=== PATIENT | male | born 1980 ===

== ENCOUNTER 2021-04-13 13:55 | Outpatient (REF) | payer BC, SELFPAY | END 2021-04-13 13:56 | disposition home or self-care (01) | LOC: HO.LAB 13:55 | PROVIDERS: Visit Provider Physician Assistant Medical | DX: R30.0 Dysuria (principal) | CPT/HCPCS: 87086 ==

== ENCOUNTER 2021-10-11 13:26 | Outpatient (REF) | payer BC, SELFPAY ==
--- NOTE | ~2021-10-11 | CT_ITS ---
EXAMINATION: CT CHEST WITHOUT CONTRAST CLINICAL INFORMATION: Pulmonary nodule COMPARISON: Previous chest x-rays from 2019 TECHNIQUE: Multidetector volumetric CT imaging of the chest was done. Axial MIP volume rendering provided. Sagittal and coronal reformatted images were obtained. This CT examination was performed using dose optimization techniques as appropriate, variously including the following: *Automated exposure control *Adjustment of mA and/or kV according to patient size (this includes techniques or standardized protocols for targeted exams where dose is matched to indication/reason for exam; i.e. extremities or head) *Use of iterative reconstruction technique DLP: 182 mGy-cm FINDINGS: LUNGS: There is a 3 mm calcified left lower lobe nodule adjacent to the fissure axial image 266 series 7. There is a 7 mm calcified left lower lobe nodule axial image 321 series 7. The lungs are otherwise clear. MEDIASTINUM: There are small calcified left hilar lymph nodes. The mediastinum is otherwise normal. PLEURA: There is no pleural effusion. No pleural mass or thickening. AXILLA: No lymphadenopathy. UPPER ABDOMEN: Unremarkable. OSSEOUS STRUCTURES: Unremarkable. CT/CT chest wo con IMPRESSION: Evidence of old granulomatous disease with 2 calcified left lower lobe nodules and small calcified left hilar lymph nodes. Fleischner guidelines were followed.
== END 2021-10-11 13:27 | disposition home or self-care (01) ==
LOC: HO.CT 13:26
PROVIDERS: PCP Internal Medicine; Visit Provider Internal Medicine
DX: R91.1 Solitary pulmonary nodule (principal); G43.909 Migraine, unspecified, not intractable, without status migrainosus
CPT/HCPCS: 71250

== ENCOUNTER → 2021-10-17 11:27 | Outpatient (BNVA) | payer BC, SELFPAY | PROVIDERS: PCP Internal Medicine; Visit Provider Internal Medicine Pulmonary Disease | DX: Z13.89 Encounter for screening for other disorder (principal) ==

== ENCOUNTER 2021-10-23 10:13 | Outpatient (REF) | payer BC, SELFPAY ==
[2021-10-23 11:36] LABS: Alanine Aminotransferase 51 U/L (0-40); Albumin Level 4.6 g/dL (3.5-5.0); Alkaline Phosphatase 66 U/L (39-117); Anion Gap 12 (12-20); Aspartate Amino Transferase 23 U/L (5-37); Bilirubin Total 0.6 mg/dL (0.0-1.0); Blood Urea Nitrogen 14 mg/dL (9-16); Calcium 9.8 mg/dL (8.4-10.2); Carbon Dioxide 25 mmol/L (22-29); Chloride 106 mmol/L (96-108); Cholesterol 206 mg/dL; Estimated Glomerular Filt Rate > 60; Glucose Fasting 88 mg/dL (60-99); HDL Cholesterol 44 mg/dL; LDL Cholesterol Calculated 143 mg/dl; Potassium 4.5 mmol/L (3.3-5.1); Sodium 138 mmol/L (135-145); Total Protein 7.4 g/dL (6.5-8.0); Triglycerides 97 mg/dL
== END 2021-10-23 10:14 | disposition home or self-care (01) ==
LOC: HO.LAB 10:13
PROVIDERS: PCP Internal Medicine; Visit Provider Internal Medicine
DX: Z00.00 Encounter for general adult medical examination without abnormal findings (principal)
CPT/HCPCS: 36415; 80053; 80061

== ENCOUNTER 2021-11-12 20:21 | Emergency (ER) | payer BC, SELFPAY ==
[2021-11-12 20:43] VITALS: BP 133/85; PULSE 84; RESP 18; TEMP 36.2; O2SAT 97; BMI 30.6
[2021-11-12] MEDS: Fluorescein Sodium STRIP 1 STRIP EYE-RIGHT (22:37)
[2021-11-12] MEDS: Tetracaine HCl/PF 0.5% Oph Sol 4 ML DROPS 1 DROP EYE-RIGHT (22:37)
--- NOTE | 2021-11-12 23:06 | ED.GENADULT ---
HPI - General Adult General Chief complaint: General Medical Stated complaint: Eye Inj Time Seen by Provider: 11/12/21 21:17 Source: patient Mode of arrival: ambulatory Limitations: no limitations History of Present Illness HPI narrative: 40 year old male here with reports of right eye discomfort after he hit his eye with pliers at home. Tetanus status is unknown. No vision changes, no eye drainage. Related Data Home Medications Medication Instructions Recorded Confirmed epinephrine 0.3 mg/0.3 mL 1 IM ONCE 04/10/20 10/18/21 injection, auto-injector Previous Rx's Medication Instructions Recorded amitriptyline 25 mg tablet 25 mg PO BEDTIME 90 Days #90 tab 09/27/21 sumatriptan succinate 25 mg tablet 25 mg PO Q2-4H PRN 30 Days #9 tab 09/27/21 azithromycin 250 mg tablet 250 mg PO DIRECTED 5 Days #6 tab 10/18/21 tobramycin 0.3 % eye drops 1 drp OPHTHALMIC (EYE) Q4H 5 Days 10/18/21 #5 ml triamcinolone acetonide 0.1 % 1 appl TOPICAL BID 14 Days #15 g 10/18/21 topical cream erythromycin 5 mg/gram (0.5 %) eye 0.5 inch OPHTHALMIC (EYE) BID 7 11/12/21 ointment Days #3.5 g Allergies Allergy/AdvReac Type Severity Reaction Status Date / Time aspirin [ASA] Allergy Severe ANAPHYLAXIS, Verified 10/18/21 16:17 facial swelling ibuprofen [Advil] Allergy Unknown tracheal Verified 10/18/21 16:17 swelling shellfish derived Allergy Unknown Anaphylaxis Verified 10/18/21 16:17 Review of Systems Review of Systems: Yes all other systems are reviewed and are negative Constitutional: Constitutional: Reports no additional constitutional complaints, Denies body ache(s), Denies chills, Denies fever(s), Denies headache(s) and Denies weakness Eyes: Eyes: Reports no additional eye complaints, Denies change in vision, Denies eye discharge, Reports irritation, Denies eye pain and Denies photophobia ENT: Reports system reviewed and no additional complaints, except as documented, Denies dizziness, Denies headache(s), Denies nasal congestion, Denies nasal discharge and Denies neck pain Cardiovascular: Cardiovascular: Reports no additional cardiovascular complaints, Denies chest pain, Denies leg edema and Denies dyspnea Respiratory: Respiratory: Reports no additional respiratory complaints, Denies cough and Denies dyspnea Gastrointestinal: Gastrointestinal: Reports no additional gastrointestinal complaints, Denies abdominal pain, Denies diarrhea, Denies nausea and Denies vomiting Genitourinary: Genitourinary: Denies urinary incontinence Musculoskeletal: Musculoskeletal: Reports no additional musculoskeletal complaints, Denies back pain, Denies arthralgias, Denies joint swelling, Denies neck pain, Denies numbness and Denies tingling Integumentary/Breasts: Skin/Breast: Reports system reviewed and no additional complaints, except as docu and Denies rash Neurologic: Reports system reviewed and no additional complaints, except as documented, Denies dizziness, Denies headache(s), Denies numbness, Denies tingling and Denies weakness PMFSH Past Medical History Attestation statement: The following information was validated with the patient. Source: old records reviewed and nursing notes reviewed Medical History Anxiety Hospital discharge follow-up Migraines Mild recurrent major depression Physical exam Pulmonary nodules Screen for colon cancer Surgical History No pertinent past surgical history Family History Family History Father Colon cancer, Onset Age: 63 Liver cancer Mother Breast cancer Diabetes Hypertension Maternal Grandmother Cancer Paternal Aunt Cancer Family/Other FH: mental illness Social History Social History Housing: House Alcohol intake: former Patient Tobacco Use Status: Former Tobacco user Tobacco use type: Cigarette Cigarettes Per Day: 7 e-Cigarette/Vaping Use: Never Used Second Hand Smoke Exposure: No service: No Current occupational status: employed Current occupational exposures/hazards: No Cognitive needs: No Hearing needs: No Vision needs: No Physical Exam ED Vital Signs: Vital Signs - 24 hr 11/12/21 20:43 Temperature 97.2 F Pulse Rate 84 Respiratory Rate 18 Blood Pressure 133/85 Pulse Oximetry 97 BMI result Body Mass Index 30.6 Const General: cooperative and alert Orientation/consciousness: patient oriented x3 HENMT Head: Yes normal to inspection Ears: hearing grossly normal bilaterally General nose exam: Normal external nose present Face and sinus: Yes normal facial exam Mouth: Normal oral and palatal mucosa present Throat: Yes posterior oropharynx normal Eyes General: appearance normal, both eyes and all related structures Visual Santos: normal visual santos by confrontation Alignment and Position: alignment normal Periorbital: periorbital findings normal Eyelids: Yes other (Ecchymosis and swelling noted over the upper and lower eyelid on the right ) Conjunctivae: conjunctival abnormal right conjunctival injection and other (+fluoro uptake) Sclerae: sclerae normal Corneas: corneas normal, fluorescein used and other (No corneal abrasion or foreign body) Pupils: Equal, round and reactive pupils present EOM: EOMs intact bilaterally Direct Ophthalmoscopy: normal light reflex and No photophobia Neck Neck: Yes normal visual inspection Chest Chest palpation & inspection: normal inspection of the chest Resp Effort & Inspection: normal respiratory effort Cardio Peripheral pulses: Peripheral pulses 2+ throughout Skin General skin exam: no rashes or lesions noted Neuro General: patient oriented x3 and moves all extremities Cranial nerves: Yes Equal, round and reactive pupils present Course Course Course Narrative: Right eye irritation after striking his eye with prior shows prior to arrival. No vision changes. Patient has some ecchymosis noted over the upper and lower eyelid on the right side. His visual acuity is normal. He has some injection and increased uptake of fluorescein in his right conjunctiva but no corneal abrasion or foreign body noted. Patient given for recent mycin while he was in the emergency department. He was also updated on his tetanus. Reviewed worrisome signs and symptoms and when to return to the emergency department. Comfortable discharge home. Medical Decision Making Medical Records Medical records reviewed: Yes I reviewed the patient's medical records. Lab Data Lab results reviewed: Yes I reviewed the patient's lab results. Discharge Plan Discharge Clinical Impression: Contusion of eye, Abrasion of conjunctiva Patient Disposition: Home, Self-Care Instructions: Contusion in Adults (ED), Eye Pain (ED) Additional Instructions: You have a contusion or bruise around her eye. You also have a scratch in the white part of the eye Use the ointment as prescribed Cool compresses to the eye as needed Prescriptions: New erythromycin 5 mg/gram (0.5 %) ointment 0.5 inch ophthalmic (eye) BID 7 Days Qty: 3.5 0RF No Action epinephrine 0.3 mg/0.3 mL auto-injector 1 IM ONCE 0RF triamcinolone acetonide 0.1 % cream 1 appl topical BID 14 Days Qty: 15 0RF azithromycin 250 mg tablet 250 mg PO DIRECTED 5 Days Qty: 6 0RF Rx Instructions: Take 2 tabs the first day, then 1 tab for the next 4 days tobramycin 0.3 % drops 1 drp ophthalmic (eye) Q4H 5 Days Qty: 5 0RF sumatriptan succinate 25 mg tablet 25 mg PO Q2-4H PRN (Reason: migraine headache) 30 Days Qty: 9 2RF Rx Instructions: do not exceed 8 doses per 24 hrs amitriptyline 25 mg tablet 25 mg PO BEDTIME 90 Days Qty: 90 0RF Referrals: Ale Minor MD [Primary Care Provider] -
[2021-11-12] MEDS: Diphth,Pertus(ACell),Tet Adult 0.5 ML SYRINGE IM (23:37)
[2021-11-12] MEDS: Erythromycin Base 0.5% Oph Oin 1 GM TUBE 1 CM EYE-RIGHT (23:37)
== END 2021-11-12 23:48 | disposition home or self-care (01) ==
LOC: HO.ED 23:21
PROVIDERS: Emergency Provider Emergency Medicine; PCP Internal Medicine
DX: S00.11XA Contusion of right eyelid and periocular area, initial encounter (principal); S05.01XA Injury of conjunctiva and corneal abrasion without foreign body, right eye, initial encounter; W22.8XXA Striking against or struck by other objects, initial encounter; Y93.89 Activity, other specified; Y92.019 Unspecified place in single-family (private) house as the place of occurrence of the external cause; Y99.9 Unspecified external cause status
CPT/HCPCS: 90471; 90715; 99282; 99284

== ENCOUNTER 2021-12-25 12:20 | Emergency (ER) | payer BC, SELFPAY ==
--- NOTE | ~2021-12-25 | CT_ITS ---
EXAMINATION: CT ABDOMEN AND PELVIS WITH CONTRAST CLINICAL INFORMATION: umbilical hernia r/o strangulation vs incarceration COMPARISON: CT abdomen pelvis 04/12/2016 TECHNIQUE: Multidetector volumetric images were obtained from the superior aspect of the liver through the pubic symphysis following administration 85 mL of Omnipaque 350 intravenous contrast. Sagittal and coronal reformatted images were obtained on the technologist's workstation. Oral contrast: No This CT examination was performed using dose optimization techniques as appropriate, variously including the following: *Automated exposure control *Adjustment of mA and/or kV according to patient size (this includes techniques or standardized protocols for targeted exams where dose is matched to indication/reason for exam; i.e. extremities or head) *Use of iterative reconstruction technique DLP: 588 mGy-cm FINDINGS: LUNG BASES: The visualized lung bases are unremarkable. A large calcified granuloma is present at the left lung base. LIVER, GALLBLADDER, AND BILIARY TREE: The liver is normal in size, shape, and attenuation. No focal hepatic lesion or biliary ductal dilatation is present. The gallbladder is unremarkable with no evidence of radiopaque gallstones, gallbladder wall thickening, or obvious pericholecystic inflammatory changes. PANCREAS: Unremarkable. SPLEEN: Unremarkable. ADRENAL GLANDS: Unremarkable. KIDNEYS AND URETERS: The kidneys are normal in size, shape, and attenuation. No hydronephrosis, hydroureter, or calculi seen. No perinephric stranding. BLADDER: Unremarkable. GASTROINTESTINAL TRACT: The small and large bowel are unremarkable. The appendix is unremarkable. ABDOMINAL WALL: A small periumbilical hernia is seen containing only fat. The hernia is a tiny bit larger when compared to the 04/12/2016 study but otherwise without significant change. Some minimal soft tissue streaky density seen within this umbilical fat which appears similar to 2016. No bowel containing anterior abdominal wall hernias are seen. There are tiny indirect inguinal hernia seen containing only fat LYMPH NODES: No retroperitoneal lymphadenopathy. VASCULAR: Unremarkable. There is an accessory retroaortic left renal vein present. PELVIC VISCERA: Unremarkable. Central prostatic calcifications are present. OSSEOUS STRUCTURES: Unremarkable. CT/CT abdomen pelvis w con IMPRESSION: Tiny periumbilical hernia containing only fat with tiny indirect inguinal hernias containing fat. Appearances are not significantly different when compared to 2016. Fleischner guidelines were followed.
[2021-12-25 13:21] VITALS: BP 121/84; PULSE 81; RESP 16; TEMP 36.6; O2SAT 98; BMI 30.4
[2021-12-25 14:11] LABS: MANUAL DIFF FLAG NO
[2021-12-25 14:12] LABS: Basophils Percent Auto 0.5 % (0-2); Eosinophils Absolute Auto 0.1 X10*3/uL (0.0-0.4); Eosinophils Percent Auto 2.1 % (0-4); Hematocrit 45.5 % (42.0-52.0); Hemoglobin 14.6 g/dl (14.0-18.0); Imm Gran Abs Auto 0.01 X10*3/uL (0.00-0.03); Imm Gran Pct Auto 0.2 % (0.0-0.4); Lymphocytes Absolute Auto 1.5 X10*3/uL (1.2-4.9); Lymphocytes Percent Auto 26.3 % (20-40); Mean Corpuscular HGB Conc 32.1 g/dl (31.0-36.0); Mean Corpuscular Hemoglobin 27.8 pg (27.0-33.0); Mean Corpuscular Volume 86.5 fL (80.0-98.0); Monocytes Absolute Auto 0.5 X10*3/uL (0.1-1.2); Monocytes Percent Auto 8.4 % (2-11); Neutrophils Absolute Auto 3.6 x10*3/uL (2.0-8.3); Neutrophils Percent Auto 62.5 % (45-73); Platelet Count 307 X10*3/uL (160-400); Red Blood Count 5.26 X10*6/uL (4.60-5.80); Red Cell Distribution Width 13.5 % (11.0-16.0); White Blood Count 5.7 X10*3/uL (4.8-10.8)
[2021-12-25 14:43] LABS: Alanine Aminotransferase 101 U/L (0-40); Alkaline Phosphatase 66 U/L (39-117); Anion Gap 12 (12-20); Aspartate Amino Transferase 40 U/L (5-37); Bilirubin Direct 0.2 mg/dL (0.0-0.5); Bilirubin Total 0.5 mg/dL (0.0-1.0); Blood Urea Nitrogen 15 mg/dL (9-16); C Reactive Protein 0.64 mg/dL (< or = 0.50); Calcium 9.5 mg/dL (8.4-10.2); Carbon Dioxide 24 mmol/L (22-29); Chloride 107 mmol/L (96-108); Creatinine Clr Calc Pharmacy 131.7; Estimated Glomerular Filt Rate > 60; Glucose Random 96 mg/dL (60-115); Lipase 23 U/L (8-78); Potassium 4.5 mmol/L (3.3-5.1); Sodium 138 mmol/L (135-145); Total Protein 7.9 g/dL (6.5-8.0)
--- NOTE | 2021-12-25 15:22 | ED_ITS ---
HPI - Abdominal Pain General Chief Complaint: Abdominal Pain Stated Complaint: Hernia Time Seen by Provider: 12/25/21 13:34 Source: patient Mode of arrival: ambulatory History of Present Illness HPI narrative: 41-year-old male with past medical history of anxiety, migraines, umbilical hernia, presenting to the ED complaining of painful umbilical hernia x3 days. Reports pain is constant mildly relieved when lying flat. Admits to heavy lifting at work. Denies difficulty having BMs, nausea, vomiting, fever, diarrhea, dysuria/hematuria MD elicited complaint: abdominal pain Onset (ago): day(s) Related Data Home Medications Medication Instructions Recorded Confirmed epinephrine 0.3 mg/0.3 mL 1 IM ONCE 04/10/20 12/03/21 injection, auto-injector Previous Rx's Medication Instructions Recorded bisacodyl 5 mg tablet,delayed 10 mg PO ONCE colonoscopy prep 1 12/03/21 release (Dulcolax (bisacodyl)) day #2 tabs polyethylene glycol 3350 17 238 g PO ONCE 1 day #238 grams 12/03/21 gram/dose oral powder (Miralax) sennosides 8.6 mg capsule (senna) 8.6 mg PO DAILY PRN constipation 12/03/21 #30 caps amitriptyline 25 mg tablet 25 mg PO BEDTIME 90 days #90 tabs 12/24/21 Allergies Allergy/AdvReac Type Severity Reaction Status Date / Time aspirin [ASA] Allergy Severe ANAPHYLAXIS, Verified 12/25/21 13:25 facial swelling ibuprofen [Advil] Allergy Unknown tracheal Verified 12/25/21 13:25 swelling shellfish derived Allergy Unknown Anaphylaxis Verified 12/25/21 13:25 Review of Systems Review of Systems Constitutional: No Fever, No Chills, No Fatigue, No Malaise ENT/Mouth: No Hearing loss, No Ear Pain, No sore throat, No Rhinorrhea, No Swallowing Difficulty Eyes: No Eye Pain, No Swelling, No Vision Changes Cardiovascular: No Chest Pain, No SOB, No Palpitations Respiratory: No Cough, No Sputum, No Dyspnea Gastrointestinal: No Nausea, No Vomiting, No Diarrhea, No Constipation, + Abdominal pain, No Hematochezia, No Melena Genitourinary: No Dysuria, No Urinary Frequency, No Hematuria, No Urinary Incontinence/retention, No Flank Pain Musculoskeletal: No joint pain, No Myalgias, No Joint Swelling Skin: No Skin Lesions, No rash Neuro: No Weakness, No Dizziness, No Headache Yes all other systems are reviewed and are negative PENDING SALE TO [facility] Past Medical History Attestation statement: The following information was validated with the patient. Medical History Anxiety Hospital discharge follow-up Migraines Mild recurrent major depression Physical exam Pulmonary nodules Screen for colon cancer Surgical History No pertinent past surgical history Family History Family History Father Colon cancer, Onset Age: 63 Liver cancer Mother Breast cancer Diabetes Hypertension Maternal Grandmother Cancer Paternal Aunt Cancer Family/Other FH: mental illness Social History Social History Housing: House Alcohol intake: former Patient Tobacco Use Status: Former Tobacco user Tobacco use type: Cigarette Cigarettes Per Day: 7 e-Cigarette/Vaping Use: Never Used Second Hand Smoke Exposure: No Advance Directives: No Advance Directives Information Provided: No service: No Current occupational status: employed Current occupational exposures/hazards: No Cognitive needs: No Hearing needs: No Vision needs: No Physical Exam ED Vital Signs: Vital Signs - 24 hr 12/25/21 13:21 12/25/21 16:04 12/25/21 17:37 Temperature 97.8 F 98.2 F Pulse Rate 81 70 Respiratory Rate 16 18 16 Blood Pressure 121/84 138/88 Pulse Oximetry 98 100 Oxygen Delivery Method Room Air Room Air BMI result Body Mass Index 30.4 Const General: cooperative and healthy appearing Orientation/consciousness: patient oriented x3 Limitations: no limitations HENMT Head: Yes normal to inspection and Yes atraumatic Ears: hearing grossly normal bilaterally General nose exam: Normal external nose present Face and sinus: Yes normal facial exam Eyes General: appearance normal, both eyes and all related structures EOM: EOMs intact bilaterally Neck Neck: Yes normal visual inspection and Yes no meningeal signs Resp Effort & Inspection: normal respiratory effort and no respiratory distress Cardio Rate: regular rate Heart sounds: S1 normal heart sound present and S2 normal heart sound present GI Inspection: Yes normal to inspection Palpation (GI): Soft to palpation, Tenderness to palpation present (GI) periumbilically, no guarding, not rigid and Hernia present (Nonreducible) umbilical General: Yes no CVA tenderness Back/Spine/Pelvis Back: no CVA tenderness Skin Rashes: no rashes Wounds: no wounds Neuro General: patient oriented x3, tone normal and no meningeal signs Gait exam (Neuro): Normal gait present Extrem General: Yes normal to inspection Course Course Course Narrative: -no leukocytosis. AST/ALT elevated. CRP minimally elevated -lactic acid negative CT abdomen pelvis w con IMPRESSION: Tiny periumbilical hernia containing only fat with tiny indirect inguinal hernias containing fat. Appearances are not significantly different when compared to 2016.? ? Fleischner guidelines were followed. > results discussed with patient in interpreter for the deaf including worrisome signs and symptoms and strict return precautions and need close follow-up with PCP/General surgery. He verbalized understanding feel safe for discharge home MDM - Abdominal Pain MDM Narrative Medical decision making narrative: 41-year-old male with past medical history of anxiety, migraines, umbilical hernia, presenting to the ED complaining of painful umbilical hernia x3 days. On exam vital signs stable, NAD, nontoxic appearing, abdomen soft with appreciable umbilical hernia that is tender to palpation and non reducible on exam. Concern for incarcerated hernia versus strangulated hernia. Lower suspicion for diverticulitis/appendicitis/pancreatitis or cholecystitis/lithiasis Plan: Labs, UA, IVF, IV pain control, CT abdomen/pelvis Differential Diagnosis Differential diagnosis: Likely abdominal pain, constipation, mesenteric ischemia and small bowel obstruction Medical Records Attestation: I reviewed the patient's medical records. Lab Data Attestation: I reviewed the patient's lab results. Result diagrams: 12/25/21 14:01 12/25/21 14:01 Labs: Lab Results 12/25/21 12/25/21 12/25/21 Range/Units 14:01 14:01 15:32 WBC 5.7 (4.8-10.8) X10*3/uL RBC 5.26 (4.60-5.80) X10*6/uL Hgb 14.6 (14.0-18.0) g/dl Hct 45.5 (42.0-52.0) % MCV 86.5 (80.0-98.0) fL MCH 27.8 (27.0-33.0) pg MCHC 32.1 (31.0-36.0) g/dl RDW 13.5 (11.0-16.0) % Plt Count 307 (160-400) X10*3/uL MPV 9.0 L (9.4-12.4) fL Immature Gran % (Auto) 0.2 (0.0-0.4) % Neut % (Auto) 62.5 (45-73) % Lymph % (Auto) 26.3 (20-40) % [place] % (Auto) 8.4 (2-11) % Eos % (Auto) 2.1 (0-4) % Baso % (Auto) 0.5 (0-2) % Lymph # (Auto) 1.5 (1.2-4.9) X10*3/uL [place] # (Auto) 0.5 (0.1-1.2) X10*3/uL Eos # (Auto) 0.1 (0.0-0.4) X10*3/uL Baso # (Auto) 0.0 (0.0-0.2) X10*3/uL Abs Immat Gran (auto) 0.01 (0.00-0.03) X10*3/uL Absolute Neuts (auto) 3.6 (2.0-8.3) x10*3/uL Absolute Nucleated RBC 0.000 (0.0-0.012) X10*3/uL Nucleated RBC % (auto) 0.0 (0.0-0.2) /100WBC Sodium 138 (135-145) mmol/L Potassium 4.5 (3.3-5.1) mmol/L Chloride 107 (96-108) mmol/L Carbon Dioxide 24 (22-29) mmol/L Anion Gap 12 (12-20) BUN 15 (9-16) mg/dL Creatinine 0.75 (0.5-1.4) mg/dL Estim Creat Clear Calc 131.7 Estimated GFR > 60 Random Glucose 96 (60-115) mg/dL Lactic Acid (0.5-2.0) mmol/L Calcium 9.5 (8.4-10.2) mg/dL Total Bilirubin 0.5 (0.0-1.0) mg/dL Direct Bilirubin 0.2 (0.0-0.5) mg/dL AST 40 H D (5-37) U/L ALT 101 H (0-40) U/L Alkaline Phosphatase 66 (39-117) U/L C-Reactive Protein 0.64 H (< or = 0.50) mg/dL Total Protein 7.9 (6.5-8.0) g/dL Albumin 5.0 (3.5-5.0) g/dL Lipase 23 (8-78) U/L Urine Color STRAW Urine Appearance CLEAR Urine pH 6.0 (5.0-8.0) Ur Specific [place] <= 1.005 (1.005-1.025) Urine Protein NEG (NEG-TRACE) MG/DL Urine Glucose (UA) NEG (NEG) MG/DL Urine Ketones NEG (NEG) MG/DL Urine Blood NEG (NEG) Urine Nitrite NEG (NEG) Ur Leukocyte Esterase NEG (NEG) 12/25/21 Range/Units 15:35 WBC (4.8-10.8) X10*3/uL RBC (4.60-5.80) X10*6/uL Hgb (14.0-18.0) g/dl Hct (42.0-52.0) % MCV (80.0-98.0) fL MCH (27.0-33.0) pg MCHC (31.0-36.0) g/dl RDW (11.0-16.0) % Plt Count (160-400) X10*3/uL MPV (9.4-12.4) fL Immature Gran % (Auto) (0.0-0.4) % Neut % (Auto) (45-73) % Lymph % (Auto) (20-40) % [place] % (Auto) (2-11) % Eos % (Auto) (0-4) % Baso % (Auto) (0-2) % Lymph # (Auto) (1.2-4.9) X10*3/uL [place] # (Auto) (0.1-1.2) X10*3/uL Eos # (Auto) (0.0-0.4) X10*3/uL Baso # (Auto) (0.0-0.2) X10*3/uL Abs Immat Gran (auto) (0.00-0.03) X10*3/uL Absolute Neuts (auto) (2.0-8.3) x10*3/uL Absolute Nucleated RBC (0.0-0.012) X10*3/uL Nucleated RBC % (auto) (0.0-0.2) /100WBC Sodium (135-145) mmol/L Potassium (3.3-5.1) mmol/L Chloride (96-108) mmol/L Carbon Dioxide (22-29) mmol/L Anion Gap (12-20) BUN (9-16) mg/dL Creatinine (0.5-1.4) mg/dL Estim Creat Clear Calc Estimated GFR Random Glucose (60-115) mg/dL Lactic Acid 0.8 (0.5-2.0) mmol/L Calcium (8.4-10.2) mg/dL Total Bilirubin (0.0-1.0) mg/dL Direct Bilirubin (0.0-0.5) mg/dL AST (5-37) U/L ALT (0-40) U/L Alkaline Phosphatase (39-117) U/L C-Reactive Protein (< or = 0.50) mg/dL Total Protein (6.5-8.0) g/dL Albumin (3.5-5.0) g/dL Lipase (8-78) U/L Urine Color Urine Appearance Urine pH (5.0-8.0) Ur Specific [place] (1.005-1.025) Urine Protein (NEG-TRACE) MG/DL Urine Glucose (UA) (NEG) MG/DL Urine Ketones (NEG) MG/DL Urine Blood (NEG) Urine Nitrite (NEG) Ur Leukocyte Esterase (NEG) Discharge Plan Discharge Clinical Impression: Periumbilical hernia Patient Disposition: Home, Self-Care Instructions: Umbilical Hernia (ED) Additional Instructions: Your blood work was reassuring. CT scan shows a tiny periumbilical hernia as well as an indirect inguinal hernia both containing fat. These are not causing any issues at present. Avoid straining, heavy lifting, i ncreasing abdominal pressure Please follow-up with primary care doctor in General surgery as needed. Take Tylenol at home for pain Kelley an?lisis de deepti fue tranquilizador. La tomograf?a computarizada muestra carlos jorge?a hernia periumbilical, as? amber carlos hernia inguinal indirecta, ambas con contenido de grasa. Estos no est?n causando ward?n problema en quinn momento. Evite esforzarse, levantar objetos pesados, aumentar la presi?n abdominal Joey un seguimiento con el m?dico de atenci?n primaria en [place]?a general seg?n sea necesario. [place] Tylenol en casa para el dolor Prescriptions: No Action amitriptyline 25 mg tablet 25 mg PO BEDTIME 90 Days Qty: 90 0RF epinephrine 0.3 mg/0.3 mL auto-injector 1 IM ONCE bisacodyl [Dulcolax (bisacodyl)] 5 mg tablet,delayed release (DR/EC) 10 mg PO ONCE 1 Days Qty: 2 0RF Rx Instructions: Take 2 tablets by mouth at 12:00pm the day before your procedure. polyethylene glycol 3350 [Miralax] 17 gram/dose powder 238 g PO ONCE 1 Days Qty: 238 0RF Rx Instructions: Take as directed by mouth the day before your procedure. senna 8.6 mg capsule 8.6 mg PO DAILY PRN (Reason: constipation) Qty: 30 1RF Referrals: Dominguez Wise MD [Physician] - 10 days Ale Minro MD [Primary Care Provider] - 5 days Print Language: [place]
[2021-12-25 15:47] LABS: Appearance Urine CLEAR; Color Urine STRAW; Glucose Urine UA NEG (NEG); Leukocyte Esterase Urine NEG (NEG); Nitrite Urine NEG (NEG); Specific Gravity - Urine <= 1.005 (1.005-1.025); Urine Blood NEG (NEG); Urine Ketones NEG (NEG); Urine Protein NEG (NEG-TRACE)
[2021-12-25] MEDS: iohexoL 350 MG/ML 100 ML INFUS..BTL IV (15:50)
[2021-12-25 15:52] LABS: Lactic Acid 0.8 mmol/L (0.5-2.0)
[2021-12-25 16:04] VITALS: RESP 18
[2021-12-25] MEDS: Morphine Sulfate 2 MG/ML CARTRIDGE IVPUSH (16:04)
[2021-12-25] MEDS: 0.9 % Sodium Chloride 1,000 ML 999 ML IV (16:04)
[2021-12-25 17:15] VITALS: RESP 16
[2021-12-25 17:37] VITALS: BP 138/88; PULSE 70; RESP 16; TEMP 36.8; O2SAT 100
== END 2021-12-25 18:50 | disposition home or self-care (01) ==
PROVIDERS: Physician Assistant; Emergency Provider Emergency Medicine; PCP Internal Medicine
DX: K42.9 Umbilical hernia without obstruction or gangrene (principal); R10.33 Periumbilical pain; Z87.891 Personal history of nicotine dependence; Z79.899 Other long term (current) drug therapy
CPT/HCPCS: 36415; 74177; 80048; 80076; 81003; 83605; 83690; 85025; 86140; 96374; 96375; 99284; J2270; Q9967

== ENCOUNTER 2022-04-08 08:38 | Outpatient (REF) | payer BC, SELFPAY ==
--- NOTE | ~2022-04-08 | CT_ITS ---
EXAMINATION: CT CHEST WITHOUT CONTRAST CLINICAL INFORMATION: Abnormal findings of lung santos. COMPARISON: CT chest 10/10/2021. TECHNIQUE: Multidetector volumetric CT imaging of the chest was done. Axial MIP volume rendering provided. Sagittal and coronal reformatted images were obtained. This CT examination was performed using dose optimization techniques as appropriate, variously including the following: *Automated exposure control *Adjustment of mA and/or kV according to patient size (this includes techniques or standardized protocols for targeted exams where dose is matched to indication/reason for exam; i.e. extremities or head) *Use of iterative reconstruction technique DLP: 155 mGy-cm. 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 LUNGS: The lungs are well expanded with minimal atelectatic changes in the right middle lobe and lingula. There is a 3 mm calcified nodule left lower lobe adjacent to major fissure axial image 166/9 and a 7 mm calcified nodule left lower lobe subpleural location image 211/9. There is a 5 mm noncalcified nodule in the lingula axial image 251/9. These nodules are essentially stable compared to previous study. MEDIASTINUM: The thyroid lobes are symmetrical and normal. The central trachea and the bronchi are widely patent. There is residual thymus seen in the anterior mediastinum. Heart size and the great vessels are normal caliber. No pericardial effusion seen. CORONARY ARTERY CALCIFICATION: None visualized on this study. PLEURA: There is no pleural effusion. No pleural mass or thickening. AXILLA: Small shotty lymph nodes seen in the axilla. The chest wall is unremarkable. UPPER ABDOMEN: Visualized liver, spleen, pancreas and bilateral adrenal glands are unremarkable. OSSEOUS STRUCTURES: There is no lytic or sclerotic process seen. CT/CT chest wo IV con IMPRESSION: 1. Stable calcified and noncalcified pulmonary nodules. No new nodules seen. 2. Minimal atelectatic changes in the right middle lobe and lingula. Fleischner guidelines were followed.
== END 2022-04-08 08:39 | disposition home or self-care (01) ==
LOC: HO.CT 08:38
PROVIDERS: PCP Internal Medicine; Visit Provider Internal Medicine Pulmonary Disease
DX: R91.8 Other nonspecific abnormal finding of lung field (principal)
CPT/HCPCS: 71250

== ENCOUNTER 2022-04-18 08:41 | Day surgery (SDC) | payer BC, SELFPAY ==
[2022-04-12 15:11] VITALS: BMI 31.4
--- NOTE | 2022-04-17 13:35 | HO.ANESPROP2 ---
Documented by User: Kacey Jones NP 04/17/22 13:36 HPI - Anesthesia Eval Consult details Narrative: 41yo M for Colonoscopy PMFSH Active Problems Active Problems: All Active Problems (Updated 04/12/22 @ 15:10 by Trudy Leal, BILLY) Somatic dysfunction of left sacroiliac joint (Acute) Occipital neuralgia (Acute) Dysuria (Acute) Chronic constipation (Acute) Family history of colon cancer (Acute) Mild recurrent major depression (Acute) Physical exam (Acute) Anxiety (Acute) Hospital discharge follow-up (Acute) Screen for colon cancer (Acute) Pulmonary nodules (Acute) Migraines (Acute) Past Medical History Medical History (Updated 04/12/22 @ 15:10 by Trudy Leal RN) Anxiety History of COVID-19 Hospital discharge follow-up Migraines Mild recurrent major depression Physical exam Pulmonary nodules Screen for colon cancer Family History Family History Father Colon cancer, Onset Age: 63 Liver cancer Mother Breast cancer Diabetes Hypertension Maternal Grandmother Cancer Paternal Aunt Cancer Family/Other FH: mental illness Surgical History Surgical History No pertinent past surgical history Social History Social History Housing: House Alcohol intake: former Patient Tobacco Use Status: Former Tobacco user Tobacco use type: Cigarette Cigarettes Per Day: 7 e-Cigarette/Vaping Use: Never Used Second Hand Smoke Exposure: No service: No Current occupational status: employed Current occupational exposures/hazards: No Cognitive needs: No Hearing needs: No Vision needs: No Meds Allergies Allergy/AdvReac Type Severity Reaction Status Date / Time aspirin [ASA] Allergy Severe ANAPHYLAXIS, Verified 02/20/22 16:51 facial swelling ibuprofen [Advil] Allergy Unknown tracheal Verified 02/20/22 16:51 swelling shellfish derived Allergy Unknown Anaphylaxis Verified 02/20/22 16:51 amitriptyline AdvReac Mild constipatio Verified 02/20/22 16:54 n Home Medications Medication Instructions Recorded Confirmed Last Taken Type epinephrine 0.3 mg/0.3 mL 0.3 mg IM ONCE PRN Anaphylaxis 04/10/20 04/12/22 Unknown History injection, auto-injector Exam Exam Date and Time: April 17, 2022 1335 Height,Weight and Vital Signs: Height 5 ft 5 in Weight 85.729 kg Pertinent Lab Results Pertinent Lab Results: Laboratory Tests 12/25/21 12/25/21 14:01 14:01 WBC 5.7 Hgb 14.6 Hct 45.5 Plt Count 307 Sodium 138 Potassium 4.5 Chloride 107 Carbon Dioxide 24 BUN 15 Creatinine 0.75 Assessment and Plan Assessment Anesthesia Assessment: Chart Reviewed Documented by User: Toño Jin MD 04/18/22 18:05 PMFSH Past Medical History Medical History (Updated 04/12/22 @ 15:10 by Trudy Leal RN) Anxiety History of COVID-19 Hospital discharge follow-up Migraines Mild recurrent major depression Physical exam Pulmonary nodules Screen for colon cancer Functional capacity: independent ambulation Family History Family History Father Colon cancer, Onset Age: 63 Liver cancer Mother Breast cancer Diabetes Hypertension Maternal Grandmother Cancer Paternal Aunt Cancer Family/Other FH: mental illness Family history of problems with anesthesia: No Surgical History Surgical History No pertinent past surgical history History of Problems with Anesthesia: No Social History Social History Housing: House Alcohol intake: former Patient Tobacco Use Status: Former Tobacco user Tobacco use type: Cigarette Cigarettes Per Day: 7 e-Cigarette/Vaping Use: Never Used Second Hand Smoke Exposure: No service: No Current occupational status: employed Current occupational exposures/hazards: No Cognitive needs: No Hearing needs: No Vision needs: No Meds Allergies Allergy/AdvReac Type Severity Reaction Status Date / Time aspirin [ASA] Allergy Severe ANAPHYLAXIS, Verified 02/20/22 16:51 facial swelling ibuprofen [Advil] Allergy Unknown tracheal Verified 02/20/22 16:51 swelling shellfish derived Allergy Unknown Anaphylaxis Verified 02/20/22 16:51 amitriptyline AdvReac Mild constipatio Verified 02/20/22 16:54 n Home Medications Medication Instructions Recorded Confirmed Last Taken Type epinephrine 0.3 mg/0.3 mL 0.3 mg IM ONCE PRN Anaphylaxis 04/10/20 04/12/22 Unknown History injection, auto-injector Exam Airway Mallampati Class: III Neck ROM: Full Loose/Missing/Broken Teeth: Yes Heart: S1,S2 Lungs: b/l breath sounds Assessment and Plan Assessment Anesthesia Assessment: Anesthesia Plan Discussed Final Anesthetic Review Family History of Problems with Anesthesia: No History of Problems with Anesthesia: No NPO: Yes ASA Class: II Final Preanesthetic Review: Meds/Allgs Chart Reviewed, Consent Obtained/Reviewed and Anes Risks/Benef Reviewed Patient Risk: Intermediate Procedure Risk: Intermediate Anesthetic Plan Anesthetic Plan: MAC: Disposition: Standard PACU
[2022-04-18 08:56] VITALS: BMI 31.2
[2022-04-18 09:05] VITALS: BP 127/84; PULSE 99; RESP 16; TEMP 36.5; O2SAT 97
--- NOTE | 2022-04-18 09:09 | MHC.SHP ---
Pre-Procedural Eval Section A Date of Service: 04/18/22 Section B Chief Complaint: screening Details of Present Illness: father with CRC Relevant Family History (Specify if Yes): Yes Relevant Social History: None Present Medications: see Short Stay Collaborative assessment Medical History: Significant History (Anxiety History of COVID-19 Hospital discharge follow-up Migraines Mild recurrent major depression Physical exam Pulmonary nodules Screen for colon cancer) History of Previous Operations: No relevant previous surgery Allergies: Allergies Allergy/AdvReac Type Severity Reaction Status Date / Time aspirin [ASA] Allergy Severe ANAPHYLAXIS, Verified 02/20/22 16:51 facial swelling ibuprofen [Advil] Allergy Unknown tracheal Verified 02/20/22 16:51 swelling shellfish derived Allergy Unknown Anaphylaxis Verified 02/20/22 16:51 amitriptyline AdvReac Mild constipatio Verified 02/20/22 16:54 n Review of Systems Sugical H&P ROS: Negative: Constitution, Cardiovascular, Respiratory, Neurological, Psychiatric, Hem-Onc, Allergic/Immunologic, Gastrointestinal, Genitourinary, Musculoskeletal, Integumentary, Endocrine and Eyes/Ears/Nose/Throat Exam Surgical H&P Exam: Normal: HEENT, Normal: Heart, Normal: Lungs, Normal: Extremities, Normal: Abdomen, Normal: Skin and Normal: Neurological Plan Diagnosis/Plan: Unchanged I have reviewed the history and physical and performed a pertinent physical examination on my patient. No changes have occurred unless specified.
--- NOTE | 2022-04-18 09:10 | P.OP_ITS ---
Operative Note Operative Note Date of Service: 04/18/22 Narrative: Operative Information Procedure Description: Colonoscopy Indication: screening, FH of CRC Anesthesia: MAC COLONOSCOPY Instrument: Olympus variable stiffness pediatric scope 190L Colonoscopy Monitoring: Vital signs and clinical assessment, continuous EKG monitoring, Pulse oximetry, Carbon Dioxide monitoring and blood pressure monitoring were done throughout the procedure. Colon withdrawal time was 11 minutes. Procedure: The patient was placed in the left lateral decubitis position and pre-procedure medications were administered. After a digital rectal examination of the ano-rectum, the video colonoscope was inserted into the rectum and advanced through the colon to the cecum/TI. The colonoscope was slowly withdrawn in a retrograde panoramic fashion and the colon mucosa was carefully examined including a retroflexed view of the rectum. Findings and interventions are described below. Procedure Difficulty: easy Findings: Terminal Ileum- scattered erosions and mild ielitis, bx taken random right sided bx taken Cecum:normal Ascending Colon: 5-7 mm flat appearing polyp removed with cold forceps Transverse Colon -normal Descending Colon:normal Sigmoid Colon: normal Rectum: Retroflexion with small internal hemorrhoids, grade I Anorectum - normal Colon preparation: [place] Bowel Preparation Scale Right colon; 3 Transverse colon: 3 Left colon; 3 (0 = Unprepared colon segment with mucosa not seen due to solid stool that cannot be cleared. 1 = Portion of mucosa of the colon segment seen, but other areas of the colon segment not well seen due to staining, residual stool and/or opaque liquid. 2 = Minor amount of residual staining, small fragments of stool and/or opaque liquid, but mucosa of colon segment seen well. 3 = Entire mucosa of colon segment seen well with no residual staining, small fragments of stool or opaque liquid) Impression and Post Procedure Diagnosis: polyp internal hemorrhoids erosive ileitis Plan: High fiber diet leaflet Avoid straining at stool, epsom salts and sitz bath, anusol supps or cream Repeat Colonoscopy in 5 years due to FH of CRC or earlier if clinically indicated if ongoing sx then CTe, check nsaid history Above findings were reviewed with the patient and relevant handouts were provided if indicated.
[2022-04-18] MEDS: Lactated Ringers 1,000 ML 100 ML IVCONT (09:26)
[2022-04-18 10:51] VITALS: BP 117/66; PULSE 101; RESP 18; TEMP 36.3; O2SAT 98
[2022-04-18 11:06] VITALS: BP 118/79; PULSE 89; RESP 18; TEMP 36.8; O2SAT 98
== END 2022-04-18 12:14 | disposition home or self-care (01) ==
PROVIDERS: PCP Internal Medicine; Visit Provider Internal Medicine Gastroenterology
PROC: 0DJD8ZZ Inspection of Lower Intestinal Tract, Via Natural or Artificial Opening Endoscopic (ICD-10-PCS; CPT 45378; principal; 2022-04-18 09:50)
DX: Z12.11 Encounter for screening for malignant neoplasm of colon (principal); Z80.0 Family history of malignant neoplasm of digestive organs; K52.89 Other specified noninfective gastroenteritis and colitis; K63.5 Polyp of colon; K64.0 First degree hemorrhoids; R10.33 Periumbilical pain; F41.1 Generalized anxiety disorder; F33.0 Major depressive disorder, recurrent, mild; G43.909 Migraine, unspecified, not intractable, without status migrainosus; R91.8 Other nonspecific abnormal finding of lung field; Z79.899 Other long term (current) drug therapy; Z88.8 Allergy status to other drugs, medicaments and biological substances; Z87.891 Personal history of nicotine dependence; Z86.16 Personal history of COVID-19
CPT/HCPCS: 45380; 88305

== ENCOUNTER 2022-05-20 15:18 | Outpatient (REF) | payer BC, SELFPAY ==
--- NOTE | ~2022-05-20 | CT_ITS ---
EXAMINATION: CT ENTEROGRAPHY ABDOMEN AND PELVIS WITH CONTRAST CLINICAL INFORMATION: Iron deficiency. COMPARISON: Previous CT of the abdomen and pelvis, most recent 12/2021. TECHNIQUE: Study performed with oral VoLumen (1350 mL) and 480 mL of water to distend the abdomen. The patient was injected with 85 mL Omnipaque 350 intravenous contrast which was administered without adverse effect. Coronal and sagittal reformatted images were obtained at the technologist's workstation. This CT examination was performed using dose optimization techniques as appropriate, variously including the following: *Automated exposure control *Adjustment of mA and/or kV according to patient size (this includes techniques or standardized protocols for targeted exams where dose is matched to indication/reason for exam; i.e. extremities or head) *Use of iterative reconstruction technique DLP: 460 mGy-cm FINDINGS: GASTROINTESTINAL FINDINGS: STOMACH: Well-distended and normal in appearance. SMALL INTESTINE: Satisfactorily distended and normal in appearance. LARGE INTESTINE: Well-distended and normal in appearance. No perirectal changes demonstrated. The base of the appendix is normal. The tip of the appendix is slightly prominent measuring 9 mm and there is question of increased enhancement. There are small periappendiceal lymph nodes. ADDITIONAL FINDINGS: No abnormal enhancement of the vasa recta or significant mesenteric or retroperitoneal lymphadenopathy is seen. No abdominal abscess or fistulous tract demonstrated. ABDOMINAL AND PELVIC CT FINDINGS: LIVER, GALLBLADDER, BILIARY TRACT: Normal. PANCREAS: Normal. SPLEEN: Normal. ADRENAL GLANDS AND KIDNEYS: Normal. URETERS AND BLADDER: Normal. LYMPHOVASCULAR STRUCTURES: Normal. BONES: Normal. LUNG BASES: Stable left base pulmonary nodules in the lingula and left lower lobe. Umbilical hernia containing fat. CT/CT enterography IMPRESSION: Abnormal appearing appendix. The tip of the appendix is upper normal in size and there may be enhancement. There are small and periappendiceal lymph nodes. Infectious or inflammatory and neoplastic processes should be considered. Findings will be communicated by the [place] work flow sales representative uniforms.
[2022-05-20] MEDS: Sorbitol/Mannit/Xanth Imaging 500 ML LIQUID 1500 ML PO (16:44)
[2022-05-20] MEDS: iohexoL 350 MG/ML 100 ML INFUS..BTL 85 ML IV (16:58)
== END 2022-05-20 15:19 | disposition home or self-care (01) ==
LOC: HO.US 15:18
PROVIDERS: Visit Provider Physician Assistant
DX: E61.1 Iron deficiency (principal); K52.9 Noninfective gastroenteritis and colitis, unspecified
CPT/HCPCS: 74177; Q9967

== ENCOUNTER 2022-05-27 19:20 | Emergency (ER) | payer BC, SELFPAY ==
--- NOTE | ~2022-05-27 | CT_ITS ---
EXAMINATION: CT ABDOMEN AND PELVIS WITHOUT CONTRAST CLINICAL INFORMATION: Abdominal pain COMPARISON: CT enterography 05/20/2022 TECHNIQUE: Multidetector volumetric imaging was performed from the superior aspect of the liver through the pubic symphysis. Sagittal and coronal reformatted images were obtained on the technologist's workstation. This CT examination was performed using dose optimization techniques as appropriate, variously including the following: *Automated exposure control *Adjustment of mA and/or kV according to patient size (this includes techniques or standardized protocols for targeted exams where dose is matched to indication/reason for exam; i.e. extremities or head) *Use of iterative reconstruction technique DLP: 657 mGy-cm FINDINGS: LUNG BASES: 5 mm calcified granuloma the left lung base. 3 mm nodule in lingula. These are unchanged since CT abdomen pelvis exam of 04/12/2016, benign nodule. No further follow-up imaging recommended.. No acute airspace disease. No pleural effusion. LIVER, GALLBLADDER, AND BILIARY TREE: The liver is normal in size, shape, and attenuation. No focal hepatic lesion or biliary ductal dilatation is present. Gallbladder is contracted. No bile duct dilatation. PANCREAS: Unremarkable. SPLEEN: Unremarkable. ADRENAL GLANDS: Unremarkable. KIDNEYS AND URETERS: The kidneys are normal in size, shape, and attenuation. No hydronephrosis, hydroureter, or calculi seen. No perinephric stranding. BLADDER: Unremarkable. GASTROINTESTINAL TRACT: The small and large bowel are unremarkable. The appendix is unremarkable. ABDOMINAL WALL: Small bilateral fat-containing inguinal hernias. Small fat-containing umbilical hernia. LYMPH NODES: Normal. VASCULAR: Unremarkable. PELVIC VISCERA: Prostate measures 4.6 cm transverse. Coarse calcifications within the prostate. OSSEOUS STRUCTURES: Unremarkable. CT/CT abdomen pelvis wo IV con IMPRESSION: No significant abnormality. Fleischner guidelines were followed.
[2022-05-27 20:33] VITALS: BP 121/92; PULSE 84; RESP 16; TEMP 36.6; O2SAT 98; BMI 32.1
--- NOTE | 2022-05-27 20:33 | ED_ITS ---
HPI - General Adult General Chief complaint: Abdominal Pain <Carri Dinh MD - Last Filed: 05/27/22 20:38> Stated complaint: right lower quad pain <Carri Dinh MD - Last Filed: 05/27/22 20:38> Time Seen by Provider: 05/27/22 22:25 <Carri Dinh MD - Last Filed: 05/27/22 20:38> Source: patient <Matheus Zaman MD - Last Filed: 05/28/22 00:31> Mode of arrival: ambulatory <Matheus Zaman MD - Last Filed: 05/28/22 00:31> Limitations: no limitations <Matheus Zaman MD - Last Filed: 05/28/22 00:31> History of Present Illness HPI narrative: This is a 41-year-old male came in for evaluation of right lower quadrant pain. Patient had recent enterography CT which was suspecting acute appendicitis patient was instructed to return to the ED if worsening of the pain, patient been having right lower quadrant pain and tenderness for the past week worsening for the last 2 days, pain is localized to the right lower quadrant area, no fever, no chills, eating with good appetite. Never had abdominal surgery. Family history of colon cancer patient follow-up w [facility] aquatic director for screening tests. <Matheus Zaamn MD - Last Filed: 05/28/22 00:31> Related Data Home medications: Home Medications Medication Instructions Recorded Confirmed epinephrine 0.3 mg/0.3 mL 0.3 mg IM ONCE PRN Anaphylaxis 04/10/20 05/02/22 injection, auto-injector Previous Rx's Medication Instructions Recorded sennosides 8.6 mg capsule (senna) 8.6 mg PO DAILY PRN constipation 12/03/21 #30 caps <Carri Dinh MD - Last Filed: 05/27/22 20:38> Allergies/adverse reactions: Allergies Allergy/AdvReac Type Severity Reaction Status Date / Time aspirin [ASA] Allergy Severe ANAPHYLAXIS, Verified 05/02/22 13:42 facial swelling ibuprofen [Advil] Allergy Unknown tracheal Verified 05/02/22 13:42 swelling shellfish derived Allergy Unknown Anaphylaxis Verified 05/02/22 13:42 amitriptyline AdvReac Mild constipatio Verified 05/02/22 13:42 n <Carri Dinh MD - Last Filed: 05/27/22 20:38> Review of Systems Review of Systems: All other systems are reviewed and are negative Constitutional: Reports as per HPI and Reports no additional constitutional complaints Eyes: Reports as per HPI and Reports no additional eye complaints Reports system reviewed and no additional complaints, except as documented Cardiovascular: Reports as per HPI and Reports no additional cardiovascular complaints Respiratory: Reports as per HPI and Reports no additional respiratory complaints Gastrointestinal: Reports as per HPI and Reports no additional gastrointestinal complaints Genitourinary: Reports no additional female genitourinary complaints Musculoskeletal: Reports no additional musculoskeletal complaints Skin/Breast: Reports system reviewed and no additional complaints, except as docu Psychiatric: Reports no additional psychiatric complaints Endocrine: Reports no additional endocrine complaints Hematologic/Lymphatic: Reports no additional hematologic/lymphatic complaints Allergic/Immunologic: Reports no additional allergic/immunologic complaints Reports system reviewed and no additional complaints, except as documented and Reports Abnormal speech present <Matheus Zaman MD - Last Filed: 05/28/22 00:31> [facility] Past Medical History Medical History: Medical History Anxiety History of COVID-19 Hospital discharge follow-up Migraines Mild recurrent major depression Physical exam Pulmonary nodules Screen for colon cancer <Carri Dinh MD - Last Filed: 05/27/22 20:38> Surgical History: Surgical History No pertinent past surgical history <Carri Dinh MD - Last Filed: 05/27/22 20:38> Family History Family History: Family History Father Colon cancer, Onset Age: 63 Liver cancer Mother Breast cancer Diabetes Hypertension Maternal Grandmother Cancer Paternal Aunt Cancer Family/Other FH: mental illness <Carri Dinh MD - Last Filed: 05/27/22 20:38> Social History Social History: Social History Housing: House Alcohol intake: former Patient Tobacco Use Status: Former Tobacco user Tobacco use type: Cigarette Cigarettes Per Day: 7 e-Cigarette/Vaping Use: Never Used Second Hand Smoke Exposure: No Advance Directives: No service: No Current occupational status: employed Current occupational exposures/hazards: No Cognitive needs: No Hearing needs: No Vision needs: No <Carri Dinh MD - Last Filed: 05/27/22 20:38> Physical Exam ED Vital Signs: Vital Signs - 24 hr 05/27/22 20:33 05/28/22 00:00 Temperature 97.8 F 97.9 F Pulse Rate 84 76 Respiratory Rate 16 Blood Pressure 121/92 H 131/76 Pulse Oximetry 98 98 Oxygen Delivery Method Room Air Room Air BMI result Body Mass Index 32.1 <Carri Dinh MD - Last Filed: 05/27/22 20:38> Vital Signs - 24 hr 05/27/22 20:33 05/28/22 00:00 Temperature 97.8 F 97.9 F Pulse Rate 84 76 Respiratory Rate 16 Blood Pressure 121/92 H 131/76 Pulse Oximetry 98 98 Oxygen Delivery Method Room Air Room Air BMI result Body Mass Index 32.1 Vital signs have been reviewed as appeared to be correct. Blood pressure normal. Heart rate normal. Respiration rate normal. Temperature normal. Oxygen saturation normal. <Matheus Zaman MD - Last Filed: 05/28/22 00:31> Appearance: Alert. Oriented X3. No acute distress. Head: Normal external exam. Normocephalic. Atraumatic. No Mclaughlin signs noted. No raccoon eyes noted Eyes: PERRLA. EOMI. Conjunctiva and sclera normal. Eyelids normal. ENT: TM's Normal. Pharynx normal. Uvula midline. Moist mucous membranes. No trismus noted. No drooling noted. No muffled voice noted. Neck: Normal inspection. Neck supple. FROM. No adenopathy. Thyroid Normal. No meningeal signs. No neck mass noted. CVS: Normal heart rate and rhythm. Heart sound normal. No murmurs noted. Pulses normal throughout. Respiratory: No respiratory distress. Painless inspiration. Breath sounds normal. No wheezes/rales/rhonchi noted. Chest nontender. No accessory muscle usage noted or decreased air movement noted. Abdomen: Localized right lower quadrant tenderness, no rebound tenderness or guarding.. Bowel sounds normal in all 4 quadrants. No distention noted. No organomegaly noted. No visible injury noted. Back: No CVA tenderness. Full range of motion noted. Skin: Skin warm and dry. Normal skin color. Normal skin turgor. No rashes/lesions/lacerations noted. Extremities: No lower extremity edema. Extremities exhibit normal range of motion. Extremities nontender. Neuro: Oriented X 3. Cranial nerve exam: II-XII are grossly intact No motor deficit. No sensory deficit. Reflexes normal. <Matheus Zaman MD - Last Filed: 05/28/22 00:31> Course Course Course Narrative: 41M RLQ Pain since Sat night bnut denies fevers, nausea, vomiting....pain is much worse and on enterography evidence to suggest appendicitis. VS Reviewed GEN: mod pain PULM: CTAB CVS: RRR ABD: ttp at RLQ, mcburney's + <Carri Dinh MD - Last Filed: 05/27/22 20:38> Reevaluation(s) Reevaluation #1: Patient was seen and examined by me in the emergency department, exam revealing right lower quadrant tenderness no guarding no rebound tenderness, previous CT (last week) was reviewed with suspicion of early acute appendicitis, [address] is negative for acute appendicitis with a visualized appendix, normal wbc's, no fever, the case discussed with Dr. Celis who recommended to discharge the patient home and follow-up in his office tomorrow. <Matheus Zaman MD - Last Filed: 05/28/22 00:31> Time: 22:44 <Matheus Zaman MD - Last Filed: 05/28/22 00:31> Medications Administered Discontinued Medications Generic Name Dose Route Start Last Admin Trade Name Freq PRN Reason Stop Dose Admin Sodium Chloride 1,000 mls @ 999 mls/hr 05/27/22 20:45 05/27/22 22:41 Ns IV 05/27/22 21:45 999 mls/hr .Q1H1M EMMA Administration <Carri Dinh MD - Last Filed: 05/27/22 20:38> Medications Administered Discontinued Medications Generic Name Dose Route Start Last Admin Trade Name Freq PRN Reason Stop Dose Admin Sodium Chloride 1,000 mls @ 999 mls/hr 05/27/22 20:45 05/27/22 22:41 Ns IV 05/27/22 21:45 999 mls/hr .Q1H1M EMMA Administration <Matheus Zaman MD - Last Filed: 05/28/22 00:31> Medical Decision Making Medical Decision Making Differential Diagnoses: Differential diagnosis (Acute appendicitis, kidney stone, pancreatitis, pyelonephritis.) Differential Diagnosis: The differential diagnosis associated with the patient?s presentation includes: <Matheus Zaman MD - Last Filed: 05/28/22 00:31> Discussion of management with other physician/healthcare provider/other source (e.g., hospitalist, distributor sales consultant, behavioral health): Discussion w/other physician/healthcare provider (Meenu Celis MD.) Management of the patient was discussed with: Veterinary Medicine Scientist (General surgery Dr. Shakir Celis.) My interpretation is <Matheus Zaman MD - Last Filed: 05/28/22 00:31> Independent interpretation of EKG, rhythm strip, radiology study: Independent interp EKG,rhythm strip, radiology study I performed an independent interpretation of the: CT Scan (Abdominal CT) My interpretation is The small and large bowel are unremarkable. The appendix is unremarkable.? Otherwise no intra-abdominal pathology. <Matheus Zaman MD - Last Filed: 05/28/22 00:31> Discharge Plan Discharge Clinical Impression: Abdominal pain <Carri Dinh MD - Last Filed: 05/27/22 20:38> Patient Disposition: Home, Self-Care <Carri Dinh MD - Last Filed: 05/27/22 20:38> Instructions: Abdominal Pain (ED) <Carri Dinh MD - Last Filed: 05/27/22 20:38> Additional Instructions: Please call Dr. Celis office 1st thing in the morning he should be seeing you tomorrow. <Carri Dinh MD - Last Filed: 05/27/22 20:38> Prescriptions: No Action epinephrine 0.3 mg/0.3 mL auto-injector 0.3 mg IM ONCE PRN (Reason: Anaphylaxis) senna 8.6 mg capsule 8.6 mg PO DAILY PRN (Reason: constipation) Qty: 30 1RF <Carri Dinh MD - Last Filed: 05/27/22 20:38> Referrals: Shakir Celis MD [Physician] - <Carri Dinh MD - Last Filed: 05/27/22 20:38>
[2022-05-27 21:10] LABS: MANUAL DIFF FLAG NO
[2022-05-27 21:18] LABS: Basophils Percent Auto 0.5 % (0-2); Eosinophils Absolute Auto 0.2 X10*3/uL (0.0-0.4); Eosinophils Percent Auto 2.6 % (0-4); Hematocrit 43.9 % (42.0-52.0); Hemoglobin 14.2 g/dl (14.0-18.0); Imm Gran Abs Auto 0.02 X10*3/uL (0.00-0.03); Imm Gran Pct Auto 0.3 % (0.0-0.4); Lymphocytes Absolute Auto 2.1 X10*3/uL (1.2-4.9); Lymphocytes Percent Auto 34.2 % (20-40); Mean Corpuscular HGB Conc 32.3 g/dl (31.0-36.0); Mean Corpuscular Hemoglobin 26.8 pg (27.0-33.0); Mean Platelet Volume 9.5 fL (9.4-12.4); Monocytes Absolute Auto 0.6 X10*3/uL (0.1-1.2); Monocytes Percent Auto 9.1 % (2-11); Neutrophils Absolute Auto 3.3 x10*3/uL (2.0-8.3); Neutrophils Percent Auto 53.3 % (45-73); Platelet Count 261 X10*3/uL (160-400); Red Blood Count 5.29 X10*6/uL (4.60-5.80); Red Cell Distribution Width 14.6 % (11.0-16.0); White Blood Count 6.1 X10*3/uL (4.8-10.8)
[2022-05-27 21:32] LABS: Alanine Aminotransferase 75 U/L (0-40); Albumin Level 4.4 g/dL (3.5-5.0); Alkaline Phosphatase 121 U/L (39-117); Anion Gap 11 (12-20); Aspartate Amino Transferase 24 U/L (5-37); Bilirubin Total 0.3 mg/dL (0.0-1.0); Blood Urea Nitrogen 14 mg/dL (9-16); Calcium 9.5 mg/dL (8.4-10.2); Carbon Dioxide 22 mmol/L (22-29); Chloride 110 mmol/L (96-108); Creatinine Clr Calc Pharmacy 146.1; Estimated Glomerular Filt Rate > 60; Glucose Random 107 mg/dL (60-115); Potassium 4.2 mmol/L (3.3-5.1); Sodium 139 mmol/L (135-145); Total Protein 6.9 g/dL (6.5-8.0)
[2022-05-27] MEDS: 0.9 % Sodium Chloride 1,000 ML 999 ML IV (22:41)
[2022-05-27 23:13] LABS: Lipase 28 U/L (8-78)
[2022-05-28] VITALS: BP 131/76; PULSE 76; TEMP 36.6; O2SAT 98
[2022-05-28 00:10] LABS: Appearance Urine Clear; Color Urine Yellow; Glucose Urine UA Negative (Negative); Leukocyte Esterase Urine Negative (Negative); Nitrite Urine Negative (Negative); PH 5.5 (5.0-9.0); Specific Gravity - Urine 1.025 (1.005-1.025); Urine Blood Negative (Negative); Urine Ketones Negative (Negative); Urine Protein Negative (Neg-Trace)
== END 2022-05-28 00:48 | disposition home or self-care (01) ==
PROVIDERS: Student in an Organized Health Care Education/Training Program; Emergency Provider Emergency Medicine; PCP Internal Medicine
DX: R10.31 Right lower quadrant pain (principal); Z87.891 Personal history of nicotine dependence; Z79.899 Other long term (current) drug therapy
CPT/HCPCS: 36415; 74176; 80053; 81003; 83605; 83690; 85025; 87040; 99284

== ENCOUNTER 2022-05-29 | Outpatient (REF) | payer MEDICAID, SELFPAY | END 2022-05-29 00:01 | disposition home or self-care (01) | LOC: HO.LNP | PROVIDERS: Visit Provider Internal Medicine | DX: Z13.89 Encounter for screening for other disorder (principal) ==

== ENCOUNTER 2022-05-29 13:18 | Day surgery (SDC) | payer BC, SELFPAY ==
[2022-05-29] VITALS (7 sets, daily range): BP systolic 117–140; BP diastolic 72–84; PULSE 74–95; RESP 16–18; TEMP 36.5–36.9; O2SAT 96–100; BMI 32.1
--- NOTE | 2022-05-29 13:29 | W.PM.OPN ---
Operative Note Operative Note Date of Service: 05/29/22 Narrative: Preop diagnosis: [Right lower quadrant abdominal pain and abnormal CT enterography] Postop diagnosis: [Grossly normal appendix, creeping fat involving the terminal ileum suggestive of inflammatory bowel disease with shortened mesentery] Procedure: [Laparoscopic appendectomy] Surgeon: Justino Xavier MD Assist: [] Anesthesia: [General endotracheal; local ropivicaine, 0.5% plain] Estimated blood loss: [3cc] Specimen: [Appendix] Intraoperative findings: [1)Grossly normal retrocecal appendix, 2) given the normal appearance, the terminal ileum was run laparoscopically and there was creeping fat as well as shortening of the mesentery for roughly 20 cm] Indications: [The patient is a 41-year-old [place] African-speaking gentleman with a family history of colon cancer. He was seen in the office in follow-up from the emergency department and Gastroenterology with the help of an diplomatic interpreter. He underwent colonoscopy 04/18/2022 and a hyperplastic polyp was removed; was noted to have some aphthous ulcers in the terminal ileum, biopsies of which demonstrated ileitis and due to ongoing abdominal pain, CT enterography was performed on 05/20/22 that demonstrated borderline enlargement of the appendix and concern for possible tumor versus appendicitis. Patient was advised on 05/27/2022 to go to the nearest emergency department and presented at [facility] where he was found to have no fever, tachycardia and a normal white blood cell count at 6.1 with a normal differential. A repeat CT was performed on 05/27/2022 that did not demonstrate any appendicitis and a normal appendix was visualized. The patient was sent to the surgery office for follow-up and today, he is walking with a limp in endorsing ongoing right lower quadrant pain. Given this, we reviewed options of continued observation versus appendectomy. Given the equivocal CT in family history, I recommended proceeding with a laparoscopic appendectomy with the inherent risks of negative exploration, bleeding, infection, ongoing pain, possible need for another procedure if unexpected pathology is encountered in the possible need for open surgery. Patient seemed understand his options, and his questions answered wanted to proceed] Procedure: [The patient was identified in the preoperative holding area and again in the operating room. An appropriate time-out was performed. 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 Sequential compression stockings were placed. The patient was induced in general endotracheal anesthesia administered with excellent effect. The abdomen was widely prepped and draped in the usual manner for surgery. Preemptive local was used at all trocar insertion sites. The abdomen was accessed using a Veress needle. Stab incision was made, Veress needle inserted without incident, an appropriate drop test performed and a pneumoperitoneum of 15 mmHg was obtained using carbon dioxide. Opening pressures were 4 mmHg. Next, the abdomen was accessed with a 30 degree/5 mm laparoscoped over Optiview trocar technique without incident. In examining the Veress needle, no evidence of injury was present. The remaining trocars were placed under direct laparoscopic vision with preemptive analgesia. The patient was then positioned in Trendelenburg, banked left. The appendix was identified and tracked down to the cecum and the terminal ileum identified. The appendix dove into a retrocecal location after approximately a cm. The appendix was carefully dissected using sharp and blunt dissection and brought into the peritoneal cavity. A window was made in the mesoappendix at the base of the appendix on the cecum and a Endo-ERIC purple stapler load used to divide the appendix on the cecum with good hemostasis. Staple line was hemostatic and completely close. The mesoappendix carefully dissected using the 5 mm LigaSure [place] tip. The specimen was placed in an Endo-Catch bag and delivered through the 12 mm port in the left lower quadrant. Operative field was inspected for hemostasis which was good. Patient was returned to neutral position, the abdomen deflated and the trocars removed. 12 mm fascia was closed with 0- Polysorb and skin closed with 4-0 Monocryl subcuticular sutures. The abdomen was washed and dried, Mastisol and Steri-Strips applied followed by Band-Aids. Patient tolerated the procedure well and was sent to the recovery in stable condition. All sponge instrument counts were correct. At the patient's request, I called his at [phone] reviewed the operative findings, need to follow-up with gastroenterology for possible Crohn's and her questions seemed to be satisfactorily answered. Pain management, activity restrictions and the fact that an [place]one prescription was [place] the [place] [facility] [place] [facility] [place].
--- NOTE | 2022-05-29 14:38 | HO.ANESPROP2 ---
HPI - Anesthesia Eval Consult details Narrative: 41 M for Lap Attila PEÑA Active Problems Active Problems: All Active Problems (Updated 05/29/22 @ 13:34 by Brandie Rouse RN) Somatic dysfunction of left sacroiliac joint (Acute) Occipital neuralgia (Acute) Dysuria (Acute) Chronic constipation (Acute) Family history of colon cancer (Acute) Ileitis (Acute) Hyperplastic colon polyp (Acute) Internal hemorrhoids (Acute) Appendix disease (Acute) Abnormal CT of the abdomen (Acute) Right lower quadrant pain (Acute) Mild recurrent major depression (Acute) Physical exam (Acute) Anxiety (Acute) Hospital discharge follow-up (Acute) Screen for colon cancer (Acute) Pulmonary nodules (Acute) Migraines (Acute) Past Medical History Medical History (Updated 05/29/22 @ 13:34 by Brandie Rouse RN) Anxiety History of COVID-19 Hospital discharge follow-up Migraines Mild recurrent major depression Physical exam Pulmonary nodules Screen for colon cancer Functional capacity: independent ambulation Family History Family History Father Colon cancer, Onset Age: 63 Liver cancer Mother Breast cancer Diabetes Hypertension Maternal Grandmother Cancer Paternal Aunt Cancer Family/Other FH: mental illness Family history of problems with anesthesia: No Surgical History Surgical History (Updated 05/29/22 @ 13:44 by Brandie Rouse RN) Hx of colonoscopy History of Problems with Anesthesia: No Social History Social History Housing: House Alcohol intake: former Patient Tobacco Use Status: Former Tobacco user Quit Date: 08/2021 Tobacco use type: Cigarette Cigarettes Per Day: 7 e-Cigarette/Vaping Use: Never Used Second Hand Smoke Exposure: No Use of substances other than those prescribed or required for medical reasons: No Are you DNR?: No Advance Directives: No Advance Directives Information Provided: Yes service: No Current occupational status: employed Current occupational exposures/hazards: No Cognitive needs: No Hearing needs: No Vision needs: No Meds Allergies Allergy/AdvReac Type Severity Reaction Status Date / Time aspirin [ASA] Allergy Severe ANAPHYLAXIS, Verified 05/29/22 13:45 facial swelling ibuprofen [Advil] Allergy Unknown tracheal Verified 05/29/22 13:45 swelling shellfish derived Allergy Unknown Anaphylaxis Verified 05/29/22 13:45 amitriptyline AdvReac Mild constipatio Verified 05/29/22 13:45 n Exam Exam Date and Time: May 29, 2022 1438 Height,Weight and Vital Signs: Height 5 ft 5 in Weight 87.543 kg Last Vital Signs Temp 97.7 F 05/29/22 14:05 Pulse 74 05/29/22 14:05 Resp 16 05/29/22 14:05 BP 118/80 05/29/22 14:05 Pulse Ox 98 05/29/22 14:05 O2 Del Method 05/29/22 14:05 Airway Mallampati Class: III TM Dist: >3cm Neck ROM: Full Loose/Missing/Broken Teeth: Yes (Slightly chipped upper front ) Heart: S1,S2 Lungs: b/l breath sounds Assessment and Plan Assessment Anesthesia Assessment: Anesthesia Plan Discussed and Chart Reviewed Final Anesthetic Review Family History of Problems with Anesthesia: No History of Problems with Anesthesia: No NPO: Yes ASA Class: Emergency Final Preanesthetic Review: Meds/Allgs Chart Reviewed, Consent Obtained/Reviewed and Anes Risks/Benef Reviewed Patient Risk: Intermediate Procedure Risk: Intermediate Anesthetic Plan Anesthetic Plan: GA Disposition: Standard PACU
--- NOTE | 2022-05-29 14:50 | MHC.SHP ---
Pre-Procedural Eval Section A Date of Service: 05/29/22 The patient is an INPATIENT: No The History & Physical has been completed within 30 days and I have reviewed it.: Yes Section B Chief Complaint: Abnormal findings on diagnostic imaging Allergies: Allergies Allergy/AdvReac Type Severity Reaction Status Date / Time aspirin [ASA] Allergy Severe ANAPHYLAXIS, Verified 05/29/22 13:45 facial swelling ibuprofen [Advil] Allergy Unknown tracheal Verified 05/29/22 13:45 swelling shellfish derived Allergy Unknown Anaphylaxis Verified 05/29/22 13:45 amitriptyline AdvReac Mild constipatio Verified 05/29/22 13:45 n Plan I have reviewed the history and physical and performed a pertinent physical examination on my patient. No changes have occurred unless specified.
== END 2022-05-29 18:00 | disposition home or self-care (01) ==
PROVIDERS: PCP Internal Medicine; Visit Provider Surgery
PROC: 0DTJ4ZZ Resection of Appendix, Percutaneous Endoscopic Approach (ICD-10-PCS; CPT 44970; principal; 2022-05-29 15:00)
DX: C18.1 Malignant neoplasm of appendix (principal); Z80.0 Family history of malignant neoplasm of digestive organs; Z88.6 Allergy status to analgesic agent; Z88.8 Allergy status to other drugs, medicaments and biological substances
CPT/HCPCS: 44970; 88304; 88341; 88342; 88360; J0131; J0690; J1170; J2250; J2405; J2795; J3010

== ENCOUNTER → 2022-06-10 15:27 | Outpatient (BNV) | payer BC, MEDICAID, OTHER, SELFPAY | PROVIDERS: PCP Internal Medicine; Referring Provider Surgery; Visit Provider Internal Medicine | DX: C18.1 Malignant neoplasm of appendix (principal); Z80.0 Family history of malignant neoplasm of digestive organs | CPT/HCPCS: 99205; 99212; 99213; 99214; G2211 ==

== ENCOUNTER → 2022-06-11 07:55 | Outpatient (BNVA) | payer BC, SELFPAY | PROVIDERS: PCP Internal Medicine; Referring Provider Internal Medicine; Visit Provider Internal Medicine Gastroenterology | DX: Z13.89 Encounter for screening for other disorder (principal) ==

== ENCOUNTER → 2022-06-18 12:53 | Outpatient (BNVA) | payer BC, SELFPAY | PROVIDERS: PCP Internal Medicine; Visit Provider Surgery | DX: C18.1 Malignant neoplasm of appendix (principal) ==

== ENCOUNTER 2022-07-02 09:56 | Outpatient (REF) | payer OTHER, SELFPAY ==
--- NOTE | ~2022-07-02 | CT_ITS ---
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 Sagittal and coronal reformatted images were obtained on the technologist's workstation. Oral contrast: No This CT examination was performed using dose optimization techniques as appropriate, variously including the following: *Automated exposure control *Adjustment of mA and/or kV according to patient size (this includes techniques or standardized protocols for targeted exams where dose is matched to indication/reason for exam; i.e. extremities or head) *Use of iterative reconstruction technique DLP: 523 mGy-cm FINDINGS: LUNG BASES: 3 mm lingular nodule unchanged. Calcified granuloma at the left lung base. LIVER, GALLBLADDER, AND BILIARY TREE: The liver is normal in size, shape, and attenuation. No focal hepatic lesion or biliary ductal dilatation is present. The gallbladder is unremarkable with no evidence of radiopaque gallstones, gallbladder wall thickening, or obvious pericholecystic inflammatory changes. PANCREAS: Unremarkable. SPLEEN: Unremarkable. ADRENAL GLANDS: Unremarkable. KIDNEYS AND URETERS: The kidneys are normal in size, shape, and attenuation. No hydronephrosis, hydroureter, or calculi seen. No perinephric stranding. BLADDER: Unremarkable. GASTROINTESTINAL TRACT: Stomach and small bowel are nondilated. Postoperative changes of the cecum. No evidence of colitis or diverticulitis. ABDOMINAL WALL: There is fat in the left inguinal canal. Fat-containing umbilical hernia. LYMPH NODES: Normal. VASCULAR: Unremarkable. PELVIC VISCERA: The prostate and seminal vesicles are unremarkable. OSSEOUS STRUCTURES: Unremarkable. No ascites. CT/CT abdomen pelvis w IV con IMPRESSION: Surgical clips in the cecum are new since the prior study consistent with interval appendectomy. No lymphadenopathy seen. No suspicious or concerning focal liver lesion. Unchanged 3 mm lingular nodule. Recommend follow-up per oncologic protocol.
[2022-07-02] MEDS: iohexoL 350 MG/ML 100 ML INFUS..BTL 85 ML IV (12:15)
[2022-07-02] MEDS: Barium Sulfate Oral (Mocha) 450 ML ORAL.SUSP 900 ML PO (12:16)
== END 2022-07-02 09:57 | disposition home or self-care (01) ==
LOC: HO.CT 09:56
PROVIDERS: Visit Provider Internal Medicine
DX: C18.1 Malignant neoplasm of appendix (principal)
CPT/HCPCS: 74177; Q9967

== ENCOUNTER → 2022-07-05 12:54 | Outpatient (BNVA) | payer OTHER, SELFPAY | PROVIDERS: PCP Internal Medicine; Visit Provider Surgery | DX: C18.1 Malignant neoplasm of appendix (principal); K59.09 Other constipation; F33.0 Major depressive disorder, recurrent, mild; F41.9 Anxiety disorder, unspecified; R91.8 Other nonspecific abnormal finding of lung field; Z80.0 Family history of malignant neoplasm of digestive organs | CPT/HCPCS: 99212 ==

== ENCOUNTER 2022-07-18 | Outpatient (REF) | payer OTHER, SELFPAY ==
[2022-07-08 12:19] VITALS: BMI 33.7
[2022-07-09 13:10] LABS: MANUAL DIFF FLAG NO
[2022-07-09 14:17] LABS: Basophils Percent Auto 0.5 % (0-2); Eosinophils Absolute Auto 0.1 X10*3/uL (0.0-0.4); Eosinophils Percent Auto 2.2 % (0-4); Hematocrit 44.3 % (42.0-52.0); Hemoglobin 14.3 g/dl (14.0-18.0); Imm Gran Abs Auto 0.01 X10*3/uL (0.00-0.03); Imm Gran Pct Auto 0.2 % (0.0-0.4); Lymphocytes Absolute Auto 1.8 X10*3/uL (1.2-4.9); Mean Corpuscular HGB Conc 32.3 g/dl (31.0-36.0); Mean Corpuscular Hemoglobin 26.3 pg (27.0-33.0); Mean Corpuscular Volume 81.4 fL (80.0-98.0); Mean Platelet Volume 9.3 fL (9.4-12.4); Monocytes Absolute Auto 0.6 X10*3/uL (0.1-1.2); Monocytes Percent Auto 10.1 % (2-11); Platelet Count 270 X10*3/uL (160-400); Red Blood Count 5.44 X10*6/uL (4.60-5.80); Red Cell Distribution Width 14.5 % (11.0-16.0); White Blood Count 5.5 X10*3/uL (4.8-10.8)
[2022-07-09 14:53] LABS: Prothrombin Time 11.1 SEC (10.0-13.1)
[2022-07-09 14:56] LABS: Partial Thromboplastin Time 33.2 SEC (26.0-36.4)
[2022-07-09 15:49] LABS: Alanine Aminotransferase 75 U/L (0-40); Albumin Level 4.5 g/dL (3.5-5.0); Alkaline Phosphatase 101 U/L (39-117); Anion Gap 13 (12-20); Aspartate Amino Transferase 30 U/L (5-37); Bilirubin Total 0.6 mg/dL (0.0-1.0); Blood Urea Nitrogen 9 mg/dL (9-16); Calcium 9.5 mg/dL (8.4-10.2); Carbon Dioxide 24 mmol/L (22-29); Chloride 106 mmol/L (96-108); Creatinine Clr Calc Pharmacy 137.4; Estimated Glomerular Filt Rate > 60; Glucose Random 77 mg/dL (60-115); Potassium 4.1 mmol/L (3.3-5.1); Sodium 139 mmol/L (135-145); Total Protein 7.2 g/dL (6.5-8.0)
--- NOTE | 2022-07-10 10:18 | HO.ANESPROP2 ---
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 s/p lap appy 05/30/22 with GA-ETT 8 PMFSH Active Problems Active Problems: All Active Problems (Updated 07/09/22 @ 14:08 by Juana Anderson MD) Somatic dysfunction of left sacroiliac joint (Acute) Occipital neuralgia (Acute) Dysuria (Acute) Chronic constipation (Acute) Family history of colon cancer (Acute) Ileitis (Acute) Hyperplastic colon polyp (Acute) Internal hemorrhoids (Acute) Appendix disease (Acute) Abnormal CT of the abdomen (Acute) Right lower quadrant pain (Acute) Cancer of appendix (Acute) Mild recurrent major depression (Acute) Physical exam (Acute) Anxiety (Acute) Hospital discharge follow-up (Acute) Screen for colon cancer (Acute) Pulmonary nodules (Acute) Migraines (Acute) Past Medical History Medical History (Updated 07/09/22 @ 14:08 by Juana Anderson MD) Anxiety Cancer of appendix History of COVID-19 Hospital discharge follow-up Migraines Mild recurrent major depression Physical exam Pulmonary nodules Screen for colon cancer Family History Family History Father Colon cancer, Onset Age: 63 Liver cancer Mother Breast cancer Diabetes Hypertension Maternal Grandmother Cancer Paternal Aunt Cancer Family/Other FH: mental illness Family history of problems with anesthesia: No Surgical History Surgical History (Updated 07/09/22 @ 14:08 by Juana Anderson MD) Hx of appendectomy Hx of colonoscopy History of Problems with Anesthesia: No Social History Social History Household Members: Spouse and Family Housing: House Are you a primary respiratory care practitioner to a significant other at home: No Do you presently have visiting nurse or other home services: No Alcohol intake: former Patient Tobacco Use Status: Former Tobacco user Quit Date: 08/2021 Tobacco use type: Cigarette e-Cigarette/Vaping Use: Never Used Second Hand Smoke Exposure: No Have you been hit, kicked, punched, or otherwise hurt by someone within the past year? If so, by whom?: No Do you feel safe in your current relationship?: Yes Do you have thoughts of harming others: None Do you have a plan to hurt others: No Plan Do you have the means to hurt others: No Recently lost weight without trying: No service: No Current occupational status: employed Current occupational exposures/hazards: No Cognitive needs: No Hearing needs: No Vision needs: No Meds Allergies Allergy/AdvReac Type Severity Reaction Status Date / Time aspirin [ASA] Allergy Severe anaphylaxis/facial Verified 07/08/22 11:32 swelling ibuprofen [Advil] Allergy Severe tracheal Verified 07/08/22 11:32 swelling shellfish derived Allergy Severe Anaphylaxis Verified 07/08/22 11:32 Exam Exam Date and Time: July 10, 2022 1018 Height,Weight and Vital Signs: Height 5 ft 5 in Weight 92.079 kg Pertinent Lab Results Pertinent Lab Results: Laboratory Tests 07/09/22 07/09/22 07/09/22 13:10 13:10 13:10 WBC 5.5 RBC 5.44 Hgb 14.3 Hct 44.3 MCV 81.4 MCH 26.3 L MCHC 32.3 RDW 14.5 Plt Count 270 MPV 9.3 L Immature Gran % (Auto) 0.2 Neut % (Auto) 54.0 Lymph % (Auto) 33.0 [place] % (Auto) 10.1 Eos % (Auto) 2.2 Baso % (Auto) 0.5 Lymph # (Auto) 1.8 [place] # (Auto) 0.6 Eos # (Auto) 0.1 Baso # (Auto) 0.0 Abs Immat Gran (auto) 0.01 Absolute Neuts (auto) 3.0 Absolute Nucleated RBC 0.000 Nucleated RBC % (auto) 0.0 PT 11.1 INR 1.0 APTT 33.2 Sodium 139 Potassium 4.1 Chloride 106 Carbon Dioxide 24 Anion Gap 13 BUN 9 Creatinine 0.73 Estim Creat Clear Calc 137.4 Estimated GFR > 60 Random Glucose 77 Calcium 9.5 Total Bilirubin 0.6 AST 30 ALT 75 H Alkaline Phosphatase 101 Total Protein 7.2 Albumin 4.5 Blood Type Antibody Screen 07/09/22 13:10 WBC RBC Hgb Hct MCV MCH MCHC RDW Plt Count MPV Immature Gran % (Auto) Neut % (Auto) Lymph % (Auto) [place] % (Auto) Eos % (Auto) Baso % (Auto) Lymph # (Auto) [place] # (Auto) Eos # (Auto) Baso # (Auto) Abs Immat Gran (auto) Absolute Neuts (auto) Absolute Nucleated RBC Nucleated RBC % (auto) PT INR APTT Sodium Potassium Chloride Carbon Dioxide Anion Gap BUN Creatinine Estim Creat Clear Calc Estimated GFR Random Glucose Calcium Total Bilirubin AST ALT Alkaline Phosphatase Total Protein Albumin Blood Type O Positive Antibody Screen NEGATIVE Assessment and Plan Assessment Anesthesia Assessment: Chart Reviewed Final Anesthetic Review Family History of Problems with Anesthesia: No History of Problems with Anesthesia: No
== END 2022-07-18 00:01 ==
LOC: HO.PAT
PROVIDERS: PCP Internal Medicine; Visit Provider Surgery
DX: Z01.818 Encounter for other preprocedural examination (principal)
CPT/HCPCS: 36415; 80053; 85025; 85610; 85730; 86850; 86900; 86901

== ENCOUNTER 2022-07-21 15:08 | Emergency (ER) | payer OTHER, SELFPAY ==
--- NOTE | ~2022-07-21 | XR_ITS ---
EXAMINATION: XR ABDOMEN KUB CLINICAL INDICATION: Fecal impaction. History of appendiceal cancer. COMPARISON: CT abdomen pelvis 07/02/2022 TECHNIQUE: AP view of the abdomen. FINDINGS: Small to moderate amount of formed stool in the right colon. Otherwise, no significant colonic stool burden. There is gas seen in nondilated small bowel loops and portions of the colon most prominently in the transverse colon. Paucity of gas and stool in the rectum. No appreciable bowel wall thickening. No gross large volume free air on the supine exam. Visualized lung bases appear clear. No osseous abnormality identified. XR/XR KUB IMPRESSION: 1. Small to moderate amount of formed stool in the right colon. Otherwise, no significant colonic stool burden. 2. Nonobstructive bowel gas pattern.
[2022-07-21 15:23] VITALS: BP 143/93; PULSE 87; RESP 18; TEMP 36.6; O2SAT 98; BMI 33.3
--- NOTE | 2022-07-21 15:26 | ED_ITS ---
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 s/p ? Laparoscopic appendectomy performed on 05/29/2022 , Ct scan on 07/02/2022 showed surgical clips in the cecum consistent with appendectomy, no lymphadenopathy or suspicious lesions seen., been scheduled for right hemicolectomy with lymphadenectomy for definitive surgical management and staging In 2 weeks comes here for constipation unable to move his bowels tried laxatives without much response when you try to move his bowels he has pain on the right side small amount of bright red blood no nausea no vomiting no fever no chills no abdominal distension today patient had bowel movement with small amount of stool hard stool last time good bowel movement was 4 days ago <Rito Milian MD - Last Filed: 07/21/22 19:27> Related Data Home Medications: Previous Rx's Medication Instructions Recorded peg-electrolyte solution 420 gram 240 ml PO Q10M #4,000 mL 06/07/22 oral solution polyethylene glycol 3350 17 17 g PO BID #510 grams 06/07/22 gram/dose oral powder (Miralax) erythromycin 333 mg tablet,delayed 333 mg PO Q8H #6 tabs 07/05/22 release neomycin 500 mg tablet 1 g PO TID 3 doses #6 tab-caps 07/05/22 erythromycin 500 mg tablet 500 mg PO TID #3 tabs 07/08/22 <Annamarie Delatorre CNP - Last Filed: 07/21/22 15:30> Allergies/Adverse Reactions: Allergies Allergy/AdvReac Type Severity Reaction Status Date / Time aspirin [ASA] Allergy Severe anaphylaxis/facial Verified 07/08/22 11:32 swelling ibuprofen [Advil] Allergy Severe tracheal Verified 07/08/22 11:32 swelling shellfish derived Allergy Severe Anaphylaxis Verified 07/08/22 11:32 <Annamarie Delatorre CNP - Last Filed: 07/21/22 15:30> Review of Systems Review of Systems Yes all other systems are reviewed and are negative <Rito Milian MD - Last Filed: 07/21/22 19:27> [facility] Past Medical History Medical History: Medical History Anxiety Cancer of appendix History of COVID-19 Hospital discharge follow-up Migraines Mild recurrent major depression Physical exam Pulmonary nodules Screen for colon cancer <Annamarie Delatorre CNP - Last Filed: 07/21/22 15:30> Surgical History: Surgical History Hx of appendectomy Hx of colonoscopy <Annamarie Delatorre CNP - Last Filed: 07/21/22 15:30> Family History Family History: Family History Father Colon cancer, Onset Age: 63 Liver cancer Mother Breast cancer Diabetes Hypertension Maternal Grandmother Cancer Paternal Aunt Cancer Family/Other FH: mental illness <Annamarie Delatorre CNP - Last Filed: 07/21/22 15:30> Social History Social History: Social History Household Members: Spouse and Family Housing: House Are you a primary transitions rn care coordinator to a significant other at home: No Do you presently have visiting nurse or other home services: No Alcohol intake: former Patient Tobacco Use Status: Former Tobacco user Quit Date: 08/2021 Tobacco use type: Cigarette e-Cigarette/Vaping Use: Never Used Second Hand Smoke Exposure: No Advance Directives: No Advance Directives Information Provided: No service: No Current occupational status: employed Current occupational exposures/hazards: No Cognitive needs: No Hearing needs: No Vision needs: No <Annamarie Delatorre CNP - Last Filed: 07/21/22 15:30> Physical Exam ED Vital Signs: Vital Signs - 24 hr 07/21/22 15:23 Temperature 97.9 F Pulse Rate 87 Respiratory Rate 18 Blood Pressure 143/93 H Pulse Oximetry 98 Oxygen Delivery Method Room Air BMI result Body Mass Index 33.3 <Annamarie Delatorre CNP - Last Filed: 07/21/22 15:30> Vital Signs - 24 hr 07/21/22 15:23 Temperature 97.9 F Pulse Rate 87 Respiratory Rate 18 Blood Pressure 143/93 H Pulse Oximetry 98 Oxygen Delivery Method Room Air BMI result Body Mass Index 33.3 <Rito Milian MD - Last Filed: 07/21/22 19:27> Appearance: Alert. Oriented X3. No acute distress. ENT: Pharynx normal. Oral Mucosa moist Neck: Normal inspection. Neck supple. CVS: Normal heart rate and rhythm. Pulses normal. Respiratory: No respiratory distress. Equal air entry bilateral, no wheezing/rales/rhonchi Abdomen: Soft, slightly tender right side abdomen no rebound tenderness no guarding Bowel sounds are present, no mass palpable, no CVA tenderness Skin: Skin warm and dry. Normal skin color. Normal skin turgor. Extremities: No lower extremity edema. No calf tenderness Neuro: Oriented X 3. No motor deficit. <Rtio Milian MD - Last Filed: 07/21/22 19:27> Course Course Course Narrative: This is an RME: Additional HPI, ROS, PE not included below will be deferred to primary provider. Strict patient is a 41-year-old male presents to the emergency department, Currently complaining of constipation, feels urge to have BM, has movement this afternoon, but has severe R upper and lower ABD pain, small amount of BRB from rectum. Laxatives have been minimally effective. He has current colon cancer, was post to have surgery 2 weeks ago, but due to COVID-19 status is had to be rescheduled. He has an appointment to follow-up with Dr. Xavier in 2 days. Plan: Labs, urinalysis, CT abdomen and pelvis <Annamarie Delatorre CNP - Last Filed: 07/21/22 15:30> Medical Decision Making Lab Data Result Diagrams: 07/21/22 15:43 07/21/22 15:43 <Annamarie Delatorre CNP - Last Filed: 07/21/22 15:30> Labs: Lab Results 07/21/22 07/21/22 Range/Units 15:43 15:43 WBC 8.0 (4.8-10.8) X10*3/uL RBC 5.57 (4.60-5.80) X10*6/uL Hgb 14.6 (14.0-18.0) g/dl Hct 45.3 (42.0-52.0) % MCV 81.3 (80.0-98.0) fL MCH 26.2 L (27.0-33.0) pg MCHC 32.2 (31.0-36.0) g/dl RDW 14.3 (11.0-16.0) % Plt Count 343 D (160-400) X10*3/uL MPV 8.6 L (9.4-12.4) fL Immature Gran % (Auto) 0.2 (0.0-0.4) % Neut % (Auto) 71.6 (45-73) % Lymph % (Auto) 20.9 (20-40) % [place] % (Auto) 6.4 (2-11) % Eos % (Auto) 0.5 (0-4) % Baso % (Auto) 0.4 (0-2) % Lymph # (Auto) 1.7 (1.2-4.9) X10*3/uL [place] # (Auto) 0.5 (0.1-1.2) X10*3/uL Eos # (Auto) 0.0 (0.0-0.4) X10*3/uL Baso # (Auto) 0.0 (0.0-0.2) X10*3/uL Abs Immat Gran (auto) 0.02 (0.00-0.03) X10*3/uL Absolute Neuts (auto) 5.7 (2.0-8.3) x10*3/uL Absolute Nucleated RBC 0.000 (0.0-0.012) X10*3/uL Nucleated RBC % (auto) 0.0 (0.0-0.2) /100WBC Sodium 139 (135-145) mmol/L Potassium 4.0 (3.3-5.1) mmol/L Chloride 108 (96-108) mmol/L Carbon Dioxide 23 (22-29) mmol/L Anion Gap 12 (12-20) BUN 12 (9-16) mg/dL Creatinine 0.71 (0.5-1.4) mg/dL Estim Creat Clear Calc 140.3 Estimated GFR > 60 Random Glucose 92 (60-115) mg/dL Calcium 9.5 (8.4-10.2) mg/dL Total Bilirubin 0.5 (0.0-1.0) mg/dL AST 26 (5-37) U/L ALT 82 H (0-40) U/L Alkaline Phosphatase 112 (39-117) U/L Total Protein 7.3 (6.5-8.0) g/dL Albumin 4.5 (3.5-5.0) g/dL Lipase 12 (8-78) U/L <Annamarie Delatorre, MEDICAL PSYCHOTHERAPIST - Last Filed: 07/21/22 15:30> Lab Results 07/21/22 07/21/22 Range/Units 15:43 15:43 WBC 8.0 (4.8-10.8) X10*3/uL RBC 5.57 (4.60-5.80) X10*6/uL Hgb 14.6 (14.0-18.0) g/dl Hct 45.3 (42.0-52.0) % MCV 81.3 (80.0-98.0) fL MCH 26.2 L (27.0-33.0) pg MCHC 32.2 (31.0-36.0) g/dl RDW 14.3 (11.0-16.0) % Plt Count 343 D (160-400) X10*3/uL MPV 8.6 L (9.4-12.4) fL Immature Gran % (Auto) 0.2 (0.0-0.4) % Neut % (Auto) 71.6 (45-73) % Lymph % (Auto) 20.9 (20-40) % [place] % (Auto) 6.4 (2-11) % Eos % (Auto) 0.5 (0-4) % Baso % (Auto) 0.4 (0-2) % Lymph # (Auto) 1.7 (1.2-4.9) X10*3/uL [place] # (Auto) 0.5 (0.1-1.2) X10*3/uL Eos # (Auto) 0.0 (0.0-0.4) X10*3/uL Baso # (Auto) 0.0 (0.0-0.2) X10*3/uL Abs Immat Gran (auto) 0.02 (0.00-0.03) X10*3/uL Absolute Neuts (auto) 5.7 (2.0-8.3) x10*3/uL Absolute Nucleated RBC 0.000 (0.0-0.012) X10*3/uL Nucleated RBC % (auto) 0.0 (0.0-0.2) /100WBC Sodium 139 (135-145) mmol/L Potassium 4.0 (3.3-5.1) mmol/L Chloride 108 (96-108) mmol/L Carbon Dioxide 23 (22-29) mmol/L Anion Gap 12 (12-20) BUN 12 (9-16) mg/dL Creatinine 0.71 (0.5-1.4) mg/dL Estim Creat Clear Calc 140.3 Estimated GFR > 60 Random Glucose 92 (60-115) mg/dL Calcium 9.5 (8.4-10.2) mg/dL Total Bilirubin 0.5 (0.0-1.0) mg/dL AST 26 (5-37) U/L ALT 82 H (0-40) U/L Alkaline Phosphatase 112 (39-117) U/L Total Protein 7.3 (6.5-8.0) g/dL Albumin 4.5 (3.5-5.0) g/dL Lipase 12 (8-78) U/L <Rito Milian MD - Last Filed: 07/21/22 19:27> Medications Administered Discontinued Medications Generic Name Dose Route Start Last Admin Trade Name Freq PRN Reason Stop Dose Admin Magnesium Hydroxide 30 ml 07/21/22 17:27 07/21/22 18:10 Milk Of Magnesia 30 Ml Oral.Susp PO 07/21/22 17:28 30 ml ONCE ONE Administration Sodium Biphosphate/Sodium Phosphate 133 ml 07/21/22 17:27 07/21/22 18:10 Sodium Phosphate,[place]-Dibasic 133 Ml Enema VA 07/21/22 17:28 133 ml ONCE ONE Administration <Annamarie Delatorre CNP - Last Filed: 07/21/22 15:30> Medications Administered Discontinued Medications Generic Name Dose Route Start Last Admin Trade Name Emilie PRN Reason Stop Dose Admin Magnesium Hydroxide 30 ml 07/21/22 17:27 07/21/22 18:10 Milk Of Magnesia 30 Ml Oral.Susp PO 07/21/22 17:28 30 ml ONCE ONE Administration Sodium Biphosphate/Sodium Phosphate 133 ml 07/21/22 17:27 07/21/22 18:10 Sodium Phosphate,[place]-Dibasic 133 Ml Enema VA 07/21/22 17:28 133 ml ONCE ONE Administration <Rito Milian MD - Last Filed: 07/21/22 19:27> Discharge Plan Discharge Clinical Impression: Constipation <Annamarie Delatorre CNP - Last Filed: 07/21/22 15:30> Patient Disposition: Home, Self-Care <Annamarie Delatorre CNP - Last Filed: 07/21/22 15:30> Instructions: Constipation (ED) <Annamarie Delatorre CNP - Last Filed: 07/21/22 15:30> Additional Instructions: Continue to take your MiraLax once or twice daily as needed for constipation Drink plenty of fluids Follow-up with your GI <Annamarie Delatorre CNP - Last Filed: 07/21/22 15:30> Prescriptions: No Action erythromycin 500 mg tablet 500 mg PO TID Qty: 3 0RF Rx Instructions: 1 tablet by mouth at 1pm, 2pm & 11pm the day before surgery erythromycin 333 mg tablet,delayed release (DR/EC) 333 mg PO Q8H Qty: 6 0RF Rx Instructions: 2 tablets by mouth at 1pm, 2pm & 11pm the day before surgery neomycin 500 mg tablet 1 g PO TID Qty: 6 0RF Rx Instructions: administer at 1 PM, 2 PM, and 11 PM the day prior to surgery peg-electrolyte soln 420 gram recon soln 240 ml PO Q10M Qty: 4000 0RF Rx Instructions: drink half only polyethylene glycol 3350 [Miralax] 17 gram/dose powder 17 g PO BID Qty: 510 1RF <Annamarie Delatorre CNP - Last Filed: 07/21/22 15:30>
[2022-07-21 15:46] LABS: MANUAL DIFF FLAG NO
[2022-07-21 15:47] LABS: Basophils Percent Auto 0.4 % (0-2); Eosinophils Percent Auto 0.5 % (0-4); Hematocrit 45.3 % (42.0-52.0); Hemoglobin 14.6 g/dl (14.0-18.0); Imm Gran Abs Auto 0.02 X10*3/uL (0.00-0.03); Imm Gran Pct Auto 0.2 % (0.0-0.4); Lymphocytes Absolute Auto 1.7 X10*3/uL (1.2-4.9); Lymphocytes Percent Auto 20.9 % (20-40); Mean Corpuscular HGB Conc 32.2 g/dl (31.0-36.0); Mean Corpuscular Hemoglobin 26.2 pg (27.0-33.0); Mean Corpuscular Volume 81.3 fL (80.0-98.0); Mean Platelet Volume 8.6 fL (9.4-12.4); Monocytes Absolute Auto 0.5 X10*3/uL (0.1-1.2); Monocytes Percent Auto 6.4 % (2-11); Neutrophils Absolute Auto 5.7 x10*3/uL (2.0-8.3); Neutrophils Percent Auto 71.6 % (45-73); Platelet Count 343 X10*3/uL (160-400); Red Blood Count 5.57 X10*6/uL (4.60-5.80); Red Cell Distribution Width 14.3 % (11.0-16.0)
[2022-07-21 16:05] LABS: Alanine Aminotransferase 82 U/L (0-40); Albumin Level 4.5 g/dL (3.5-5.0); Alkaline Phosphatase 112 U/L (39-117); Anion Gap 12 (12-20); Aspartate Amino Transferase 26 U/L (5-37); Bilirubin Total 0.5 mg/dL (0.0-1.0); Blood Urea Nitrogen 12 mg/dL (9-16); Calcium 9.5 mg/dL (8.4-10.2); Carbon Dioxide 23 mmol/L (22-29); Chloride 108 mmol/L (96-108); Creatinine Clr Calc Pharmacy 140.3; Estimated Glomerular Filt Rate > 60; Glucose Random 92 mg/dL (60-115); Lipase 12 U/L (8-78); Sodium 139 mmol/L (135-145); Total Protein 7.3 g/dL (6.5-8.0)
--- NOTE | 2022-07-21 17:18 | PC.NURSE ---
pt resting on stretcher at this time, pt went to CT, awaiting results
[2022-07-21] MEDS: Sodium Phosphate,Mono-Dibasic 133 ML ENEMA PR (18:10)
[2022-07-21] MEDS: Milk of Magnesia 30 ML ORAL.SUSP PO (18:10)
--- NOTE | 2022-07-21 18:20 | PC.NURSE ---
enema instilled, pt requested to ambulate to bathroom, at side
== END 2022-07-21 19:28 | disposition home or self-care (01) ==
PROVIDERS: Nurse Practitioner Family; Emergency Provider Internal Medicine
DX: K59.00 Constipation, unspecified (principal); Z79.899 Other long term (current) drug therapy; Z87.891 Personal history of nicotine dependence
CPT/HCPCS: 36415; 74018; 80053; 83690; 85025; 99282; 99283

== ENCOUNTER 2022-07-29 09:36 | Outpatient (REF) | payer OTHER, SELFPAY ==
[2022-07-31 10:57] LABS: H Pylori Breath Test Negative (Negative)
== END 2022-07-29 09:37 | disposition home or self-care (01) ==
LOC: CF 09:36
PROVIDERS: Visit Provider Internal Medicine Gastroenterology
DX: K50.90 Crohn's disease, unspecified, without complications (principal); C18.1 Malignant neoplasm of appendix; F33.0 Major depressive disorder, recurrent, mild; F41.9 Anxiety disorder, unspecified; R91.8 Other nonspecific abnormal finding of lung field; K52.9 Noninfective gastroenteritis and colitis, unspecified; K59.09 Other constipation
CPT/HCPCS: 36415; 83013; 99212

== ENCOUNTER 2022-08-15 06:12 | Inpatient (IN) | payer MEDICAID, OTHER, SELFPAY ==
--- NOTE | 2022-08-06 | ECG_ITS ---
Test Reason : preop Blood Pressure : / mmHG Vent. Rate : 074 BPM Atrial Rate : 074 BPM P-R Int : 118 ms QRS Dur : 102 ms QT Int : 386 ms P-R-T Axes : 036 021 051 degrees QTc Int : 428 ms Normal sinus rhythm Normal ECG When compared with ECG of 01-MAR-2019 02:47, No significant change was found Referred By: All Michael Electronically Signed By:Mario De Jesus
[2022-08-06 11:50] VITALS: BMI 33.3
[2022-08-06 12:10] VITALS: BP 129/82; PULSE 89; RESP 20; O2SAT 98
[2022-08-15] VITALS (21 sets, daily range): BP systolic 110–145; BP diastolic 73–95; PULSE 94–111; RESP 11–22; TEMP 36.6–37.8; O2SAT 92–100
[2022-08-15 06:39] LABS: COVID-19 Test Negative (Negative); IDNOW Serial# 6674DD1D
[2022-08-15] MEDS: Lactated Ringers 1,000 ML 100 ML IVCONT (07:01)
--- NOTE | 2022-08-15 07:11 | P.OP_ITS ---
Operative Note Operative Note Date of Service: 08/15/22 Narrative: Preop diagnosis: Appendiceal cancer Postop diagnosis: Same Procedure: Laparoscopic assisted right hemicolectomy Surgeon: Justino Xavier MD Assist: Anesthesia: GET, TAP by anesthesia Estimated blood loss: 30cc Specimen: Right hemicolon Intraoperative findings: There is no gross evidence of peritoneal studding or obvious metastatic disease in the peritoneum or liver. Indications: The patient is a 41-year-old gentleman with recently diagnosed Crohn's disease and abdominal pain that led to an appendectomy. The specimen contained goblet cell carcinoma pT4a NX and right hemicolectomy was recommended. The inherent risks of bleeding, infection, anastomotic complications, need for reoperation in the event of an unexpected complication, the risk of ileus and need for prolonged hospitalization or nasogastric tube was all discussed with the patient via account assistant and his questions seemed to be satisfactorily answered. The option of a 2nd opinion at a larger institution was also offered to the patient via account assistant but declined. Patient seemed understand all of his options and wanted to proceed. Procedure: The patient was identified in the preoperative holding area and again in the operating suite. He had done a mechanical and antibiotic home bowel prep with MiraLax. The patient was placed supine on the table, induced in general endotracheal anesthesia administered with excellent effect. An appropriate time-out was performed Next, the abdomen was widely prepped and draped with ChloraPrep. Preemptive local of Marcaine, 0.5% with epinephrine was used at all trocar sites. Next, the supraumbilical midline incision was infiltrated in reopened and a Veress needle placed without incident. An appropriate drop test was performed and a pneumoperitoneum of 15 mmHg was obtained with carbon dioxide. Opening pressure was 4 mmHg. Next, 30 degree 5 mm laparoscopic Optiview trocar technique was used to access the abdomen. Diagnostic laparoscopy to assess for metastatic disease was performed. Next an epigastric 5 mm trocar and suprapubic 5 mm trocar replaced with preemptive analgesia under laparoscopic vision. Patient was then banked left and placed in Trendelenburg and mobilization of the right colon along the line of Toldt was performed laparoscopically with the 5 mm [place] LigaSure. The gastro colonic ligament was then opened with the LigaSure or with the patient in reverse Trendelenburg and the hepatic flexure mobilized and taken down. The right colon was rendered a midline structure taking care to avoid the right ureter and the duodenum, both of which were visualized and protected; the patient was returned to neutral position and the GelPort placed through a 10 cm midline incision by applying the wound retractor. The mobilized colon was brought to the midline and ERIC 60 blue loads were used to divide the proximal small bowel just proximal to the ileocecal valve. It should be noted that creeping fat consistent with his Crohn's was noted. But no gross inflammation or exudates were noted on the small bowel. Next, the transverse colon was divided with a ERIC 60 blue load and the mesentery taken down using LigaSure. There was some bleeding from the ileo cecal vessels that were double tied and suture ligated with 0 Polysorb. Next, functional end-to-end anastomosis was performed using a ERIC blue 60 stapler and a TA 60 stapler. A stay suture to take tension off the crotch was performed. The anastomotic area was grossly hemostatic and widely patent as well as viable. Next, the mesenteric defect was closed with a running 2 0 Polysorb suture and the GelPort closed and the abdomen reinflated in the operative field inspected for hemostasis as well as the anastomosis which was then covered with the omentum. The abdomen was then deflated and the posterior sheath/peritoneum closed with a running 0 Polysorb while the anterior fascia was closed with a running 1. Maxon suture. The subcutaneous tissues were irrigated copiously and skin closed with skin vladimir. Patient tolerated the procedure well and remained in the room for a tap block, then was transferred to PACU in stable condition. All sponge needle instrument counts were correct x2 . At the patient's request, I spoke with his , Zehra, & son. Their questions seemed to be satisfactorily answered. She provided me with her cell phone [phone].
--- NOTE | 2022-08-15 07:11 | MHC.SHP ---
Pre-Procedural Eval Section A Date of Service: 08/15/22 The patient is an INPATIENT: Yes The History & Physical has been completed within 30 days and I have reviewed it.: Yes Section B Chief Complaint: Malignant neoplasm of appendix Allergies: Allergies Allergy/AdvReac Type Severity Reaction Status Date / Time aspirin [ASA] Allergy Severe anaphylaxis/facial Verified 07/29/22 10:26 swelling ibuprofen [Advil] Allergy Severe tracheal Verified 07/29/22 10:26 swelling shellfish derived Allergy Severe Anaphylaxis Verified 07/29/22 10:26 Plan I have reviewed the history and physical and performed a pertinent physical examination on my patient. No changes have occurred unless specified. Time Spent With Patient Time: Total time managing care of this patient today ____ minutes.
--- NOTE | 2022-08-15 07:17 | P.CONAN_ITS ---
HPI - Anesthesia Eval Consult details Narrative: 41 yo male for Laparoscopic hand-assisted Right hemicolectomy PMFSH Active Problems Active Problems: All Active Problems (Updated 08/06/22 @ 11:48 by Trudy Leal RN) Somatic dysfunction of left sacroiliac joint (Acute) Occipital neuralgia (Acute) Dysuria (Acute) Chronic constipation (Acute) Family history of colon cancer (Acute) Ileitis (Acute) Hyperplastic colon polyp (Acute) Internal hemorrhoids (Acute) Appendix disease (Acute) Abnormal CT of the abdomen (Acute) Right lower quadrant pain (Acute) Cancer of appendix (Acute) Colitis (Acute) Crohn's disease (Acute) Mild recurrent major depression (Acute) Physical exam (Acute) Anxiety (Acute) Hospital discharge follow-up (Acute) Screen for colon cancer (Acute) Pulmonary nodules (Acute) Migraines (Acute) Past Medical History Medical History Anxiety Cancer of appendix History of COVID-19 Hospital discharge follow-up Migraines Mild recurrent major depression Physical exam Pulmonary nodules Screen for colon cancer Family History Family History Father Colon cancer, Onset Age: 63 Liver cancer Mother Breast cancer Diabetes Hypertension Maternal Grandmother Cancer Paternal Aunt Cancer Family/Other FH: mental illness Family history of problems with anesthesia: No Surgical History Surgical History Hx of appendectomy Hx of colonoscopy History of Problems with Anesthesia: No Social History Social History Household Members: Spouse and Family Housing: House Are you a primary respiratory care technician to a significant other at home: No Do you presently have visiting nurse or other home services: No Alcohol intake: former Patient Tobacco Use Status: Former Tobacco user Quit Date: 08/2021 Tobacco use type: Cigarette e-Cigarette/Vaping Use: Never Used Second Hand Smoke Exposure: No Use of substances other than those prescribed or required for medical reasons: No Have you been hit, kicked, punched, or otherwise hurt by someone within the past year? If so, by whom?: No Are you DNR?: No Advance Directives: No Advance Directives Information Provided: Yes (brochure given) Advance Directives on File: No Recently lost weight without trying: No Eating poorly because of decreased appetite: No Nutrition Risks: No Nutritional Risk Poor oral hygiene: No service: No Current occupational status: employed Current occupational exposures/hazards: No Cognitive needs: No Hearing needs: No Vision needs: No Meds Allergies Allergy/AdvReac Type Severity Reaction Status Date / Time aspirin [ASA] Allergy Severe anaphylaxis/facial Verified 07/29/22 10:26 swelling ibuprofen [Advil] Allergy Severe tracheal Verified 07/29/22 10:26 swelling shellfish derived Allergy Severe Anaphylaxis Verified 07/29/22 10:26 Active Medications: Current Medications Lactated Ringer's (Lr) 1,000 mls @ 100 mls/hr IVCONT .Q10H EMMA Last Admin: 08/15/22 07:01 Dose: 100 mls/hr Acetaminophen (Ofirmev) 1,000 mg in 100 mls @ 400 mls/hr IV Q6H EMMA Stop: 08/16/22 00:29 Exam Exam Date and Time: August 15, 2022 0717 Height,Weight and Vital Signs: Height 5 ft 5 in Weight 90.718 kg Last Vital Signs Temp 97.8 F 08/15/22 06:23 Pulse 95 08/15/22 06:23 Resp 16 08/15/22 06:23 BP 126/90 H 08/15/22 06:23 Pulse Ox 96 08/15/22 06:23 O2 Del Method 08/15/22 06:23 Pertinent Lab Results Pertinent Lab Results: Laboratory Tests 08/06/22 08/15/22 12:48 06:15 COVID-19 ([facility]) Negative COVID-19 Clin Com See Note Blood Type O Positive Antibody Screen NEGATIVE Airway Mallampati Class: III (Narrow anterior oral cavity) TM Dist: >3cm Neck ROM: Full Loose/Missing/Broken Teeth: Yes (Small chip top front tooth. Denies loose or missing teeth) Heart: RRR Lungs: CTAB Assessment and Plan Assessment Anesthesia Assessment: Anesthesia Plan Discussed and Chart Reviewed Final Anesthetic Review Family History of Problems with Anesthesia: No History of Problems with Anesthesia: No NPO: Yes ASA Class: II Final Preanesthetic Review: No Changes in Pt Med Stat, Meds/Allgs Chart Reviewed, Consent Obtained/Reviewed and Anes Risks/Benef Reviewed Patient Risk: Low Procedure Risk: Intermediate Assessment/Block/Sedation in SS: Assess/Block/Sedation-SS Anesthetic Plan Anesthetic Plan: GA Disposition: Standard PACU and Inp. Admit - Standard Bed
--- NOTE | 2022-08-15 09:15 | P.CONAN_ITS ---
[facility] Active Problems Active Problems: All Active Problems (Updated 08/06/22 @ 11:48 by Trudy Leal RN) Somatic dysfunction of left sacroiliac joint (Acute) Occipital neuralgia (Acute) Dysuria (Acute) Chronic constipation (Acute) Family history of colon cancer (Acute) Ileitis (Acute) Hyperplastic colon polyp (Acute) Internal hemorrhoids (Acute) Appendix disease (Acute) Abnormal CT of the abdomen (Acute) Right lower quadrant pain (Acute) Cancer of appendix (Acute) Colitis (Acute) Crohn's disease (Acute) Mild recurrent major depression (Acute) Physical exam (Acute) Anxiety (Acute) Hospital discharge follow-up (Acute) Screen for colon cancer (Acute) Pulmonary nodules (Acute) Migraines (Acute) Past Medical History Medical History Anxiety Cancer of appendix History of COVID-19 Hospital discharge follow-up Migraines Mild recurrent major depression Physical exam Pulmonary nodules Screen for colon cancer Family History Family History Father Colon cancer, Onset Age: 63 Liver cancer Mother Breast cancer Diabetes Hypertension Maternal Grandmother Cancer Paternal Aunt Cancer Family/Other FH: mental illness Family history of problems with anesthesia: No Surgical History Surgical History Hx of appendectomy Hx of colonoscopy History of Problems with Anesthesia: No Social History Social History Household Members: Spouse and Family Housing: House Are you a primary healthcare management consultant to a significant other at home: No Do you presently have visiting nurse or other home services: No Alcohol intake: former Patient Tobacco Use Status: Former Tobacco user Quit Date: 08/2021 Tobacco use type: Cigarette e-Cigarette/Vaping Use: Never Used Second Hand Smoke Exposure: No Use of substances other than those prescribed or required for medical reasons: No Have you been hit, kicked, punched, or otherwise hurt by someone within the past year? If so, by whom?: No Are you DNR?: No Advance Directives: No Advance Directives Information Provided: Yes (brochure given) Advance Directives on File: No Recently lost weight without trying: No Eating poorly because of decreased appetite: No Nutrition Risks: No Nutritional Risk Poor oral hygiene: No service: No Current occupational status: employed Current occupational exposures/hazards: No Cognitive needs: No Hearing needs: No Vision needs: No Meds Allergies Allergy/AdvReac Type Severity Reaction Status Date / Time aspirin [ASA] Allergy Severe anaphylaxis/facial Verified 07/29/22 10:26 swelling ibuprofen [Advil] Allergy Severe tracheal Verified 07/29/22 10:26 swelling shellfish derived Allergy Severe Anaphylaxis Verified 07/29/22 10:26 Active Medications: Current Medications Lactated Ringer's (Lr) 1,000 mls @ 100 mls/hr IVCONT .Q10H [facility] Last Admin: 08/15/22 07:01 Dose: 100 mls/hr Acetaminophen (Ofirmev) 1,000 mg in 100 mls @ 400 mls/hr IV Q6H [facility] Stop: 08/16/22 00:29 Exam Exam Date and Time: August 15, 2022 0915 Height,Weight and Vital Signs: Height 5 ft 5 in Weight 90.718 kg Last Vital Signs Temp 97.8 F 08/15/22 06:23 Pulse 95 08/15/22 06:23 Resp 16 08/15/22 06:23 BP 126/90 H 08/15/22 06:23 Pulse Ox 96 08/15/22 06:23 O2 Del Method 08/15/22 06:23 Pertinent Lab Results Pertinent Lab Results: Laboratory Tests 08/06/22 08/15/22 12:48 06:15 COVID-19 ([facility]) Negative COVID-19 Clin Com See Note Blood Type O Positive Antibody Screen NEGATIVE Assessment and Plan Final Anesthetic Review Family History of Problems with Anesthesia: No History of Problems with Anesthesia: No NPO: Yes
--- NOTE | 2022-08-15 10:08 | PHA.MEDREC ---
Pharmacy Consult ? Medication Reconciliation Pharmacy has reviewed the medication reconciliation completed by nursing.
[2022-08-15] MEDS: HYDROmorphone HCl 0.5 MG/0.5 ML SYRINGE 0.25 MG IVPUSH ×7 (10:11→18:18)
[2022-08-15] MEDS: Lactated Ringers 1,000 ML 125 ML IVCONT ×2 (11:17→19:49)
[2022-08-15 12:39] LABS: MANUAL DIFF FLAG NO
[2022-08-15 12:42] LABS: Basophils Percent Auto 0.2 % (0-2); Eosinophils Percent Auto 0.2 % (0-4); Hemoglobin 13.2 g/dl (14.0-18.0); Imm Gran Abs Auto 0.03 X10*3/uL (0.00-0.03); Imm Gran Pct Auto 0.2 % (0.0-0.4); Lymphocytes Absolute Auto 1.2 X10*3/uL (1.2-4.9); Lymphocytes Percent Auto 9.5 % (20-40); Mean Corpuscular HGB Conc 32.2 g/dl (31.0-36.0); Mean Corpuscular Hemoglobin 27.2 pg (27.0-33.0); Mean Corpuscular Volume 84.4 fL (80.0-98.0); Mean Platelet Volume 8.9 fL (9.4-12.4); Monocytes Absolute Auto 0.7 X10*3/uL (0.1-1.2); Monocytes Percent Auto 5.9 % (2-11); Neutrophils Absolute Auto 10.5 x10*3/uL (2.0-8.3); Platelet Count 276 X10*3/uL (160-400); Red Blood Count 4.86 X10*6/uL (4.60-5.80); Red Cell Distribution Width 14.4 % (11.0-16.0); White Blood Count 12.5 X10*3/uL (4.8-10.8)
[2022-08-15 13:02] LABS: Anion Gap 11 (12-20); Blood Urea Nitrogen 10 mg/dL (9-16); Calcium 9.1 mg/dL (8.4-10.2); Carbon Dioxide 28 mmol/L (22-29); Chloride 105 mmol/L (96-108); Creatinine Clr Calc Pharmacy 111.9; Estimated Glomerular Filt Rate > 60; Glucose Random 100 mg/dL (60-115); Potassium 4.2 mmol/L (3.3-5.1); Sodium 140 mmol/L (135-145)
--- NOTE | 2022-08-15 13:03 | P.PNGS_ITS ---
Subjective Subjective Date of Service: 08/15/22 Patient reports: still having pain Interval history: Patient seen in PACU. He will be having to sell 3 shortly per staff. He denies any nausea or vomiting reports incisional pain. Pain medication seems to be helping impaired Physical Exam Vital Signs: Vital Signs: Last Vital Signs Temp 98.7 F 08/15/22 10:02 Pulse 109 H 08/15/22 12:35 Resp 16 08/15/22 12:35 BP 126/75 08/15/22 12:35 Pulse Ox 95 08/15/22 12:35 O2 Del Method 08/15/22 12:35 O2 Flow Rate 2 08/15/22 12:35 BMI result Body Mass Index 33.3 On exam he appears comfortable and I had to wake him Dressing is clean and intact Objective Data Active Medications Acetaminophen (Acetaminophen 325 Mg Tablet) 650 mg PO Q6H PRN PRN Reason: Pain, Mild (Pain Scale 1-3) Docusate Sodium (Docusate Sodium 100 Mg Capsule) 100 mg PO BID [facility] Fentanyl (Fentanyl Citrate/Pf 100 Mcg/2 Ml Vial) 25 mcg IVPUSH Q5M PRN; Protocol PRN Reason: Pain, Moderate (Pain Scale 4-6 Hydromorphone HCl (Hydromorphone Hcl 0.5 Mg/0.5 Ml Syringe) 0.25 mg IVPUSH Q2H PRN; Protocol PRN Reason: Pain, Moderate (Pain Scale 4-6 Last Admin: 08/15/22 12:25 Dose: 0.25 mg Documented By: ELMO Lactated Ringer's (Lr) 1,000 mls @ 100 mls/hr IVCONT .Q10H [facility] Last Admin: 08/15/22 07:01 Dose: 100 mls/hr Documented By: KIKE Acetaminophen (Ofirmev) 1,000 mg in 100 mls @ 400 mls/hr IV Q6H [facility] Stop: 08/16/22 00:29 Lactated Ringer's (Lr) 1,000 mls @ 100 mls/hr IVCONT .Q10H [facility] Promethazine HCl 6.25 mg/ (Sodium Chloride) 50.25 mls @ 201 mls/hr IV ONCE PRN PRN Reason: Nausea and Vomiting Lactated Ringer's (Lr) 1,000 mls @ 125 mls/hr IVCONT .Q8H [facility] Last Admin: 08/15/22 11:17 Dose: 125 mls/hr Documented By: ELMO Cefotetan Disodium 2 gm/ (Sodium Chloride) 50 mls @ 100 mls/hr IV POSTOP ONE Stop: 08/15/22 20:29 Ondansetron HCl (Ondansetron Hcl 4 Mg/2 Ml Vial) 4 mg IVPUSH ONCE PRN PRN Reason: Nausea and Vomiting Ondansetron HCl (Ondansetron Hcl 4 Mg/2 Ml Vial) 4 mg IVPUSH Q6H PRN PRN Reason: Nausea and Vomiting Oxycodone HCl (Oxycodone Hcl Immed Release 5 Mg Tablet) 5 mg PO Q6H PRN PRN Reason: Pain, Severe (Pain Scale 7-10) Sodium Chloride (0.9 % Sodium Chloride Flush 3 Ml Syringe) 3 ml IVFLUSH QSHIFT [facility] Labs 08/15/22 12:21 08/15/22 12:21 Labs: Laboratory Results - last 24 hr 08/15/22 08/15/22 08/15/22 06:15 12:21 12:21 MCV 84.4 MCH 27.2 MCHC 32.2 RDW 14.4 Plt Count 276 MPV 8.9 L Immature Gran % (Auto) 0.2 Neut % (Auto) 84.0 H Lymph % (Auto) 9.5 L [place] % (Auto) 5.9 Eos % (Auto) 0.2 Baso % (Auto) 0.2 Lymph # (Auto) 1.2 [place] # (Auto) 0.7 Eos # (Auto) 0.0 Baso # (Auto) 0.0 Abs Immat Gran (auto) 0.03 Absolute Neuts (auto) 10.5 H Absolute Nucleated RBC 0.000 Nucleated RBC % (auto) 0.0 Anion Gap 11 L Estim Creat Clear Calc 111.9 Estimated GFR > 60 Random Glucose 100 Calcium 9.1 COVID-19 ([facility]) Negative COVID-19 Clin Com See Note Procedures Date of Service Date of Service: 08/15/22 Progress Note: A&P Assessment and plan (1) Family history of colon cancer: Status: Acute (2) Ileitis: Status: Acute (3) Cancer of appendix: Status: Acute (4) H/O right hemicolectomy: Status: Acute Plan Postoperative labs noted Continue NPO except ice chips and sips until flatus then advanced diet SCDs, postop ABX x1 Start subcu heparin tomorrow NO NSAIDS due to allergy Time Spent With Patient Time: Total time managing care of this patient today ____ minutes. Quality Stroke Does the patient have a stroke diagnosis?: No VTE Prior VTE?: No VTE Risk Level:: Surgical - moderate VTE Device Contraindication: N/A - Device Ordered VTE Drug Contraindication: N/A - Med Ordered
[2022-08-15] MEDS: Docusate Sodium 100 MG CAPSULE PO (19:50)
[2022-08-15] MEDS: cefoTEtan disodium 2 GM in 0.9 % Sodium Chloride 50 ML IV (20:41)
[2022-08-15] MEDS: Acetaminophen 1,000 MG/100 ML PIGGYBACK 400 MG IV (22:19)
[2022-08-16] MEDS: HYDROmorphone HCl 0.5 MG/0.5 ML SYRINGE 0.25 MG IVPUSH ×2 (02:01→04:47)
[2022-08-16 03:24] VITALS: BP 122/71; PULSE 97; RESP 18; TEMP 36.7; O2SAT 96
[2022-08-16] MEDS: Lactated Ringers 1,000 ML 125 ML IVCONT ×3 (03:26→20:02)
[2022-08-16] MEDS: Acetaminophen 1,000 MG/100 ML PIGGYBACK 400 MG IV ×4 (03:48→19:56)
[2022-08-16 06:39] LABS: MANUAL DIFF FLAG NO
[2022-08-16 06:59] LABS: Basophils Percent Auto 0.3 % (0-2); Eosinophils Absolute Auto 0.1 X10*3/uL (0.0-0.4); Eosinophils Percent Auto 0.8 % (0-4); Hematocrit 39.6 % (42.0-52.0); Hemoglobin 12.5 g/dl (14.0-18.0); Imm Gran Abs Auto 0.01 X10*3/uL (0.00-0.03); Imm Gran Pct Auto 0.1 % (0.0-0.4); Lymphocytes Absolute Auto 1.7 X10*3/uL (1.2-4.9); Lymphocytes Percent Auto 23.4 % (20-40); Mean Corpuscular HGB Conc 31.6 g/dl (31.0-36.0); Mean Corpuscular Hemoglobin 26.7 pg (27.0-33.0); Mean Corpuscular Volume 84.6 fL (80.0-98.0); Mean Platelet Volume 8.8 fL (9.4-12.4); Monocytes Absolute Auto 0.8 X10*3/uL (0.1-1.2); Monocytes Percent Auto 11.8 % (2-11); Neutrophils Absolute Auto 4.5 x10*3/uL (2.0-8.3); Neutrophils Percent Auto 63.6 % (45-73); Platelet Count 258 X10*3/uL (160-400); Red Blood Count 4.68 X10*6/uL (4.60-5.80); Red Cell Distribution Width 14.5 % (11.0-16.0); White Blood Count 7.1 X10*3/uL (4.8-10.8)
[2022-08-16 07:19] LABS: Anion Gap 11 (12-20); Blood Urea Nitrogen 7 mg/dL (9-16); Calcium 8.4 mg/dL (8.4-10.2); Carbon Dioxide 28 mmol/L (22-29); Chloride 105 mmol/L (96-108); Creatinine Clr Calc Pharmacy 122.9; Estimated Glomerular Filt Rate > 60; Glucose Random 77 mg/dL (60-115); Potassium 4.3 mmol/L (3.3-5.1); Sodium 140 mmol/L (135-145)
--- NOTE | 2022-08-16 07:34 | HO.POSTANES ---
Post Anesthesia Evaluation Post Anesthesia Evaluation Vital Signs: Vital Signs Temp Pulse Resp BP Pulse Ox O2 Del Method O2 Flow Rate 08/16/22 03:24 98.1 F 97 18 122/71 96 Nasal Cannula 1 08/15/22 23:34 97.8 F 100 18 131/79 97 Nasal Cannula 2 Anesthesia: General Endotracheal-GETA Mental Status: Awake Pain Control: Satisfactory Nausea/Vomiting: None Hydration: Adequate Anesthesia-Related Issues: No Anes. Related Issues
[2022-08-16 07:57] VITALS: BP 134/89; PULSE 91; RESP 18; TEMP 36.4; O2SAT 98
--- NOTE | 2022-08-16 08:10 | P.PNGS_ITS ---
Subjective Subjective Date of Service: 08/16/22 <Rhiannon Madrid PA-C - Last Filed: 08/16/22 08:37> 08/16/22 <Dominguez Wise MD - Last Filed: 08/16/22 13:34> Interval history: C/o pain this morning- pain medication initially helping but wears off. Reports pain at incision sites as well as throat. Reports belching, denies flatus. Denies nausea or vomiting. Has not been out of bed yet. Attempted to use incentive spirometer but stopped due to abdominal pain and throat discomfort. <Rhiannon Madrid PA-C - Last Filed: 08/16/22 08:37> Physical Exam Vital Signs: Vital Signs: Last Vital Signs Temp 97.6 F 08/16/22 07:57 Pulse 91 08/16/22 07:57 Resp 18 08/16/22 07:57 BP 134/89 08/16/22 07:57 Pulse Ox 98 08/16/22 07:57 O2 Del Method 08/16/22 07:57 O2 Flow Rate 1.5 08/16/22 07:57 BMI result Body Mass Index 33.3 <Rhiannon Madrid PA-C - Last Filed: 08/16/22 08:37> Const: General: no acute distress, alert and other (uncomfortable appearing) <Rhiannon Madrid PA-C - Last Filed: 08/16/22 08:37> Orientation/consciousness: patient oriented x3 <Rhiannon Madrid PA-C - Last Filed: 08/16/22 08:37> Resp: Effort & Inspection: normal respiratory effort <Rhiannon Madrid PA-C - Last Filed: 08/16/22 08:37> Cardio: Rate: regular rate <NIVIA Fiore Last Filed: 08/16/22 08:37> GI: Inspection: Yes distended (mild, soft) and Yes incision (dressings c/d/i) <NIVIA Fiore Last Filed: 08/16/22 08:37> Palpation (GI): Soft to palpation, Tenderness to palpation present (GI) (incisional), no guarding and not rigid <Rhiannon Madrid PA-C - Last Filed: 08/16/22 08:37> Percussion: Yes normal to percussion <NIVIA Fiore Last Filed: 08/16/22 08:37> Skin: General skin exam: no rashes or lesions noted <NIVIA Fiore Last Filed: 08/16/22 08:37> Neuro: General: patient oriented x3 and moves all extremities <Rhiannon Madrid PA-C - Last Filed: 08/16/22 08:37> Objective Data Active Medications Acetaminophen (Acetaminophen 325 Mg Tablet) 650 mg PO Q6H PRN PRN Reason: Pain, Mild (Pain Scale 1-3) Docusate Sodium (Docusate Sodium 100 Mg Capsule) 100 mg PO BID [facility] Last Admin: 08/15/22 19:50 Dose: 100 mg Documented By: CONY Fentanyl (Fentanyl Citrate/Pf 100 Mcg/2 Ml Vial) 25 mcg IVPUSH Q5M PRN; Protocol PRN Reason: Pain, Moderate (Pain Scale 4-6 Hydromorphone HCl (Hydromorphone Hcl 0.5 Mg/0.5 Ml Syringe) 0.25 mg IVPUSH Q2H PRN; Protocol PRN Reason: Pain, Moderate (Pain Scale 4-6 Last Admin: 08/16/22 04:47 Dose: 0.25 mg Documented By: FELISHA Promethazine HCl 6.25 mg/ (Sodium Chloride) 50.25 mls @ 201 mls/hr IV ONCE PRN PRN Reason: Nausea and Vomiting Lactated Ringer's (Lr) 1,000 mls @ 125 mls/hr IVCONT .Q8H [facility] Last Admin: 08/16/22 03:26 Dose: 125 mls/hr Documented By: DANIEL Ondansetron HCl (Ondansetron Hcl 4 Mg/2 Ml Vial) 4 mg IVPUSH ONCE PRN PRN Reason: Nausea and Vomiting Ondansetron HCl (Ondansetron Hcl 4 Mg/2 Ml Vial) 4 mg IVPUSH Q6H PRN PRN Reason: Nausea and Vomiting Oxycodone HCl (Oxycodone Hcl Immed Release 5 Mg Tablet) 5 mg PO Q6H PRN PRN Reason: Pain, Severe (Pain Scale 7-10) Sodium Chloride (0.9 % Sodium Chloride Flush 3 Ml Syringe) 3 ml IVFLUSH QSHIFT [facility] Last Admin: 08/16/22 00:09 Dose: Not Given Documented By: DANIEL Non-Admin Reason: IV Running <Rhiannon Madrid PA-C - Last Filed: 08/16/22 08:37> Labs CBC & Chem 7: 08/16/22 05:56 08/16/22 05:56 <Rhiannon Madrid PA-C - Last Filed: 08/16/22 08:37> Labs: Laboratory Results - last 24 hr 08/15/22 08/15/22 08/16/22 12:21 12:21 05:56 MCV 84.4 84.6 MCH 27.2 26.7 L MCHC 32.2 31.6 RDW 14.4 14.5 Plt Count 276 258 MPV 8.9 L 8.8 L Immature Gran % (Auto) 0.2 0.1 Neut % (Auto) 84.0 H 63.6 Lymph % (Auto) 9.[address] [place] % (Auto) 5.9 11.8 H Eos % (Auto) 0.2 0.8 Baso % (Auto) 0.2 0.3 Lymph # (Auto) 1.[address] [place] # (Auto) 0.7 0.8 Eos # (Auto) 0.0 0.1 Baso # (Auto) 0.0 0.0 Abs Immat Gran (auto) 0.03 0.01 Absolute Neuts (auto) 10.5 H 4.5 Absolute Nucleated RBC 0.000 0.000 Nucleated RBC % (auto) 0.0 0.0 Anion Gap 11 L Estim Creat Clear Calc 111.9 Estimated GFR > 60 Random Glucose 100 Calcium 9.1 08/16/22 05:56 MCV MCH MCHC RDW Plt Count MPV Immature Gran % (Auto) Neut % (Auto) Lymph % (Auto) [place] % (Auto) Eos % (Auto) Baso % (Auto) Lymph # (Auto) [place] # (Auto) Eos # (Auto) Baso # (Auto) Abs Immat Gran (auto) Absolute Neuts (auto) Absolute Nucleated RBC Nucleated RBC % (auto) Anion Gap 11 L Estim Creat Clear Calc 122.9 Estimated GFR > 60 Random Glucose 77 Calcium 8.4 D <Rhiannon Madrid PA-C - Last Filed: 08/16/22 08:37> Procedures Date of Service Date of Service: 08/16/22 <Rhiannon Madrid PA-C - Last Filed: 08/16/22 08:37> Progress Note: A&P Assessment and plan (1) H/O right hemicolectomy: Status: Acute <NIVIA Fiore Last Filed: 08/16/22 08:37> (2) Cancer of appendix: Status: Acute <NIVIA Fiore Last Filed: 08/16/22 08:37> Assessment and Plan: 41-year-old male who is POD #1 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 Doing fairly well post operatively but having difficulty with pain. VSS. Abd- mildly distended, soft, appropriate post op tenderness, dressings c/d/i. D/c pizano. Will continue ice chips, sips of clears for now until evidence of GI function. He was strongly encouraged OOB and ambulation of halls today, educated on incentive spirometer and use. Pain management- analgesics adjusted and ofirmev added. On colace. Patient comfortable with plan. 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 Doing fairly well post operatively but having difficulty with pain. VSS. Abd- mildly distended, soft, appropriate post op tenderness, dressings c/d/i. D/c pizano. Will continue ice chips, sips of clears for now until evidence of GI function. He was strongly encouraged OOB and ambulation of halls today, educated on incentive spirometer and use. Pain management- analgesics adjusted and ofirmev added. On colace. Patient comfortable with plan. Pod 1 following laparoscopic right hemicolectomy. Patient mainly has incisional pain and is afraid to move. Patient's incisions are clean and intact without evidence of discharge or infection. Patient started using IS but is afraid to take a deep breath. He was encouraged to take deep breath, ambulate. Physical therapy consulted for ambulation. Patient understands plan. <Dominguez Wise MD - Last Filed: 08/16/22 13:34> Time Spent With Patient Time: Total time managing care of this patient today ____ minutes. <Rhiannon Madrid PA-C - Last Filed: 08/16/22 08:37> Quality Stroke Does the patient have a stroke diagnosis?: No <Rhiannon Madrid PA-C - Last Filed: 08/16/22 08:37> VTE Prior VTE?: No <Rhiannon Madrid PA-C - Last Filed: 08/16/22 08:37> VTE Risk Level:: Surgical - moderate <Rhiannon Madrid PA-C - Last Filed: 08/16/22 08:37> VTE Device Contraindication: N/A - Device Ordered <Rhiannon Madrid PA-C - Last Filed: 08/16/22 08:37> VTE Drug Contraindication: N/A - Med Ordered <Rhiannon Madrid PA-C - Last Filed: 08/16/22 08:37>
[2022-08-16] MEDS: Docusate Sodium 100 MG CAPSULE PO ×2 (08:36→19:56)
[2022-08-16] MEDS: HYDROmorphone HCl 0.5 MG/0.5 ML SYRINGE IVPUSH ×3 (08:37→18:34)
[2022-08-16 09:46] VITALS: BP 134/89; PULSE 91; O2SAT 98
[2022-08-16 13:43] VITALS: BMI 33.3
[2022-08-16 15:24] VITALS: BP 121/84; PULSE 104; RESP 18; TEMP 36.5; O2SAT 94
--- NOTE | 2022-08-16 16:22 | MHC.CM.PN ---
CM MET WITH PTS AND SON AT BEDSIDE PT IS INDEPENDENT WITH ALL CARE HE USES NO DME AND HAS NO SERVICES HE DOES NOT HAVE A HCP CM WILL OFFER WHEN PT AWAKE HE IS COVID [place] PCP: MIGUELINA RILEY DCP: HOME NO SERVICES VIA FAMILY TRANSPORT
[2022-08-16 19:41] VITALS: BP 126/83; PULSE 110; RESP 18; TEMP 37.3; O2SAT 96
[2022-08-16] MEDS: traZODone HCL 50 MG TABLET PO (19:57)
[2022-08-16 23:37] VITALS: BP 122/79; PULSE 105; RESP 18; TEMP 37.1; O2SAT 95
[2022-08-17] VITALS: BP 122/79; PULSE 106; RESP 16; TEMP 37.2; O2SAT 95
[2022-08-17] MEDS: Acetaminophen 1,000 MG/100 ML PIGGYBACK 400 MG IV ×4 (01:00→20:02)
[2022-08-17] MEDS: HYDROmorphone HCl 0.5 MG/0.5 ML SYRINGE IVPUSH ×6 (01:00→22:57)
[2022-08-17] MEDS: oxyCODONE HCl Immed Release 5 MG TABLET 10 MG PO ×3 (03:53→20:01)
[2022-08-17] MEDS: Lactated Ringers 1,000 ML 125 ML IVCONT (03:54)
[2022-08-17 07:16] VITALS: BP 137/77; PULSE 102; RESP 16; TEMP 37.6; O2SAT 96
[2022-08-17] MEDS: Docusate Sodium 100 MG CAPSULE PO ×2 (07:48→20:02)
--- NOTE | 2022-08-17 08:53 | P.PNGS_ITS ---
Subjective Subjective Date of Service: 08/17/22 Interval history: Patient reports some increased abdominal pain in lower abdomen earlier this morning but then passed a large amount of flatus and feels improved now. He does have some diffuse joint pains which are new. Reports decreased abdominal pain currently. He is voiding well since the removal of his Elder catheter. Reports ambulating in the hallway yesterday, will continue today. Physical Exam Vital Signs: Vital Signs: Last Vital Signs Temp 99.7 F 08/17/22 07:16 Pulse 102 H 08/17/22 07:16 Resp 16 08/17/22 07:16 BP 137/77 08/17/22 07:16 Pulse Ox 96 08/17/22 07:16 O2 Del Method 08/17/22 07:16 O2 Flow Rate 1.5 08/16/22 07:57 BMI result Body Mass Index 33.3 Const: General: comfortable and no acute distress Nutritional Appearance: well nourished Orientation/consciousness: patient oriented x3 Limitations: no limitations Resp: Other: Breathing comfortably on room air, no respiratory distress Cardio: Other: Tachycardia GI: Other: midline incision is clean, dry, and intact; trocar sites are clean without discharge. Skin: Other: Warm, dry, no rash Neuro: General: patient oriented x3 Extrem: Other: No pedal edema Objective Data Active Medications Benzocaine (Throat Lozenge, Medicated Lozenge) 1 lozenge MUCOUS MEM Q2H PRN PRN Reason: Sore Throat Docusate Sodium (Docusate Sodium 100 Mg Capsule) [address] [facility] Last Admin: 08/17/22 07:48 Dose: 100 mg Documented By: KENNY Hydromorphone HCl (Hydromorphone Hcl 0.5 Mg/0.5 Ml Syringe) 0.5 mg IVPUSH Q4H PRN; Protocol PRN Reason: Pain, Moderate (Pain Scale 4-6 Last Admin: 08/17/22 05:16 Dose: 0.5 mg Documented By: NEDA Lactated Ringer's (Lr) 1,000 mls @ 50 mls/hr IVCONT .Q20H [facility] Last Admin: 08/17/22 03:54 Dose: 125 mls/hr Documented By: NEDA Acetaminophen (Ofirmev) 1,000 mg in 100 mls @ 400 mls/hr IV Q6H [facility] Last Infusion: 08/17/22 08:20 Dose: 0 mls/hr Documented By: KENNY Ondansetron HCl (Ondansetron Hcl 4 Mg/2 Ml Vial) 4 mg IVPUSH Q6H PRN PRN Reason: Nausea and Vomiting Oxycodone HCl (Oxycodone Hcl Immed Release 5 Mg Tablet) 5 mg PO Q6H PRN PRN Reason: Pain, Severe (Pain Scale 7-10) Oxycodone HCl (Oxycodone Hcl Immed Release 5 Mg Tablet) 10 mg PO Q4H PRN PRN Reason: Pain, Severe (Pain Scale 7-10) Last Admin: 08/17/22 08:34 Dose: 10 mg Documented By: KENNY Sodium Chloride (0.9 % Sodium Chloride Flush 3 Ml Syringe) [address] [facility] Last Admin: 08/17/22 07:53 Dose: Not Given Documented By: KENNY Non-Admin Reason: IV Running Trazodone HCl (Trazodone Hcl 50 Mg Tablet) [address] [facility] Last Admin: 08/16/22 19:57 Dose: 50 mg Documented By: NEDA Labs 08/16/22 05:56 08/16/22 05:56 Procedures Date of Service Date of Service: 08/17/22 Progress Note: A&P Assessment and plan (1) H/O right hemicolectomy: Status: Acute Plan 41-year-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 He is now passing flatus and ambulating well. Will advance to a clear liquid diet. IV fluids decreased. Awaiting return of bowel function. Time Spent With Patient Time: Total time managing care of this patient today ____ minutes. Quality Stroke Does the patient have a stroke diagnosis?: No VTE Prior VTE?: No VTE Risk Level:: Surgical - moderate VTE Device Contraindication: N/A - Device Ordered VTE Drug Contraindication: N/A - Med Ordered
[2022-08-17 15:16] VITALS: BP 119/81; PULSE 84; RESP 18; TEMP 36.9; O2SAT 98
[2022-08-17] MEDS: Lactated Ringers 1,000 ML 50 ML IVCONT (16:41)
[2022-08-17] MEDS: 0.9 % Sodium Chloride Flush 3 ML SYRINGE IVFLUSH (16:42)
[2022-08-17] MEDS: traZODone HCL 50 MG TABLET PO (20:02)
[2022-08-18] VITALS: BP 135/76; PULSE 94; RESP 16; TEMP 37.2; O2SAT 93
[2022-08-18] MEDS: HYDROmorphone HCl 0.5 MG/0.5 ML SYRINGE IVPUSH ×4 (03:06→21:39)
[2022-08-18] MEDS: Acetaminophen 1,000 MG/100 ML PIGGYBACK 400 MG IV (03:07)
[2022-08-18 04:00] VITALS: BP 137/74; PULSE 98; RESP 16; TEMP 36.6; O2SAT 95
[2022-08-18 06:09] LABS: MANUAL DIFF FLAG NO
[2022-08-18 06:31] LABS: Basophils Percent Auto 0.5 % (0-2); Eosinophils Absolute Auto 0.6 X10*3/uL (0.0-0.4); Eosinophils Percent Auto 8.9 % (0-4); Hematocrit 38.7 % (42.0-52.0); Hemoglobin 12.5 g/dl (14.0-18.0); Imm Gran Abs Auto 0.01 X10*3/uL (0.00-0.03); Imm Gran Pct Auto 0.2 % (0.0-0.4); Lymphocytes Absolute Auto 1.6 X10*3/uL (1.2-4.9); Lymphocytes Percent Auto 24.8 % (20-40); Mean Corpuscular HGB Conc 32.3 g/dl (31.0-36.0); Mean Corpuscular Hemoglobin 26.8 pg (27.0-33.0); Monocytes Absolute Auto 0.6 X10*3/uL (0.1-1.2); Monocytes Percent Auto 9.8 % (2-11); Neutrophils Absolute Auto 3.6 x10*3/uL (2.0-8.3); Neutrophils Percent Auto 55.8 % (45-73); Platelet Count 271 X10*3/uL (160-400); Red Blood Count 4.66 X10*6/uL (4.60-5.80); Red Cell Distribution Width 13.9 % (11.0-16.0); White Blood Count 6.5 X10*3/uL (4.8-10.8)
[2022-08-18] MEDS: oxyCODONE HCl Immed Release 5 MG TABLET 10 MG PO ×3 (06:34→19:56)
[2022-08-18 07:54] VITALS: BP 125/81; PULSE 90; RESP 16; TEMP 36.6; O2SAT 95
[2022-08-18] MEDS: Docusate Sodium 100 MG CAPSULE PO ×2 (08:40→19:56)
[2022-08-18] MEDS: 0.9 % Sodium Chloride Flush 3 ML SYRINGE IVFLUSH ×3 (08:40→21:42)
--- NOTE | 2022-08-18 08:43 | P.PNGS_ITS ---
Subjective Subjective Date of Service: 08/18/22 Interval history: Patient reports feeling improved this morning after having 3 bowel movements. The bowel movements were described as liquidy with sand at the bottom. Was able to ambulate in the hallways and is getting out of bed independently. He tolerated clear liquids without nausea or vomiting. Admits to a decreased appetite at this time. Physical Exam Vital Signs: Vital Signs: Last Vital Signs Temp 97.9 F 08/18/22 07:54 Pulse 90 08/18/22 07:54 Resp 16 08/18/22 07:54 BP 125/81 08/18/22 07:54 Pulse Ox 95 08/18/22 07:54 O2 Del Method 08/18/22 07:54 O2 Flow Rate 1.5 08/16/22 07:57 BMI result Body Mass Index 33.3 Const: General: comfortable and no acute distress Nutritional Appearance: well nourished Orientation/consciousness: patient oriented x3 Limitations: no limitations Resp: Other: Breathing comfortably on room air, no respiratory distress Cardio: Other: Tachycardia GI: Other: midline incision is clean, dry, and intact; trocar sites are clean without discharge. Skin: Other: Warm, dry, no rash Neuro: General: patient oriented x3 Extrem: Other: No pedal edema Objective Data Active Medications Benzocaine (Throat Lozenge, Medicated Lozenge) 1 lozenge MUCOUS MEM Q2H PRN PRN Reason: Sore Throat Docusate Sodium (Docusate Sodium 100 Mg Capsule) 100 mg PO BID [facility] Last Admin: 08/17/22 20:02 Dose: 100 mg Documented By: NEDA Hydromorphone HCl (Hydromorphone Hcl 0.5 Mg/0.5 Ml Syringe) 0.5 mg IVPUSH Q4H PRN; Protocol PRN Reason: Pain, Moderate (Pain Scale 4-6 Last Admin: 08/18/22 03:06 Dose: 0.5 mg Documented By: NEDA Ondansetron HCl (Ondansetron Hcl 4 Mg/2 Ml Vial) 4 mg IVPUSH Q6H PRN PRN Reason: Nausea and Vomiting Oxycodone HCl (Oxycodone Hcl Immed Release 5 Mg Tablet) 5 mg PO Q6H PRN PRN Reason: Pain, Severe (Pain Scale 7-10) Oxycodone HCl (Oxycodone Hcl Immed Release 5 Mg Tablet) 10 mg PO Q4H PRN PRN Reason: Pain, Severe (Pain Scale 7-10) Last Admin: 08/18/22 06:34 Dose: 10 mg Documented By: NEDA Sodium Chloride (0.9 % Sodium Chloride Flush 3 Ml Syringe) 3 ml IVFLUSH QSHIFT [facility] Last Admin: 08/17/22 21:34 Dose: Not Given Documented By: NEDA Non-Admin Reason: IV Running Trazodone HCl (Trazodone Hcl 50 Mg Tablet) 50 mg PO BEDTIME [facility] Last Admin: 08/17/22 20:02 Dose: 50 mg Documented By: NEDA Labs 08/18/22 05:21 08/16/22 05:56 Labs: Laboratory Results - last 24 hr 08/18/22 05:21 MCV 83.0 MCH 26.8 L MCHC 32.3 RDW 13.9 Plt Count 271 MPV 9.0 L Immature Gran % (Auto) 0.2 Neut % (Auto) 55.8 Lymph % (Auto) 24.8 [place] % (Auto) 9.8 Eos % (Auto) 8.9 H Baso % (Auto) 0.5 Lymph # (Auto) 1.6 [place] # (Auto) 0.6 Eos # (Auto) 0.6 H Baso # (Auto) 0.0 Abs Immat Gran (auto) 0.01 Absolute Neuts (auto) 3.6 Absolute Nucleated RBC 0.000 Nucleated RBC % (auto) 0.0 Procedures Date of Service Date of Service: 08/18/22 Progress Note: A&P Assessment and plan (1) H/O right hemicolectomy: Status: Acute Plan 41-year-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 He is now passing flatus, moving bowels, and ambulating well. Will advance to a regular low-fiber diet and DC IV fluids. Will DC IV Tylenol. Patient encouraged to continue ambulation. Time Spent With Patient Time: Total time managing care of this patient today ____ minutes. Quality Stroke Does the patient have a stroke diagnosis?: No VTE Prior VTE?: No VTE Risk Level:: Surgical - moderate VTE Device Contraindication: N/A - Device Ordered VTE Drug Contraindication: N/A - Med Ordered
[2022-08-18] MEDS: ondansetron HCL 4 MG/2 ML VIAL IVPUSH (15:44)
--- NOTE | 2022-08-18 17:44 | PC.NURSE ---
At 1554 pt notified this RN that was feeling nauseated and having moderate pain after eating half of a sandwich. MD Deal notified, PRN zofran and PRN dilaudid given with good effect. changed diet back to clear liquid.
[2022-08-18 18:41] VITALS: BP 122/77; PULSE 97; RESP 20; TEMP 36.7; O2SAT 94
[2022-08-18 19:18] VITALS: BP 118/70; PULSE 101; RESP 18; TEMP 37.4; O2SAT 97
[2022-08-18] MEDS: traZODone HCL 50 MG TABLET PO (19:56)
[2022-08-19] VITALS: BP 111/56; PULSE 104; RESP 16; TEMP 36.4; O2SAT 93
[2022-08-19 04:00] VITALS: BP 137/79; PULSE 84; RESP 16; TEMP 36.6; O2SAT 97
[2022-08-19] MEDS: HYDROmorphone HCl 0.5 MG/0.5 ML SYRINGE IVPUSH ×3 (04:16→22:05)
[2022-08-19 07:37] VITALS: BP 112/65; PULSE 84; RESP 16; TEMP 36.8; O2SAT 95
--- NOTE | 2022-08-19 08:45 | PM.PNGS ---
Subjective Subjective Date of Service: 08/19/22 <Rhiannon Madrid PA-C - Last Filed: 08/19/22 08:50> 08/19/22 <Dominguez Wise MD - Last Filed: 08/19/22 11:10> Interval history: Nausea is resolved. Does not feel quite ready for solid food yet. Does report crampy gas pains occasionally and waking up with severe incisional pain. Ambulated in halls yesterday 3 times and already once this morning. Passing a lot of flatus and had multiple BM yesterday. <Rhiannon Madrid PA-C - Last Filed: 08/19/22 08:50> Physical Exam Vital Signs: Vital Signs: Last Vital Signs Temp 98.3 F 08/19/22 07:37 Pulse 84 08/19/22 07:37 Resp 16 08/19/22 07:37 BP 112/65 08/19/22 07:37 Pulse Ox 95 08/19/22 07:37 O2 Del Method 08/19/22 07:37 O2 Flow Rate 1.5 08/16/22 07:57 BMI result Body Mass Index 33.3 <Rhiannon Madrid PA-C - Last Filed: 08/19/22 08:50> Const: General: comfortable, no acute distress and alert <NIVIA Fiore Last Filed: 08/19/22 08:50> Orientation/consciousness: patient oriented x3 <Rhiannon Madrid PA-C - Last Filed: 08/19/22 08:50> Resp: Effort & Inspection: normal respiratory effort <NIVIA Fiore Last Filed: 08/19/22 08:50> GI: Inspection: No distended and Yes incision (clean) <NIVIA Fiore Last Filed: 08/19/22 08:50> Palpation (GI): Soft to palpation, Tenderness to palpation present (GI) (mild diffuse), no guarding and not rigid <NIVIA Fiore Last Filed: 08/19/22 08:50> Percussion: Yes normal to percussion <NIVIA Fiore Last Filed: 08/19/22 08:50> Skin: General skin exam: no rashes or lesions noted <Rhiannon Madrid PA-C - Last Filed: 08/19/22 08:50> Neuro: General: patient oriented x3 and moves all extremities <Rhiannon Madrid PA-C - Last Filed: 08/19/22 08:50> Objective Data Active Medications Acetaminophen (Acetaminophen 325 Mg Tablet) 650 mg PO Q6H [facility] Benzocaine (Throat Lozenge, Medicated Lozenge) 1 lozenge MUCOUS MEM Q2H PRN PRN Reason: Sore Throat Docusate Sodium (Docusate Sodium 100 Mg Capsule) 100 mg PO BID [facility] Last Admin: 08/18/22 19:56 Dose: 100 mg Documented By: ANOOP Hydromorphone HCl (Hydromorphone Hcl 0.5 Mg/0.5 Ml Syringe) 0.5 mg IVPUSH Q4H PRN; Protocol PRN Reason: Pain, Moderate (Pain Scale 4-6 Last Admin: 08/19/22 04:16 Dose: 0.5 mg Documented By: ANOOP Comments: pt asked for dilaudid Ondansetron HCl (Ondansetron Hcl 4 Mg/2 Ml Vial) 4 mg IVPUSH Q6H PRN PRN Reason: Nausea and Vomiting Last Admin: 08/18/22 15:44 Dose: 4 mg Documented By: EDWIN Oxycodone HCl (Oxycodone Hcl Immed Release 5 Mg Tablet) 5 mg PO Q6H PRN PRN Reason: Pain, Severe (Pain Scale 7-10) Oxycodone HCl (Oxycodone Hcl Immed Release 5 Mg Tablet) 10 mg PO Q4H PRN PRN Reason: Pain, Severe (Pain Scale 7-10) Last Admin: 08/18/22 19:56 Dose: 10 mg Documented By: ANOOP Simethicone (Simethicone 80 Mg Tab.Chew) 80 mg PO QIDWMHS PRN PRN Reason: gas pain Sodium Chloride (0.9 % Sodium Chloride Flush 3 Ml Syringe) 3 ml IVFLUSH QSHICHI [facility] Last Admin: 08/18/22 21:42 Dose: 3 ml Documented By: ANOOP Trazodone HCl (Trazodone Hcl 50 Mg Tablet) 50 mg PO BEDTIME [facility] Last Admin: 08/18/22 19:56 Dose: 50 mg Documented By: ANOOP <Rhiannon Madrid PA-C - Last Filed: 08/19/22 08:50> Labs CBC & Chem 7: 08/18/22 05:21 08/16/22 05:56 <Rhiannon Madrid PA-C - Last Filed: 08/19/22 08:50> Procedures Date of Service Date of Service: 08/19/22 <Rhiannon Madrid PA-C - Last Filed: 08/19/22 08:50> Progress Note: A&P Assessment and plan (1) H/O right hemicolectomy: Status: Acute <Rhiannon Madrid PA-C - Last Filed: 08/19/22 08:50> (2) Cancer of appendix: Status: Acute <NIVIA Fiore Last Filed: 08/19/22 08:50> Assessment and Plan: 41-year-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 Now with GI function but had increasing nausea and pain with solids yesterday. Resolved now on clears. Will advance to full liquids. Will add tylenol PO ATC to try and reduce severity of pain. Simethicone for gas pains. Patient encouraged to continue ambulation. <Rhiannon Madrid PA-C - Last Filed: 08/19/22 08:50> 41-year-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 Now with GI function but had increasing nausea and pain with solids yesterday. Resolved now on clears. Will advance to full liquids. Will add tylenol PO ATC to try and reduce severity of pain. Simethicone for gas pains. Patient encouraged to continue ambulation. Agree with the above assessment and plan. Patient doing well with multiple bowel movements but did not tolerate solid food yesterday due to increased pain ; agree with full liquids today. patient encouraged to continue ambulation and incentive spirometry. Pathology results pending. <Dominguez Wise MD - Last Filed: 08/19/22 11:10> Time Spent With Patient Time: Total time managing care of this patient today ____ minutes. <Rhiannon Madrid PA-C - Last Filed: 08/19/22 08:50> Quality Stroke Does the patient have a stroke diagnosis?: No <Rhiannon Madrid PA-C - Last Filed: 08/19/22 08:50> VTE Prior VTE?: No <Rhiannon Madrid PA-C - Last Filed: 08/19/22 08:50> VTE Risk Level:: Surgical - moderate <Rhiannon Madrid PA-C - Last Filed: 08/19/22 08:50> VTE Device Contraindication: N/A - Device Ordered <Rhiannon Madrid PA-C - Last Filed: 08/19/22 08:50> VTE Drug Contraindication: N/A - Med Ordered <Rhiannon Madrid PA-C - Last Filed: 08/19/22 08:50>
[2022-08-19] MEDS: Acetaminophen 325 MG TABLET 975 MG PO ×3 (09:14→20:25)
[2022-08-19] MEDS: 0.9 % Sodium Chloride Flush 3 ML SYRINGE IVFLUSH ×3 (09:15→20:27)
[2022-08-19] MEDS: Docusate Sodium 100 MG CAPSULE PO ×2 (09:15→20:24)
[2022-08-19] MEDS: oxyCODONE HCl Immed Release 5 MG TABLET 10 MG PO (10:59)
--- NOTE | 2022-08-19 14:06 | MHC.CLN ---
F/U DIET=FULL LIQUIDS WITH ENSURE TID. ENSURE PROVIDES ADDITIONAL 1050 KCALS, 60 G PROTEIN. NAUSEA AND PAIN WITH REGULAR DIET 08/18. DIET CHANGED TO CL AND NOW ADVANCED TO FULL LIQUIDS. SUPPLEMENT APPROPRIATE TO PROVIDE ADDITIONAL CALORIES AND NUTRITION. FOLLOW FOR DIET ADVANCEMENT AND INTAKE.
[2022-08-19 16:34] VITALS: BP 121/76; PULSE 74; RESP 18; TEMP 36.2; O2SAT 96
[2022-08-19] MEDS: traZODone HCL 50 MG TABLET PO (20:25)
[2022-08-19 23:47] VITALS: BP 102/58; PULSE 82; RESP 16; TEMP 36.5; O2SAT 96
[2022-08-20 03:23] VITALS: BP 113/64; PULSE 73; RESP 16; TEMP 36.1; O2SAT 95
[2022-08-20] MEDS: Acetaminophen 325 MG TABLET 975 MG PO ×4 (03:35→20:41)
--- NOTE | 2022-08-20 06:11 | PC.NURSE ---
pt had one large brown BM LOOSE this am
[2022-08-20] MEDS: HYDROmorphone HCl 0.5 MG/0.5 ML SYRINGE IVPUSH (06:34)
[2022-08-20] MEDS: 0.9 % Sodium Chloride Flush 3 ML SYRINGE IVFLUSH ×3 (07:53→20:42)
--- NOTE | 2022-08-20 07:53 | PM.PNGS ---
Subjective Subjective Date of Service: 08/20/22 Patient reports: feels better, still having pain, tolerating a regular diet and flatus Interval history: Chart is reviewed. Patient reports that he is tolerating his diet but is having some crampy in incisional pain. Is having some liquidy bowel movements. His allergies allow him to only take Tylenol and/or a narcotic and he states he is taking IV narcotic perhaps every 8 hours. We discussed the inability to send him home with IV narcotics and IV encouraged him to transition to p.o. narcotics but he noted that he does not care for however foggy/sleepy they make him feel. He otherwise denies chest pain, difficulty breathing shortness of breath. We reviewed the pathology report which showed no evidence of malignancy in the 16 lymph nodes harvested. No residual malignancy at the appendiceal base was noted. Physical Exam Vital Signs: Vital Signs: Last Vital Signs Temp 97.0 F 08/20/22 03:23 Pulse 73 08/20/22 03:23 Resp 16 08/20/22 03:23 BP 113/64 08/20/22 03:23 Pulse Ox 95 08/20/22 03:23 O2 Del Method 08/20/22 03:23 O2 Flow Rate 1.5 08/16/22 07:57 BMI result Body Mass Index 33.3 On exam he was nontoxic and appears well rested Sclerae anicteric He is in no acute respiratory distress Abdomen is overweight with his incisions healing well with no evidence of infection No drainage is noted from the incisions Objective Data Active Medications Acetaminophen (Acetaminophen 325 Mg Tablet) 975 mg PO Q6H [facility] Last Admin: 08/20/22 03:35 Dose: 975 mg Documented By: ANOOP Benzocaine (Throat Lozenge, Medicated Lozenge) 1 lozenge MUCOUS MEM Q2H PRN PRN Reason: Sore Throat Docusate Sodium (Docusate Sodium 100 Mg Capsule) 100 mg PO BID [facility] Last Admin: 08/19/22 20:24 Dose: 100 mg Documented By: ALEXI Hydromorphone HCl (Hydromorphone Hcl 0.5 Mg/0.5 Ml Syringe) 0.5 mg IVPUSH Q4H PRN; Protocol PRN Reason: Pain, Moderate (Pain Scale 4-6 Last Admin: 08/20/22 06:34 Dose: 0.5 mg Documented By: ANOOP Ondansetron HCl (Ondansetron Hcl 4 Mg/2 Ml Vial) 4 mg IVPUSH Q6H PRN PRN Reason: Nausea and Vomiting Last Admin: 08/18/22 15:44 Dose: 4 mg Documented By: EDWIN Oxycodone HCl (Oxycodone Hcl Immed Release 5 Mg Tablet) 5 mg PO Q6H PRN PRN Reason: Pain, Severe (Pain Scale 7-10) Oxycodone HCl (Oxycodone Hcl Immed Release 5 Mg Tablet) 10 mg PO Q4H PRN PRN Reason: Pain, Severe (Pain Scale 7-10) Last Admin: 08/19/22 10:59 Dose: 10 mg Documented By: FELISHA Simethicone (Simethicone 80 Mg Tab.Chew) 80 mg PO QIDWMHS PRN PRN Reason: gas pain Sodium Chloride (0.9 % Sodium Chloride Flush 3 Ml Syringe) [facility] Last Admin: 08/19/22 20:27 Dose: 3 ml Documented By: ALEXI Trazodone HCl (Trazodone Hcl 50 Mg Tablet) 50 mg PO BEDTIME [facility] Last Admin: 08/19/22 20:25 Dose: 50 mg Documented By: ALEXI Labs 08/18/22 05:21 08/16/22 05:56 Procedures Date of Service Date of Service: 08/20/22 Progress Note: A&P Assessment and plan (1) H/O right hemicolectomy: Status: Acute (2) Ileitis: Status: Acute (3) Cancer of appendix: Status: Acute (4) Crohn's disease: Status: Acute Plan The patient appears to be making steady progress. The major issue at this point remains controlling the incisional in crampy abdominal pain as he advances is diet and the fact that he can have aspirin or NSAIDs. Will reassess him later today. I explained to him the need to transition to oral narcotics and, if he is unable to, we can keep him and reassess him tomorrow. He was reassured by the pathology report importance of proper diet and increased activity with limitations was reviewed and apparently understood. Time Spent With Patient Time: Total time managing care of this patient today ____ minutes. Quality Stroke Does the patient have a stroke diagnosis?: No VTE Prior VTE?: No VTE Risk Level:: Surgical - moderate VTE Device Contraindication: N/A - Device Ordered VTE Drug Contraindication: N/A - Med Ordered
[2022-08-20 08:00] VITALS: BP 129/89; PULSE 72; RESP 16; TEMP 36.2; O2SAT 98
[2022-08-20] MEDS: oxyCODONE HCl Immed Release 5 MG TABLET 10 MG PO ×2 (13:40→19:15)
[2022-08-20 15:10] VITALS: BP 135/71; PULSE 74; RESP 18; TEMP 36.1; O2SAT 95
[2022-08-20 15:16] VITALS: BP 135/71; PULSE 77; RESP 18; TEMP 36.1; O2SAT 95
[2022-08-20 19:13] VITALS: BP 117/86; PULSE 80; RESP 16; TEMP 36.3; O2SAT 97
[2022-08-20] MEDS: traZODone HCL 50 MG TABLET PO (20:42)
[2022-08-21] MEDS: oxyCODONE HCl Immed Release 5 MG TABLET 10 MG PO ×2 (02:54→10:55)
[2022-08-21] MEDS: Acetaminophen 325 MG TABLET 975 MG PO ×2 (02:54→07:20)
[2022-08-21 03:50] VITALS: BP 117/69; PULSE 75; RESP 18; TEMP 36.2; O2SAT 95
[2022-08-21] MEDS: Simethicone 80 MG TAB.CHEW PO (07:20)
[2022-08-21] MEDS: 0.9 % Sodium Chloride Flush 3 ML SYRINGE IVFLUSH (07:22)
[2022-08-21 07:38] VITALS: BP 131/83; PULSE 71; RESP 16; TEMP 36; O2SAT 98
--- NOTE | 2022-08-21 10:37 | P.PNGS_ITS ---
Subjective Subjective Date of Service: 08/21/22 <Rhiannon Madrid PA-C - Last Filed: 08/21/22 10:40> 08/21/22 <Justino Xavier MD - Last Filed: 08/21/22 11:21> Patient reports: feels better <Justino Xavier MD - Last Filed: 08/21/22 11:21> Interval history: Feels overall well, pain improving and is comfortable with PO analgesics. Taking oxycodone with food and has no nausea. Continues to pass flatus, liquid BM. OOB and ambulating. Reports not sleeping well here. <Rhiannon Madrid PA-C - Last Filed: 08/21/22 10:40> Physical Exam Vital Signs: Vital Signs: Last Vital Signs Temp 96.8 F 08/21/22 07:38 Pulse 71 08/21/22 07:38 Resp 16 08/21/22 07:38 BP 131/83 08/21/22 07:38 Pulse Ox 98 08/21/22 07:38 O2 Del Method 08/21/22 07:38 O2 Flow Rate 1.5 08/16/22 07:57 BMI result Body Mass Index 33.3 <Rhiannon Madrid PA-C - Last Filed: 08/21/22 10:40> Const: General: comfortable, no acute distress and alert <NIVIA Fiore Last Filed: 08/21/22 10:40> Orientation/consciousness: patient oriented x3 <NIVIA Fiore Last Filed: 08/21/22 10:40> Resp: Effort & Inspection: normal respiratory effort <Rhiannon Madrid PA-C - Last Filed: 08/21/22 10:40> GI: Inspection: No distended and Yes incision (vladimir intact, clean) <NIVIA Fiore Last Filed: 08/21/22 10:40> Palpation (GI): Soft to palpation, Tenderness to palpation present (GI) (incisional), no guarding and not rigid <NIVIA Fiore Last Filed: 08/21/22 10:40> Percussion: Yes normal to percussion <NIVIA Fiore Filed: 08/21/22 10:40> Skin: General skin exam: no rashes or lesions noted <Rhiannon Madrid PA-C - Last Filed: 08/21/22 10:40> Neuro: General: patient oriented x3 and moves all extremities <Rhiannon Madrid PA-C - Last Filed: 08/21/22 10:40> Objective Data Active Medications Acetaminophen (Acetaminophen 325 Mg Tablet) 975 mg PO Q6H [facility] Last Admin: 08/21/22 07:20 Dose: 975 mg Documented By: CHRIST Benzocaine (Throat Lozenge, Medicated Lozenge) 1 lozenge MUCOUS MEM Q2H PRN PRN Reason: Sore Throat Docusate Sodium (Docusate Sodium 100 Mg Capsule) 100 mg PO BID [facility] Last Admin: 08/21/22 07:23 Dose: Not Given Documented By: CHRIST Non-Admin Reason: loose stools Hydromorphone HCl (Hydromorphone Hcl 0.5 Mg/0.5 Ml Syringe) 0.5 mg IVPUSH Q4H PRN; Protocol PRN Reason: Pain, Moderate (Pain Scale 4-6 Last Admin: 08/20/22 06:34 Dose: 0.5 mg Documented By: ANOOP Ondansetron HCl (Ondansetron Hcl 4 Mg/2 Ml Vial) 4 mg IVPUSH Q6H PRN PRN Reason: Nausea and Vomiting Last Admin: 08/18/22 15:44 Dose: 4 mg Documented By: EDWIN Oxycodone HCl (Oxycodone Hcl Immed Release 5 Mg Tablet) 5 mg PO Q6H PRN PRN Reason: Pain, Severe (Pain Scale 7-10) Oxycodone HCl (Oxycodone Hcl Immed Release 5 Mg Tablet) 10 mg PO Q4H PRN PRN Reason: Pain, Severe (Pain Scale 7-10) Last Admin: 08/21/22 02:54 Dose: 10 mg Documented By: STANISLAV Simethicone (Simethicone 80 Mg Tab.Chew) 80 mg PO QIDWMHS PRN PRN Reason: gas pain Last Admin: 08/21/22 07:20 Dose: 80 mg Documented By: CHRIST Sodium Chloride (0.9 % Sodium Chloride Flush 3 Ml Syringe) 3 ml IVFLUSH QSHIFT [facility] Last Admin: 08/21/22 07:22 Dose: 3 ml Documented By: CHRIST Trazodone HCl (Trazodone Hcl 50 Mg Tablet) 50 mg PO BEDTIME [facility] Last Admin: 08/20/22 20:42 Dose: 50 mg Documented By: BOURQC <Rhiannon Madrid PA-C - Last Filed: 08/21/22 10:40> Labs CBC & Chem 7: 08/18/22 05:21 08/16/22 05:56 <NIVIA Fiore Last Filed: 08/21/22 10:40> Procedures Date of Service Date of Service: 08/21/22 <NVIIA Fiore Last Filed: 08/21/22 10:40> Progress Note: A&P Assessment and plan (1) H/O right hemicolectomy: Status: Acute <NIVIA Fiore Last Filed: 08/21/22 10:40> (2) Cancer of appendix: Status: Acute <NIVIA Fiore Last Filed: 08/21/22 10:40> Assessment and Plan: 41-year-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 He is doing well post op, now comfortable on oral analgesics without nausea, has good GI function. VSS. Abd remains benign with clean incision and mild incisional tenderness. He feels ready for discharge to home and is stable for dc from surgical standpoint. F/u in office in 1 week, educated no heavy lifting. Call the office/return to ED if has nausea/vomiting, fevers/chills, severe abd pain. Patient comfortable with plan, all questions answered. <Rhiannon Madrid PA-C - Last Filed: 08/21/22 10:40> 41-year-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 He is doing well post op, now comfortable on oral analgesics without nausea, has good GI function. VSS. Abd remains benign with clean incision and mild incisional tenderness. He feels ready for discharge to home and is stable for dc from surgical standpoint. F/u in office in 1 week, educated no heavy lifting. Call the office/return to ED if has nausea/vomiting, fevers/chills, severe abd pain. Patient comfortable with plan, all questions answered. Agree with above. Patient's questions answered and activities restrictions reviewed. Lymph node negativity for malignancy was discussed with the patient. Follow-up with Heme-Onc. <Justino Xavier MD - Last Filed: 08/21/22 11:21> Time Spent With Patient Time: Total time managing care of this patient today ____ minutes. <Rhiannon Madrid PA-C - Last Filed: 08/21/22 10:40> Quality Stroke Does the patient have a stroke diagnosis?: No <Rhiannon Madrid PA-C - Last Filed: 08/21/22 10:40> VTE Prior VTE?: No <Rhiannon Madrid PA-C - Last Filed: 08/21/22 10:40> VTE Risk Level:: Surgical - moderate <Rhiannon Madrid PA-C - Last Filed: 08/21/22 10:40> VTE Device Contraindication: N/A - Device Ordered <Rhiannon Madrid PA-C - Last Filed: 08/21/22 10:40> VTE Drug Contraindication: N/A - Med Ordered <Rhiannon Madrid PA-C - Last Filed: 08/21/22 10:40>
--- NOTE | 2022-08-21 11:21 | P.DS_ITS ---
DS: Providers Provider Date of Service: 08/21/22 Date of admission: 08/15/22 06:12 Primary care physician: Ale Vasques MD DS: Diagnosis Discharge Diagnosis (1) H/O right hemicolectomy: Status: Acute (2) Cancer of appendix: Status: Acute DS: Summary Hospital Course Hospital Course: The patient did an at home bowel prep and reported to the hospital following it. On the day of admission, he underwent an uneventful laparoscopic assisted right hemicolectomy. Postoperatively, he had gradual return of bowel function and his diet was advanced. At the time of discharge, he was tolerating a regular diet, was able to walk and had his pain controlled with oral medications. Overall condition at the time of discharge is improved. Time Spent with Patient Time attestation: Total time managing care of this patient today ____ minutes. Discharge coordination time: Less than 30 minutes Quality: Safe Use of Opioids Does Pt have an Active Cancer Diagnosis on the Problem List?: Yes Opioid Measure Date for [facility] Report: 07/22/22 Opioid Measure Time for [facility] Report: 11:23 Quality: Stroke Does the patient have a stroke diagnosis?: No Physical Exam Vital Signs: Vital Signs: Last Vital Signs Temp 96.8 F 08/21/22 07:38 Pulse 71 08/21/22 07:38 Resp 16 08/21/22 07:38 BP 131/83 08/21/22 07:38 Pulse Ox 98 08/21/22 07:38 O2 Del Method 08/21/22 07:38 O2 Flow Rate 1.5 08/16/22 07:57 BMI result Body Mass Index 33.3 DS: Data Data Completed and Pending Completed studies during hospitalization [Text1]: Pending at discharge 08/15/22 08:50 Surgical [PTH] Routine Discharge Plan Discharge Anticipated Discharge Date/Time: 08/21/22 10:36 Patient Disposition: Home, Self-Care Discharge Diagnosis: Appendiceal cancer, status post right hemicolectomy 08/15/22 Referrals: Ale Minor MD [Primary Care Provider] - 1 Week Justino Xavier MD [Physician] - 1 Week Discharge Medications: New oxycodone 5 mg tablet 5 mg PO Q4H PRN (Reason: pain) Qty: 20 0RF Rx Instructions: Partial Fill upon patient request. docusate sodium 100 mg Capsule 100 mg PO BID Qty: 30 0RF oxycodone 5 mg Tablet 5 mg PO Q6H PRN (Reason: Pain, Severe (Pain Scale 7-10)) Qty: 20 0RF Rx Instructions: Partial Fill upon patient request. Continued trazodone 50 mg tablet 50 mg PO BEDTIME Qty: 30 1RF Discharge Orders: Discharge Order (Routine); Ordered 08/21/22 Ordered By: Rhiannon Madrid Diet: Advance to usual diet Activity on Discharge: No heavy lifting Stand Alone Forms: Patient Portal Discharge page Activity Restrictions/Additional Instructions: You had a right hemicolectomy performed due to a history of appendiceal cancer. You also have Crohn's disease, an allergy to aspirin and NSAIDs and must avoid these medications. You must not lift more than 20 lb, shovel snow, perform strenuous activities that can rib out your sutures and cause incisional hernia. A high-protein diet including meat, fish, poultry, cottage cheese is important to allow adequate healing. If you are not taking a men's daily multivitamin, you should do so. If you develop worsening pain, vomiting, difficulty breathing, shortness of breath, leg swelling, please contact Dr. Xavier in report to the nearest emergency department. Contact your primary care provider and medical oncologist for follow-up appo intments in the next 2 weeks. You will need to see Dr. Xavier in 1 week for staple removal. You can walk around the house, go up and down stairs. Do not drive until you see Dr. Xavier for follow-up. You can shower but do not soak in a tub. Care Plan Goals: Allow adequate postoperative healing, follow-up with all of your doctors Health Concerns: Allow adequate postoperative healing, follow-up with all of your doctors Plan of Treatment: Allow adequate postoperative healing, follow-up with all of your doctors Assessment: Appendiceal cancer, status post right hemicolectomy
--- NOTE | 2022-08-21 11:28 | MHC.CM.PN ---
PT MEDICALLY CLEARED FOR D/C HOME SELF CARE, FAMILY WILL TRANSPORT
== END 2022-08-21 11:31 | disposition home or self-care (01) | DRG 231 ==
LOC: HO.SSSA 12:24 → HO.S3 14:27
PROVIDERS: Surgery; Admitting Provider Surgery; PCP Internal Medicine; Visit Provider Surgery
PROC: 0DTE0ZZ Resection of Large Intestine, Open Approach (ICD-10-PCS; principal; 2022-08-15 07:30)
DX: C18.1 Malignant neoplasm of appendix (principal); G89.18 Other acute postprocedural pain; K52.9 Noninfective gastroenteritis and colitis, unspecified; Z87.891 Personal history of nicotine dependence; Z80.0 Family history of malignant neoplasm of digestive organs; Z88.6 Allergy status to analgesic agent; Z79.899 Other long term (current) drug therapy
CPT/HCPCS: 36415; 80048; 85025; 86850; 86900; 86901; 87635; 88309; 93005; 97116; 97162; 97530; J0131; J1170; J2250; J2370; J2405; J2795; J3010

== ENCOUNTER → 2022-08-27 09:29 | Outpatient (BNVA) | payer MEDICAID, SELFPAY | PROVIDERS: PCP Internal Medicine; Visit Provider Surgery | DX: Z13.89 Encounter for screening for other disorder (principal) ==

== ENCOUNTER 2022-09-09 14:04 | Outpatient (REF) | payer BC, MEDICAID, SELFPAY | END 2022-09-09 14:05 | disposition home or self-care (01) | LOC: HO.LNP 14:04 | PROVIDERS: Visit Provider Internal Medicine | DX: Z13.89 Encounter for screening for other disorder (principal) | CPT/HCPCS: 88341; 88342 ==

== ENCOUNTER 2022-09-10 18:38 | Inpatient (IN) | payer MEDICAID, SELFPAY ==
--- NOTE | ~2022-09-10 | CT_ITS ---
EXAMINATION: CT ABDOMEN AND PELVIS WITH CONTRAST CLINICAL INFORMATION: History of right hemicolectomy for Crohn's disease. COMPARISON: 09/10/2022 TECHNIQUE: Multidetector volumetric images were obtained from the superior aspect of the liver through the pubic symphysis following administration 85 mL of Omnipaque 350 intravenous contrast. Sagittal and coronal reformatted images were obtained on the technologist's workstation. Oral contrast was given. This CT examination was performed using dose optimization techniques as appropriate, variously including the following: *Automated exposure control *Adjustment of mA and/or kV according to patient size (this includes techniques or standardized protocols for targeted exams where dose is matched to indication/reason for exam; i.e. extremities or head) *Use of iterative reconstruction technique DLP: 655 mGy-cm FINDINGS: LUNG BASES: Again noted are scattered linear opacities of atelectasis in the visualized bases. No pleural effusion. An old calcified granuloma is present in the left lower lobe. The small noncalcified nodule of the lingula remains unchanged compared to prior exams, including 04/12/2016, consistent with a benign finding. LIVER: Diffuse hepatic steatosis. No liver abscess or other acute pathology. GALLBLADDER AND BILIARY TREE: Gallbladder is physiologically distended and contains sludge and/or minimal amount of vicariously excreted contrast. No gallbladder wall thickening or pericholecystic fluid. No dilated bile ducts. PANCREAS: Normal. No edema, pancreatic ductal dilatation or mass. SPLEEN: Normal. ADRENAL GLANDS: Normal. KIDNEYS AND URETERS: The kidneys have normal size and cortical thickness. No perinephric edema or fluid collection. No urolithiasis or hydroureteronephrosis. BLADDER: Normal. No calculi or wall thickening. BOWEL AND PERITONEUM: Stomach is unremarkable. No dilated loops of bowel. The enteric contrast is present within small bowel, colon and rectum. There is no leakage of contrast into the peritoneal cavity. Again noted is abnormal wall thickening and mesenteric fat stranding around the enterocolonic anastomosis, status post right hemicolectomy. No evidence of intramural abscess or intraperitoneal abscess. No pneumoperitoneum. The inflammatory changes in this area are not significantly changed since 09/10/2022. ABDOMINAL WALL: Postoperative midline scarring. Small umbilical hernia contains fat and fluid, as noted on 09/10/2022. The small amount of gas in subcutaneous tissue of the right abdominal wall is likely from recent injection. VASCULATURE: Normal. LYMPH NODES: A reactive mesenteric lymph node medial to the region of enterocolonic anastomosis is 0.7 cm in short axis dimension. No retroperitoneal lymphadenopathy. PELVIC VISCERA: Unremarkable. MUSCULOSKELETAL: Unremarkable. CT/CT abdomen pelvis w IV con IMPRESSION: * The persistent bowel wall thickening and mesenteric fat stranding around the enterocolic anastomosis is likely secondary to inflammatory bowel disease in this patient with history of Crohn disease. * No evidence of bowel perforation or abscess. * Diffuse hepatic steatosis. * A small umbilical hernia that contains fat and small amount of fluid.
--- NOTE | ~2022-09-10 | CT_ITS ---
EXAMINATION: CT ABDOMEN AND PELVIS WITH CONTRAST CLINICAL INFORMATION: Right-sided abdominal pain. COMPARISON: CT scan of the abdomen and pelvis dated 07/02/2022. TECHNIQUE: Multidetector volumetric images were obtained from the superior aspect of the liver through the pubic symphysis following administration 85 mL of Omnipaque 350 intravenous contrast. Sagittal and coronal reformatted images were obtained on the technologist's workstation. Oral contrast: No This CT examination was performed using dose optimization techniques as appropriate, variously including the following: *Automated exposure control *Adjustment of mA and/or kV according to patient size (this includes techniques or standardized protocols for targeted exams where dose is matched to indication/reason for exam; i.e. extremities or head) *Use of iterative reconstruction technique DLP: 686 mGy-cm FINDINGS: LUNG BASES: Mild bibasilar linear atelectasis or scarring. Small calcified granuloma in the left lower lobe without change. LIVER, GALLBLADDER, AND BILIARY TREE: Diffuse decreased hepatic attenuation without focal abnormality. PANCREAS: Unremarkable. SPLEEN: Unremarkable. ADRENAL GLANDS: Unremarkable. KIDNEYS AND URETERS: The kidneys are normal in size, shape, and attenuation. No hydronephrosis, hydroureter, or calculi seen. No perinephric stranding. BLADDER: Mildly distended without focal abnormality. GASTROINTESTINAL TRACT: The stomach and small bowel are unremarkable. Postsurgical changes are seen in the cecum with mild adjacent infiltrative changes (image 48, series 3; image 20, series 5). A tiny air pocket is seen along the anterior cecal margin. The remainder the colon rectum are unremarkable. ABDOMINAL WALL: Postsurgical changes are seen in the supraumbilical anterior abdominal wall with subcutaneous and subjacent peritoneal infiltrative changes. Small fat-containing umbilical hernia containing mild fluid as well. LYMPH NODES: No lymphadenopathy. VASCULAR: Mild atherosclerosis. PELVIC VISCERA: Unremarkable. OSSEOUS STRUCTURES: Unremarkable. CT/CT abdomen pelvis w IV con IMPRESSION: 1. Infiltrative changes surrounding the cecum suggest an infectious/inflammatory process. An organized fluid collection is not seen. This represents interval worsening from the previous study. 2. Mild infiltrative changes adjacent to the supraumbilical midline incision. Infiltrative changes in the subjacent peritoneum as well as fluid in the umbilical hernia suggestive of an infectious/inflammatory process as well. No organized fluid collection as well. This represents interval worsening from the previous study. 3. Hepatic steatosis.
[2022-09-10 19:31] VITALS: BP 129/92; PULSE 87; RESP 20; TEMP 36.3; O2SAT 99; BMI 33.7
--- NOTE | 2022-09-10 19:33 | ED_ITS ---
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 Patient states he had a fever as high as 101 degrees F 2 times today. He states that his abdomen feels very distended and bloated. He states he is having diffuse pain but the pain is worse around his umbilical area and suprapubic area. The patient states that the pain ranges from 5/10 to 8/10. The patient has had a decreased appetite, he denied nausea or vomiting. He states he did have a bowel movement this morning. 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 The patient had a hemicolectomy on 08/15/2022 for treatment of the cancer. The patient told me that he had a colonoscopy on 05/13/[address] Lozada and was told that he had Crohn's disease. However and revealing doctor has sounds no, he had a negative capsular examination and the diagnosis of Crohn's disease was based on Dr. Xavier is a observation that there were changes in the mesentery consistent with Crohn's and inflammatory bowel disease. <Jaleel Nelson MD - Last Filed: 09/10/22 23:45> Related Data Home Medications: Previous Rx's Medication Instructions Recorded docusate sodium 100 mg capsule 100 mg PO BID #30 caps 02/23/23 oxycodone 5 mg tablet 5 mg PO Q6H PRN Pain, Severe (Pain 08/15/22 Scale 7-10) #20 tabs trazodone 50 mg tablet 50 mg PO BEDTIME #30 tabs 08/22/22 <ELIZA Arias - Last Filed: 09/10/22 19:34> Allergies/Adverse Reactions: Allergies Allergy/AdvReac Type Severity Reaction Status Date / Time aspirin [ASA] Allergy Severe anaphylaxis/facial Verified 09/09/22 09:56 swelling ibuprofen [Advil] Allergy Severe tracheal Verified 09/09/22 09:56 swelling shellfish derived Allergy Severe Anaphylaxis Verified 09/09/22 09:56 <ELIZA Arias - Last Filed: 09/10/22 19:34> Review of Systems Review of Systems Yes all other systems are reviewed and are negative <Jaleel Nelson MD - Last Filed: 09/10/22 23:45> [facility] Past Medical History [facility] Narrative: Social history: He denies tobacco, alcohol and drug use. <Jaleel Nelson MD - Last Filed: 09/10/22 23:45> Medical History: Medical History Anxiety Cancer of appendix History of COVID-19 Hospital discharge follow-up Migraines Mild recurrent major depression Physical exam Pulmonary nodules Screen for colon cancer <ELIZA Arias - Last Filed: 09/10/22 19:34> Surgical History: Surgical History History of right hemicolectomy Hx of appendectomy Hx of colonoscopy <ELIZA Arias - Last Filed: 09/10/22 19:34> Family History Family History: Family History Father Colon cancer, Onset Age: 63 Liver cancer Mother Breast cancer Diabetes Hypertension Maternal Grandmother Cancer Paternal Aunt Cancer Family/Other FH: mental illness <ELIZA Arias - Last Filed: 09/10/22 19:34> Social History Social History: Social History Household Members: Spouse Housing: House Are you a primary child care lead teacher to a significant other at home: No Do you presently have visiting nurse or other home services: No Alcohol intake: former Patient Tobacco Use Status: Former Tobacco user Quit Date: 1year ago Tobacco use type: Cigarette e-Cigarette/Vaping Use: Never Used Second Hand Smoke Exposure: No Advance Directives: No Advance Directives Information Provided: No service: No Current occupational status: employed Current occupational exposures/hazards: No Cognitive needs: No Hearing needs: No Vision needs: No <ELIZA Arias - Last Filed: 09/10/22 19:34> Physical Exam ED Vital Signs: Vital Signs - 24 hr 09/10/22 19:31 09/10/22 22:46 Temperature 97.4 F 98.2 F Pulse Rate 87 74 Respiratory Rate 20 20 Blood Pressure 129/92 H 115/78 Pulse Oximetry 99 99 Oxygen Delivery Method Room Air Room Air BMI result Body Mass Index 33.7 <ELIZA Arias - Last Filed: 09/10/22 19:34> Vital Signs - 24 hr 09/10/22 19:31 09/10/22 22:46 Temperature 97.4 F 98.2 F Pulse Rate 87 74 Respiratory Rate 20 20 Blood Pressure 129/92 H 115/78 Pulse Oximetry 99 99 Oxygen Delivery Method Room Air Room Air BMI result Body Mass Index 33.7 <Jaleel Nelson MD - Last Filed: 09/10/22 23:45> Const General: cooperative and no acute distress <Jaleel Nelson MD - Last Filed: 09/10/22 23:45> Orientation/consciousness: oriented to person and oriented to place <Jaleel Nelson MD - Last Filed: 09/10/22 23:45> Limitations: no limitations <Jaleel Nelson MD - Last Filed: 09/10/22 23:45> HENMT Head: Yes normal to inspection, Yes normocephalic and Yes atraumatic <Jaleel Nelson MD - Last Filed: 09/10/22 23:45> Ears: external ears normal <Jaleel Nelson MD - Last Filed: 09/10/22 23:45> General nose exam: Normal external nose present <Jaleel Nelson MD - Last Filed: 09/10/22 23:45> Face and sinus: Yes normal facial exam <Jaleel Nelson MD - Last Filed: 09/10/22 23:45> Mouth: Normal oral and palatal mucosa present <Jaleel Nelson MD - Last Filed: 09/10/22 23:45> Throat: Yes posterior oropharynx normal <Jaleel Nelson MD - Last Filed: 09/10/22 23:45> Eyes General: appearance normal, both eyes and all related structures <Jaleel Nelson MD - Last Filed: 09/10/22 23:45> Pupils: Equal, round and reactive pupils present <Jaleel Nelson MD - Last Filed: 09/10/22 23:45> Neck Neck: Yes normal visual inspection, Yes no lymphadenopathy, Yes trachea midline and Yes supple <Jaleel Nelson MD - Last Filed: 09/10/22 23:45> Chest Chest palpation & inspection: normal inspection of the chest and normal palpation of entire chest wall <Jaleel Nelson MD - Last Filed: 09/10/22 23:45> Resp Effort & Inspection: normal respiratory effort and able to speak in complete sentences <Jaleel Nelson MD - Last Filed: 09/10/22 23:45> Auscultation: clear to auscultation bilaterally <Jaleel Nelson MD - Last Filed: 09/10/22 23:45> Cardio Rate: regular rate <Jaleel Nelson MD - Last Filed: 09/10/22 23:45> Rhythm: regular rhythm <MD Jayro Arriaga Last Filed: 09/10/22 23:45> Heart sounds: S1 normal heart sound present, S2 normal heart sound present and no murmurs <Jaleel Nelson MD - Last Filed: 09/10/22 23:45> GI Other: Patient abdomen appears to be distended, he does have high-pitched bowel sounds, the patient's surgical scar is well-healed and does not appear to be infected, patient's umbilicus is protruding consistent with an umbilical hernia, patient has severe tenderness palpation over the umbilical hernia, he also severe tenderness palpation over the suprapubic area with mild diffuse tenderness. <Jaleel Nelson MD - Last Filed: 09/10/22 23:45> General: Yes no CVA tenderness <Jaleel Nelson MD - Last Filed: 09/10/22 23:45> Back/Spine/Pelvis Back: no CVA tenderness <Jaleel Nelson MD - Last Filed: 09/10/22 23:45> Skin General skin exam: no rashes or lesions noted <Jaleel Nelson MD - Last Filed: 09/10/22 23:45> Neuro General: oriented to person and oriented to place <Jaleel Neslon MD - Last Filed: 09/10/22 23:45> Cranial nerves: Yes Equal, round and reactive pupils present <Jaleel Nelson MD - Last Filed: 09/10/22 23:45> Cognition (Neuro): normal cognition <Jaleel Nelson MD - Last Filed: 09/10/22 23:45> Motor exam (neuro): 5/5 motor strength present throughout <Jaleel Nelson MD - Last Filed: 09/10/22 23:45> Extrem General: Yes normal to inspection <Jaleel Nelson MD - Last Filed: 09/10/22 23:45> Psych Appearance: grossly normal <Jaleel Nelson MD - Last Filed: 09/10/22 23:45> Speech and movement: Normal speech and movement present <Jaleel Nelson MD - Last Filed: 09/10/22 23:45> Affect: normal affect <Jaleel Nelson MD - Last Filed: 09/10/22 23:45> Attitude: cooperative <Jaleel Nelson MD - Last Filed: 09/10/22 23:45> Course Course Course Narrative: This is an RME: Additional HPI, ROS, PE not included below will be deferred to primary provider. 41-year-old male status post right-sided hemico lectomy on 08/15/2022 presents with right-sided abdominal pain to both upper and lower quadrant, pain started this morning, patient has not been able to call a rate anything by mouth, he tells me he was febrile at home is temperature was a 100 degrees point something degrees F. patient tells me pain is intolerable. Has no appetite. Patient tells me that he took Tylenol for fever and has been going down. Denies chest pain, shortness of breath, nausea, vomiting, changes in bowel habits, changes in urination. Physical exam with diffuse tenderness to right side of abdomen. Plan at this time labs, urine, imaging, blood cultures, lactic acid. <ELIZA Arias - Last Filed: 09/10/22 19:34> Medical Decision Making Medical Decision Making MDM Narrative: 41-year-old male who presents emergency department for evaluation of abdominal pain, abdominal distension and fever x2 today, he had no nausea and vomiting but he did have decreased appetite movement today. Patient had an appendectomy 07/30/2021 which revealed poorly differentiated goblet katt nocarcinoma. He then had a right hemicolectomy 08/15/2022. There is question that the patient may have Crohn's disease as well. Patient's vital signs in the emergency department were normal. Patient's abdomen is distended he does have an umbilical hernia which is is extremely tender to palpation any also has severe tenderness palpation of suprapubic area with mild diffuse tenderness of his entire abdomen. Patient was seen by provider at triage who ordered CBC, CMP, lipase, magnesium, urinalysis, COVID-19, influenza, lactic acid and blood cultures x2. CT scan of the abdomen pelvis with IV contrast was also ordered. 2308: My interpretation of the patient's labs are as follows: CBC was normal. CMP was normal except for an elevated ALT of 105. Lipase was normal. Lactic acid was normal. COVID-19 influenza were negative. Urinalysis was negative. Patient was ordered to get morphine 4 mg IV, Zofran 4 mg IV and lactated Ringer's x1 L. 2338: CT scan of the abdomen pelvis revealed inflammatory changes around the area of surgical incision, umbilical area and right lower quadrant with no drainable abscess. I did add an ESR and CRP to the patient's labs. I did discuss this with our covering surgeon, Dr. Xavier who felt that this patient does not need a surgical intervention at this time. I also discuss this over tiger text with the covering air plant engineer, Dr. Lozada. I did order Unasyn 3 g IV and metronidazole 500 mg IV. Patient was also ordered to get a 2nd dose of morphine 4 mg IV. I will discuss admission with the covering hospitalist. <Jaleel Nelson MD - Last Filed: 09/10/22 23:45> Differential Diagnosis Differential diagnosis includes was not limited to incision site infection, incarcerated umbilical hernia, inflammatory bowel disease, abscess, colitis, viral syndrome <Jaleel Nelson MD - Last Filed: 09/10/22 23:45> Consult Healthcare Provider Management of the patient was discussed with: Hospitalist and Grocery Specialist (General surgery, Gastroenterology) <Jaleel Nelson MD - Last Filed: 09/10/22 23:45> Lab Data [facility] [place] Lab Attestation statement: I reviewed the patient's lab results. <Jaleel Nelson MD - Last Filed: 09/10/22 23:45> Please see [facility] [place] for discussion <Jaleel Nelson MD - Last Filed: 09/10/22 23:45> Result Diagrams: 09/10/22 20:20 09/10/22 20:19 <ELIZA Arias - Last Filed: 09/10/22 19:34> Labs: Lab Results 09/10/22 09/10/22 09/10/22 Range/Units 20:19 20:19 20:19 WBC (4.8-10.8) X10*3/uL RBC (4.60-5.80) X10*6/uL Hgb (14.0-18.0) g/dl Hct (42.0-52.0) % MCV (80.0-98.0) fL MCH (27.0-33.0) pg MCHC (31.0-36.0) g/dl RDW (11.0-16.0) % Plt Count (160-400) X10*3/uL MPV (9.4-12.4) fL Immature Gran % (Auto) (0.0-0.4) % Neut % (Auto) (45-73) % Lymph % (Auto) (20-40) % [place] % (Auto) (2-11) % Eos % (Auto) (0-4) % Baso % (Auto) (0-2) % Lymph # (Auto) (1.2-4.9) X10*3/uL [place] # (Auto) (0.1-1.2) X10*3/uL Eos # (Auto) (0.0-0.4) X10*3/uL Baso # (Auto) (0.0-0.2) X10*3/uL Abs Immat Gran (auto) (0.00-0.03) X10*3/uL Absolute Neuts (auto) (2.0-8.3) x10*3/uL Absolute Nucleated RBC (0.0-0.012) X10*3/uL Nucleated RBC % (auto) (0.0-0.2) /100WBC Sodium 140 (135-145) mmol/L Potassium 3.9 (3.3-5.1) mmol/L Chloride 105 (96-108) mmol/L Carbon Dioxide 25 (22-29) mmol/L Anion Gap 14 (12-20) BUN 9 (9-16) mg/dL Creatinine 0.78 (0.5-1.4) mg/dL Estim Creat Clear Calc 128.6 Estimated GFR > 60 Random Glucose 93 (60-115) mg/dL Lactic Acid (0.5-2.0) mmol/L Calcium 9.6 D (8.4-10.2) mg/dL Magnesium 2.3 (1.6-2.6) mg/dL Total Bilirubin 1.0 (0.0-1.0) mg/dL AST 28 (5-37) U/L ALT 105 H (0-40) U/L Alkaline Phosphatase 98 (39-117) U/L Total Protein 7.2 (6.5-8.0) g/dL Albumin 4.5 (3.5-5.0) g/dL Lipase 13 (8-78) U/L Urine Color Urine Appearance Urine pH (5.0-9.0) Ur Specific [place] (1.005-1.025) Urine Protein (Neg-Trace) mg/dL Urine Glucose (UA) (Negative) mg/dL Urine Ketones (Negative) mg/dL Urine Blood (Negative) Urine Nitrite (Negative) Ur Leukocyte Esterase (Negative) COVID-19 (SHANTEL) Negative (Negative) COVID-19 Clin Com See Note Influenza Type A (ANTONIETA) Negative (Negative) Influenza Type B (ANTONIETA) Negative (Negative) Influenza A & B Note See Note 09/10/22 09/10/22 09/10/22 Range/Units 20:20 21:26 22:30 WBC 9.1 (4.8-10.8) X10*3/uL RBC 5.00 (4.60-5.80) X10*6/uL Hgb 13.8 L (14.0-18.0) g/dl Hct 42.3 (42.0-52.0) % MCV 84.6 (80.0-98.0) fL MCH 27.6 (27.0-33.0) pg MCHC 32.6 (31.0-36.0) g/dl RDW 14.4 (11.0-16.0) % Plt Count 259 (160-400) X10*3/uL MPV 9.3 L (9.4-12.4) fL Immature Gran % (Auto) 0.3 (0.0-0.4) % Neut % (Auto) 69.0 (45-73) % Lymph % (Auto) 21.1 (20-40) % Fallon % (Auto) 8.4 (2-11) % Eos % (Auto) 0.9 (0-4) % Baso % (Auto) 0.3 (0-2) % Lymph # (Auto) 1.9 (1.2-4.9) X10*3/uL Fallon # (Auto) 0.8 (0.1-1.2) X10*3/uL Eos # (Auto) 0.1 (0.0-0.4) X10*3/uL Baso # (Auto) 0.0 (0.0-0.2) X10*3/uL Abs Immat Gran (auto) 0.03 (0.00-0.03) X10*3/uL Absolute Neuts (auto) 6.3 (2.0-8.3) x10*3/uL Absolute Nucleated RBC 0.000 (0.0-0.012) X10*3/uL Nucleated RBC % (auto) 0.0 (0.0-0.2) /100WBC Sodium (135-145) mmol/L Potassium (3.3-5.1) mmol/L Chloride (96-108) mmol/L Carbon Dioxide (22-29) mmol/L Anion Gap (12-20) BUN (9-16) mg/dL Creatinine (0.5-1.4) mg/dL Estim Creat Clear Calc Estimated GFR Random Glucose (60-115) mg/dL Lactic Acid 1.5 (0.5-2.0) mmol/L Calcium (8.4-10.2) mg/dL Magnesium (1.6-2.6) mg/dL Total Bilirubin (0.0-1.0) mg/dL AST (5-37) U/L ALT (0-40) U/L Alkaline Phosphatase (39-117) U/L Total Protein (6.5-8.0) g/dL Albumin (3.5-5.0) g/dL Lipase (8-78) U/L Urine Color Yellow Urine Appearance Clear Urine pH 6.5 (5.0-9.0) Ur Specific [place] <= 1.005 (1.005-1.025) Urine Protein Negative (Neg-Trace) mg/dL Urine Glucose (UA) Negative (Negative) mg/dL Urine Ketones Negative (Negative) mg/dL Urine Blood Negative (Negative) Urine Nitrite Negative (Negative) Ur Leukocyte Esterase Negative (Negative) COVID-19 (SHANTEL) (Negative) COVID-19 Clin Com Influenza Type A (ANTONIETA) (Negative) Influenza Type B (ANTONIETA) (Negative) Influenza A & B Note <ELIZA Arias - Last Filed: 09/10/22 19:34> Lab Results 09/10/22 09/10/22 09/10/22 Range/Units 20:19 20:19 20:19 WBC (4.8-10.8) X10*3/uL RBC (4.60-5.80) X10*6/uL Hgb (14.0-18.0) g/dl Hct (42.0-52.0) % MCV (80.0-98.0) fL MCH (27.0-33.0) pg MCHC (31.0-36.0) g/dl RDW (11.0-16.0) % Plt Count (160-400) X10*3/uL MPV (9.4-12.4) fL Immature Gran % (Auto) (0.0-0.4) % Neut % (Auto) (45-73) % Lymph % (Auto) (20-40) % Fallon % (Auto) (2-11) % Eos % (Auto) (0-4) % Baso % (Auto) (0-2) % Lymph # (Auto) (1.2-4.9) X10*3/uL Fallon # (Auto) (0.1-1.2) X10*3/uL Eos # (Auto) (0.0-0.4) X10*3/uL Baso # (Auto) (0.0-0.2) X10*3/uL Abs Immat Gran (auto) (0.00-0.03) X10*3/uL Absolute Neuts (auto) (2.0-8.3) x10*3/uL Absolute Nucleated RBC (0.0-0.012) X10*3/uL Nucleated RBC % (auto) (0.0-0.2) /100WBC Sodium 140 (135-145) mmol/L Potassium 3.9 (3.3-5.1) mmol/L Chloride 105 (96-108) mmol/L Carbon Dioxide 25 (22-29) mmol/L Anion Gap 14 (12-20) BUN 9 (9-16) mg/dL Creatinine 0.78 (0.5-1.4) mg/dL Estim Creat Clear Calc 128.6 Estimated GFR > 60 Random Glucose 93 (60-115) mg/dL Lactic Acid (0.5-2.0) mmol/L Calcium 9.6 D (8.4-10.2) mg/dL Magnesium 2.3 (1.6-2.6) mg/dL Total Bilirubin 1.0 (0.0-1.0) mg/dL AST 28 (5-37) U/L ALT 105 H (0-40) U/L Alkaline Phosphatase 98 (39-117) U/L Total Protein 7.2 (6.5-8.0) g/dL Albumin 4.5 (3.5-5.0) g/dL Lipase 13 (8-78) U/L Urine Color Urine Appearance Urine pH (5.0-9.0) Ur Specific [place] (1.005-1.025) Urine Protein (Neg-Trace) mg/dL Urine Glucose (UA) (Negative) mg/dL Urine Ketones (Negative) mg/dL Urine Blood (Negative) Urine Nitrite (Negative) Ur Leukocyte Esterase (Negative) COVID-19 (SHANTEL) Negative (Negative) COVID-19 Clin Com See Note Influenza Type A (ANTONIETA) Negative (Negative) Influenza Type B (ANTONIETA) Negative (Negative) Influenza A & B Note See Note 09/10/22 09/10/22 09/10/22 Range/Units 20:20 21:26 22:30 WBC 9.1 (4.8-10.8) X10*3/uL RBC 5.00 (4.60-5.80) X10*6/uL Hgb 13.8 L (14.0-18.0) g/dl Hct 42.3 (42.0-52.0) % MCV 84.6 (80.0-98.0) fL MCH 27.6 (27.0-33.0) pg MCHC 32.6 (31.0-36.0) g/dl RDW 14.4 (11.0-16.0) % Plt Count 259 (160-400) X10*3/uL MPV 9.3 L (9.4-12.4) fL Immature Gran % (Auto) 0.3 (0.0-0.4) % Neut % (Auto) 69.0 (45-73) % Lymph % (Auto) 21.1 (20-40) % Fallon % (Auto) 8.4 (2-11) % Eos % (Auto) 0.9 (0-4) % Baso % (Auto) 0.3 (0-2) % Lymph # (Auto) 1.9 (1.2-4.9) X10*3/uL Fallon # (Auto) 0.8 (0.1-1.2) X10*3/uL Eos # (Auto) 0.1 (0.0-0.4) X10*3/uL Baso # (Auto) 0.0 (0.0-0.2) X10*3/uL Abs Immat Gran (auto) 0.03 (0.00-0.03) X10*3/uL Absolute Neuts (auto) 6.3 (2.0-8.3) x10*3/uL Absolute Nucleated RBC 0.000 (0.0-0.012) X10*3/uL Nucleated RBC % (auto) 0.0 (0.0-0.2) /100WBC Sodium (135-145) mmol/L Potassium (3.3-5.1) mmol/L Chloride (96-108) mmol/L Carbon Dioxide (22-29) mmol/L Anion Gap (12-20) BUN (9-16) mg/dL Creatinine (0.5-1.4) mg/dL Estim Creat Clear Calc Estimated GFR Random Glucose (60-115) mg/dL Lactic Acid 1.5 (0.5-2.0) mmol/L Calcium (8.4-10.2) mg/dL Magnesium (1.6-2.6) mg/dL Total Bilirubin (0.0-1.0) mg/dL AST (5-37) U/L ALT (0-40) U/L Alkaline Phosphatase (39-117) U/L Total Protein (6.5-8.0) g/dL Albumin (3.5-5.0) g/dL Lipase (8-78) U/L Urine Color Yellow Urine Appearance Clear Urine pH 6.5 (5.0-9.0) Ur Specific [place] <= 1.005 (1.005-1.025) Urine Protein Negative (Neg-Trace) mg/dL Urine Glucose (UA) Negative (Negative) mg/dL Urine Ketones Negative (Negative) mg/dL Urine Blood Negative (Negative) Urine Nitrite Negative (Negative) Ur Leukocyte Esterase Negative (Negative) COVID-19 (SHANTEL) (Negative) COVID-19 Clin Com Influenza Type A (ANTONIETA) (Negative) Influenza Type B (ANTONIETA) (Negative) Influenza A & B Note <Jaleel Nelson MD - Last Filed: 09/10/22 23:45> Radiology Impression Discussion of test interpretation with radiology: I have reviewed the radiologist's reading. <Jaleel Nelson MD - Last Filed: 09/10/22 23:45> Radiologist Impression: CT/CT abdomen pelvis w IV con IMPRESSION: 1. Infiltrative changes surrounding the cecum suggest an infectious/inflammatory process. An organized fluid collection is not seen. This represents interval worsening from the previous study. 2. Mild infiltrative changes adjacent to the supraumbilical midline incision. Infiltrative changes in the subjacent peritoneum as well as fluid in the umbilical hernia suggestive of an infectious/inflammatory process as well. No organized fluid collection as well. This represents interval worsening from the previous study. 3. Hepatic steatosis. Dictated By:Lb De Anda MDSigned By:<Electronically signed by Lb De Anda MD in [place]>09/10/22 8330 <Jaleel Nelson MD - Last Filed: 09/10/22 23:45> External Record Review External record reviewed: Inpatient record and Office record <Jaleel Nelson MD - Last Filed: 09/10/22 23:45> Chronic Conditions Patient?s care impacted by: Other (Crohn's disease) <Jaleel Nelson MD - Last Filed: 09/10/22 23:45> Medications Administered Generic Name Dose Route Start Last Admin Trade Name Freq PRN Reason Stop Dose Admin Lactated Ringer's 1,000 mls @ 999 mls/hr 09/10/22 23:00 09/10/22 23:19 Lr IV 09/11/22 00:00 999 mls/hr .Q1H1M EMMA Administration Discontinued Medications Generic Name Dose Route Start Last Admin Trade Name Freq PRN Reason Stop Dose Admin Iohexol 100 ml 09/10/22 22:23 09/10/22 22:24 Iohexol 350 Mg/Ml 100 Ml Infus..Btl IV 09/10/22 22:24 85 ml ONCE ONE Administration Morphine Sulfate 4 mg 09/10/22 22:58 09/10/22 23:19 Morphine Sulfate 4 Mg/Ml Cartridge IVPUSH 09/10/22 22:59 4 mg ONCE STA Administration Protocol Ondansetron HCl 4 mg 09/10/22 22:58 09/10/22 23:19 Ondansetron Hcl 4 Mg/2 Ml Vial IVPUSH 09/10/22 22:59 4 mg ONCE ONE Administration <ELIZA Arias - Last Filed: 09/10/22 19:34> Medications Administered Generic Name Dose Route Start Last Admin Trade Name Freq PRN Reason Stop Dose Admin Lactated Ringer's 1,000 mls @ 999 mls/hr 09/10/22 23:00 09/10/22 23:19 Lr IV 09/11/22 00:00 999 mls/hr .Q1H1M EMMA Administration Discontinued Medications Generic Name Dose Route Start Last Admin Trade Name Freq PRN Reason Stop Dose Admin Iohexol 100 ml 09/10/22 22:23 09/10/22 22:24 Iohexol 350 Mg/Ml 100 Ml Infus..Btl IV 09/10/22 22:24 85 ml ONCE ONE Administration Morphine Sulfate 4 mg 09/10/22 22:58 09/10/22 23:19 Morphine Sulfate 4 Mg/Ml Cartridge IVPUSH 09/10/22 22:59 4 mg ONCE STA Administration Protocol Ondansetron HCl 4 mg 09/10/22 22:58 09/10/22 23:19 Ondansetron Hcl 4 Mg/2 Ml Vial IVPUSH 09/10/22 22:59 4 mg ONCE ONE Administration <Jaleel Nelson MD - Last Filed: 09/10/22 23:45> Discharge Plan Discharge Patient Disposition: Admitted As Inpatient <ELIZA Arias - Last Filed: 09/10/22 19:34> Prescriptions: No Action trazodone 50 mg tablet 50 mg PO BEDTIME Qty: 30 1RF docusate sodium 100 mg Capsule 100 mg PO BID Qty: 30 0RF oxycodone 5 mg Tablet 5 mg PO Q6H PRN (Reason: Pain, Severe (Pain Scale 7-10)) Qty: 20 0RF Rx Instructions: Partial Fill upon patient request. <ELIZA Arias - Last Filed: 09/10/22 19:34>
[2022-09-10 20:26] LABS: MANUAL DIFF FLAG NO
[2022-09-10 20:36] LABS: Basophils Percent Auto 0.3 % (0-2); Eosinophils Absolute Auto 0.1 X10*3/uL (0.0-0.4); Eosinophils Percent Auto 0.9 % (0-4); Hematocrit 42.3 % (42.0-52.0); Hemoglobin 13.8 g/dl (14.0-18.0); Imm Gran Abs Auto 0.03 X10*3/uL (0.00-0.03); Imm Gran Pct Auto 0.3 % (0.0-0.4); Lymphocytes Absolute Auto 1.9 X10*3/uL (1.2-4.9); Lymphocytes Percent Auto 21.1 % (20-40); Mean Corpuscular HGB Conc 32.6 g/dl (31.0-36.0); Mean Corpuscular Hemoglobin 27.6 pg (27.0-33.0); Mean Corpuscular Volume 84.6 fL (80.0-98.0); Mean Platelet Volume 9.3 fL (9.4-12.4); Monocytes Absolute Auto 0.8 X10*3/uL (0.1-1.2); Monocytes Percent Auto 8.4 % (2-11); Neutrophils Absolute Auto 6.3 x10*3/uL (2.0-8.3); Platelet Count 259 X10*3/uL (160-400); Red Cell Distribution Width 14.4 % (11.0-16.0); White Blood Count 9.1 X10*3/uL (4.8-10.8)
[2022-09-10 20:40] LABS: COVID-19 Test Negative (Negative); IDNOW Serial# 08D9AD1C
[2022-09-10 20:41] LABS: IDNOW Serial# BCCEAD1C; Influenza A Negative (Negative); Influenza B2 Negative (Negative)
[2022-09-10 20:51] LABS: Alanine Aminotransferase 105 U/L (0-40); Albumin Level 4.5 g/dL (3.5-5.0); Alkaline Phosphatase 98 U/L (39-117); Anion Gap 14 (12-20); Aspartate Amino Transferase 28 U/L (5-37); Blood Urea Nitrogen 9 mg/dL (9-16); Calcium 9.6 mg/dL (8.4-10.2); Carbon Dioxide 25 mmol/L (22-29); Chloride 105 mmol/L (96-108); Creatinine Clr Calc Pharmacy 128.6; Estimated Glomerular Filt Rate > 60; Glucose Random 93 mg/dL (60-115); Lipase 13 U/L (8-78); Magnesium 2.3 mg/dL (1.6-2.6); Potassium 3.9 mmol/L (3.3-5.1); Sodium 140 mmol/L (135-145); Total Protein 7.2 g/dL (6.5-8.0)
[2022-09-10 21:47] LABS: Lactic Acid 1.5 mmol/L (0.5-2.0)
[2022-09-10] MEDS: iohexoL 350 MG/ML 100 ML INFUS..BTL IV (22:24)
[2022-09-10 22:41] LABS: Appearance Urine Clear; Color Urine Yellow; Glucose Urine UA Negative (Negative); Leukocyte Esterase Urine Negative (Negative); Nitrite Urine Negative (Negative); PH 6.5 (5.0-9.0); Specific Gravity - Urine <= 1.005 (1.005-1.025); Urine Blood Negative (Negative); Urine Ketones Negative (Negative); Urine Protein Negative (Neg-Trace)
[2022-09-10 22:46] VITALS: BP 115/78; PULSE 74; RESP 20; TEMP 36.8; O2SAT 99
[2022-09-10] MEDS: ondansetron HCL 4 MG/2 ML VIAL IVPUSH (23:19)
[2022-09-10] MEDS: Morphine Sulfate 4 MG/ML CARTRIDGE IVPUSH (23:19)
[2022-09-10] MEDS: Lactated Ringers 1,000 ML 999 ML IV (23:19)
[2022-09-10] MEDS: Ampicillin Sodium/Sulbactam Na 3 GM in 0.9 % Sodium Chloride 100 ML IV (23:33)
[2022-09-11 00:01] LABS: C Reactive Protein 4.45 mg/dL (< or = 0.50)
--- NOTE | 2022-09-11 00:10 | P.HPHOSP_ITS ---
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 Patient reports that he woke up on day of presentation feeling febrile with significant abdominal pain. He describes the pain as a medical hydrant on the right worse with even drinking water, constant, 10/10, nonradiating, slightly relieved with morphine given in the ED. patient denies having any cough, no shortness of breath, no diarrhea constipation, reports no urinary symptoms and no lower extremity edema. On arrival to the ED patient hemodynamically stable with no significant abnormal vitals Labs are significant for WBC count of 9.1, lactic of 1.4, labs otherwise unremarkable, UA negative, COVID-[address] pelvic abdomen shows infiltrative changes surrounding the cecum suggest an infection/inflammatory process, of note patient does not have a cecum after having a hemicolectomy. An organized fluid collection is not seen. CT abdomen also showed mild infiltrative changes adjacent to the supraumbilical midline incision infiltrative changes in the subjacent peritoneum as well as fluid in the umbilical hernia suggestive of infection/inflammatory process as well. No organized fluid collection. This was discussed with General surgery, currently patient is not a candidate for surgical intervention, GI was also consulted by ED Review of Systems Review of Systems: Yes all other systems are reviewed and are negative PMFSH Medical History Anxiety Cancer of appendix History of COVID-19 Hospital discharge follow-up Migraines Mild recurrent major depression Physical exam Pulmonary nodules Screen for colon cancer Family History Father Colon cancer, Onset Age: 63 Liver cancer Mother Breast cancer Diabetes Hypertension Maternal Grandmother Cancer Paternal Aunt Cancer Family/Other FH: mental illness Surgical History History of right hemicolectomy Hx of appendectomy Hx of colonoscopy Social History Household Members: Spouse Housing: House Are you a primary director of career services to a significant other at home: No Do you presently have visiting nurse or other home services: No Alcohol intake: former Patient Tobacco Use Status: Former Tobacco user Quit Date: 1year ago Tobacco use type: Cigarette Smoked in Last 30 Days: No e-Cigarette/Vaping Use: Never Used Second Hand Smoke Exposure: No Use of substances other than those prescribed or required for medical reasons: No Advance Directives: No Advance Directives Information Provided: No Nutrition Risks: No Nutritional Risk service: No Current occupational status: employed Current occupational exposures/hazards: No Cognitive needs: No Hearing needs: No Vision needs: No Meds Allergies Allergy/AdvReac Type Severity Reaction Status Date / Time aspirin [ASA] Allergy Severe anaphylaxis/facial Verified 09/09/22 09:56 swelling ibuprofen [Advil] Allergy Severe tracheal Verified 09/09/22 09:56 swelling shellfish derived Allergy Severe Anaphylaxis Verified 09/09/22 09:56 Active Medications: Current Medications Metronidazole (Flagyl) 500 mg in 100 mls @ 100 mls/hr IV ONCE ONE Stop: 09/11/22 00:21 Physical Exam Vital Signs and Narrative: Vital Signs: Last Vital Signs Temp 98.2 F 09/10/22 22:46 Pulse 74 09/10/22 22:46 Resp 20 09/10/22 22:46 BP 115/78 09/10/22 22:46 Pulse Ox 99 09/10/22 22:46 O2 Del Method 09/10/22 22:46 BMI result Body Mass Index 33.7 Const: General: cooperative and no acute distress Orientation/consciousness: patient oriented x3 Eyes: General: appearance normal, both eyes and all related structures Resp: Effort & Inspection: normal respiratory effort Auscultation: clear to auscultation bilaterally Cardio: Rate: regular rate Rhythm: regular rhythm GI: Other: Patient in very tender and the right quadrant of the abdomen, has guarding, with minimal palpation Scar in the midline of the abdomen appears clean, no erythema or tenderness around the scar Palpation (GI): Soft to palpation Auscultation: normal bowel sounds Skin: General skin exam: no rashes or lesions noted Neuro: General: patient oriented x3 Cognition (Neuro): normal cognition Extrem: General: Yes normal to inspection and Yes no pedal edema Results Labs 09/10/22 20:20 09/10/22 20:19 Labs: Laboratory Results - last 24 hr 09/10/22 09/10/22 09/10/22 20:19 20:19 20:19 MCV MCH MCHC RDW Plt Count MPV Immature Gran % (Auto) Neut % (Auto) Lymph % (Auto) [place] % (Auto) Eos % (Auto) Baso % (Auto) Lymph # (Auto) [place] # (Auto) Eos # (Auto) Baso # (Auto) Abs Immat Gran (auto) Absolute Neuts (auto) Absolute Nucleated RBC Nucleated RBC % (auto) Anion Gap 14 Estim Creat Clear Calc 128.6 Estimated GFR > 60 Random Glucose 93 Lactic Acid Calcium 9.6 D Magnesium 2.3 Total Bilirubin 1.0 AST 28 ALT 105 H Alkaline Phosphatase 98 C-Reactive Protein 4.45 H Total Protein 7.2 Albumin 4.5 Lipase 13 Urine Color Urine Appearance Urine pH Ur Specific [place] Urine Protein Urine Glucose (UA) Urine Ketones Urine Blood Urine Nitrite Ur Leukocyte Esterase COVID-19 (SHANTEL) Negative COVID-19 Clin Com See Note Influenza Type A (ANTONIETA) Negative Influenza Type B (ANTONIETA) Negative Influenza A & B Note See Note 09/10/22 09/10/22 09/10/22 20:20 21:26 22:30 MCV 84.6 MCH 27.6 MCHC 32.6 RDW 14.4 Plt Count 259 MPV 9.3 L Immature Gran % (Auto) 0.3 Neut % (Auto) 69.0 Lymph % (Auto) 21.1 [place] % (Auto) 8.4 Eos % (Auto) 0.9 Baso % (Auto) 0.3 Lymph # (Auto) 1.9 [place] # (Auto) 0.8 Eos # (Auto) 0.1 Baso # (Auto) 0.0 Abs Immat Gran (auto) 0.03 Absolute Neuts (auto) 6.3 Absolute Nucleated RBC 0.000 Nucleated RBC % (auto) 0.0 Anion Gap Estim Creat Clear Calc Estimated GFR Random Glucose Lactic Acid 1.5 Calcium Magnesium Total Bilirubin AST ALT Alkaline Phosphatase C-Reactive Protein Total Protein Albumin Lipase Urine Color Yellow Urine Appearance Clear Urine pH 6.5 Ur Specific [place] <= 1.005 Urine Protein Negative Urine Glucose (UA) Negative Urine Ketones Negative Urine Blood Negative Urine Nitrite Negative Ur Leukocyte Esterase Negative COVID-19 (SHANTEL) COVID-19 Clin Com Influenza Type A (ANTONIETA) Influenza Type B (ANTONIETA) Influenza A & B Note Imaging Radiologist's Impressions: Impressions Abdomen/Pelvis CT 09/10/22 22:37 IMPRESSION: 1. Infiltrative changes surrounding the cecum suggest an infectious/inflammatory process. An organized fluid collection is not seen. This represents interval worsening from the previous study. 2. Mild infiltrative changes adjacent to the supraumbilical midline incision. Infiltrative changes in the subjacent peritoneum as well as fluid in the umbilical hernia suggestive of an infectious/inflammatory process as well. No organized fluid collection as well. This represents interval worsening from the previous study. 3. Hepatic steatosis. 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 - GI consult - analgesics for symptom relief - will hold off steroids told evaluated by GI - attempted to get abdominal CT angiogram but given the echo contrast received for a earlier CT of the abdomen patient will have to wait 24 hours - will obtain LDH - normal lactic acid - monitor symptoms DVT prophylaxis: Lovenox Given patient's intractable severe abdominal pain, and likely requirement for further evaluation to discern etiology for the abdominal pain, patient will require minimum 2 night inpatient hospital stay for further management Time Spent With Patient Time: Total time managing care of this patient today ____ minutes. Quality Stroke Does the patient have a stroke diagnosis?: No VTE Prior VTE?: No VTE Risk Level:: Medical - moderate - high VTE Device Contraindication: Treatment Not Indicated VTE Drug Contraindication: N/A - Med Ordered
[2022-09-11] MEDS: Morphine Sulfate 4 MG/ML CARTRIDGE IVPUSH ×5 (00:25→19:16)
[2022-09-11] MEDS: metroNIDAZOLE/NS 500 MG/100 ML PIGGYBACK 100 MG IV ×3 (00:26→17:47)
[2022-09-11] MEDS: Lactated Ringers 1,000 ML 100 ML IVCONT ×3 (00:26→19:10)
[2022-09-11 00:31] VITALS: BP 117/73; PULSE 79; RESP 16; O2SAT 97
[2022-09-11 00:32] LABS: Erythrocyte Sedimentation Rate 11 MM/HR (0-15)
--- NOTE | 2022-09-11 00:51 | PC.NURSE ---
unable to administer Ceftriaxone at this time, Flagyl running with LR, will adminster when Flagyl is complete
--- NOTE | 2022-09-11 01:20 | PC.NURSE ---
Flagyl continuing to run, pt sleeping at this time, respirations even and unlabored, skin pwd, no apparent distress
[2022-09-11] MEDS: cefTRIAXone sodium 1 GM in 0.9 % Sodium Chloride 50 ML IV ×2 (01:46→23:55)
--- NOTE | 2022-09-11 02:51 | PC.NURSE ---
Report received from Flor CERVANTES.
[2022-09-11 03:55] VITALS: BP 112/65; PULSE 86; RESP 18; TEMP 36.6; O2SAT 97
[2022-09-11 05:55] LABS: MANUAL DIFF FLAG NO
[2022-09-11 06:00] LABS: Basophils Percent Auto 0.4 % (0-2); Eosinophils Absolute Auto 0.1 X10*3/uL (0.0-0.4); Eosinophils Percent Auto 1.9 % (0-4); Hematocrit 38.9 % (42.0-52.0); Hemoglobin 12.5 g/dl (14.0-18.0); Imm Gran Abs Auto 0.02 X10*3/uL (0.00-0.03); Imm Gran Pct Auto 0.3 % (0.0-0.4); Lymphocytes Absolute Auto 1.8 X10*3/uL (1.2-4.9); Lymphocytes Percent Auto 24.5 % (20-40); Mean Corpuscular HGB Conc 32.1 g/dl (31.0-36.0); Mean Corpuscular Hemoglobin 27.4 pg (27.0-33.0); Mean Corpuscular Volume 85.3 fL (80.0-98.0); Mean Platelet Volume 9.2 fL (9.4-12.4); Monocytes Absolute Auto 0.9 X10*3/uL (0.1-1.2); Monocytes Percent Auto 11.3 % (2-11); Neutrophils Absolute Auto 4.6 x10*3/uL (2.0-8.3); Neutrophils Percent Auto 61.6 % (45-73); Platelet Count 238 X10*3/uL (160-400); Red Blood Count 4.56 X10*6/uL (4.60-5.80); Red Cell Distribution Width 14.5 % (11.0-16.0); White Blood Count 7.5 X10*3/uL (4.8-10.8)
[2022-09-11 06:15] LABS: Anion Gap 15 (12-20); Blood Urea Nitrogen 7 mg/dL (9-16); Calcium 8.9 mg/dL (8.4-10.2); Carbon Dioxide 25 mmol/L (22-29); Chloride 106 mmol/L (96-108); Creatinine Clr Calc Pharmacy 133.8; Estimated Glomerular Filt Rate > 60; Glucose Random 82 mg/dL (60-115); Lactate Dehydrogenase 136 U/L (118-273); Potassium 4.2 mmol/L (3.3-5.1); Sodium 142 mmol/L (135-145)
--- NOTE | 2022-09-11 06:58 | PM.CNGS ---
History of Present Illness Consult details Consult date: 09/11/22 Reason for consult: abdominal pain Narrative: Patient is a 41-year-old gentleman with a history of Crohn's disease with constipation, appendiceal cancer who is approximately 1 month status post laparoscopic-assisted right hemicolectomy 08/15/22. He reports he had been doing well until yesterday when he woke up and was bent over. As the day progressed, he reported having more pain in the right lower quadrant and then the umbilicus that was associated with nausea and fever to 100 F. he denies any vomiting or diarrhea and noted that he had a bowel movement 1/2 hour after waking yesterday. There was no diarrhea and no blood per rectum. Prior to that, he notes that he believes he had a dietary indiscretion at a restaurant by eating baby back ribs. No one else who ate at the restaurant was ill and no one at home is ill, but the patient reported that after that meal, things did not feel right, noting increased vague abdominal complaints, cramps and abdominal moist. This was several days ago and in think anything of it. He is admitted by the hospitalist service because of a history of Crohn's disease and inflammation involving with the radiologist is referring to is the cecum, but actually represents the transverse colon and ileum since the patient is status post right hemicolectomy. In addition, there is a fluid collection in his umbilical hernia which she reports is tender but started after his right lower quadrant abdominal pain. Pathology demonstrated no metastatic/lymph node involvement in the high right hemicolectomy and all margins were negative for malignancy. No inflammatory bowel disease features were commented on in the path report Review of Systems Review of Systems: Yes all other systems are reviewed and are negative Constitutional: Constitutional: Reports as per HPI [facility] Past Medical History Medical History Anxiety Cancer of appendix History of COVID-19 Hospital discharge follow-up Migraines Mild recurrent major depression Physical exam Pulmonary nodules Screen for colon cancer Family History Family History Father Colon cancer, Onset Age: 63 Liver cancer Mother Breast cancer Diabetes Hypertension Maternal Grandmother Cancer Paternal Aunt Cancer Family/Other FH: mental illness Surgical History Surgical History History of right hemicolectomy Hx of appendectomy Hx of colonoscopy Social History Social History Household Members: Spouse Housing: House Are you a primary health care / medical job titles to a significant other at home: No Do you presently have visiting nurse or other home services: No Alcohol intake: former Patient Tobacco Use Status: Former Tobacco user Quit Date: 1year ago Tobacco use type: Cigarette Smoked in Last 30 Days: No e-Cigarette/Vaping Use: Never Used Second Hand Smoke Exposure: No Use of substances other than those prescribed or required for medical reasons: No Advance Directives: No Advance Directives Information Provided: No Nutrition Risks: No Nutritional Risk service: No Current occupational status: employed Current occupational exposures/hazards: No Cognitive needs: No Hearing needs: No Vision needs: No Meds Allergies Allergy/AdvReac Type Severity Reaction Status Date / Time aspirin [ASA] Allergy Severe anaphylaxis/facial Verified 09/09/22 09:56 swelling ibuprofen [Advil] Allergy Severe tracheal Verified 09/09/22 09:56 swelling shellfish derived Allergy Severe Anaphylaxis Verified 09/09/22 09:56 Active Medications: Current Medications Acetaminophen (Acetaminophen 325 Mg Tablet) 650 mg PO Q6H PRN PRN Reason: Pain, Mild (Pain Scale 1-3) Enoxaparin Sodium (Enoxaparin Sodium 40 Mg/0.4 Ml Syringe) 40 mg SUBCUT Q24H [facility] Last Admin: 09/11/22 01:46 Dose: Not Given Ceftriaxone Sodium 1 gm/ (Sodium Chloride) 50 mls @ 100 mls/hr IV Q24H [facility] Last Infusion: 09/11/22 02:20 Dose: Infused Metronidazole (Flagyl) 500 mg in 100 mls @ 100 mls/hr IV Q8H [facility] Last Admin: 09/11/22 00:35 Dose: Not Given Lactated Ringer's (Lr) 1,000 mls @ 100 mls/hr IVCONT .Q10H [facility] Last Admin: 09/11/22 00:26 Dose: 100 mls/hr Morphine Sulfate (Morphine Sulfate 4 Mg/Ml Cartridge) 4 mg IVPUSH Q4H PRN; Protocol PRN Reason: Pain, Severe (Pain Scale 7-10) Last Admin: 03/22/23 03:57 Dose: 4 mg Ondansetron HCl (Ondansetron Hcl 4 Mg/2 Ml Vial) 4 mg IVPUSH Q8H PRN PRN Reason: Nausea and Vomiting Sodium Chloride (0.9 % Sodium Chloride Flush 3 Ml Syringe) 3 ml IVFLUSH QSHIFT [facility] Physical Exam Vital Signs: Vital Signs: Last Vital Signs Temp 97.9 F 09/11/22 03:55 Pulse 86 09/11/22 03:55 Resp 18 09/11/22 03:55 BP 112/65 09/11/22 03:55 Pulse Ox 97 09/11/22 03:55 O2 Del Method 09/11/22 03:55 BMI result Body Mass Index 33.7 The patient is non-toxic & in good spirits NC/AT, PERRLA, EOMI Mood, affect & judgment all appear appropriate Sclera anicteric conjunctiva pink and moist Oropharynx is clear with no aphthous ulcers, Mallampati class 2, mucous membranes moist Neck is supple with no masses, adenopathy or bruits Thyroid is nontender and free of dominant masses Heart is regular, normal S1-S2 no rubs or murmurs Lungs are clear and equal anteriorly with no audible wheezing, rubs or dullness to percussion No CVA tenderness present Abdomen is overweight with tenderness to his umbilical hernia but no skin changes or erythema. Right lower quadrant abdominal pain is noted with mild peritoneal irritation to percussion. This morning, the patient rates both his umbilical and right lower quadrant pain is equivalent. No HSM, rebound, rigidity, guarding, masses or bruits are present. Rectal exam is deferred Skin has good turgor and is free of rashes Extremities free of cyanosis clubbing edema Results Labs 09/11/22 05:49 09/11/22 05:49 Labs: Abnormal lab results 09/10/22 09/10/22 09/11/22 Range/Units 20:19 20:20 05:49 RBC 4.56 L (4.60-5.80) X10*6/uL Hgb 13.8 L 12.5 L (14.0-18.0) g/dl Hct 38.9 L (42.0-52.0) % MPV 9.3 L 9.2 L (9.4-12.4) fL [place] % (Auto) 11.3 H (2-11) % BUN (9-16) mg/dL ALT 105 H (0-40) U/L C-Reactive Protein 4.45 H (< or = 0.50) mg/dL 09/11/22 Range/Units 05:49 RBC (4.60-5.80) X10*6/uL Hgb (14.0-18.0) g/dl Hct (42.0-52.0) % MPV (9.4-12.4) fL [place] % (Auto) (2-11) % BUN 7 L (9-16) mg/dL ALT (0-40) U/L C-Reactive Protein (< or = 0.50) mg/dL Short CBC 09/10/22 09/11/22 Range/Units 20:20 05:49 WBC 9.1 7.5 (4.8-10.8) X10*3/uL Hgb 13.8 L 12.5 L (14.0-18.0) g/dl Hct 42.3 38.9 L (42.0-52.0) % Plt Count 259 238 (160-400) X10*3/uL BMP 09/10/22 09/11/22 20:19 05:49 Sodium 140 142 Potassium 3.9 4.2 Chloride 105 106 Carbon Dioxide 25 25 BUN 9 7 L Creatinine 0.78 0.75 Calcium 9.6 D 8.9 D Liver Function 09/10/22 Range/Units 20:19 Total Bilirubin 1.0 (0.0-1.0) mg/dL AST 28 (5-37) U/L ALT 105 H (0-40) U/L Alkaline Phosphatase 98 (39-117) U/L Albumin 4.5 (3.5-5.0) g/dL Urine 09/10/22 Range/Units 22:30 Urine Color Yellow Urine Appearance Clear Urine pH 6.5 (5.0-9.0) Ur Specific [place] <= 1.005 (1.005-1.025) Urine Protein Negative (Neg-Trace) mg/dL Urine Glucose (UA) Negative (Negative) mg/dL All other labs normal. Imaging Abdomen CT scan report/results: report reviewed and image reviewed CT scan - pelvis: report reviewed and image reviewed Assessment and Plan (1) Abdominal pain: Qualifiers: Abdominal location: periumbilical Qualified Code(s): R10.33 - Periumbilical pain Status: Acute (2) Fever: Status: Acute (3) H/O right hemicolectomy: Status: Acute (4) Ileitis: Status: Acute (5) Chronic constipation: Status: Acute (6) Cancer of appendix: Status: Acute (7) Crohn's disease: Status: Acute (8) Mild recurrent major depression: Status: Acute Plan I have ordered repeat labs to assess for leukocytosis and electrolytes/renal anomalies since admission. Await GI input. Would be very unusual for an anastomotic complications to present a month after surgery. I believe the umbilical hernia tenderness is reactive in related to whatever process is occurring at his anastomosis. While the patient notes that his symptoms were less severe, he does note a relationship to his abdominal complaints to eating baby back ribs, but he is not experiencing typical food poisoning or infectious enteritis symptoms. Continue to monitor. May need a repeat CT with oral and IV contrast to better define his anatomy. Continue bowel rest and antibiotics for now. IV hydration. Trend labs and physical exam. Time Spent With Patient Time: Total time managing care of this patient today ____ minutes. Procedures Date of Service Date of Service: 09/11/22
--- NOTE | 2022-09-11 07:10 | PC.NURSE ---
Report to Vaishali CERVANTES for continued care.
[2022-09-11 07:41] LABS: MANUAL DIFF FLAG NO
[2022-09-11 07:45] LABS: Basophils Percent Auto 0.3 % (0-2); Eosinophils Absolute Auto 0.1 X10*3/uL (0.0-0.4); Eosinophils Percent Auto 1.7 % (0-4); Hematocrit 40.5 % (42.0-52.0); Imm Gran Abs Auto 0.02 X10*3/uL (0.00-0.03); Imm Gran Pct Auto 0.3 % (0.0-0.4); Lymphocytes Absolute Auto 1.4 X10*3/uL (1.2-4.9); Lymphocytes Percent Auto 19.9 % (20-40); Mean Corpuscular HGB Conc 32.1 g/dl (31.0-36.0); Mean Corpuscular Hemoglobin 27.8 pg (27.0-33.0); Mean Corpuscular Volume 86.7 fL (80.0-98.0); Mean Platelet Volume 9.1 fL (9.4-12.4); Monocytes Absolute Auto 0.8 X10*3/uL (0.1-1.2); Monocytes Percent Auto 11.6 % (2-11); Neutrophils Absolute Auto 4.5 x10*3/uL (2.0-8.3); Neutrophils Percent Auto 66.2 % (45-73); Platelet Count 235 X10*3/uL (160-400); Red Blood Count 4.67 X10*6/uL (4.60-5.80); Red Cell Distribution Width 14.5 % (11.0-16.0); White Blood Count 6.9 X10*3/uL (4.8-10.8)
[2022-09-11 08:01] VITALS: BP 119/76; PULSE 86; RESP 17; TEMP 36.9
--- NOTE | 2022-09-11 08:06 | PHA.MEDREC ---
Pharmacy Consult ? Medication Reconciliation Pharmacy has completed the medication reconciliation. Pt states he was prescribed oxycodone for short term use but only used a few doses before stopping it. Hasn't taken in at least a few days.
[2022-09-11 08:18] LABS: Anion Gap 14 (12-20); Blood Urea Nitrogen 8 mg/dL (9-16); Carbon Dioxide 25 mmol/L (22-29); Chloride 106 mmol/L (96-108); Creatinine Clr Calc Pharmacy 139.3; Estimated Glomerular Filt Rate > 60; Glucose Random 84 mg/dL (60-115); Potassium 4.2 mmol/L (3.3-5.1); Sodium 141 mmol/L (135-145)
[2022-09-11] MEDS: ondansetron HCL 4 MG/2 ML VIAL IVPUSH (08:18)
--- NOTE | 2022-09-11 09:53 | PM.GICN ---
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 , He presents with 1-2 d hx of sudden onset 10/10 RLQ pain without radiation but constant in nature and worse with passing gas or drinking fluids, food. He ddi note a fever but denies diarrhea. He ate a few ribs over the weekend, but no sick contacts, no one else with symptoms. Denies melena, rectal bleeding, nausea or vomiting. he has poor appetite LABS: WBC count of 9.1, lactic of 1.4, labs otherwise unremarkable, UA negative, COVID-19 influenza negative IMAGING: CT pelvic abdomen: infiltrative changes surrounding the right side. no fluid collections Today he says he feels 60% improved as compared to admission. Review of Systems Review of Systems: Constitutional : No Weight loss, + Fever, No Chills ENT/Mouth : No sore throat, No Rhinorrhea Eyes: No Swelling, No Redness Cardiovascular : No Chest Pain, No SOB, No Edema Respiratory : No Cough, No Sputum, No Wheezing Gastrointestinal : see HPI Genitourinary : NO Dysuria, No Urinary Frequency, No Hematuria, No Urgency Musculoskeletal : No joint pain, No Myalgias, No Joint Swelling Skin : No Skin Lesions, No rash Neuro : No Weakness, No Numbness, No Dizziness, No Headache Psych : No Anxiety/Panic, No Depression Heme/Lymph: No Bruising, No Lymphadenopathy Endocrine : No Polyuria, No Polydipsia All other systems reviewed and are negative. [facility] Past Medical History Medical History Anxiety Cancer of appendix History of COVID-19 Hospital discharge follow-up Migraines Mild recurrent major depression Physical exam Pulmonary nodules Screen for colon cancer Family History Family History Father Colon cancer, Onset Age: 63 Liver cancer Mother Breast cancer Diabetes Hypertension Maternal Grandmother Cancer Paternal Aunt Cancer Family/Other FH: mental illness Surgical History Surgical History History of right hemicolectomy Hx of appendectomy Hx of colonoscopy Social History Social History Household Members: Spouse Housing: House Are you a primary personal care aide to a significant other at home: No Do you presently have visiting nurse or other home services: No Alcohol intake: former Patient Tobacco Use Status: Former Tobacco user Quit Date: 1year ago Tobacco use type: Cigarette Smoked in Last 30 Days: No e-Cigarette/Vaping Use: Never Used Second Hand Smoke Exposure: No Use of substances other than those prescribed or required for medical reasons: No Advance Directives: No Advance Directives Information Provided: No Nutrition Risks: No Nutritional Risk service: No Current occupational status: employed Current occupational exposures/hazards: No Cognitive needs: No Hearing needs: No Vision needs: No Meds Allergies Allergy/AdvReac Type Severity Reaction Status Date / Time aspirin [ASA] Allergy Severe anaphylaxis/facial Verified 09/09/22 09:56 swelling ibuprofen [Advil] Allergy Severe tracheal Verified 09/09/22 09:56 swelling shellfish derived Allergy Severe Anaphylaxis Verified 09/09/22 09:56 Active Medications: Current Medications Acetaminophen (Acetaminophen 325 Mg Tablet) 650 mg PO Q6H PRN PRN Reason: Pain, Mild (Pain Scale 1-3) Enoxaparin Sodium (Enoxaparin Sodium 40 Mg/0.4 Ml Syringe) 40 mg SUBCUT Q24H [facility] Last Admin: 09/11/22 01:46 Dose: Not Given Ceftriaxone Sodium 1 gm/ (Sodium Chloride) 50 mls @ 100 mls/hr IV Q24H [facility] Last Infusion: 09/11/22 02:20 Dose: Infused Metronidazole (Flagyl) 500 mg in 100 mls @ 100 mls/hr IV Q8H [facility] Last Admin: 09/11/22 09:14 Dose: 100 mls/hr Lactated Ringer's (Lr) 1,000 mls @ 100 mls/hr IVCONT .Q10H [facility] Last Admin: 09/11/22 00:26 Dose: 100 mls/hr Morphine Sulfate (Morphine Sulfate 4 Mg/Ml Cartridge) 4 mg IVPUSH Q4H PRN; Protocol PRN Reason: Pain, Severe (Pain Scale 7-10) Last Admin: 09/11/22 08:18 Dose: 4 mg Ondansetron HCl (Ondansetron Hcl 4 Mg/2 Ml Vial) 4 mg IVPUSH Q8H PRN PRN Reason: Nausea and Vomiting Last Admin: 09/11/22 08:18 Dose: 4 mg Sodium Chloride (0.9 % Sodium Chloride Flush 3 Ml Syringe) 3 ml IVFLUSH QSHIFT [facility] Last Admin: 09/11/22 07:23 Dose: Not Given Home Medications Medication Instructions Recorded Confirmed Last Taken Type multivitamin (Daily Multi-Vitamin 1 tab PO DAILY 09/11/22 09/11/22 09/10/22 History tablet) Physical Exam Vital Signs: Vital Signs: Last Vital Signs Temp 98.4 F 09/11/22 08:01 Pulse 86 09/11/22 08:01 Resp 17 09/11/22 08:01 BP 119/76 09/11/22 08:01 Pulse Ox 97 09/11/22 03:55 O2 Del Method 09/11/22 08:01 BMI result Body Mass Index 33.7 EXAM: GENERAL: The patient is relaxed-non toxic appearing VITAL SIGNS:see workflow HEENT: Nonicteric sclerae, PERRLA, EOMI. Oropharynx clear. Moist mucous membranes. Conjunctivae appear well perfused. No thyroid mass. CHEST: Chest wall is nontender. HEART: Regular rate and rhythm without murmurs. LUNGS: Clear to auscultation bilaterally. ABDOMEN: Soft, positive bowel sounds, tender RLQ, no organomegaly.no flank tenderness, small umbilical hernai noted, scar SKIN: No rash, no excessive bruising, petechiae, or purpura. NEUROLOGIC: Cranial nerves II-XII intact without motor/sensory deficit. Psych-nml affect Results Labs 09/11/22 07:38 09/11/22 07:38 Labs: Short CBC 09/10/22 09/11/22 09/11/22 Range/Units 20:20 05:49 07:38 WBC 9.1 7.5 6.9 (4.8-10.8) X10*3/uL Hgb 13.8 L 12.5 L 13.0 L (14.0-18.0) g/dl Hct 42.3 38.9 L 40.5 L (42.0-52.0) % Plt Count 259 238 235 (160-400) X10*3/uL BMP 09/10/22 09/11/22 09/11/22 20:19 05:49 07:38 Sodium 140 142 141 Potassium 3.9 4.2 4.2 Chloride 105 106 106 Carbon Dioxide 25 25 25 BUN 9 7 L 8 L Creatinine 0.78 0.75 0.72 Calcium 9.6 D 8.9 D 9.0 Liver Function 09/10/22 Range/Units 20:19 Total Bilirubin 1.0 (0.0-1.0) mg/dL AST 28 (5-37) U/L ALT 105 H (0-40) U/L Alkaline Phosphatase 98 (39-117) U/L Albumin 4.5 (3.5-5.0) g/dL Urine 09/10/22 Range/Units 22:30 Urine Color Yellow Urine Appearance Clear Urine pH 6.5 (5.0-9.0) Ur Specific [place] <= 1.005 (1.005-1.025) Urine Protein Negative (Neg-Trace) mg/dL Urine Glucose (UA) Negative (Negative) mg/dL Imaging CT scan - abdomen: Attestation: I personally reviewed and interpreted this imaging study as follows: (umbilical hernia, stranding around right side colon/intestine) Assessment and Plan (1) Abdominal pain: Qualifiers: Abdominal location: periumbilical Qualified Code(s): R10.33 - Periumbilical pain Status: Acute Plan 1/ Acute abdominal pain with inflammation around the right sided intestine, nothing to suggest acute ischemia and he feels improved whilst on abx therapy with levo and flagyl. mostly likely an infectious colitis/enteritis PLAN: 1/ Cont ABx as doing 2/ advance diet as tolerated 3/ if worsent then repeat CT imaging, recheck lactate 4/ might consider o/p VCE to r/o chrons disease, but the resection samle from the ileum looked good from the report Time Spent With Patient Time: Total time managing care of this patient today ____ minutes. Procedures Date of Service Date of Service: 09/11/22
[2022-09-11 12:15] VITALS: BP 116/78; PULSE 89; RESP 17; TEMP 37.1
[2022-09-11] MEDS: Acetaminophen 325 MG TABLET 650 MG PO ×2 (13:25→19:15)
[2022-09-11 13:26] VITALS: BP 115/76; PULSE 91; RESP 16; O2SAT 95
--- NOTE | 2022-09-11 14:47 | P.PNIM_ITS ---
Subjective Subjective Date of Service: 09/11/22 Interval History: Abdominal pain Review of Systems abd pain somewhat improvin no nausea or vomitin or fevers Physical Exam Vital Signs: Vital Signs: Last Vital Signs Temp 98.7 F 09/11/22 12:15 Pulse 91 09/11/22 13:26 Resp 16 09/11/22 13:26 BP 115/76 09/11/22 13:26 Pulse Ox 95 09/11/22 13:26 O2 Del Method 09/11/22 13:26 BMI result Body Mass Index 33.7 Appearance: Alert.? Oriented X3.? abd pain. cvs: rrr, [id number] , no murmur res: clear to auscultation ,no rhonchii or wheezing abd: no rebound or guarding ,rlq pain, bs present. ext pulses present , no cyanosis . neuro: axo3 , nonfocal. Objective Data Active Medications Acetaminophen (Acetaminophen 325 Mg Tablet) 650 mg PO Q6H PRN PRN Reason: Pain, Mild (Pain Scale 1-3) Enoxaparin Sodium (Enoxaparin Sodium 40 Mg/0.4 Ml Syringe) 40 mg SUBCUT Q24H [facility] Last Admin: 09/11/22 01:46 Dose: Not Given Documented By: JARRETT Non-Admin Reason: Med Not Available Ceftriaxone Sodium 1 gm/ (Sodium Chloride) 50 mls @ 100 mls/hr IV Q24H [facility] Last Infusion: 09/11/22 02:20 Dose: 0 mls/hr Documented By: JARRETT Metronidazole (Flagyl) 500 mg in 100 mls @ 100 mls/hr IV Q8H [facility] Last Infusion: 09/11/22 10:25 Dose: 0 mls/hr Documented By: MICHELLE Lactated Ringer's (Lr) 1,000 mls @ 100 mls/hr IVCONT .Q10H [facility] Last Admin: 09/11/22 10:22 Dose: 100 mls/hr Documented By: MICHELLE Morphine Sulfate (Morphine Sulfate 4 Mg/Ml Cartridge) 4 mg IVPUSH Q4H PRN; Protocol PRN Reason: Pain, Severe (Pain Scale 7-10) Last Admin: 09/11/22 13:26 Dose: 4 mg Documented By: MICHELLE Ondansetron HCl (Ondansetron Hcl 4 Mg/2 Ml Vial) 4 mg IVPUSH Q8H PRN PRN Reason: Nausea and Vomiting Last Admin: 09/11/22 08:18 Dose: 4 mg Documented By: MICHELLE Sodium Chloride (0.9 % Sodium Chloride Flush 3 Ml Syringe) 3 ml IVFLUSH QSHIFT [facility] Last Admin: 09/11/22 07:23 Dose: Not Given Documented By: MICHELLE Non-Admin Reason: IV Running Labs 09/11/22 07:38 09/11/22 07:38 Labs: Laboratory Results - last 24 hr 09/10/22 09/10/22 09/10/22 20:19 20:19 20:19 MCV MCH MCHC RDW Plt Count MPV Immature Gran % (Auto) Neut % (Auto) Lymph % (Auto) [place] % (Auto) Eos % (Auto) Baso % (Auto) Lymph # (Auto) [place] # (Auto) Eos # (Auto) Baso # (Auto) Abs Immat Gran (auto) Absolute Neuts (auto) Absolute Nucleated RBC Nucleated RBC % (auto) ESR Anion Gap 14 Estim Creat Clear Calc 128.6 Estimated GFR > 60 Random Glucose 93 Lactic Acid Calcium 9.6 D Magnesium 2.3 Total Bilirubin 1.0 AST 28 ALT 105 H Alkaline Phosphatase 98 Lactate Dehydrogenase C-Reactive Protein 4.45 H Total Protein 7.2 Albumin 4.5 Lipase 13 Urine Color Urine Appearance Urine pH Ur Specific [place] Urine Protein Urine Glucose (UA) Urine Ketones Urine Blood Urine Nitrite Ur Leukocyte Esterase COVID-19 (SHANTEL) Negative COVID-19 Clin Com See Note Influenza Type A (ANTONIETA) Negative Influenza Type B (ANTONIETA) Negative Influenza A & B Note See Note 09/10/22 09/10/22 09/10/22 20:20 20:20 21:26 MCV 84.6 MCH 27.6 MCHC 32.6 RDW 14.4 Plt Count 259 MPV 9.3 L Immature Gran % (Auto) 0.3 Neut % (Auto) 69.0 Lymph % (Auto) 21.1 [place] % (Auto) 8.4 Eos % (Auto) 0.9 Baso % (Auto) 0.3 Lymph # (Auto) 1.9 [place] # (Auto) 0.8 Eos # (Auto) 0.1 Baso # (Auto) 0.0 Abs Immat Gran (auto) 0.03 Absolute Neuts (auto) 6.3 Absolute Nucleated RBC 0.000 Nucleated RBC % (auto) 0.0 ESR 11 Anion Gap Estim Creat Clear Calc Estimated GFR Random Glucose Lactic Acid 1.5 Calcium Magnesium Total Bilirubin AST ALT Alkaline Phosphatase Lactate Dehydrogenase C-Reactive Protein Total Protein Albumin Lipase Urine Color Urine Appearance Urine pH Ur Specific [place] Urine Protein Urine Glucose (UA) Urine Ketones Urine Blood Urine Nitrite Ur Leukocyte Esterase COVID-19 (SHANTEL) COVID-19 Clin Com Influenza Type A (ANTONIETA) Influenza Type B (ANTONIETA) Influenza A & B Note 09/10/22 09/11/22 09/11/22 22:30 05:49 05:49 MCV 85.3 MCH 27.4 MCHC 32.1 RDW 14.5 Plt Count 238 MPV 9.2 L Immature Gran % (Auto) 0.3 Neut % (Auto) 61.6 Lymph % (Auto) 24.5 [place] % (Auto) 11.3 H Eos % (Auto) 1.9 Baso % (Auto) 0.4 Lymph # (Auto) 1.8 [place] # (Auto) 0.9 Eos # (Auto) 0.1 Baso # (Auto) 0.0 Abs Immat Gran (auto) 0.02 Absolute Neuts (auto) 4.6 Absolute Nucleated RBC 0.000 Nucleated RBC % (auto) 0.0 ESR Anion Gap 15 Estim Creat Clear Calc 133.8 Estimated GFR > 60 Random Glucose 82 Lactic Acid Calcium 8.9 D Magnesium Total Bilirubin AST ALT Alkaline Phosphatase Lactate Dehydrogenase 136 C-Reactive Protein Total Protein Albumin Lipase Urine Color Yellow Urine Appearance Clear Urine pH 6.5 Ur Specific [place] <= 1.005 Urine Protein Negative Urine Glucose (UA) Negative Urine Ketones Negative Urine Blood Negative Urine Nitrite Negative Ur Leukocyte Esterase Negative COVID-19 (SHANTEL) COVID-19 Clin Com Influenza Type A (ANTONIETA) Influenza Type B (ANTONIETA) Influenza A & B Note 09/11/22 09/11/22 07:38 07:38 MCV 86.7 MCH 27.8 MCHC 32.1 RDW 14.5 Plt Count 235 MPV 9.1 L Immature Gran % (Auto) 0.3 Neut % (Auto) 66.2 Lymph % (Auto) 19.9 L [place] % (Auto) 11.6 H Eos % (Auto) 1.7 Baso % (Auto) 0.3 Lymph # (Auto) 1.4 [place] # (Auto) 0.8 Eos # (Auto) 0.1 Baso # (Auto) 0.0 Abs Immat Gran (auto) 0.02 Absolute Neuts (auto) 4.5 Absolute Nucleated RBC 0.000 Nucleated RBC % (auto) 0.0 ESR Anion Gap 14 Estim Creat Clear Calc 139.3 Estimated GFR > 60 Random Glucose 84 Lactic Acid Calcium 9.0 Magnesium Total Bilirubin AST ALT Alkaline Phosphatase Lactate Dehydrogenase C-Reactive Protein Total Protein Albumin Lipase Urine Color Urine Appearance Urine pH Ur Specific [place] Urine Protein Urine Glucose (UA) Urine Ketones Urine Blood Urine Nitrite Ur Leukocyte Esterase COVID-19 (SHANTEL) COVID-19 Clin Com Influenza Type A (ANTONIETA) Influenza Type B (ANTONIETA) Influenza A & B Note Assessment and Plan (1) Abdominal pain: Status: Acute Plan ?41-year-old male with past medical history of adenocarcinoma of the appendix status post hemicolectomy presents to the hospital with complaints of abdominal pain acute severe abdominal pain-possibly secondary to inflammatory/infectious etiology ldh, lactic acid normal. still has abdominal pain but somewhat improving seen by surgery and GI- bowel rest,treat with IV antibiotics, IV fluids, analgesics for symptom relief. if condition worsens -repeat lactic acid /Ct abd . DVT prophylaxis:? Lovenox inpatient need: intractable severe abdominal pain, and likely requirement for further evaluation to discern etiology for the abdominal pain-needs bowel rest,treat with IV antibiotics, IV fluids, analgesics . Time Spent With Patient Time: Total time managing care of this patient today ____ minutes. Quality Stroke Does the patient have a stroke diagnosis?: No VTE Prior VTE?: No VTE Risk Level:: Medical - moderate - high VTE Device Contraindication: Treatment Not Indicated VTE Drug Contraindication: N/A - Med Ordered
[2022-09-11 16:00] VITALS: BP 122/76; PULSE 74; RESP 18; TEMP 36.3; O2SAT 98
[2022-09-11] MEDS: Enoxaparin Sodium 40 MG/0.4 ML SYRINGE SUBCUT (23:56)
[2022-09-12] MEDS: metroNIDAZOLE/NS 500 MG/100 ML PIGGYBACK 100 MG IV ×3 (00:32→17:17)
[2022-09-12 03:10] VITALS: BP 114/76; PULSE 85; RESP 18; TEMP 36.6; O2SAT 97
[2022-09-12] MEDS: Morphine Sulfate 4 MG/ML CARTRIDGE IVPUSH ×4 (03:17→21:00)
[2022-09-12] MEDS: Lactated Ringers 1,000 ML 100 ML IVCONT ×2 (05:45→17:17)
[2022-09-12] MEDS: ondansetron HCL 4 MG/2 ML VIAL IVPUSH (07:02)
--- NOTE | 2022-09-12 07:14 | PM.PNGS ---
Subjective Subjective Date of Service: 09/12/22 Patient reports: still having pain, nausea and vomiting Interval history: Reports ongoing cramping right lower quadrant pain. He had some vomiting before I entered the room. He denies any chest pain, difficulty breathing or shortness of breath. He notes that his umbilical pain has improved. He otherwise has no complaints or localizing neurological symptoms Physical Exam Vital Signs: Vital Signs: Last Vital Signs Temp 97.8 F 09/12/22 03:10 Pulse 85 09/12/22 03:10 Resp 18 09/12/22 03:10 BP 114/76 09/12/22 03:10 Pulse Ox 97 09/12/22 03:10 O2 Del Method Room Air 09/12/22 03:10 BMI result Body Mass Index 33.7 Patient is nontoxic Sclera are anicteric He is in no respiratory distress Abdomen has right-sided tenderness possibly a little worse than yesterday in the umbilicus remains a little tender. Objective Data Active Medications Acetaminophen (Acetaminophen 325 Mg Tablet) 650 mg PO Q6H PRN PRN Reason: Pain, Mild (Pain Scale 1-3) Last Admin: 09/11/22 19:15 Dose: 650 mg Documented By: JUSTICE Enoxaparin Sodium (Enoxaparin Sodium 40 Mg/0.4 Ml Syringe) 40 mg SUBCUT Q24H [facility] Last Admin: 09/11/22 23:56 Dose: 40 mg Documented By: JUSTICE Ceftriaxone Sodium 1 gm/ (Sodium Chloride) 50 mls @ 100 mls/hr IV Q24H [facility] Last Infusion: 09/12/22 00:29 Dose: 0 mls/hr Documented By: JUSTICE Metronidazole (Flagyl) 500 mg in 100 mls @ 100 mls/hr IV Q8H [facility] Last Infusion: 09/12/22 01:47 Dose: 0 mls/hr Documented By: JUSTICE Lactated Ringer's (Lr) 1,000 mls @ 100 mls/hr IVCONT .Q10H [facility] Last Admin: 09/12/22 05:45 Dose: 100 mls/hr Documented By: JUSTICE Morphine Sulfate (Morphine Sulfate 4 Mg/Ml Cartridge) 4 mg IVPUSH Q4H PRN; Protocol PRN Reason: Pain, Severe (Pain Scale 7-10) Last Admin: 09/12/22 03:17 Dose: 4 mg Documented By: JUSTICE Ondansetron HCl (Ondansetron Hcl 4 Mg/2 Ml Vial) 4 mg IVPUSH Q8H PRN PRN Reason: Nausea and Vomiting Last Admin: 09/12/22 07:02 Dose: 4 mg Documented By: DAY Sodium Chloride (0.9 % Sodium Chloride Flush 3 Ml Syringe) 3 ml IVFLUSH QSHIFT [facility] Last Admin: 09/11/22 22:43 Dose: Not Given Documented By: JUSTICE Non-Admin Reason: IV Running Labs 09/11/22 07:38 09/11/22 07:38 Labs: Laboratory Results - last 24 hr 09/11/22 09/11/22 07:38 07:38 MCV 86.7 MCH 27.8 MCHC 32.1 RDW 14.5 Plt Count 235 MPV 9.1 L Immature Gran % (Auto) 0.3 Neut % (Auto) 66.2 Lymph % (Auto) 19.9 L [place] % (Auto) 11.6 H Eos % (Auto) 1.7 Baso % (Auto) 0.3 Lymph # (Auto) 1.4 [place] # (Auto) 0.8 Eos # (Auto) 0.1 Baso # (Auto) 0.0 Abs Immat Gran (auto) 0.02 Absolute Neuts (auto) 4.5 Absolute Nucleated RBC 0.000 Nucleated RBC % (auto) 0.0 Anion Gap 14 Estim Creat Clear Calc 139.3 Estimated GFR > 60 Random Glucose 84 Calcium 9.0 Microbiology Microbiology Results: Microbiology 09/10/22 21:20 Blood Culture - Preliminary Blood - Venous No growth after 24 hours. 09/10/22 20:20 Blood Culture - Preliminary Blood - Venous No growth after 24 hours. Procedures Date of Service Date of Service: 09/12/22 Progress Note: A&P Assessment and plan (1) H/O right hemicolectomy: Status: Acute (2) Abdominal pain: Status: Acute (3) Fever: Status: Acute (4) Chronic constipation: Status: Acute (5) Family history of colon cancer: Status: Acute (6) Cancer of appendix: Status: Acute (7) Colitis: Status: Acute (8) Crohn's disease: Status: Acute Plan I have ordered a CT of the abdomen and pelvis with oral and IV contrast. Patient continues to have no fevers here or tachycardia and his abdominal exam is unchanged. Better evaluation of the anastomosis given the local inflammation is in order. Again, I suspect his umbilical pain is secondary to his hernia and likely secondary to the right lower quadrant inflammation/process. Keep NPO except for oral contrast for CT. Will reassess later. Time Spent With Patient Time: Total time managing care of this patient today ____ minutes. Quality Stroke Does the patient have a stroke diagnosis?: No VTE Prior VTE?: No VTE Risk Level:: Medical - moderate - high VTE Device Contraindication: Treatment Not Indicated VTE Drug Contraindication: N/A - Med Ordered
[2022-09-12 07:28] VITALS: BP 126/81; PULSE 82; RESP 16; TEMP 36.8; O2SAT 94
[2022-09-12 09:39] LABS: Anion Gap 16 (12-20); Blood Urea Nitrogen 10 mg/dL (9-16); Calcium 8.8 mg/dL (8.4-10.2); Carbon Dioxide 24 mmol/L (22-29); Chloride 104 mmol/L (96-108); Creatinine Clr Calc Pharmacy 137.4; Estimated Glomerular Filt Rate > 60; Glucose Random 69 mg/dL (60-115); Potassium 4.2 mmol/L (3.3-5.1); Sodium 140 mmol/L (135-145)
[2022-09-12] MEDS: iohexoL 350 MG/ML 100 ML INFUS..BTL 85 ML IV (12:21)
[2022-09-12] MEDS: Barium Sulfate Oral (Berry) 450 ML ORAL.SUSP 900 ML PO (12:23)
--- NOTE | 2022-09-12 14:24 | MHC.CM.PN ---
MALE 41 DX AB PAIN He lives with his . He is independent all functional mobility. VAXXED x3. A new HCP has been documented and scanned into EMR. Copies have been provided to the patient. DP home self care family transport.
[2022-09-12 15:10] LABS: CDiff Gene PCR NEGATIVE (Negative)
[2022-09-12] MEDS: methylPREDNISolone Sod Succ 40 MG/ML VIAL 20 MG IVPUSH ×2 (15:20→21:40)
[2022-09-12] MEDS: 0.9 % Sodium Chloride Flush 3 ML SYRINGE IVFLUSH (15:21)
[2022-09-12 15:41] VITALS: BP 120/61; PULSE 82; RESP 18; TEMP 36.7; O2SAT 93
--- NOTE | 2022-09-12 15:49 | P.PNIM_ITS ---
Subjective Subjective Date of Service: 09/12/22 Interval History: Abdominal pain Review of Systems abd pain similar to yesterday no nausea or vomitin or fevers Physical Exam Vital Signs: Vital Signs: Last Vital Signs Temp 98.0 F 09/12/22 15:41 Pulse 82 09/12/22 15:41 Resp 18 09/12/22 15:41 BP 120/61 09/12/22 15:41 Pulse Ox 93 09/12/22 15:41 O2 Del Method Room Air 09/12/22 15:41 BMI result Body Mass Index 33.7 Appearance: Alert.? Oriented X3.? abd pain. cvs: rrr, [id number] , no murmur res: clear to auscultation ,no rhonchii or wheezing abd: no rebound or guarding ,rlq pain, bs present. ext pulses present , no cyanosis . neuro: axo3 , nonfocal. Objective Data Active Medications Acetaminophen (Acetaminophen 325 Mg Tablet) 650 mg PO Q6H PRN PRN Reason: Pain, Mild (Pain Scale 1-3) Last Admin: 09/11/22 19:15 Dose: 650 mg Documented By: JUSTICE Enoxaparin Sodium (Enoxaparin Sodium 40 Mg/0.4 Ml Syringe) 40 mg SUBCUT Q24H [facility] Last Admin: 09/11/22 23:56 Dose: 40 mg Documented By: JUSTICE Ceftriaxone Sodium 1 gm/ (Sodium Chloride) 50 mls @ 100 mls/hr IV Q24H [facility] Last Infusion: 09/12/22 00:29 Dose: 0 mls/hr Documented By: JUSTICE Metronidazole (Flagyl) 500 mg in 100 mls @ 100 mls/hr IV Q8H [facility] Last Infusion: 09/12/22 10:12 Dose: 0 mls/hr Documented By: DAY Lactated Ringer's (Lr) 1,000 mls @ 100 mls/hr IVCONT .Q10H [facility] Last Infusion: 09/12/22 14:08 Dose: 100 mls/hr Documented By: DAY Methylprednisolone Sodium Succinate (Methylprednisolone Sod Succ 40 Mg/Ml Vial) 20 mg IVPUSH Q8H [facility] Last Admin: 09/12/22 15:20 Dose: 20 mg Documented By: DAY Morphine Sulfate (Morphine Sulfate 4 Mg/Ml Cartridge) 4 mg IVPUSH Q4H PRN; Protocol PRN Reason: Pain, Severe (Pain Scale 7-10) Last Admin: 09/12/22 15:21 Dose: 4 mg Documented By: DAY Ondansetron HCl (Ondansetron Hcl 4 Mg/2 Ml Vial) 4 mg IVPUSH Q8H PRN PRN Reason: Nausea and Vomiting Last Admin: 09/12/22 07:02 Dose: 4 mg Documented By: DAY Sodium Chloride (0.9 % Sodium Chloride Flush 3 Ml Syringe) [facility] Last Admin: 09/12/22 15:21 Dose: 3 ml Documented By: DAY Labs 09/11/22 07:38 09/12/22 08:28 Labs: Laboratory Results - last 24 hr 09/12/22 09/12/22 08:28 14:10 Anion Gap 16 Estim Creat Clear Calc 137.4 Estimated GFR > 60 Random Glucose 69 Calcium 8.8 C. difficile Tox B Gene NEGATIVE Microbiology Microbiology Results: Microbiology 09/10/22 21:20 Blood Culture - Preliminary Blood - Venous No growth after 24 hours. 09/10/22 20:20 Blood Culture - Preliminary Blood - Venous No growth after 24 hours. Assessment and Plan (1) Abdominal pain: Status: Acute Plan ?41-year-old male with past medical history of adenocarcinoma of the appendix status post hemicolectomy presents to the hospital with complaints of abdominal pain acute severe abdominal pain-possibly secondary to inflammatory/infectious etio logy ldh, lactic acid normal. still has abdominal pain but somewhat improving ct abd: CT/CT abdomen pelvis w IV con IMPRESSION: *? The persistent bowel wall thickening and mesenteric fat stranding around the enterocolic anastomosis is likely secondary to inflammatory bowel disease in this patient with history of Crohn disease. *? No evidence of bowel perforation or abscess. *? Diffuse hepatic steatosis. *? A small umbilical hernia that contains fat and small amount of ct abd repeated today:bowel rest,treat with IV antibiotics, IV fluids, analgesics for symptom relief. DVT prophylaxis:? Lovenox inpatient need: intractable severe abdominal pain, and likely requirement for further evaluation to discern etiology for the abdominal pain-needs bowel rest,treat with IV antibiotics, IV fluids, analgesics . Time Spent With Patient Time: Total time managing care of this patient today ____ minutes. Quality Stroke Does the patient have a stroke diagnosis?: No VTE Prior VTE?: No VTE Risk Level:: Medical - moderate - high VTE Device Contraindication: Treatment Not Indicated VTE Drug Contraindication: N/A - Med Ordered
[2022-09-12 16:29] LABS: Adenovirus F 40/41 Not Detected (Not Detect.); Astrovirus Not Detected (Not Detect.); Campylobacter Not Detected (Not Detect.); Cryptosporidium Not Detected (Not Detect.); Cyclospora cayetanensis Not Detected (Not Detect.); E. coli EAEC Not Detected (Not Detect.); E. coli EPEC Not Detected (Not Detect.); E. coli ETEC Not Detected (Not Detect.); E. coli STEC Not Detected (Not Detect.); Entamoeba histolytica Not Detected (Not Detect.); Giardia lamblia Not Detected (Not Detect.); Norovirus GI/GII Not Detected (Not Detect.); Plesiomonas shigelloides Not Detected (Not Detect.); Rotavirus A Not Detected (Not Detect.); Salmonella Not Detected (Not Detect.); Sapovirus Not Detected (Not Detect.); Shigella sp./EIEC Not Detected (Not Detect.); Vibrio Not Detected (Not Detect.); Vibrio Cholerae Not Detected (Not Detect.); Yersinia enterocolitica Not Detected (Not Detect.)
[2022-09-12 19:36] VITALS: BP 122/76; PULSE 96; RESP 18; TEMP 36.7; O2SAT 96
[2022-09-12] MEDS: Enoxaparin Sodium 40 MG/0.4 ML SYRINGE SUBCUT (23:31)
[2022-09-12] MEDS: cefTRIAXone sodium 1 GM in 0.9 % Sodium Chloride 50 ML IV (23:31)
[2022-09-13] VITALS (9 sets, daily range): BP systolic 119–146; BP diastolic 63–92; PULSE 76–105; RESP 16–20; TEMP 36.2–36.9; O2SAT 93–98
[2022-09-13] MEDS: metroNIDAZOLE/NS 500 MG/100 ML PIGGYBACK 100 MG IV ×3 (00:04→16:36)
[2022-09-13] MEDS: Morphine Sulfate 4 MG/ML CARTRIDGE IVPUSH ×4 (01:07→20:48)
[2022-09-13] MEDS: Lactated Ringers 1,000 ML 100 ML IVCONT (04:02)
[2022-09-13] MEDS: methylPREDNISolone Sod Succ 40 MG/ML VIAL 20 MG IVPUSH ×3 (05:51→20:24)
[2022-09-13 06:56] LABS: C Reactive Protein 12.67 mg/dL (< or = 0.50)
--- NOTE | 2022-09-13 09:08 | PM.PNGS ---
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 He reports that he is having continued right lower quadrant abdominal pain but is passing gas and moving his bowels. Overall, he believes he is feeling better. He otherwise denies difficulty breathing, pain in his chest or other new symptoms. Physical Exam Vital Signs: Vital Signs: Last Vital Signs Temp 97.2 F 09/13/22 07:21 Pulse 93 09/13/22 07:21 Resp 16 09/13/22 07:21 BP 134/80 09/13/22 07:21 Pulse Ox 96 09/13/22 07:21 O2 Del Method Room Air 09/13/22 07:21 BMI result Body Mass Index 33.7 On exam he is nontoxic His sclera remain anicteric His umbilical skin is starting to become red today and is hyperesthetic versus yesterday. He continues to report right lower quadrant pain which is improved since yesterday. Objective Data Active Medications Acetaminophen (Acetaminophen 325 Mg Tablet) 650 mg PO Q6H PRN PRN Reason: Pain, Mild (Pain Scale 1-3) Last Admin: 09/11/22 19:15 Dose: 650 mg Documented By: JUSTICE Enoxaparin Sodium (Enoxaparin Sodium 40 Mg/0.4 Ml Syringe) 40 mg SUBCUT Q24H [facility] Last Admin: 09/12/22 23:31 Dose: 40 mg Documented By: JUSTICE Ceftriaxone Sodium 1 gm/ (Sodium Chloride) 50 mls @ 100 mls/hr IV Q24H [facility] Last Infusion: 09/13/22 00:06 Dose: 0 mls/hr Documented By: JUSTICE Metronidazole (Flagyl) 500 mg in 100 mls @ 100 mls/hr IV Q8H [facility] Last Admin: 09/13/22 08:15 Dose: 100 mls/hr Documented By: DAY Methylprednisolone Sodium Succinate (Methylprednisolone Sod Succ 40 Mg/Ml Vial) 20 mg IVPUSH Q8H [facility] Last Admin: 09/13/22 05:51 Dose: 20 mg Documented By: JUSTICE Morphine Sulfate (Morphine Sulfate 4 Mg/Ml Cartridge) 4 mg IVPUSH Q4H PRN; Protocol PRN Reason: Pain, Severe (Pain Scale 7-10) Last Admin: 09/13/22 08:15 Dose: 4 mg Documented By: DAY Ondansetron HCl (Ondansetron Hcl 4 Mg/2 Ml Vial) 4 mg IVPUSH Q8H PRN PRN Reason: Nausea and Vomiting Last Admin: 09/12/22 07:02 Dose: 4 mg Documented By: DAY Sodium Chloride (0.9 % Sodium Chloride Flush 3 Ml Syringe) 3 ml IVFLUSH QSHIFT [facility] Last Admin: 09/13/22 08:07 Dose: Not Given Documented By: DAY Non-Admin Reason: IV Running Labs 09/11/22 07:38 09/12/22 08:28 Labs: Laboratory Results - last 24 hr 09/12/22 09/12/22 09/12/22 08:28 14:10 14:10 Anion Gap 16 Estim Creat Clear Calc 137.4 Estimated GFR > 60 Random Glucose 69 Calcium 8.8 C-Reactive Protein 12.67 H Stl C. cayetanensis PCR Not Detected Stool Rotavirus A PCR Not Detected Stl Adenov F 40/41 PCR Not Detected Stool Astrovirus (PCR) Not Detected Stool Campylobacter PCR Not Detected Stool Cryptosporidium PCR Not Detected Stl Sh Tox Pr E STEC PCR Not Detected Stool E coli O157 PCR Not applicable Stl Enterotoxigenic E PCR Not Detected Stool EPEC (PCR) Not Detected Stool EAEC (PCR) Not Detected Stl E. histolytica PCR Not Detected Stool Giardia Lamblia PCR Not Detected Stl P. shigelloides PCR Not Detected Stool Salmonella PCR Not Detected Stool Sapovirus (PCR) Not Detected Stl Shigella/EIEC PCR Not Detected St Y.enterocolitica PCR Not Detected Stool Vibrio (PCR) Not Detected Stl Vibrio cholerae PCR Not Detected Stl Norovirus GI/GII PCR Not Detected C. difficile Tox B Gene NEGATIVE Microbiology Microbiology Results: Microbiology 09/10/22 21:20 Blood Culture - Preliminary Blood - Venous No growth after 48 hours. 09/10/22 20:20 Blood Culture - Preliminary Blood - Venous No growth after 48 hours. Procedures Date of Service Date of Service: 09/13/22 Progress Note: A&P Assessment and plan (1) H/O right hemicolectomy: Status: Acute (2) Cancer of appendix: Status: Acute (3) Right lower quadrant pain: Status: Acute (4) Umbilical hernia, incarcerated: Status: Acute Plan Given the trophic changes and worsening of symptoms, I have recommended umbilical hernia repair to be done urgently today. The other option of continuing to observe was reviewed with the patient, but since he is worsening between today and yesterday, I have recommended repair and the patient would like to proceed as recommended. I reviewed the inherent risks of bleeding, infection, recurrence and the possible need for another procedure if he develops a recurrence. A laparoscopic approach with internal peritoneal mesh at a later date should he develop complications was reviewed with the patient. He is deferring to my judgment but would like to proceed as recommended given the redness and significant change since yesterday. Keep NPO; continue current antibiotic regime. 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 Time Spent With Patient Time: Total time managing care of this patient today ____ minutes. Quality Stroke Does the patient have a stroke diagnosis?: No VTE Prior VTE?: No VTE Risk Level:: Medical - moderate - high VTE Device Contraindication: Treatment Not Indicated VTE Drug Contraindication: N/A - Med Ordered
--- NOTE | 2022-09-13 09:12 | PCN2_ITS ---
Brief Operative Note Date of procedure: 09/13/22 Procedure: Preop diagnosis: [Incarcerated umbilical hernia with trophic skin changes, possible ischemic tissue] Postop diagnosis: [Same, no evidence of ischemia, viable properitoneal fat reduced] Procedure: [open umbilical hernia repair] Surgeon: Justino Xavier MD Assist: [none] Anesthesia: [General via LMA; local: Lidocaine, 2%/ropivacaine, 0.5% with epi 50/50mix] Estimated blood loss: [3cc] Specimen: [none] Intraoperative findings: [Viable properitoneal fat. No evidence of ischemic tissue.] Indications: [The patient is a 41-year-old gentleman known to me for prior appendectomy during which an appendiceal cancer was noted. He had an a sympt omatic, reducible umbilical hernia at that time. Given the appendiceal cancer, I right hemicolectomy was recommended and performed a month ago. The patient is experiencing right lower quadrant pain and his umbilical pain and redness changed between yesterday and today, suggesting an incarcerated, possibly infarcting fat filled umbilical hernia. Given this, I recommended an open repair with primary closure and specifically advised against mesh placement. I reviewed the inherent risks of bleeding, infection, hernia recurrence and need for another hernia repair, possibly laparoscopically at a delayed date. Given the unclear, possible inflammatory or infectious issues regarding his ileocolonic anastomosis being managed as possible Crohn's exacerbation, I would recommend avoiding intra-abdominal surgery at this time. The option of a 2nd opinion was offered to the patient. He seemed understand all of his options and wants to proceed with surgery. He was offered an state inspector but this was declined.] Procedure: [The patient was identified in the preoperative holding area and again in OR suite [address]. 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 He was placed supine on the table induced in general via LMA administered. His abdomen was then widely prepped and draped using ChloraPrep and an appropriate time-out performed. Preemptive analgesia of the above local was infiltrated in the skin and lyssa umbilical tissue. A curvilinear infraumbilical incision was made sharply and carried into the subcutaneous tissues. Hemostasis was obtained with electrocautery. Circumferential dissection of the hernia demonstrated viable properitoneal fat with no evidence of ischemia. Dissection of the umbilical ring readily allowed the hernia to reduce, and given the 6 mm defect, fascial margins were freshened with electrocautery and closed transversely with interrupted 0 polypropylene sutures. The area was then inspected for hemostasis which was good, additional local infiltrated and the umbilical dermis tacked down to the repair. The skin was then closed with a running 4-0 Monocryl subcuticular suture, the abdomen washed and dried, Mastisol, Steri-Strips and a cotton ball placed and a Tegaderm applied. Patient tolerated the procedure well and was sent extubated to the recovery area in stable condition. All sponge instrument counts were correct.]
[2022-09-13 09:30] LABS: Anion Gap 18 (12-20); Blood Urea Nitrogen 10 mg/dL (9-16); C Reactive Protein 8.74 mg/dL (< or = 0.50); Calcium 9.1 mg/dL (8.4-10.2); Carbon Dioxide 20 mmol/L (22-29); Chloride 104 mmol/L (96-108); Creatinine Clr Calc Pharmacy 143.3; Estimated Glomerular Filt Rate > 60; Glucose Random 109 mg/dL (60-115); Potassium 4.4 mmol/L (3.3-5.1); Sodium 138 mmol/L (135-145)
--- NOTE | 2022-09-13 10:00 | HO.ANESPROP2 ---
HPI - Anesthesia Eval Consult details Narrative: umbilical hernia repair PMFSH Active Problems Active Problems: All Active Problems (Updated 09/13/22 @ 09:10 by Justino Xavier MD) Umbilical hernia, incarcerated (Acute) Abdominal pain (Acute) Fever (Acute) H/O right hemicolectomy (Acute) Somatic dysfunction of left sacroiliac joint (Acute) Occipital neuralgia (Acute) Dysuria (Acute) Chronic constipation (Acute) Family history of colon cancer (Acute) Ileitis (Acute) Hyperplastic colon polyp (Acute) Internal hemorrhoids (Acute) Appendix disease (Acute) Abnormal CT of the abdomen (Acute) Right lower quadrant pain (Acute) Cancer of appendix (Acute) Colitis (Acute) Crohn's disease (Acute) Mild recurrent major depression (Acute) Physical exam (Acute) Anxiety (Acute) Hospital discharge follow-up (Acute) Screen for colon cancer (Acute) Pulmonary nodules (Acute) Migraines (Acute) Past Medical History Medical History Anxiety Cancer of appendix History of COVID-19 Hospital discharge follow-up Migraines Mild recurrent major depression Physical exam Pulmonary nodules Screen for colon cancer Family History Family History Father Colon cancer, Onset Age: 63 Liver cancer Mother Breast cancer Diabetes Hypertension Maternal Grandmother Cancer Paternal Aunt Cancer Family/Other FH: mental illness Family history of problems with anesthesia: No Surgical History Surgical History History of right hemicolectomy Hx of appendectomy Hx of colonoscopy History of Problems with Anesthesia: No Social History Social History Household Members: Spouse Housing: House Are you a primary memory care director to a significant other at home: No Do you presently have visiting nurse or other home services: No Alcohol intake: former Patient Tobacco Use Status: Former Tobacco user Quit Date: 1year ago Tobacco use type: Cigarette e-Cigarette/Vaping Use: Never Used Second Hand Smoke Exposure: No service: No Current occupational status: employed Current occupational exposures/hazards: No Cognitive needs: No Hearing needs: No Vision needs: No Meds Allergies Allergy/AdvReac Type Severity Reaction Status Date / Time aspirin [ASA] Allergy Severe anaphylaxis/facial Verified 09/09/22 09:56 swelling ibuprofen [Advil] Allergy Severe tracheal Verified 09/09/22 09:56 swelling shellfish derived Allergy Severe Anaphylaxis Verified 09/09/22 09:56 Active Medications: Current Medications Acetaminophen (Acetaminophen 325 Mg Tablet) 650 mg PO Q6H PRN PRN Reason: Pain, Mild (Pain Scale 1-3) Last Admin: 09/11/22 19:15 Dose: 650 mg Enoxaparin Sodium (Enoxaparin Sodium 40 Mg/0.4 Ml Syringe) 40 mg SUBCUT Q24H [facility] Last Admin: 09/12/22 23:31 Dose: 40 mg Ceftriaxone Sodium 1 gm/ (Sodium Chloride) 50 mls @ 100 mls/hr IV Q24H [facility] Last Infusion: 09/13/22 00:06 Dose: Infused Metronidazole (Flagyl) 500 mg in 100 mls @ 100 mls/hr IV Q8H [facility] Last Infusion: 09/13/22 09:22 Dose: Infused Methylprednisolone Sodium Succinate (Methylprednisolone Sod Succ 40 Mg/Ml Vial) 20 mg IVPUSH Q8H [facility] Last Admin: 09/13/22 05:51 Dose: 20 mg Morphine Sulfate (Morphine Sulfate 4 Mg/Ml Cartridge) 4 mg IVPUSH Q4H PRN; Protocol PRN Reason: Pain, Severe (Pain Scale 7-10) Last Admin: 09/13/22 08:15 Dose: 4 mg Ondansetron HCl (Ondansetron Hcl 4 Mg/2 Ml Vial) 4 mg IVPUSH Q8H PRN PRN Reason: Nausea and Vomiting Last Admin: 09/12/22 07:02 Dose: 4 mg Sodium Chloride (0.9 % Sodium Chloride Flush 3 Ml Syringe) 3 ml IVFLUSH QSHIFT [facility] Last Admin: 09/13/22 08:07 Dose: Not Given Home Medications Medication Instructions Recorded Confirmed Last Taken Type multivitamin (Daily Multi-Vitamin 1 tab PO DAILY 09/11/22 09/11/22 09/10/22 History tablet) Exam Exam Date and Time: September 13, 2022 1000 Height,Weight and Vital Signs: Height 5 ft 5 in Weight 92.079 kg Last Vital Signs Temp 98.3 F 09/13/22 09:32 Pulse 92 09/13/22 09:32 Resp 20 09/13/22 09:32 BP 128/92 H 09/13/22 09:32 Pulse Ox 98 09/13/22 09:32 O2 Del Method Room Air 09/13/22 09:32 Pertinent Lab Results Pertinent Lab Results: Laboratory Tests 09/10/22 09/10/22 09/10/22 20:19 20:19 20:19 WBC RBC Hgb Hct MCV MCH MCHC RDW Plt Count MPV Immature Gran % (Auto) Neut % (Auto) Lymph % (Auto) [place] % (Auto) Eos % (Auto) Baso % (Auto) Lymph # (Auto) [place] # (Auto) Eos # (Auto) Baso # (Auto) Abs Immat Gran (auto) Absolute Neuts (auto) Absolute Nucleated RBC Nucleated RBC % (auto) ESR Sodium 140 Potassium 3.9 Chloride 105 Carbon Dioxide 25 Anion Gap 14 BUN 9 Creatinine 0.78 Estim Creat Clear Calc 128.6 Estimated GFR > 60 Random Glucose 93 Lactic Acid Calcium 9.6 D Magnesium 2.3 Total Bilirubin 1.0 AST 28 ALT 105 H Alkaline Phosphatase 98 Lactate Dehydrogenase C-Reactive Protein 4.45 H Total Protein 7.2 Albumin 4.5 Lipase 13 Urine Color Urine Appearance Urine pH Ur Specific [place] Urine Protein Urine Glucose (UA) Urine Ketones Urine Blood Urine Nitrite Ur Leukocyte Esterase Stl C. cayetanensis PCR Stool Rotavirus A PCR Stl Adenov F 40/41 PCR Stool Astrovirus (PCR) Stool Campylobacter PCR Stool Cryptosporidium PCR Stl Sh Tox Pr E STEC PCR Stool E coli O157 PCR Stl Enterotoxigenic E PCR Stool EPEC (PCR) Stool EAEC (PCR) Stl E. histolytica PCR Stool Giardia Lamblia PCR Stl P. shigelloides PCR Stool Salmonella PCR Stool Sapovirus (PCR) Stl Shigella/EIEC PCR St Y.enterocolitica PCR Stool Vibrio (PCR) Stl Vibrio cholerae PCR Stl Norovirus GI/GII PCR C. difficile Tox B Gene COVID-19 ([facility]) Negative COVID-19 Clin Com See Note Influenza Type A ([facility]) Negative Influenza Type B (ANT[facility]IETA) Negative Influenza A & B Note See Note 09/10/22 09/10/22 09/10/22 20:20 20:20 21:26 WBC 9.1 RBC 5.00 Hgb 13.8 L Hct 42.3 MCV 84.6 MCH 27.6 MCHC 32.6 RDW 14.4 Plt Count 259 MPV 9.3 L Immature Gran % (Auto) 0.3 Neut % (Auto) 69.0 Lymph % (Auto) 21.1 [place] % (Auto) 8.4 Eos % (Auto) 0.9 Baso % (Auto) 0.3 Lymph # (Auto) 1.9 [place] # (Auto) 0.8 Eos # (Auto) 0.1 Baso # (Auto) 0.0 Abs Immat Gran (auto) 0.03 Absolute Neuts (auto) 6.3 Absolute Nucleated RBC 0.000 Nucleated RBC % (auto) 0.0 ESR 11 Sodium Potassium Chloride Carbon Dioxide Anion Gap BUN Creatinine Estim Creat Clear Calc Estimated GFR Random Glucose Lactic Acid 1.5 Calcium Magnesium Total Bilirubin AST ALT Alkaline Phosphatase Lactate Dehydrogenase C-Reactive Protein Total Protein Albumin Lipase Urine Color Urine Appearance Urine pH Ur Specific [place] Urine Protein Urine Glucose (UA) Urine Ketones Urine Blood Urine Nitrite Ur Leukocyte Esterase Stl C. cayetanensis PCR Stool Rotavirus A PCR Stl Adenov F 40/41 PCR Stool Astrovirus (PCR) Stool Campylobacter PCR Stool Cryptosporidium PCR Stl Sh Tox Pr E STEC PCR Stool E coli O157 PCR Stl Enterotoxigenic E PCR Stool EPEC (PCR) Stool EAEC (PCR) Stl E. histolytica PCR Stool Giardia Lamblia PCR Stl P. shigelloides PCR Stool Salmonella PCR Stool Sapovirus (PCR) Stl Shigella/EIEC PCR St Y.enterocolitica PCR Stool Vibrio (PCR) Stl Vibrio cholerae PCR Stl Norovirus GI/GII PCR C. difficile Tox B Gene COVID-19 ([facility]) COVID-19 Clin Com Influenza Type A ([facility]) Influenza Type B ([facility]) Influenza A & B Note 09/10/22 09/11/22 09/11/22 22:30 05:49 05:49 WBC 7.5 RBC 4.56 L Hgb 12.5 L Hct 38.9 L MCV 85.3 MCH 27.4 MCHC 32.1 RDW 14.5 Plt Count 238 MPV 9.2 L Immature Gran % (Auto) 0.3 Neut % (Auto) 61.6 Lymph % (Auto) 24.5 [place] % (Auto) 11.3 H Eos % (Auto) 1.9 Baso % (Auto) 0.4 Lymph # (Auto) 1.8 [place] # (Auto) 0.9 Eos # (Auto) 0.1 Baso # (Auto) 0.0 Abs Immat Gran (auto) 0.02 Absolute Neuts (auto) 4.6 Absolute Nucleated RBC 0.000 Nucleated RBC % (auto) 0.0 ESR Sodium 142 Potassium 4.2 Chloride 106 Carbon Dioxide 25 Anion Gap 15 BUN 7 L Creatinine 0.75 Estim Creat Clear Calc 133.8 Estimated GFR > 60 Random Glucose 82 Lactic Acid Calcium 8.9 D Magnesium Total Bilirubin AST ALT Alkaline Phosphatase Lactate Dehydrogenase 136 C-Reactive Protein Total Protein Albumin Lipase Urine Color Yellow Urine Appearance Clear Urine pH 6.5 Ur Specific [place] <= 1.005 Urine Protein Negative Urine Glucose (UA) Negative Urine Ketones Negative Urine Blood Negative Urine Nitrite Negative Ur Leukocyte Esterase Negative Stl C. cayetanensis PCR Stool Rotavirus A PCR Stl Adenov F 40 PCR Stool Astrovirus (PCR) Stool Campylobacter PCR Stool Cryptosporidium PCR Stl Sh Tox Pr E STEC PCR Stool E coli O157 PCR Stl Enterotoxigenic E PCR Stool EPEC (PCR) Stool EAEC (PCR) Stl E. histolytica PCR Stool Giardia Lamblia PCR Stl P. shigelloides PCR Stool Salmonella PCR Stool Sapovirus (PCR) Stl Shigella/EIEC PCR St Y.enterocolitica PCR Stool Vibrio (PCR) Stl Vibrio cholerae PCR Stl Norovirus GI/GII PCR C. difficile Tox B Gene COVID-19 ([facility]) COVID-19 Clin Com Influenza Type A ([facility]) Influenza Type B ([facility]) Influenza A & B Note 09/11/22 09/11/22 09/12/22 07:38 07:38 08:28 WBC 6.9 RBC 4.67 Hgb 13.0 L Hct 40.5 L MCV 86.7 MCH 27.8 MCHC 32.1 RDW 14.5 Plt Count 235 MPV 9.1 L Immature Gran % (Auto) 0.3 Neut % (Auto) 66.2 Lymph % (Auto) 19.9 L [place] % (Auto) 11.6 H Eos % (Auto) 1.7 Baso % (Auto) 0.3 Lymph # (Auto) 1.4 [place] # (Auto) 0.8 Eos # (Auto) 0.1 Baso # (Auto) 0.0 Abs Immat Gran (auto) 0.02 Absolute Neuts (auto) 4.5 Absolute Nucleated RBC 0.000 Nucleated RBC % (auto) 0.0 ESR Sodium 141 140 Potassium 4.2 4.2 Chloride 106 104 Carbon Dioxide 25 24 Anion Gap 14 16 BUN 8 L 10 Creatinine 0.72 0.73 Estim Creat Clear Calc 139.3 137.4 Estimated GFR > 60 > 60 Random Glucose 84 69 Lactic Acid Calcium 9.0 8.8 Magnesium Total Bilirubin AST ALT Alkaline Phosphatase Lactate Dehydrogenase C-Reactive Protein 12.67 H Total Protein Albumin Lipase Urine Color Urine Appearance Urine pH Ur Specific [place] Urine Protein Urine Glucose (UA) Urine Ketones Urine Blood Urine Nitrite Ur Leukocyte Esterase Stl C. cayetanensis PCR Stool Rotavirus A PCR Stl Adenov F 40/41 PCR Stool Astrovirus (PCR) Stool Campylobacter PCR Stool Cryptosporidium PCR Stl Sh Tox Pr E STEC PCR Stool E coli O157 PCR Stl Enterotoxigenic E PCR Stool EPEC (PCR) Stool EAEC (PCR) Stl E. histolytica PCR Stool Giardia Lamblia PCR Stl P. shigelloides PCR Stool Salmonella PCR Stool Sapovirus (PCR) Stl Shigella/EIEC PCR St Y.enterocolitica PCR Stool Vibrio (PCR) Stl Vibrio cholerae PCR Stl Norovirus GI/GII PCR C. difficile Tox B Gene COVID-19 ([facility]) COVID-19 Clin Com Influenza Type A ([facility]) Influenza Type B ([facility]) Influenza A & B Note 09/12/22 09/12/22 09/13/22 14:10 14:10 08:18 WBC RBC Hgb Hct MCV MCH MCHC RDW Plt Count MPV Immature Gran % (Auto) Neut % (Auto) Lymph % (Auto) [place] % (Auto) Eos % (Auto) Baso % (Auto) Lymph # (Auto) [place] # (Auto) Eos # (Auto) Baso # (Auto) Abs Immat Gran (auto) Absolute Neuts (auto) Absolute Nucleated RBC Nucleated RBC % (auto) ESR Sodium 138 Potassium 4.4 Chloride 104 Carbon Dioxide 20 L Anion Gap 18 BUN 10 Creatinine 0.70 Estim Creat Clear Calc 143.3 Estimated GFR > 60 Random Glucose 109 Lactic Acid Calcium 9.1 Magnesium Total Bilirubin AST ALT Alkaline Phosphatase Lactate Dehydrogenase C-Reactive Protein 8.74 H Total Protein Albumin Lipase Urine Color Urine Appearance Urine pH Ur Specific [place] Urine Protein Urine Glucose (UA) Urine Ketones Urine Blood Urine Nitrite Ur Leukocyte Esterase Stl C. cayetanensis PCR Not Detected Stool Rotavirus A PCR Not Detected Stl Adenov F 40/41 PCR Not Detected Stool Astrovirus (PCR) Not Detected Stool Campylobacter PCR Not Detected Stool Cryptosporidium PCR Not Detected Stl Sh Tox Pr E STEC PCR Not Detected Stool E coli O157 PCR Not applicable Stl Enterotoxigenic E PCR Not Detected Stool EPEC (PCR) Not Detected Stool EAEC (PCR) Not Detected Stl E. histolytica PCR Not Detected Stool Giardia Lamblia PCR Not Detected Stl P. shigelloides PCR Not Detected Stool Salmonella PCR Not Detected Stool Sapovirus (PCR) Not Detected Stl Shigella/EIEC PCR Not Detected St Y.enterocolitica PCR Not Detected Stool Vibrio (PCR) Not Detected Stl Vibrio cholerae PCR Not Detected Stl Norovirus GI/GII PCR Not Detected C. difficile Tox B Gene NEGATIVE COVID-19 ([facility]) COVID-19 Clin Com Influenza Type A ([facility]) Influenza Type B ([facility]) Influenza A & B Note Airway Mallampati Class: I TM Dist: >3cm Neck ROM: Full Heart: ok Lungs: ok Assessment and Plan Assessment Anesthesia Assessment: Anesthesia Plan Discussed and Chart Reviewed Final Anesthetic Review Family History of Problems with Anesthesia: No History of Problems with Anesthesia: No NPO: Yes ASA Class: II Final Preanesthetic Review: No Changes in Pt Med Stat, Meds/Allgs Chart Reviewed, Consent Obtained/Reviewed and Anes Risks/Benef Reviewed Patient Risk: Intermediate Procedure Risk: Low Anesthetic Plan Anesthetic Plan: GA and Agree w/ Assess. and Plan Disposition: Standard PACU
--- NOTE | 2022-09-13 11:01 | PM.OP ---
Brief Operative Note Date of Service: 09/13/22 Pre-op diagnosis: Incarcerated, possibly strangulated umbilical hernia Post-op diagnosis: other (Viable umbilical hernia contents, reduced and closed primarily) Procedure: Open umbilical hernia repair Surgeon: Justino Xavier MD, FACS Anesthesia: GLMA and local Was an Salvage Determiner used for this Procedure?: No Estimated blood loss (mL): 3 Pathology: none sent Condition: stable Disposition: PACU
--- NOTE | 2022-09-13 14:27 | P.PNGS_ITS ---
Subjective Subjective Date of Service: 09/13/22 Patient reports: still having pain Interval history: The patient is seen with his and son at the bedside. He reports that he isn't tolerating water or any liquids. He reports bloating and nausea. His pain is adequately controlled. He otherwise denies chest pain, difficulty breathing or shortness of breath and continued pain in the right lower quadrant. Physical Exam Vital Signs: Vital Signs: Last Vital Signs Temp 97.4 F 09/13/22 11:13 Pulse 93 09/13/22 11:13 Resp 18 09/13/22 11:13 BP 131/65 09/13/22 11:13 Pulse Ox 97 09/13/22 11:13 O2 Del Method Room Air 09/13/22 11:13 BMI result Body Mass Index 33.7 Patient is in no acute respiratory distress He is nontoxic Objective Data Active Medications Acetaminophen (Acetaminophen 325 Mg Tablet) 650 mg PO Q6H PRN PRN Reason: Pain, Mild (Pain Scale 1-3) Last Admin: 09/11/22 19:15 Dose: 650 mg Documented By: JUSTICE Acetaminophen (Acetaminophen 325 Mg Tablet) 650 mg PO ONCE PRN PRN Reason: Pain, Mild (Pain Scale 1-3) Docusate Sodium (Docusate Sodium 100 Mg Capsule) 200 mg PO BID [facility] Enoxaparin Sodium (Enoxaparin Sodium 40 Mg/0.4 Ml Syringe) 40 mg SUBCUT Q24H [facility] Last Admin: 09/12/22 23:31 Dose: 40 mg Documented By: JUSTICE Fentanyl (Fentanyl Citrate/Pf 100 Mcg/2 Ml Vial) 50 mcg IVPUSH Q5M PRN; Protoco l PRN Reason: Pain, Severe (Pain Scale 7-10) Ceftriaxone Sodium 1 gm/ (Sodium Chloride) 50 mls @ 100 mls/hr IV Q24H [facility] Last Infusion: 09/13/22 00:06 Dose: 0 mls/hr Documented By: JUSTICE Metronidazole (Flagyl) 500 mg in 100 mls @ 100 mls/hr IV Q8H [facility] Last Infusion: 09/13/22 09:22 Dose: 0 mls/hr Documented By: DAY Methylprednisolone Sodium Succinate (Methylprednisolone Sod Succ 40 Mg/Ml Vial) 20 mg IVPUSH Q8H [facility] Last Admin: 09/13/22 14:15 Dose: 20 mg Documented By: DAY Morphine Sulfate (Morphine Sulfate 4 Mg/Ml Cartridge) 4 mg IVPUSH Q4H PRN; Protocol PRN Reason: Pain, Severe (Pain Scale 7-10) Last Admin: 09/13/22 14:15 Dose: 4 mg Documented By: DAY Ondansetron HCl (Ondansetron Hcl 4 Mg/2 Ml Vial) 4 mg IVPUSH Q8H PRN PRN Reason: Nausea and Vomiting Last Admin: 09/12/22 07:02 Dose: 4 mg Documented By: DAY Ondansetron HCl (Ondansetron Hcl 4 Mg/2 Ml Vial) 4 mg IVPUSH ONCE PRN PRN Reason: Nausea and Vomiting Oxycodone HCl (Oxycodone Hcl Immed Release 5 Mg Tablet) 10 mg PO ONCE PRN PRN Reason: Pain, Severe (Pain Scale 7-10) Oxycodone HCl (Oxycodone Hcl Immed Release 5 Mg Tablet) 5 mg PO Q4H PRN PRN Reason: Pain, Moderate (Pain Scale 4-6 Oxycodone HCl (Oxycodone Hcl Immed Release 5 Mg Tablet) 10 mg PO Q4H PRN PRN Reason: Pain, Severe (Pain Scale 7-10) Sodium Chloride (0.9 % Sodium Chloride Flush 3 Ml Syringe) [facility] Last Admin: 09/13/22 08:07 Dose: Not Given Documented By: DAY Non-Admin Reason: IV Running Labs 09/11/22 07:38 09/13/22 08:18 Labs: Laboratory Results - last 24 hr 09/12/22 09/12/22 09/12/22 08:28 14:10 14:10 Anion Gap Estim Creat Clear Calc Estimated GFR Random Glucose Calcium C-Reactive Protein 12.67 H Stl C. cayetanensis PCR Not Detected Stool Rotavirus A PCR Not Detected Stl Adenov F 40/41 PCR Not Detected Stool Astrovirus (PCR) Not Detected Stool Campylobacter PCR Not Detected Stool Cryptosporidium PCR Not Detected Stl Sh Tox Pr E STEC PCR Not Detected Stool E coli O157 PCR Not applicable Stl Enterotoxigenic E PCR Not Detected Stool EPEC (PCR) Not Detected Stool EAEC (PCR) Not Detected Stl E. histolytica PCR Not Detected Stool Giardia Lamblia PCR Not Detected Stl P. shigelloides PCR Not Detected Stool Salmonella PCR Not Detected Stool Sapovirus (PCR) Not Detected Stl Shigella/EIEC PCR Not Detected St Y.enterocolitica PCR Not Detected Stool Vibrio (PCR) Not Detected Stl Vibrio cholerae PCR Not Detected Stl Norovirus GI/GII PCR Not Detected C. difficile Tox B Gene NEGATIVE 09/13/22 08:18 Anion Gap 18 Estim Creat Clear Calc 143.3 Estimated GFR > 60 Random Glucose 109 Calcium 9.1 C-Reactive Protein 8.74 H Stl C. cayetanensis PCR Stool Rotavirus A PCR Stl Adenov F 40/41 PCR Stool Astrovirus (PCR) Stool Campylobacter PCR Stool Cryptosporidium PCR Stl Sh Tox Pr E STEC PCR Stool E coli O157 PCR Stl Enterotoxigenic E PCR Stool EPEC (PCR) Stool EAEC (PCR) Stl E. histolytica PCR Stool Giardia Lamblia PCR Stl P. shigelloides PCR Stool Salmonella PCR Stool Sapovirus (PCR) Stl Shigella/EIEC PCR St Y.enterocolitica PCR Stool Vibrio (PCR) Stl Vibrio cholerae PCR Stl Norovirus GI/GII PCR C. difficile Tox B Gene Microbiology Microbiology Results: Microbiology 09/10/22 21:20 Blood Culture - Preliminary Blood - Venous No growth after 48 hours. 09/10/22 20:20 Blood Culture - Preliminary Blood - Venous No growth after 48 hours. Procedures Date of Service Date of Service: 09/13/22 Progress Note: A&P Assessment and plan (1) H/O right hemicolectomy: Status: Acute (2) Abdominal pain: Status: Acute (3) Fever: Status: Acute (4) Cancer of appendix: Status: Acute (5) Crohn's disease: Status: Acute Plan At the patient's request, I explained to the patient's and son the reason to proceed urgently with surgery to repair the hernia today. The patient has hyper sensitive, red umbilicus is usually associated with strangulated/ischemic tissue. However, this was not encountered, so the unusual nature of his presentation and findings today does not explain his ongoing right lower quadrant pain. Patient can have his diet advanced as tolerated, but the fact that he is not tolerating water at this point suggest we should go slowly. I did send prescription for oxycodone to his pharmacy if he is discharged over the weekend and he will be seen by the on-call general surgeon Friday and Friday. I will return on Friday. Time Spent With Patient Time: Total time managing care of this patient today ____ minutes. Quality Stroke Does the patient have a stroke diagnosis?: No VTE Prior VTE?: No VTE Risk Level:: Medical - moderate - high VTE Device Contraindication: Treatment Not Indicated VTE Drug Contraindication: N/A - Med Ordered
--- NOTE | 2022-09-13 15:23 | MHC.CM.PN ---
PLAN IS HERNIA REPAIR TODAY AND LIKELY TO REMAIN OVER THE WEEKEND.
--- NOTE | 2022-09-13 16:13 | P.PNIM_ITS ---
Subjective Subjective Date of Service: 09/13/22 Interval History: Abdominal pain, oblique a hernia Review of Systems Patient still has abdominal pain specially in the oblique hernia area. Denies any chest pain or shortness of breath or nausea vomiting today. Denies any fever. Physical Exam Vital Signs: Vital Signs: Last Vital Signs Temp 98.5 F 09/13/22 15:48 Pulse 76 09/13/22 15:48 Resp 18 09/13/22 15:48 BP 144/70 H 09/13/22 15:48 Pulse Ox 96 09/13/22 15:48 O2 Del Method Room Air 09/13/22 15:48 BMI result Body Mass Index 33.7 Appearance: Alert.? Oriented X3.? abd pain. cvs: rrr, [id number] , no murmur res: clear to auscultation ,no rhonchii or wheezing abd: no rebound or guarding ,abd pain improving ,tender in umblical area, bs present. ext pulses present , no cyanosis . neuro: axo3 , nonfocal. Objective Data Active Medications Acetaminophen (Acetaminophen 325 Mg Tablet) 650 mg PO Q6H PRN PRN Reason: Pain, Mild (Pain Scale 1-3) Last Admin: 09/11/22 19:15 Dose: 650 mg Documented By: JUSTICE Acetaminophen (Acetaminophen 325 Mg Tablet) 650 mg PO ONCE PRN PRN Reason: Pain, Mild (Pain Scale 1-3) Docusate Sodium (Docusate Sodium 100 Mg Capsule) 200 mg PO BID [facility] Enoxaparin Sodium (Enoxaparin Sodium 40 Mg/0.4 Ml Syringe) 40 mg SUBCUT Q24H [facility] Last Admin: 09/12/22 23:31 Dose: 40 mg Documented By: JUSTICE Fentanyl (Fentanyl Citrate/Pf 100 Mcg/2 Ml Vial) 50 mcg IVPUSH Q5M PRN; P rotocol PRN Reason: Pain, Severe (Pain Scale 7-10) Ceftriaxone Sodium 1 gm/ (Sodium Chloride) 50 mls @ 100 mls/hr IV Q24H [facility] Last Infusion: 09/13/22 00:06 Dose: 0 mls/hr Documented By: JUSTICE Metronidazole (Flagyl) 500 mg in 100 mls @ 100 mls/hr IV Q8H [facility] Last Infusion: 09/13/22 09:22 Dose: 0 mls/hr Documented By: DAY Methylprednisolone Sodium Succinate (Methylprednisolone Sod Succ 40 Mg/Ml Vial) 20 mg IVPUSH Q8H [facility] Last Admin: 09/13/22 14:15 Dose: 20 mg Documented By: DAY Morphine Sulfate (Morphine Sulfate 4 Mg/Ml Cartridge) 4 mg IVPUSH Q4H PRN; Protocol PRN Reason: Pain, Severe (Pain Scale 7-10) Last Admin: 09/13/22 14:15 Dose: 4 mg Documented By: DAY Ondansetron HCl (Ondansetron Hcl 4 Mg/2 Ml Vial) 4 mg IVPUSH Q8H PRN PRN Reason: Nausea and Vomiting Last Admin: 09/12/22 07:02 Dose: 4 mg Documented By: DAY Ondansetron HCl (Ondansetron Hcl 4 Mg/2 Ml Vial) 4 mg IVPUSH ONCE PRN PRN Reason: Nausea and Vomiting Oxycodone HCl (Oxycodone Hcl Immed Release 5 Mg Tablet) 10 mg PO ONCE PRN PRN Reason: Pain, Severe (Pain Scale 7-10) Oxycodone HCl (Oxycodone Hcl Immed Release 5 Mg Tablet) 5 mg PO Q4H PRN PRN Reason: Pain, Moderate (Pain Scale 4-6 Oxycodone HCl (Oxycodone Hcl Immed Release 5 Mg Tablet) 10 mg PO Q4H PRN PRN Reason: Pain, Severe (Pain Scale 7-10) Sodium Chloride (0.9 % Sodium Chloride Flush 3 Ml Syringe) 3 ml IVFLUSH QSHIFT [facility] Last Admin: 09/13/22 08:07 Dose: Not Given Documented By: DAY Non-Admin Reason: IV Running Labs 09/11/22 07:38 09/13/22 08:18 Labs: Laboratory Results - last 24 hr 09/12/22 09/12/22 09/13/22 08:28 14:10 08:18 Anion Gap 18 Estim Creat Clear Calc 143.3 Estimated GFR > 60 Random Glucose 109 Calcium 9.1 C-Reactive Protein 12.67 H 8.74 H Stl C. cayetanensis PCR Not Detected Stool Rotavirus A PCR Not Detected Stl Adenov F 40/41 PCR Not Detected Stool Astrovirus (PCR) Not Detected Stool Campylobacter PCR Not Detected Stool Cryptosporidium PCR Not Detected Stl Sh Tox Pr E STEC PCR Not Detected Stool E coli O157 PCR Not applicable Stl Enterotoxigenic E PCR Not Detected Stool EPEC (PCR) Not Detected Stool EAEC (PCR) Not Detected Stl E. histolytica PCR Not Detected Stool Giardia Lamblia PCR Not Detected Stl P. shigelloides PCR Not Detected Stool Salmonella PCR Not Detected Stool Sapovirus (PCR) Not Detected Stl Shigella/EIEC PCR Not Detected St Y.enterocolitica PCR Not Detected Stool Vibrio (PCR) Not Detected Stl Vibrio cholerae PCR Not Detected Stl Norovirus GI/GII PCR Not Detected Microbiology Microbiology Results: Microbiology 09/10/22 21:20 Blood Culture - Preliminary Blood - Venous No growth after 48 hours. 09/10/22 20:20 Blood Culture - Preliminary Blood - Venous No growth after 48 hours. 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 still has abdominal pain but somewhat improving ?ct abd: CT/CT abdomen pelvis w IV con IMPRESSION: *? The persistent bowel wall thickening and mesenteric fat stranding around the enterocolic anastomosis is likely secondary to inflammatory bowel disease in this patient with history of Crohn disease. *? No evidence of bowel perforation or abscess. *? Diffuse hepatic steatosis. *? A small umbilical hernia that contains fat and small amount of ct abd repeated today:bowel rest,treat with IV antibiotics, IV fluids, analgesics for symptom relief. Umbilical area pain, small hernia and redness: Patient is going for umbilical hernia surgery today. DVT prophylaxis:? Lovenox inpatient need: intractable severe abdominal pain, and likely requirement for further evaluation to discern etiology for the abdominal pain-needs bowel rest,treat with IV antibiotics, IV fluids, analgesics . Patient is also going for umbilical hernia surgery today. Time Spent With Patient Time: Total time managing care of this patient today ____ minutes. Quality Stroke Does the patient have a stroke diagnosis?: No VTE Prior VTE?: No VTE Risk Level:: Medical - moderate - high VTE Device Contraindication: Treatment Not Indicated VTE Drug Contraindication: N/A - Med Ordered
[2022-09-13] MEDS: 0.9 % Sodium Chloride Flush 3 ML SYRINGE IVFLUSH (16:38)
--- NOTE | 2022-09-13 16:53 | PM.GIPN ---
Subjective Subjective Date of Service: 09/13/22 Interval History: some improvement in abdominal pain he feesl the steroids have helped but his umbilical hernia is tender so going to OR today for further assessment no nausea or vomiting passing gas Critical Care Time (minutes): 0 Physical Exam Vital Signs: Vital Signs: Last Vital Signs Temp 98.5 F 09/13/22 15:48 Pulse 76 09/13/22 15:48 Resp 18 09/13/22 15:48 BP 144/70 H 09/13/22 15:48 Pulse Ox 96 09/13/22 15:48 O2 Del Method Room Air 09/13/22 15:48 BMI result Body Mass Index 33.7 EXAM: GENERAL: The patient is well developed and nontoxic. VITAL SIGNS:see workflow HEENT: Nonicteric sclerae, PERRLA, EOMI. Oropharynx clear. Moist mucous membranes. Conjunctivae appear well perfused. No thyroid mass. CHEST: Chest wall is nontender. HEART: Regular rate and rhythm without murmurs. LUNGS: Clear to auscultation bilaterally. ABDOMEN: Soft, positive bowel sounds, tender RLQ, no organomegaly.no flank tenderness--small umbilical hernia with redness and tenderness SKIN: No rash, no excessive bruising, petechiae, or purpura. NEUROLOGIC: Cranial nerves II-XII intact without motor/sensory deficit. psych-nml affect Objective Data Labs 09/11/22 07:38 09/13/22 08:18 Labs: Laboratory Results - last 24 hr 09/12/22 09/13/22 08:28 08:18 Sodium 138 Potassium 4.4 Chloride 104 Carbon Dioxide 20 L Anion Gap 18 BUN 10 Creatinine 0.70 Estim Creat Clear Calc 143.3 Estimated GFR > 60 Random Glucose 109 Calcium 9.1 C-Reactive Protein 12.67 H 8.74 H Microbiology Microbiology Results: Microbiology 09/10/22 21:20 Blood - Venous Blood Culture - Preliminary No growth after 48 hours. 09/10/22 20:20 Blood - Venous Blood Culture - Preliminary No growth after 48 hours. Procedures Date of Service Date of Service: 09/13/22 Progress Note: A&P Assessment and plan (1) Abdominal pain: Status: Acute (2) Ileitis: Status: Acute Plan 1/ Abdominal pain with imaging revealing inflammation around anastomosis which maybe consistent with crohns based on prior hx of ileitis on colonoscopy. PLAN: 1/ Await surgical eval of umbilical hernia, if no intervention needed then cont IV steroid for one more day then transition to pred 40 mg tapering dose over 4 weeks. Will f/u as o/p fopr capsule endoscopy and further work up, can be d/c'ed on PO antibiotics to complete 7 day course Time Spent With Patient Time: Total time managing care of this patient today ____ minutes. Quality Stroke Does the patient have a stroke diagnosis?: No VTE Prior VTE?: No VTE Risk Level:: Medical - moderate - high VTE Device Contraindication: Treatment Not Indicated VTE Drug Contraindication: N/A - Med Ordered
[2022-09-13] MEDS: oxyCODONE HCl Immed Release 5 MG TABLET 10 MG PO (20:21)
[2022-09-13] MEDS: Docusate Sodium 100 MG CAPSULE 200 MG PO (20:24)
[2022-09-13] MEDS: Lactated Ringers 1,000 ML 50 ML IVCONT (21:23)
[2022-09-13] MEDS: Omeprazole 40 MG CAPSULE.DR PO (22:50)
[2022-09-14] MEDS: cefTRIAXone sodium 1 GM in 0.9 % Sodium Chloride 50 ML IV ×2 (00:14→23:30)
[2022-09-14] MEDS: 0.9 % Sodium Chloride Flush 3 ML SYRINGE IVFLUSH ×2 (00:14→23:30)
[2022-09-14] MEDS: metroNIDAZOLE/NS 500 MG/100 ML PIGGYBACK 100 MG IV ×3 (00:59→16:19)
[2022-09-14] MEDS: Enoxaparin Sodium 40 MG/0.4 ML SYRINGE SUBCUT (01:01)
[2022-09-14] MEDS: Morphine Sulfate 4 MG/ML CARTRIDGE IVPUSH ×4 (02:25→23:30)
[2022-09-14 03:25] VITALS: BP 117/71; PULSE 74; RESP 16; TEMP 35.8; O2SAT 97
[2022-09-14] MEDS: methylPREDNISolone Sod Succ 40 MG/ML VIAL 20 MG IVPUSH ×3 (06:11→21:32)
[2022-09-14] MEDS: Omeprazole 40 MG CAPSULE.DR PO (06:11)
[2022-09-14 07:25] VITALS: BP 132/68; PULSE 68; RESP 18; TEMP 36.3; O2SAT 95
[2022-09-14] MEDS: oxyCODONE HCl Immed Release 5 MG TABLET 10 MG PO ×3 (08:40→21:32)
[2022-09-14] MEDS: Docusate Sodium 100 MG CAPSULE 200 MG PO ×2 (08:40→19:55)
--- NOTE | 2022-09-14 10:13 | HO.POSTANES ---
Post Anesthesia Evaluation Post Anesthesia Evaluation Vital Signs: Vital Signs Temp Pulse Resp BP Pulse Ox O2 Del Method 09/14/22 07:25 97.3 F 68 18 132/68 95 Room Air 09/14/22 03:25 96.4 F L 74 16 117/71 97 Room Air Anesthesia: General Mental Status: Awake Pain Control: Satisfactory Nausea/Vomiting: None Hydration: Adequate Anesthesia-Related Issues: No Anes. Related Issues
--- NOTE | 2022-09-14 11:16 | PM.PNGS ---
Subjective Subjective Date of Service: 09/14/22 Patient reports: feels better, pain is less, tolerating liquids well and flatus Physical Exam Vital Signs: Vital Signs: Last Vital Signs Temp 97.3 F 09/14/22 07:25 Pulse 68 09/14/22 07:25 Resp 18 09/14/22 07:25 BP 132/68 09/14/22 07:25 Pulse Ox 95 09/14/22 07:25 O2 Del Method Room Air 09/14/22 07:25 BMI result Body Mass Index 33.7 GI: Other: Abdomen is soft. Wound clean dry and intact. Objective Data Active Medications Acetaminophen (Acetaminophen 325 Mg Tablet) 650 mg PO Q6H PRN PRN Reason: Pain, Mild (Pain Scale 1-3) Last Admin: 09/11/22 19:15 Dose: 650 mg Documented By: JUSTICE Acetaminophen (Acetaminophen 325 Mg Tablet) 650 mg PO ONCE PRN PRN Reason: Pain, Mild (Pain Scale 1-3) Docusate Sodium (Docusate Sodium 100 Mg Capsule) 200 mg PO BID [facility] Last Admin: 09/14/22 08:40 Dose: 200 mg Documented By: RAFAEL Enoxaparin Sodium (Enoxaparin Sodium 40 Mg/0.4 Ml Syringe) 40 mg SUBCUT Q24H [facility] Last Admin: 09/14/22 01:01 Dose: 40 mg Documented By: DANIEL Fentanyl (Fentanyl Citrate/Pf 100 Mcg/2 Ml Vial) 50 mcg IVPUSH Q5M PRN; Protocol PRN Reason: Pain, Severe (Pain Scale 7-10) Ceftriaxone Sodium 1 gm/ (Sodium Chloride) 50 mls @ 100 mls/hr IV Q24H [facility] Last Infusion: 09/14/22 00:50 Dose: 0 mls/hr Documented By: DANIEL Metronidazole (Flagyl) 500 mg in 100 mls @ 100 mls/hr IV Q8H [facility] Last Infusion: 09/14/22 09:51 Dose: 100 mls/hr Documented By: RAFAEL Lactated Ringer's (Lr) 1,000 mls @ 50 mls/hr IVCONT .Q20H [facility] Last Infusion: 09/14/22 02:04 Dose: 50 mls/hr Documented By: DANIEL Methylprednisolone Sodium Succinate (Methylprednisolone Sod Succ 40 Mg/Ml Vial) 20 mg IVPUSH Q8H [facility] Last Admin: 09/14/22 06:11 Dose: 20 mg Documented By: DANIEL Morphine Sulfate (Morphine Sulfate 4 Mg/Ml Cartridge) 4 mg IVPUSH Q4H PRN; Protocol PRN Reason: Pain, Severe (Pain Scale 7-10) Last Admin: 09/14/22 09:56 Dose: 4 mg Documented By: RAFAEL Omeprazole (Omeprazole 40 Mg Capsule.Dr) 40 mg PO DAILY@0630 [facility] Last Admin: 09/14/22 06:11 Dose: 40 mg Documented By: DANIEL Ondansetron HCl (Ondansetron Hcl 4 Mg/2 Ml Vial) 4 mg IVPUSH Q8H PRN PRN Reason: Nausea and Vomiting Last Admin: 09/12/22 07:02 Dose: 4 mg Documented By: DAY Ondansetron HCl (Ondansetron Hcl 4 Mg/2 Ml Vial) 4 mg IVPUSH ONCE PRN PRN Reason: Nausea and Vomiting Oxycodone HCl (Oxycodone Hcl Immed Release 5 Mg Tablet) 5 mg PO Q4H PRN PRN Reason: Pain, Moderate (Pain Scale 4-6 Oxycodone HCl (Oxycodone Hcl Immed Release 5 Mg Tablet) 10 mg PO Q4H PRN PRN Reason: Pain, Severe (Pain Scale 7-10) Last Admin: 09/14/22 08:40 Dose: 10 mg Documented By: RAFAEL Sodium Chloride (0.9 % Sodium Chloride Flush 3 Ml Syringe) 3 ml IVFLUSH [facility] Last Admin: 09/14/22 08:43 Dose: Not Given Documented By: RAFAEL Non-Admin Reason: IV Running Labs 09/11/22 07:38 09/13/22 08:18 Procedures Date of Service Date of Service: 09/14/22 Progress Note: A&P Assessment and plan (1) Umbilical hernia, incarcerated: Status: Acute Plan Patient is convalescing uneventfully. Advanced diet as tolerated, incentive spirometry, patient is ambulating with no assistance. Continue current plan. Time Spent With Patient Time: Total time managing care of this patient today ____ minutes. Quality Stroke Does the patient have a stroke diagnosis?: No VTE Prior VTE?: No VTE Risk Level:: Medical - moderate - high VTE Device Contraindication: Treatment Not Indicated VTE Drug Contraindication: N/A - Med Ordered
[2022-09-14 14:49] VITALS: BP 114/63; PULSE 76; RESP 16; TEMP 36.6; O2SAT 95
--- NOTE | 2022-09-14 16:24 | P.PNIM_ITS ---
Subjective Subjective Date of Service: 09/14/22 Interval History: Abdominal pain,umblical hernia Review of Systems still has abd pain denies any chest pain or sob or fevers or chills Physical Exam Vital Signs: Vital Signs: Last Vital Signs Temp 98 F 09/14/22 14:49 Pulse 76 09/14/22 14:49 Resp 16 09/14/22 14:49 BP 114/63 09/14/22 14:49 Pulse Ox 95 09/14/22 14:49 O2 Del Method Room Air 09/14/22 14:49 BMI result Body Mass Index 33.7 Appearance: Alert.? Oriented X3.? abd pain. cvs: rrr, [id number] , no murmur res: clear to auscultation ,no rhonchii or wheezing abd: no rebound or guarding ,abd pain improving ,still soarness in umblical area, bs present. ext pulses present , no cyanosis . neuro: axo3 , nonfocal. Objective Data Active Medications Acetaminophen (Acetaminophen 325 Mg Tablet) 650 mg PO Q6H PRN PRN Reason: Pain, Mild (Pain Scale 1-3) Last Admin: 09/11/22 19:15 Dose: 650 mg Documented By: JUSTICE Acetaminophen (Acetaminophen 325 Mg Tablet) 650 mg PO ONCE PRN PRN Reason: Pain, Mild (Pain Scale 1-3) Docusate Sodium (Docusate Sodium 100 Mg Capsule) 200 mg PO BID [facility] Last Admin: 09/14/22 08:40 Dose: 200 mg Documented By: RAFAEL Enoxaparin Sodium (Enoxaparin Sodium 40 Mg/0.4 Ml Syringe) 40 mg SUBCUT Q24H [facility] Last Admin: 09/14/22 01:01 Dose: 40 mg Documented By: DANIEL Fentanyl (Fentanyl Citrate/Pf 100 Mcg/2 Ml Vial) 50 mcg IVPUSH Q5M PRN; Protocol PRN Reason: Pain, Severe (Pain Scale 7-10) Ceftriaxone Sodium 1 gm/ (Sodium Chloride) 50 mls @ 100 mls/hr IV Q24H [facility] Last Infusion: 09/14/22 00:50 Dose: 0 mls/hr Documented By: DANIEL Metronidazole (Flagyl) 500 mg in 100 mls @ 100 mls/hr IV Q8H [facility] Last Admin: 09/14/22 16:19 Dose: 100 mls/hr Documented By: CONY Lactated Ringer's (Lr) 1,000 mls @ 50 mls/hr IVCONT .Q20H [facility] Last Infusion: 09/14/22 02:04 Dose: 50 mls/hr Documented By: DANIEL Methylprednisolone Sodium Succinate (Methylprednisolone Sod Succ 40 Mg/Ml Vial) 20 mg IVPUSH Q8H [facility] Last Admin: 09/14/22 14:20 Dose: 20 mg Documented By: RAFAEL Morphine Sulfate (Morphine Sulfate 4 Mg/Ml Cartridge) 4 mg IVPUSH Q4H PRN; Protocol PRN Reason: Pain, Severe (Pain Scale 7-10) Last Admin: 09/14/22 09:56 Dose: 4 mg Documented By: RAFAEL Omeprazole (Omeprazole 40 Mg Capsule.Dr) 40 mg PO DAILY@0630 [facility] Last Admin: 09/14/22 06:11 Dose: 40 mg Documented By: DANIEL Ondansetron HCl (Ondansetron Hcl 4 Mg/2 Ml Vial) 4 mg IVPUSH Q8H PRN PRN Reason: Nausea and Vomiting Last Admin: 09/12/22 07:02 Dose: 4 mg Documented By: DAY Ondansetron HCl (Ondansetron Hcl 4 Mg/2 Ml Vial) 4 mg IVPUSH ONCE PRN PRN Reason: Nausea and Vomiting Oxycodone HCl (Oxycodone Hcl Immed Release 5 Mg Tablet) 5 mg PO Q4H PRN PRN Reason: Pain, Moderate (Pain Scale 4-6 Oxycodone HCl (Oxycodone Hcl Immed Release 5 Mg Tablet) 10 mg PO Q4H PRN PRN Reason: Pain, Severe (Pain Scale 7-10) Last Admin: 09/14/22 14:27 Dose: 10 mg Documented By: RAFAEL Sodium Chloride (0.9 % Sodium Chloride Flush 3 Ml Syringe) 3 ml IVFLUSH QSHIFT [facility] Last Admin: 09/14/22 16:19 Dose: Not Given Documented By: CONY Non-Admin Reason: IV Running Labs 09/11/22 07:38 09/13/22 08:18 Assessment and Plan (1) Umbilical hernia, incarcerated: Status: Acute (2) Abdominal pain: Status: Acute Plan 41-year-old male with 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 still has abdominal pain but somewhat improving ct abd repeated today:bowel rest,treat with IV antibiotics, IV fluids, analgesics for symptom relief. Umbilical area pain, small hernia and redness: Patient is going for umbilical h ernia surgery yesterday still has abdominal soreness pain and still unable to tolerate food. DVT prophylaxis:? Lovenox inpatient need: intractable severe abdominal pain, and likely requirement for f urther evaluation to discern etiology for the abdominal pain-needs bowel rest,treat with IV antibiotics, IV fluids, analgesics . Unable to tolerate food yet. Time Spent With Patient Time: Total time managing care of this patient today ____ minutes. Quality Stroke Does the patient have a stroke diagnosis?: No VTE Prior VTE?: No VTE Risk Level:: Medical - moderate - high VTE Device Contraindication: Treatment Not Indicated VTE Drug Contraindication: N/A - Med Ordered
[2022-09-14] MEDS: Lactated Ringers 1,000 ML 50 ML IVCONT (19:55)
[2022-09-14 20:00] VITALS: BP 123/80; PULSE 62; RESP 16; TEMP 36; O2SAT 98
[2022-09-15] MEDS: metroNIDAZOLE/NS 500 MG/100 ML PIGGYBACK 100 MG IV ×3 (00:05→16:30)
[2022-09-15] MEDS: Enoxaparin Sodium 40 MG/0.4 ML SYRINGE SUBCUT (00:08)
[2022-09-15 03:46] VITALS: BP 118/60; PULSE 64; RESP 16; TEMP 35.9; O2SAT 100
[2022-09-15] MEDS: methylPREDNISolone Sod Succ 40 MG/ML VIAL 20 MG IVPUSH (05:16)
[2022-09-15] MEDS: Omeprazole 40 MG CAPSULE.DR PO (06:11)
[2022-09-15] MEDS: Morphine Sulfate 4 MG/ML CARTRIDGE IVPUSH ×3 (06:22→20:55)
[2022-09-15 07:16] VITALS: BP 103/57; PULSE 63; RESP 16; TEMP 36.1; O2SAT 98
[2022-09-15] MEDS: Docusate Sodium 100 MG CAPSULE 200 MG PO ×2 (08:17→20:56)
[2022-09-15] MEDS: oxyCODONE HCl Immed Release 5 MG TABLET PO (09:34)
--- NOTE | 2022-09-15 12:07 | P.PNIM_ITS ---
Subjective Subjective Date of Service: 09/15/22 Interval History: Abdominal pain,umblical hernia Review of Systems still has abd pain denies any chest pain or sob or fevers or chills Physical Exam Vital Signs: Vital Signs: Last Vital Signs Temp 97 F 09/15/22 07:16 Pulse 63 09/15/22 07:16 Resp 16 09/15/22 07:16 BP 103/57 L 09/15/22 07:16 Pulse Ox 98 09/15/22 07:16 O2 Del Method Room Air 09/15/22 07:16 BMI result Body Mass Index 33.7 Appearance: Alert.? Oriented X3.? abd pain. cvs: rrr, [id number] , no murmur res: clear to auscultation ,no rhonchii or wheezing abd: no rebound or guarding ,abd pain improving ,still soarness in umblical area, bs present. ext pulses present , no cyanosis . neuro: axo3 , nonfocal. Objective Data Active Medications Acetaminophen (Acetaminophen 325 Mg Tablet) 650 mg PO Q6H PRN PRN Reason: Pain, Mild (Pain Scale 1-3) Last Admin: 09/11/22 19:15 Dose: 650 mg Documented By: JUSTICE Acetaminophen (Acetaminophen 325 Mg Tablet) 650 mg PO ONCE PRN PRN Reason: Pain, Mild (Pain Scale 1-3) Capsaicin (Capsaicin 0.025% Cream 60 Gm Tube) 1 appl TOPICAL QID PRN; Protocol PRN Reason: pain Docusate Sodium (Docusate Sodium 100 Mg Capsule) 200 mg PO BID [facility] Last Admin: 09/15/22 08:17 Dose: 200 mg Documented By: EDWIN Enoxaparin Sodium (Enoxaparin Sodium 40 Mg/0.4 Ml Syringe) 40 mg SUBCUT Q24H [facility] Last Admin: 09/15/22 00:08 Dose: 40 mg Documented By: DANIEL Fentanyl (Fentanyl Citrate/Pf 100 Mcg/2 Ml Vial) 50 mcg IVPUSH Q5M PRN; Protocol PRN Reason: Pain, Severe (Pain Scale 7-10) Ceftriaxone Sodium 1 gm/ (Sodium Chloride) 50 mls @ 100 mls/hr IV Q24H [facility] Last Infusion: 09/15/22 00:05 Dose: 0 mls/hr Documented By: DANIEL Metronidazole (Flagyl) 500 mg in 100 mls @ 100 mls/hr IV Q8H [facility] Last Infusion: 09/15/22 09:28 Dose: 0 mls/hr Documented By: EDWIN Lactated Ringer's (Lr) 1,000 mls @ 50 mls/hr IVCONT .Q20H [facility] Last Infusion: 09/15/22 01:15 Dose: 50 mls/hr Documented By: DANIEL Lidocaine (Lidocaine 4 % Patch Adh..Patch) 1 patch TRANSDERMA DAILY [facility]; Protocol Methylprednisolone Sodium Succinate (Methylprednisolone Sod Succ 40 Mg/Ml Vial) 20 mg IVPUSH Q8H [facility] Last Admin: 09/15/22 05:16 Dose: 20 mg Documented By: DANIEL Morphine Sulfate (Morphine Sulfate 4 Mg/Ml Cartridge) 4 mg IVPUSH Q4H PRN; Protocol PRN Reason: Pain, Severe (Pain Scale 7-10) Last Admin: 09/15/22 11:32 Dose: 4 mg Documented By: EDWIN Omeprazole (Omeprazole 40 Mg Capsule.Dr) 40 mg PO DAILY@0630 [facility] Last Admin: 09/15/22 06:11 Dose: 40 mg Documented By: DANIEL Ondansetron HCl (Ondansetron Hcl 4 Mg/2 Ml Vial) 4 mg IVPUSH Q8H PRN PRN Reason: Nausea and Vomiting Last Admin: 09/12/22 07:02 Dose: 4 mg Documented By: DAY Ondansetron HCl (Ondansetron Hcl 4 Mg/2 Ml Vial) 4 mg IVPUSH ONCE PRN PRN Reason: Nausea and Vomiting Oxycodone HCl (Oxycodone Hcl Immed Release 5 Mg Tablet) 5 mg PO Q4H PRN PRN Reason: Pain, Moderate (Pain Scale 4-6 Last Admin: 09/15/22 09:34 Dose: 5 mg Documented By: EDWIN Oxycodone HCl (Oxycodone Hcl Immed Release 5 Mg Tablet) 10 mg PO Q4H PRN PRN Reason: Pain, Severe (Pain Scale 7-10) Last Admin: 09/14/22 21:32 Dose: 10 mg Documented By: CONY Sodium Chloride (0.9 % Sodium Chloride Flush 3 Ml Syringe) 3 ml IVFLUSH QSHIFT [facility] Last Admin: 09/15/22 08:28 Dose: Not Given Documented By: EDWIN Non-Admin Reason: IV Running Labs 09/11/22 07:38 09/13/22 08:18 Assessment and Plan (1) Umbilical hernia, incarcerated: Status: Acute (2) Abdominal pain: Status: Acute Plan 41-year-old male with 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 still has abdominal pain but somewhat improving ct abd repeated today:bowel rest,treat with IV antibiotics, IV fluids, analgesics for symptom relief. Umbilical area pain, small hernia and redness: Patient is going for umbilical hernia surgery yesterday still has abdominal soreness pain and will try to advance diet,also taper steriods DVT prophylaxis:? Lovenox inpatient need: intractable severe abdominal pain, and likely requirement for further evaluation to discern etiology for the abdominal pain-needs bowel rest,treat with IV antibiotics, IV fluids, analgesics . Unable to tolerate food yet. Time Spent With Patient Time: Total time managing care of this patient today ____ minutes. Quality Stroke Does the patient have a stroke diagnosis?: No VTE Prior VTE?: No VTE Risk Level:: Medical - moderate - high VTE Device Contraindication: Treatment Not Indicated VTE Drug Contraindication: N/A - Med Ordered
[2022-09-15] MEDS: Acetaminophen 325 MG TABLET 650 MG PO (14:45)
[2022-09-15] MEDS: oxyCODONE HCl Immed Release 5 MG TABLET 10 MG PO (14:45)
[2022-09-15 15:46] VITALS: BP 110/67; PULSE 87; RESP 20; TEMP 36.6; O2SAT 96
--- NOTE | 2022-09-15 16:13 | PM.PNGS ---
Subjective Subjective Date of Service: 09/15/22 Patient reports: no new complaints, feels better, pain is less, tolerating liquids well and flatus Physical Exam Vital Signs: Vital Signs: Last Vital Signs Temp 97.8 F 09/15/22 15:46 Pulse 87 09/15/22 15:46 Resp 20 09/15/22 15:46 BP 110/67 09/15/22 15:46 Pulse Ox 96 09/15/22 15:46 O2 Del Method Room Air 09/15/22 15:46 BMI result Body Mass Index 33.7 GI: Other: abdomen is soft. Wound clean dry and intact. Objective Data Active Medications Acetaminophen (Acetaminophen 325 Mg Tablet) 650 mg PO Q6H PRN PRN Reason: Pain, Mild (Pain Scale 1-3) Last Admin: 09/15/22 14:45 Dose: 650 mg Documented By: FELISHA Acetaminophen (Acetaminophen 325 Mg Tablet) 650 mg PO ONCE PRN PRN Reason: Pain, Mild (Pain Scale 1-3) Capsaicin (Capsaicin 0.025% Cream 60 Gm Tube) 1 appl TOPICAL QID PRN; Protocol PRN Reason: pain Docusate Sodium (Docusate Sodium 100 Mg Capsule) 200 mg PO BID [facility] Last Admin: 09/15/22 08:17 Dose: 200 mg Documented By: EDWIN Enoxaparin Sodium (Enoxaparin Sodium 40 Mg/0.4 Ml Syringe) 40 mg SUBCUT Q24H [facility] Last Admin: 09/15/22 00:08 Dose: 40 mg Documented By: DANIEL Fentanyl (Fentanyl Citrate/Pf 100 Mcg/2 Ml Vial) 50 mcg IVPUSH Q5M PRN; Protocol PRN Reason: Pain, Severe (Pain Scale 7-10) Ceftriaxone Sodium 1 gm/ (Sodium Chloride) 50 mls @ 100 mls/hr IV Q24H [facility] Last Infusion: 09/15/22 00:05 Dose: 0 mls/hr Documented By: DANIEL Metronidazole (Flagyl) 500 mg in 100 mls @ 100 mls/hr IV Q8H [facility] Last Infusion: 09/15/22 09:28 Dose: 0 mls/hr Documented By: EDWIN Lactated Ringer's (Lr) 1,000 mls @ 50 mls/hr IVCONT .Q20H [facility] Last Admin: 09/15/22 12:59 Dose: Not Given Documented By: EDWIN Non-Admin Reason: IV Running Lidocaine (Lidocaine 4 % Patch Adh..Patch) 1 patch TRANSDERMA DAILY [facility]; Protocol Morphine Sulfate (Morphine Sulfate 4 Mg/Ml Cartridge) 4 mg IVPUSH Q4H PRN; Protocol PRN Reason: Pain, Severe (Pain Scale 7-10) Last Admin: 09/15/22 11:32 Dose: 4 mg Documented By: EDWIN Omeprazole (Omeprazole 40 Mg Capsule.Dr) 40 mg PO DAILY@0630 [facility] Last Admin: 09/15/22 06:11 Dose: 40 mg Documented By: DANIEL Ondansetron HCl (Ondansetron Hcl 4 Mg/2 Ml Vial) 4 mg IVPUSH Q8H PRN PRN Reason: Nausea and Vomiting Last Admin: 09/12/22 07:02 Dose: 4 mg Documented By: DAY Ondansetron HCl (Ondansetron Hcl 4 Mg/2 Ml Vial) 4 mg IVPUSH ONCE PRN PRN Reason: Nausea and Vomiting Oxycodone HCl (Oxycodone Hcl Immed Release 5 Mg Tablet) 5 mg PO Q4H PRN PRN Reason: Pain, Moderate (Pain Scale 4-6 Last Admin: 09/15/22 09:34 Dose: 5 mg Documented By: EDWIN Oxycodone HCl (Oxycodone Hcl Immed Release 5 Mg Tablet) 10 mg PO Q4H PRN PRN Reason: Pain, Severe (Pain Scale 7-10) Last Admin: 09/15/22 14:45 Dose: 10 mg Documented By: FELISHA Prednisone (Prednisone 20 Mg Tablet) 40 mg PO DAILY [facility] Sodium Chloride (0.9 % Sodium Chloride Flush 3 Ml Syringe) 3 ml IVFLUSH QSHIFT [facility] Last Admin: 09/15/22 16:00 Dose: Not Given Documented By: EDWIN Non-Admin Reason: IV Running Labs 09/11/22 07:38 09/13/22 08:18 Procedures Date of Service Date of Service: 09/15/22 Progress Note: A&P Assessment and plan (1) Umbilical hernia, incarcerated: Status: Acute Plan Uneventful postop course status post ventral hernia repair. Continue current therapy. Time Spent With Patient Time: Total time managing care of this patient today ____ minutes. Quality Stroke Does the patient have a stroke diagnosis?: No VTE Prior VTE?: No VTE Risk Level:: Medical - moderate - high VTE Device Contraindication: Treatment Not Indicated VTE Drug Contraindication: N/A - Med Ordered
[2022-09-15 20:00] VITALS: BP 109/61; PULSE 96; RESP 18; TEMP 36.8; O2SAT 94
[2022-09-15] MEDS: 0.9 % Sodium Chloride Flush 3 ML SYRINGE IVFLUSH (20:56)
[2022-09-16] MEDS: cefTRIAXone sodium 1 GM in 0.9 % Sodium Chloride 50 ML IV ×2 (00:28→23:44)
[2022-09-16] MEDS: Enoxaparin Sodium 40 MG/0.4 ML SYRINGE SUBCUT ×2 (00:33→23:45)
[2022-09-16] MEDS: metroNIDAZOLE/NS 500 MG/100 ML PIGGYBACK 100 MG IV ×3 (01:02→16:44)
[2022-09-16] MEDS: oxyCODONE HCl Immed Release 5 MG TABLET 10 MG PO ×5 (01:57→22:04)
[2022-09-16 04:00] VITALS: BP 108/70; PULSE 57; RESP 18; TEMP 36.6; O2SAT 96
[2022-09-16] MEDS: Omeprazole 40 MG CAPSULE.DR PO (05:39)
[2022-09-16 07:09] VITALS: BP 126/81; PULSE 66; RESP 16; TEMP 36.6; O2SAT 97
--- NOTE | 2022-09-16 08:08 | PM.PNGS ---
Subjective Subjective Date of Service: 09/16/22 Patient reports: feels better and still having pain Interval history: Notes from the weekend reviewed. The patient is taking minimal p.o. but is passing gas and has had some bowel movements. He expressed concerns over his children being febrile and ill at home. He reports expected umbilical pain but still notes the right lower quadrant pain is present but improved. He otherwise denies complaints of chest pain, difficulty breathing or shortness of breath. Physical Exam Vital Signs: Vital Signs: Last Vital Signs Temp 98 F 09/16/22 07:09 Pulse 66 09/16/22 07:09 Resp 16 09/16/22 07:09 BP 126/81 09/16/22 07:09 Pulse Ox 97 09/16/22 07:09 O2 Del Method Room Air 09/16/22 07:09 BMI result Body Mass Index 33.7 On exam he is nontoxic Sclera remain anicteric His abdominal dressing is in place with expected tenderness Right lower quadrant discomfort is improved and they are still no peritoneal sign. Objective Data Active Medications Acetaminophen (Acetaminophen 325 Mg Tablet) 650 mg PO Q6H PRN PRN Reason: Pain, Mild (Pain Scale 1-3) Last Admin: 09/15/22 14:45 Dose: 650 mg Documented By: FELISHA Acetaminophen (Acetaminophen 325 Mg Tablet) 650 mg PO ONCE PRN PRN Reason: Pain, Mild (Pain Scale 1-3) Capsaicin (Capsaicin 0.025% Cream 60 Gm Tube) 1 appl TOPICAL QID PRN; Protocol PRN Reason: pain Docusate Sodium (Docusate Sodium 100 Mg Capsule) 200 mg PO BID [facility] Last Admin: 09/15/22 20:56 Dose: 200 mg Documented By: JANELL Enoxaparin Sodium (Enoxaparin Sodium 40 Mg/0.4 Ml Syringe) 40 mg SUBCUT Q24H [facility] Last Admin: 09/16/22 00:33 Dose: 40 mg Documented By: JANELL Fentanyl (Fentanyl Citrate/Pf 100 Mcg/2 Ml Vial) 50 mcg IVPUSH Q5M PRN; Protocol PRN Reason: Pain, Severe (Pain Scale 7-10) Ceftriaxone Sodium 1 gm/ (Sodium Chloride) 50 mls @ 100 mls/hr IV Q24H [facility] Last Infusion: 09/16/22 00:59 Dose: 0 mls/hr Documented By: JANELL Metronidazole (Flagyl) 500 mg in 100 mls @ 100 mls/hr IV Q8H [facility] Last Infusion: 09/16/22 02:05 Dose: 0 mls/hr Documented By: JANELL Lidocaine (Lidocaine 4 % Patch Adh..Patch) 1 patch TRANSDERMA DAILY [facility]; Protocol Omeprazole (Omeprazole 40 Mg Capsule.Dr) 40 mg PO DAILY@0630 [facility] Last Admin: 09/16/22 05:39 Dose: 40 mg Documented By: JANELL Ondansetron HCl (Ondansetron Hcl 4 Mg/2 Ml Vial) 4 mg IVPUSH Q8H PRN PRN Reason: Nausea and Vomiting Last Admin: 09/12/22 07:02 Dose: 4 mg Documented By: DAY Ondansetron HCl (Ondansetron Hcl 4 Mg/2 Ml Vial) 4 mg IVPUSH ONCE PRN PRN Reason: Nausea and Vomiting Oxycodone HCl (Oxycodone Hcl Immed Release 5 Mg Tablet) 5 mg PO Q4H PRN PRN Reason: Pain, Moderate (Pain Scale 4-6 Last Admin: 09/15/22 09:34 Dose: 5 mg Documented By: EDWIN Oxycodone HCl (Oxycodone Hcl Immed Release 5 Mg Tablet) 10 mg PO Q4H PRN PRN Reason: Pain, Severe (Pain Scale 7-10) Last Admin: 09/16/22 06:47 Dose: 10 mg Documented By: JANELL Prednisone (Prednisone 20 Mg Tablet) 40 mg PO DAILY [facility] Sodium Chloride (0.9 % Sodium Chloride Flush 3 Ml Syringe) 3 ml IVFLUSH QSHIFT [facility] Last Admin: 09/15/22 20:56 Dose: 3 ml Documented By: JANELL Labs 09/11/22 07:38 09/13/22 08:18 Microbiology Microbiology Results: Microbiology 09/10/22 21:20 Blood Culture - Final Blood - Venous No growth after 5 days. 09/10/22 20:20 Blood Culture - Final Blood - Venous No growth after 5 days. Procedures Date of Service Date of Service: 09/16/22 Progress Note: A&P Assessment and plan (1) Umbilical hernia, incarcerated: Status: Acute (2) Abdominal pain: Status: Acute (3) H/O right hemicolectomy: Status: Acute (4) Family history of colon cancer: Status: Acute (5) Ileitis: Status: Acute (6) Cancer of appendix: Status: Acute (7) Crohn's disease: Status: Acute (8) Anxiety: Status: Acute Plan The importance of a high-protein high-fiber diet was discussed with the patient and he requested a nutrition consultation for additional details. One is ordered. Patient expressed concerns about being discharged well his family is actively ill & febrile. Surgically, he is making steady, albeit slow progress. Time Spent With Patient Time: Total time managing care of this patient today ____ minutes. Quality Stroke Does the patient have a stroke diagnosis?: No VTE Prior VTE?: No VTE Risk Level:: Medical - moderate - high VTE Device Contraindication: Treatment Not Indicated VTE Drug Contraindication: N/A - Med Ordered
[2022-09-16] MEDS: Docusate Sodium 100 MG CAPSULE 200 MG PO ×2 (10:45→20:56)
[2022-09-16] MEDS: predniSONE 20 MG TABLET 40 MG PO (10:46)
[2022-09-16] MEDS: 0.9 % Sodium Chloride Flush 3 ML SYRINGE IVFLUSH ×2 (10:46→20:54)
[2022-09-16] MEDS: Lidocaine 4 % Patch ADH..PATCH 1 PATCH TRANSDERMA (10:46)
--- NOTE | 2022-09-16 12:40 | MHC.CM.PN ---
CURRENT PLAN IS DC HOME LATER TODAY, BUT BY TOMORROW (09/17/22)
--- NOTE | 2022-09-16 13:44 | HO.PM.IMPN ---
Subjective Subjective Date of Service: 09/16/22 Interval History: Colitis Review of Systems abd pain seems to be somewhat improving Denies any chest pain or shortness of breath or fever chills. Physical Exam Vital Signs: Vital Signs: Last Vital Signs Temp 98 F 09/16/22 07:09 Pulse 66 09/16/22 07:09 Resp 16 09/16/22 07:09 BP 126/81 09/16/22 07:09 Pulse Ox 97 09/16/22 07:09 O2 Del Method Room Air 09/16/22 07:09 BMI result Body Mass Index 33.7 Appearance: Alert.? Oriented X3.? abd pain. cvs: rrr, [id number] , no murmur res: clear to auscultation ,no rhonchii or wheezing abd: no rebound or guarding ,abd pain improving ,still soarness in umblical area, bs present. ext pulses present , no cyanosis . neuro: axo3 , nonfocal. Objective Data Active Medications Acetaminophen (Acetaminophen 325 Mg Tablet) 650 mg PO Q6H PRN PRN Reason: Pain, Mild (Pain Scale 1-3) Last Admin: 09/15/22 14:45 Dose: 650 mg Documented By: FELISHA Acetaminophen (Acetaminophen 325 Mg Tablet) 650 mg PO ONCE PRN PRN Reason: Pain, Mild (Pain Scale 1-3) Capsaicin (Capsaicin 0.025% Cream 60 Gm Tube) 1 appl TOPICAL QID PRN; Protocol PRN Reason: pain Docusate Sodium (Docusate Sodium 100 Mg Capsule) 200 mg PO BID [facility] Last Admin: 09/16/22 10:45 Dose: 200 mg Documented By: FELISHA Enoxaparin Sodium (Enoxaparin Sodium 40 Mg/0.4 Ml Syringe) 40 mg SUBCUT Q24H [facility] Last Admin: 09/16/22 00:33 Dose: 40 mg Documented By: JANELL Fentanyl (Fentanyl Citrate/Pf 100 Mcg/2 Ml Vial) 50 mcg IVPUSH Q5M PRN; Protocol PRN Reason: Pain, Severe (Pain Scale 7-10) Ceftriaxone Sodium 1 gm/ (Sodium Chloride) 50 mls @ 100 mls/hr IV Q24H [facility] Last Infusion: 09/16/22 00:59 Dose: 0 mls/hr Documented By: JANELL Metronidazole (Flagyl) 500 mg in 100 mls @ 100 mls/hr IV Q8H [facility] Last Admin: 09/16/22 10:46 Dose: 100 mls/hr Documented By: FELISHA Lidocaine (Lidocaine 4 % Patch Adh..Patch) 1 patch TRANSDERMA DAILY [facility]; Protocol Last Admin: 09/16/22 10:46 Dose: 1 patch Documented By: FELISHA Omeprazole (Omeprazole 40 Mg Capsule.Dr) 40 mg PO DAILY@0630 [facility] Last Admin: 09/16/22 05:39 Dose: 40 mg Documented By: JANELL Ondansetron HCl (Ondansetron Hcl 4 Mg/2 Ml Vial) 4 mg IVPUSH Q8H PRN PRN Reason: Nausea and Vomiting Last Admin: 09/12/22 07:02 Dose: 4 mg Documented By: DAY Ondansetron HCl (Ondansetron Hcl 4 Mg/2 Ml Vial) 4 mg IVPUSH ONCE PRN PRN Reason: Nausea and Vomiting Oxycodone HCl (Oxycodone Hcl Immed Release 5 Mg Tablet) 5 mg PO Q4H PRN PRN Reason: Pain, Moderate (Pain Scale 4-6 Last Admin: 09/15/22 09:34 Dose: 5 mg Documented By: EDWIN Oxycodone HCl (Oxycodone Hcl Immed Release 5 Mg Tablet) 10 mg PO Q4H PRN PRN Reason: Pain, Severe (Pain Scale 7-10) Last Admin: 09/16/22 10:46 Dose: 10 mg Documented By: FELISHA Prednisone (Prednisone 20 Mg Tablet) 40 mg PO DAILY [facility] Last Admin: 09/16/22 10:46 Dose: 40 mg Documented By: FELISHA Sodium Chloride (0.9 % Sodium Chloride Flush 3 Ml Syringe) 3 ml IVFLUSH QSHIFT [facility] Last Admin: 09/16/22 10:46 Dose: 3 ml Documented By: FELISHA Labs 09/11/22 07:38 09/13/22 08:18 Microbiology Microbiology Results: Microbiology 09/10/22 21:20 Blood Culture - Final Blood - Venous No growth after 5 days. 09/10/22 20:20 Blood Culture - Final Blood - Venous No growth after 5 days. 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 still has abdominal pain but somewhat improving ct abd repeated today:bowel rest,treat with IV antibiotics, IV fluids, analgesics for symptom relief. Umbilical area pain, small hernia and redness: Patient is going for umbilical hernia surgery yesterday still has abdominal soreness pain and will try to advance diet,also taper steriods seen by gi today-continue steriods,antibiotics DVT prophylaxis:? Lovenox inpatient need: intractable severe abdominal pain-needs bowel rest,treat with IV antibiotics, IV fluids, analgesics . Unable to tolerate food yet. Time Spent With Patient Time: Total time managing care of this patient today ____ minutes. Quality Stroke Does the patient have a stroke diagnosis?: No VTE Prior VTE?: No VTE Risk Level:: Medical - moderate - high VTE Device Contraindication: Treatment Not Indicated VTE Drug Contraindication: N/A - Med Ordered
--- NOTE | 2022-09-16 14:53 | MHC.CLN ---
NUTRITION CONSULT FOR NUTRITION EDUCATION-PATIENT REQUESTING HIGH FIBER, HIGH PROTEIN DIET EDUCATION. PROVIDED HANDOUT ON CROHN'S DISEASE. PROVIDED LIST OF HIGH PROTEIN FOODS. PATIENT APPEARS WELL EDUCATED ON DIET NEEDS WITH CROHNS AND HIGH PROTEIN FOODS. DISCUSSION FOCUSED ON HIGH PROTEIN FOODS.
[2022-09-16 15:52] VITALS: BP 114/61; PULSE 74; RESP 16; TEMP 36.5; O2SAT 97
[2022-09-16 19:35] VITALS: BP 101/62; PULSE 112; RESP 18; TEMP 36.7; O2SAT 97
[2022-09-17] MEDS: metroNIDAZOLE/NS 500 MG/100 ML PIGGYBACK 100 MG IV (00:20)
[2022-09-17 04:00] VITALS: BP 112/71; PULSE 66; RESP 18; TEMP 36.5; O2SAT 98
[2022-09-17] MEDS: Omeprazole 40 MG CAPSULE.DR PO (05:33)
[2022-09-17] MEDS: oxyCODONE HCl Immed Release 5 MG TABLET 10 MG PO ×2 (05:37→10:23)
[2022-09-17 06:46] LABS: Hematocrit 41.5 % (42.0-52.0); Hemoglobin 13.5 g/dl (14.0-18.0); Mean Corpuscular HGB Conc 32.5 g/dl (31.0-36.0); Mean Corpuscular Hemoglobin 27.9 pg (27.0-33.0); Mean Corpuscular Volume 85.7 fL (80.0-98.0); Mean Platelet Volume 9.3 fL (9.4-12.4); Platelet Count 270 X10*3/uL (160-400); Red Blood Count 4.84 X10*6/uL (4.60-5.80); Red Cell Distribution Width 13.7 % (11.0-16.0); White Blood Count 6.6 X10*3/uL (4.8-10.8)
[2022-09-17 07:10] LABS: Anion Gap 14 (12-20); Blood Urea Nitrogen 14 mg/dL (9-16); C Reactive Protein 0.52 mg/dL (< or = 0.50); Carbon Dioxide 27 mmol/L (22-29); Chloride 106 mmol/L (96-108); Creatinine Clr Calc Pharmacy 125.4; Estimated Glomerular Filt Rate > 60; Glucose Random 79 mg/dL (60-115); Sodium 143 mmol/L (135-145)
--- NOTE | 2022-09-17 07:34 | PM.PNGS ---
Subjective Subjective Date of Service: 09/17/22 Patient reports: no new complaints, feels better, pain is less, tolerating a regular diet, flatus and bowel movement Interval history: The patient reports interval progress since yesterday. He but with the dietitian regarding a high-protein diet. Overall, he reports that he is doing well on believes he is stable for discharge today. He is still requiring oxycodone and, as previously noted, I sent a prescription to his pharmacy on Friday. The importance of a bowel regime taking 2 docusate/Colace 100 mg stool softeners twice a day given his history of constipation was also reviewed. Physical Exam Vital Signs: Vital Signs: Last Vital Signs Temp 97.7 F 09/17/22 04:00 Pulse 66 09/17/22 04:00 Resp 18 09/17/22 04:00 BP 112/71 09/17/22 04:00 Pulse Ox 98 09/17/22 04:00 O2 Del Method Room Air 09/17/22 04:00 BMI result Body Mass Index 33.7 On exam he is nontoxic He is in no acute respiratory distress Abdomen is soft with appropriate incisional tenderness. Abdominal dressing from umbilical hernia repair is intact Objective Data Active Medications Acetaminophen (Acetaminophen 325 Mg Tablet) 650 mg PO Q6H PRN PRN Reason: Pain, Mild (Pain Scale 1-3) Last Admin: 09/15/22 14:45 Dose: 650 mg Documented By: FELISHA Acetaminophen (Acetaminophen 325 Mg Tablet) 650 mg PO ONCE PRN PRN Reason: Pain, Mild (Pain Scale 1-3) Capsaicin (Capsaicin 0.025% Cream 60 Gm Tube) 1 appl TOPICAL QID PRN; Protocol PRN Reason: pain Docusate Sodium (Docusate Sodium 100 Mg Capsule) 200 mg PO BID [facility] Last Admin: 09/16/22 20:56 Dose: 200 mg Documented By: KEITH Enoxaparin Sodium (Enoxaparin Sodium 40 Mg/0.4 Ml Syringe) 40 mg SUBCUT Q24H [facility] Last Admin: 09/16/22 23:45 Dose: 40 mg Documented By: KEITH Fentanyl (Fentanyl Citrate/Pf 100 Mcg/2 Ml Vial) 50 mcg IVPUSH Q5M PRN; Protocol PRN Reason: Pain, Severe (Pain Scale 7-10) Ceftriaxone Sodium 1 gm/ (Sodium Chloride) 50 mls @ 100 mls/hr IV Q24H [facility] Last Infusion: 09/17/22 00:26 Dose: 0 mls/hr Documented By: KEITH Metronidazole (Flagyl) 500 mg in 100 mls @ 100 mls/hr IV Q8H [facility] Last Infusion: 09/17/22 01:26 Dose: 0 mls/hr Documented By: KEITH Lidocaine (Lidocaine 4 % Patch Adh..Patch) 1 patch TRANSDERMA DAILY [facility]; Protocol Last Admin: 09/16/22 10:46 Dose: 1 patch Documented By: FELISHA Omeprazole (Omeprazole 40 Mg Capsule.Dr) 40 mg PO DAILY@0630 [facility] Last Admin: 09/17/22 05:33 Dose: 40 mg Documented By: KEITH Ondansetron HCl (Ondansetron Hcl 4 Mg/2 Ml Vial) 4 mg IVPUSH Q8H PRN PRN Reason: Nausea and Vomiting Last Admin: 09/12/22 07:02 Dose: 4 mg Documented By: DAY Ondansetron HCl (Ondansetron Hcl 4 Mg/2 Ml Vial) 4 mg IVPUSH ONCE PRN PRN Reason: Nausea and Vomiting Oxycodone HCl (Oxycodone Hcl Immed Release 5 Mg Tablet) 5 mg PO Q4H PRN PRN Reason: Pain, Moderate (Pain Scale 4-6 Last Admin: 09/15/22 09:34 Dose: 5 mg Documented By: EDWIN Oxycodone HCl (Oxycodone Hcl Immed Release 5 Mg Tablet) 10 mg PO Q4H PRN PRN Reason: Pain, Severe (Pain Scale 7-10) Last Admin: 09/17/22 05:37 Dose: 10 mg Documented By: KEITH Prednisone (Prednisone 20 Mg Tablet) 40 mg PO DAILY [facility] Last Admin: 09/16/22 10:46 Dose: 40 mg Documented By: FELISHA Sodium Chloride (0.9 % Sodium Chloride Flush 3 Ml Syringe) 3 ml IVFLUSH QSHIFT [facility] Last Admin: 09/16/22 20:54 Dose: 3 ml Documented By: KEITH Labs 09/17/22 06:00 09/17/22 06:00 Labs: Laboratory Results - last 24 hr 09/17/22 09/17/22 06:00 06:00 MCV 85.7 MCH 27.9 MCHC 32.5 RDW 13.7 Plt Count 270 MPV 9.3 L Absolute Nucleated RBC 0.000 Nucleated RBC % (auto) 0.0 Anion Gap 14 Estim Creat Clear Calc 125.4 Estimated GFR > 60 Random Glucose 79 Calcium 9.0 C-Reactive Protein 0.52 H Procedures Date of Service Date of Service: 09/17/22 Progress Note: A&P Assessment and plan (1) Umbilical hernia, incarcerated: Status: Acute (2) Abdominal pain: Status: Acute (3) H/O right hemicolectomy: Status: Acute (4) Cancer of appendix: Status: Acute (5) Crohn's disease: Status: Acute Plan The patient asked me candidly what I believe is occurring to causes pain. I explained that I am not sure were, but we are treating him for a Crohn's flare with antibiotics and steroids. Prior to his appendectomy, the patient was having constipation and abdominal pain that led to colonoscopy as well as a workup that demonstrated an abnormal appendix on MR. This was in contrast to [address] that showed no abnormality to the appendix. 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 Grossly, no residual disease was identified during his right hemicolectomy last month with no lymph nodes being positive in the specimen and no residual malignancy encountered. It is unclear to me whether the patient has chronic abdominal complaints and constipation are Crohn's, irritable bowel or another etiology, but I reassured him that there is no evidence of anastomotic complications requiring revision. The patient is surgically stable for discharge. I reminded him that his umbilical hernia was viable and only confounded his presentation. However, because of the repair, he must not lift more than 20 lb or perform strenuous activities for the next 6 weeks. He will follow up with me on an outpatient basis in 1 month. His questions seemed to be satisfactorily answered. Time Spent With Patient Time: Total time managing care of this patient today ____ minutes. Quality Stroke Does the patient have a stroke diagnosis?: No VTE Prior VTE?: No VTE Risk Level:: Medical - moderate - high VTE Device Contraindication: Treatment Not Indicated VTE Drug Contraindication: N/A - Med Ordered
[2022-09-17 07:39] VITALS: BP 122/80; PULSE 64; RESP 17; TEMP 36; O2SAT 96
--- NOTE | 2022-09-17 09:11 | P.PNIM_ITS ---
Subjective Subjective Date of Service: 09/17/22 Physical Exam Vital Signs: Vital Signs: Last Vital Signs Temp 96.8 F 09/17/22 07:39 Pulse 64 09/17/22 07:39 Resp 17 09/17/22 07:39 BP 122/80 09/17/22 07:39 Pulse Ox 96 09/17/22 07:39 O2 Del Method Room Air 09/17/22 07:39 BMI result Body Mass Index 33.7 Objective Data Active Medications Acetaminophen (Acetaminophen 325 Mg Tablet) 650 mg PO Q6H PRN PRN Reason: Pain, Mild (Pain Scale 1-3) Last Admin: 09/15/22 14:45 Dose: 650 mg Documented By: FELISHA Acetaminophen (Acetaminophen 325 Mg Tablet) 650 mg PO ONCE PRN PRN Reason: Pain, Mild (Pain Scale 1-3) Capsaicin (Capsaicin 0.025% Cream 60 Gm Tube) 1 appl TOPICAL QID PRN; Protocol PRN Reason: pain Docusate Sodium (Docusate Sodium 100 Mg Capsule) 200 mg PO BID [facility] Last Admin: 09/16/22 20:56 Dose: 200 mg Documented By: KEITH Enoxaparin Sodium (Enoxaparin Sodium 40 Mg/0.4 Ml Syringe) 40 mg SUBCUT Q24H [facility] Last Admin: 09/16/22 23:45 Dose: 40 mg Documented By: KEITH Fentanyl (Fentanyl Citrate/Pf 100 Mcg/2 Ml Vial) 50 mcg IVPUSH Q5M PRN; Protocol PRN Reason: Pain, Severe (Pain Scale 7-10) Ceftriaxone Sodium 1 gm/ (Sodium Chloride) 50 mls @ 100 mls/hr IV Q24H [facility] Last Infusion: 09/17/22 00:26 Dose: 0 mls/hr Documented By: KEITH Metronidazole (Flagyl) 500 mg in 100 mls @ 100 mls/hr IV Q8H [facility] Last Infusion: 09/17/22 01:26 Dose: 0 mls/hr Documented By: KEITH Lidocaine (Lidocaine 4 % Patch Adh..Patch) 1 patch TRANSDERMA DAILY [facility]; Protocol Last Admin: 09/16/22 10:46 Dose: 1 patch Documented By: FELISHA Omeprazole (Omeprazole 40 Mg Vibha.) 40 mg PO DAILY@0630 [facility] Last Admin: 09/17/22 05:33 Dose: 40 mg Documented By: KEITH Ondansetron HCl (Ondansetron Hcl 4 Mg/2 Ml Vial) 4 mg IVPUSH Q8H PRN PRN Reason: Nausea and Vomiting Last Admin: 09/12/22 07:02 Dose: 4 mg Documented By: DAY Ondansetron HCl (Ondansetron Hcl 4 Mg/2 Ml Vial) 4 mg IVPUSH ONCE PRN PRN Reason: Nausea and Vomiting Oxycodone HCl (Oxycodone Hcl Immed Release 5 Mg Tablet) 5 mg PO Q4H PRN PRN Reason: Pain, Moderate (Pain Scale 4-6 Last Admin: 09/15/22 09:34 Dose: 5 mg Documented By: EDWIN Oxycodone HCl (Oxycodone Hcl Immed Release 5 Mg Tablet) 10 mg PO Q4H PRN PRN Reason: Pain, Severe (Pain Scale 7-10) Last Admin: 09/17/22 05:37 Dose: 10 mg Documented By: KEITH Prednisone (Prednisone 20 Mg Tablet) 40 mg PO DAILY [facility] Last Admin: 09/16/22 10:46 Dose: 40 mg Documented By: FELISHA Sodium Chloride (0.9 % Sodium Chloride Flush 3 Ml Syringe) 3 ml IVFLUSH QSHIFT [facility] Last Admin: 09/16/22 20:54 Dose: 3 ml Documented By: KEITH Labs 09/17/22 06:00 09/17/22 06:00 Labs: Laboratory Results - last 24 hr 09/17/22 09/17/22 06:00 06:00 MCV 85.7 MCH 27.9 MCHC 32.5 RDW 13.7 Plt Count 270 MPV 9.3 L Absolute Nucleated RBC 0.000 Nucleated RBC % (auto) 0.0 Anion Gap 14 Estim Creat Clear Calc 125.4 Estimated GFR > 60 Random Glucose 79 Calcium 9.0 C-Reactive Protein 0.52 H Assessment and Plan (1) Umbilical hernia, incarcerated: Status: Acute (2) Abdominal pain: Status: Acute Plan 41-year-old male with 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 There is no indication for Abx, DC Ceftriaxone and Flagyl DC Prednisone, I see no indication DVT prophylaxis:? Lovenox inpatient need: post umbilical hernia reparir Time Spent With Patient Time: Total time managing care of this patient today ____ minutes. Quality Stroke Does the patient have a stroke diagnosis?: No VTE Prior VTE?: No VTE Risk Level:: Medical - moderate - high VTE Device Contraindication: Treatment Not Indicated VTE Drug Contraindication: N/A - Med Ordered
[2022-09-17] MEDS: 0.9 % Sodium Chloride Flush 3 ML SYRINGE IVFLUSH (10:24)
[2022-09-17] MEDS: Docusate Sodium 100 MG CAPSULE 200 MG PO (10:25)
--- NOTE | 2022-09-17 13:02 | PM.DS ---
DS: Providers Provider Date of Service: 09/17/22 Date of admission: 09/11/22 00:09 Primary care physician: Ale Vasques MD Consults: 09/10/22 23:19 Consult to Gastroenterology Stat Consulting Provider: Annmarie Lozada Reason for consultation: Abdominal pain, fever, inflammatory changes on CT scan Has provider been notified: Yes Consult to General Surgery Stat Consulting Provider: Justino Xavier Reason for consultation: Fever, abdominal pain, inflammatory process on CT scan Has provider been notified: Yes 09/11/22 09:21 Consult to Gastroenterology Routine Consulting Provider: 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 Patient reports that he woke up on day of presentation feeling febrile with significant abdominal pain.? He describes the pain as a medical hydrant on the right worse with even drinking water, constant, 10/10, nonradiating, slightly relieved with morphine given in the ED. patient denies having any cough, no shortness of breath, no diarrhea constipation, reports no urinary symptoms and no lower extremity edema.? On arrival to the ED patient hemodynamically stable with no significant abnormal vitals Labs are significant for WBC count of 9.1, lactic of 1.4, labs otherwise unremarkable, UA negative, COVID-[address] pelvic abdomen shows infiltrative changes surrounding the cecum suggest an infection/inflammatory process, of note patient does not have a cecum after having a hemicolectomy.? An organized fluid collection is not seen. CT abdomen also showed mild infiltrative changes adjacent to the supraumbilical midline incision infiltrative changes in the subjacent peritoneum as well as fluid in the umbilical hernia suggestive of infection/inflammatory process as well.? No organized fluid collection. This was discussed with General surgery, currently patient is not a candidate for surgical intervention, GI was also consulted by ED Hospital course: Patient presented with abdominal pain, CT showed bowel wall thickening and mesenteric fat stranding around the enterocolic anastomosis is likely secondary to inflammatory bowel disease in this patient with history of Crohn disease. Patient also happened to have unbilical hernia and at that time thought to be possibly causing or contributing to pain so he underwent surgical exploration but it didn't route returner to be cause of the pain and therefore has been treated for imflamatory bowel disease initially with IV antibiotics and prednisone under te direction of GI. He will need further assessment by GI in the office, he will be discharged with steroid richi and to follow up with Dr. Lozada and Dr. Boyer (surgeon ) in the office. Time Spent with Patient Time attestation: Total time managing care of this patient today ____ minutes. Discharge coordination time: Greater than 30 minutes Quality: Safe Use of Opioids Does Pt have an Active Cancer Diagnosis on the Problem List?: No Quality: Stroke Does the patient have a stroke diagnosis?: No Physical Exam Vital Signs: Vital Signs: Last Vital Signs Temp 96.8 F 09/17/22 07:39 Pulse 64 09/17/22 07:39 Resp 17 09/17/22 07:39 BP 122/80 09/17/22 07:39 Pulse Ox 96 09/17/22 07:39 O2 Del Method Room Air 09/17/22 07:39 BMI result Body Mass Index 33.7 DS: Data Data Completed and Pending Completed studies during hospitalization [Text1]: Procedures Introduction of Anesthetic Agent into Peripheral Nerves and Plexi, Percutaneous Approach (08/15/22) Resection of Right Large Intestine, Open Approach (08/15/22) Labs on day of discharge: Laboratory Results - last 24 hr 09/17/22 09/17/22 06:00 06:00 WBC 6.6 RBC 4.84 Hgb 13.5 L Hct 41.5 L MCV 85.7 MCH 27.9 MCHC 32.5 RDW 13.7 Plt Count 270 MPV 9.3 L Absolute Nucleated RBC 0.000 Nucleated RBC % (auto) 0.0 Sodium 143 Potassium 4.0 Chloride 106 Carbon Dioxide 27 Anion Gap 14 BUN 14 Creatinine 0.80 Estim Creat Clear Calc 125.4 Estimated GFR > 60 Random Glucose 79 Calcium 9.0 C-Reactive Protein 0.52 H Discharge Plan Discharge Anticipated Discharge Date/Time: 09/17/22 12:48 Patient Disposition: Home, Self-Care Discharge Diagnosis: Umbilical Hernia Inflamatory bowel Referrals: [place] Caprice,Faiza, MD [Primary Care Provider] - 1 Week Justino Xavier MD [Physician] - 1 Week Discharge Medications: New oxycodone 5 mg tablet 5 mg PO Q4H PRN (Reason: pain) Qty: 14 0RF Rx Instructions: Partial Fill upon patient request. prednisone 10 mg tablet See Taper PO DIRECTED Qty: 20 0RF Taper: Prednisone 40 mg daily for 2 Days and 0 Hour 30 mg daily for 2 Days and 0 Hour 20 mg daily for 2 Days and 0 Hour 10 mg daily for 2 Days and 0 Hour Rx Instructions: see taper instructions Continued trazodone 50 mg tablet 50 mg PO BEDTIME Qty: 30 1RF docusate sodium 100 mg Capsule 100 mg PO BID Qty: 30 0RF multivitamin [Daily Multi-Vitamin] Tablet 1 tab PO DAILY Discharge Orders: Discharge Order (Routine); Ordered 09/17/22 Ordered By: Derian Upton Diet: Advance to usual diet Activity on Discharge: No heavy lifting Stand Alone Forms: Patient Portal Discharge page Activity Restrictions/Additional Instructions: You had a hernia repair by Dr. Xavier. To allow adequate healing, you must not lift more than 20 lb for the next 4 weeks. Strenuous activities such as hiking uphill, digging/gardening, swimming, yoga, weightlifting, lifting heavy bags, martial arts, yoga, sports like soccer, golf or baseball or other physical activities must be avoided to prevent healing problems and hernia recurrence. If you have questions regarding a specific activity, please ask Dr. Xavier. Your dressings should be kept in place until they are removed at Dr. Xavier's office. It is okay to shower over the dressings since they are water proof. If there is increasing pain or redness around the dressing, please contact Dr. Xavier for an appointment. Do not soak in a tub or pool until your incisions are completely healed, which usually takes at least 2 to 3 weeks, sometimes longer. You can allow soap and water to run over your incisions in a shower. There are paper tapes known as butterflies/Steri-Strips on your incisions, leave them in place and they will fall off on their own in the next 1-2 weeks. You do not need to place a new bandage on your incision unless your clothing rubs on the incision and causes irritation. You may find that pants with an elastic waist or suspenders are more comfortable than pants with a belt until your incision completely heals. You should not soak in a tub, go into a pool, or swimming in ponds, young or lakes. Please allow the paper tapes to dry before dressing. Be sure to schedule a follow-up appointment a week after surgery. Please bring any papers regarding employment and activity restrictions to that appointment. Remember that you are not disabled and can perform light duty. You should contact your employer and tell them you need light duty for medical reasons prior to your operation. Some employers will not allow their employees to work until that have no limitations; it is important you do this because we cannot discuss your personal health matters unless it is a Workman's Comp injury. Bruising and swelling is normal and to be expected. Due to gravity, this may track down towards your pubic area which is normal. If the area becomes hot, red, swollen or drains pus, if you have worsening pains, fevers over 100F, severe abdominal or chest pain or trouble breathing, please report to the nearest emergency department. The pain medications you have been prescribed are constipating. You should purchase jizi-rrx-qinxdgw stool softener known as Colace/docusate, 100 mg and take 2 tablets in the morning with breakfast and 2 tablets after dinner in the evening until you are no longer taking narcotics and are having normal bowel movements. If you experience diarrhea while taking stool softeners, this is normal and will resolve a day or 2 after you stop the medication. You should resume your regular medications unless otherwise directed by Dr. Xavier. You can take szrz-axt-buvcbmk Tylenol/acetaminophen with uwuw-tnq-egywnkv ibuprofen or naproxen for pain unless you have an allergy or medical reason you are not not allowed to take these medications, such as peptic ulcers, taking blood thinners or kidney problems. You should also use ice packs to the operative site to help minimize pain and swelling for the 1st 3 days, or as needed afterwards. Unless there is a medical reason to avoid these medicines, you should take 2 kiqi-ihl-zumftyn Tylenol with two (2) hmee-dgg-gykyjkd ibuprofen together, every 6 hours for the first 3 days to help with pain. Care Plan Goals: resolution of abdominal pain and further work up Health Concerns: Inflamatory bowel Hernia Plan of Treatment: See above Follow up with Dr. Lozada in the office Assessment: See angeline
== END 2022-09-17 14:00 | disposition home or self-care (01) | DRG 227 ==
LOC: HO.ED 23:43 → HO.EDOVER 09-11 00:13 → HO.S3 09-11 16:41
PROVIDERS: Internal Medicine; Internal Medicine Gastroenterology; Physician Assistant; Surgery; Admitting Provider Internal Medicine; Emergency Provider Emergency Medicine Emergency Medical Services; PCP Internal Medicine; Visit Provider Internal Medicine
PROC: 0WQF0ZZ Repair Abdominal Wall, Open Approach (ICD-10-PCS; principal; 2022-09-13 10:00)
DX: K42.0 Umbilical hernia with obstruction, without gangrene (principal); F33.0 Major depressive disorder, recurrent, mild; G43.909 Migraine, unspecified, not intractable, without status migrainosus; K50.00 Crohn's disease of small intestine without complications; K59.09 Other constipation; Z71.3 Dietary counseling and surveillance; Z20.822 Contact with and (suspected) exposure to COVID-19; Z85.038 Personal history of other malignant neoplasm of large intestine; Z98.0 Intestinal bypass and anastomosis status; Z87.891 Personal history of nicotine dependence; Z88.6 Allergy status to analgesic agent; Z79.899 Other long term (current) drug therapy
CPT/HCPCS: 36415; 74177; 80048; 80053; 81003; 83605; 83615; 83690; 83735; 85025; 85027; 85652; 86140; 87040; 87493; 87502; 87507; 87635; 96361; 96374; 96375; 99285; J0295; J0696; J1650; J2270; J2405; J2795; J2920; J3010; Q9967

== ENCOUNTER → 2022-09-23 09:46 | Outpatient (BNVA) | payer MEDICAID, SELFPAY | PROVIDERS: PCP Internal Medicine; Visit Provider Internal Medicine Gastroenterology | DX: R10.31 Right lower quadrant pain (principal); C18.1 Malignant neoplasm of appendix | CPT/HCPCS: 99212 ==

== ENCOUNTER 2022-09-24 09:59 | Outpatient (REF) | payer MEDICAID, SELFPAY ==
[2022-09-24 11:06] LABS: MANUAL DIFF FLAG NO
[2022-09-24 12:19] LABS: Basophils Absolute Auto 0.1 X10*3/uL (0.0-0.2); Basophils Percent Auto 0.5 % (0-2); Eosinophils Absolute Auto 0.1 X10*3/uL (0.0-0.4); Eosinophils Percent Auto 1.4 % (0-4); Hematocrit 40.5 % (42.0-52.0); Hemoglobin 12.9 g/dl (14.0-18.0); Imm Gran Abs Auto 0.04 X10*3/uL (0.00-0.03); Imm Gran Pct Auto 0.4 % (0.0-0.4); Mean Corpuscular HGB Conc 31.9 g/dl (31.0-36.0); Mean Corpuscular Hemoglobin 27.4 pg (27.0-33.0); Mean Corpuscular Volume 86.2 fL (80.0-98.0); Mean Platelet Volume 10.4 fL (9.4-12.4); Monocytes Absolute Auto 0.8 X10*3/uL (0.1-1.2); Monocytes Percent Auto 7.9 % (2-11); Neutrophils Absolute Auto 6.6 x10*3/uL (2.0-8.3); Neutrophils Percent Auto 68.8 % (45-73); Platelet Count 276 X10*3/uL (160-400); Red Cell Distribution Width 15.2 % (11.0-16.0); White Blood Count 9.6 X10*3/uL (4.8-10.8)
[2022-09-24 13:02] LABS: Alanine Aminotransferase 67 U/L (0-40); Alkaline Phosphatase 81 U/L (39-117); Anion Gap 14 (12-20); Aspartate Amino Transferase 23 U/L (5-37); Bilirubin Total 0.3 mg/dL (0.0-1.0); Blood Urea Nitrogen 13 mg/dL (9-16); C Reactive Protein 0.12 mg/dL (< or = 0.50); Carbon Dioxide 25 mmol/L (22-29); Chloride 106 mmol/L (96-108); Estimated Glomerular Filt Rate > 60; Glucose Random 89 mg/dL (60-115); Potassium 4.2 mmol/L (3.3-5.1); Sodium 141 mmol/L (135-145); Total Protein 6.3 g/dL (6.5-8.0)
[2022-09-24 13:06] LABS: Erythrocyte Sedimentation Rate 7 MM/HR (0-15)
[2022-09-24 13:12] LABS: Ferritin 203 ng/mL (20-250); Folate 16.3 ng/mL (> or = 4.0); Vitamin B12 533 pg/mL (200-900)
[2022-09-26 12:37] LABS: IgA 217 mg/dL (47-310); IgG 905 mg/dL (600-1640); IgM 143 mg/dL (50-300)
[2022-09-28 15:59] LABS: Zinc 95 mcg/dL (60-130)
[2022-10-02 19:19] LABS: Lactoferrin, Fecal, Quant. <6.25 mcg/mL (<7.25)
== END 2022-09-24 10:00 | disposition home or self-care (01) ==
LOC: HO.LAB 09:59
PROVIDERS: Absent Provider Internal Medicine Gastroenterology; PCP Internal Medicine; Visit Provider Surgery
DX: R10.33 Periumbilical pain (principal); K75.81 Nonalcoholic steatohepatitis (NASH); R50.9 Fever, unspecified; R19.7 Diarrhea, unspecified; K51.50 Left sided colitis without complications; K42.0 Umbilical hernia with obstruction, without gangrene; Z90.49 Acquired absence of other specified parts of digestive tract
CPT/HCPCS: 36415; 80053; 82607; 82728; 82746; 82784; 83520; 83631; 84590; 84630; 85025; 85652; 86140

== ENCOUNTER → 2022-10-21 09:01 | Outpatient (BNVA) | payer OTHER, SELFPAY | PROVIDERS: PCP Internal Medicine; Visit Provider Internal Medicine Gastroenterology | DX: K59.00 Constipation, unspecified (principal); R10.31 Right lower quadrant pain; C18.1 Malignant neoplasm of appendix | CPT/HCPCS: 99212 ==

== ENCOUNTER 2022-10-30 07:52 | Outpatient (REF) | payer OTHER, SELFPAY ==
[2022-10-30 09:30] LABS: Alanine Aminotransferase 108 U/L (0-40); Albumin Level 4.5 g/dL (3.5-5.0); Alkaline Phosphatase 85 U/L (39-117); Anion Gap 11 (12-20); Aspartate Amino Transferase 36 U/L (5-37); Bilirubin Total 0.5 mg/dL (0.0-1.0); Blood Urea Nitrogen 17 mg/dL (9-16); Calcium 9.4 mg/dL (8.4-10.2); Carbon Dioxide 24 mmol/L (22-29); Chloride 110 mmol/L (96-108); Cholesterol 214 mg/dL; Estimated Glomerular Filt Rate > 60; Glucose Fasting 97 mg/dL (60-99); HDL Cholesterol 56 mg/dL; LDL Cholesterol Calculated 141 mg/dl; Potassium 4.2 mmol/L (3.3-5.1); Sodium 141 mmol/L (135-145); Total Protein 7.1 g/dL (6.5-8.0); Triglycerides 88 mg/dL
== END 2022-10-30 07:53 | disposition home or self-care (01) ==
LOC: HO.LAB 07:52
PROVIDERS: PCP Internal Medicine; Visit Provider Internal Medicine
DX: Z00.00 Encounter for general adult medical examination without abnormal findings (principal)
CPT/HCPCS: 36415; 80053; 80061

== ENCOUNTER 2022-10-31 11:31 | Outpatient (REF) | payer OTHER, SELFPAY | END 2022-10-31 11:32 | disposition home or self-care (01) | LOC: HO.XRAY 11:31 | PROVIDERS: Visit Provider Internal Medicine | DX: Z13.89 Encounter for screening for other disorder (principal) ==

== ENCOUNTER 2022-10-31 11:37 | Outpatient (REF) | payer OTHER, SELFPAY ==
--- NOTE | ~2022-10-31 | US_ITS ---
EXAMINATION: US VENOUS WITH DOPPLER UPPER EXTREMITY, RIGHT CLINICAL INFORMATION: Swelling, pain COMPARISON: None available. TECHNIQUE: Ultrasound of the upper extremity is performed using compression sonography and color and pulse Doppler flow with assessment of augmentation of flow. There is also imaging and Doppler assessment of the jugular and subclavian veins. Spectral analysis with color-flow imaging is performed. FINDINGS: Respiratory variation, normal compression, and augmented flow are noted throughout the upper extremity including the axillary, brachial, cubital, and radial and ulnar veins. There is normal flow in the internal jugular and subclavian veins. There is no visible deep or superficial thrombophlebitis. If the patient's symptoms progress, a followup ultrasound in 5 -7 days might be of value to exclude proximal propagation from a nonvisualized distal arm vein. US/US venous duplex UE RT IMPRESSION: No DVT demonstrated in the right upper extremity
== END 2022-10-31 11:38 | disposition home or self-care (01) ==
LOC: HO.US 11:37
PROVIDERS: Visit Provider Internal Medicine
DX: R60.0 Localized edema (principal); M79.604 Pain in right leg
CPT/HCPCS: 93971

== ENCOUNTER → 2022-11-01 11:52 | Outpatient (BNVA) | payer OTHER, SELFPAY | PROVIDERS: PCP Internal Medicine; Referring Provider Internal Medicine; Visit Provider Internal Medicine Gastroenterology | DX: K59.04 Chronic idiopathic constipation (principal); C18.1 Malignant neoplasm of appendix | CPT/HCPCS: 99212 ==

== ENCOUNTER 2022-11-04 06:04 | Outpatient (REF) | payer OTHER, SELFPAY ==
[2022-11-04 06:25] LABS: MANUAL DIFF FLAG NO
[2022-11-04 06:28] LABS: Basophils Percent Auto 0.7 % (0-2); Eosinophils Absolute Auto 0.1 X10*3/uL (0.0-0.4); Eosinophils Percent Auto 2.1 % (0-4); Hematocrit 42.1 % (42.0-52.0); Hemoglobin 13.9 g/dl (14.0-18.0); Imm Gran Abs Auto 0.01 X10*3/uL (0.00-0.03); Imm Gran Pct Auto 0.2 % (0.0-0.4); Lymphocytes Absolute Auto 2.5 X10*3/uL (1.2-4.9); Lymphocytes Percent Auto 40.9 % (20-40); Mean Corpuscular Volume 84.9 fL (80.0-98.0); Mean Platelet Volume 8.9 fL (9.4-12.4); Monocytes Absolute Auto 0.7 X10*3/uL (0.1-1.2); Monocytes Percent Auto 11.6 % (2-11); Neutrophils Absolute Auto 2.7 x10*3/uL (2.0-8.3); Neutrophils Percent Auto 44.5 % (45-73); Platelet Count 265 X10*3/uL (160-400); Red Blood Count 4.96 X10*6/uL (4.60-5.80); Red Cell Distribution Width 13.7 % (11.0-16.0); White Blood Count 6.1 X10*3/uL (4.8-10.8)
[2022-11-04 06:51] LABS: Alanine Aminotransferase 96 U/L (0-40); Albumin Level 4.4 g/dL (3.5-5.0); Alkaline Phosphatase 104 U/L (39-117); Anion Gap 12 (12-20); Aspartate Amino Transferase 27 U/L (5-37); Bilirubin Total 0.3 mg/dL (0.0-1.0); Blood Urea Nitrogen 16 mg/dL (9-16); Calcium 9.5 mg/dL (8.4-10.2); Carbon Dioxide 23 mmol/L (22-29); Chloride 109 mmol/L (96-108); Estimated Glomerular Filt Rate > 60; Glucose Random 106 mg/dL (60-115); Sodium 140 mmol/L (135-145); Total Protein 6.9 g/dL (6.5-8.0)
== END 2022-11-04 06:05 | disposition home or self-care (01) ==
LOC: HO.LAB 06:04
PROVIDERS: PCP Internal Medicine; Visit Provider Internal Medicine
DX: C18.1 Malignant neoplasm of appendix (principal)
CPT/HCPCS: 36415; 80053; 85025

== ENCOUNTER 2022-11-04 06:43 | Day surgery (SDC) | payer OTHER, SELFPAY ==
--- NOTE | ~2022-11-04 | IR_ITS ---
See ultrasound-guided venous access report from the same day. IR/IR us guide venous access IMPRESSION: Right internal jugular 6.6 Arabic single-lumen Dignity Port-A-Cath placement.
--- NOTE | ~2022-11-04 | IR_ITS ---
See ultrasound-guided venous access report from the same day.
[2022-11-04 07:08] VITALS: BMI 34.3
[2022-11-04 07:32] LABS: INTERNATIONAL NORM RATIO 0.9 (0.9-1.1); Prothrombin Time 10.7 SEC (10.0-13.1)
[2022-11-04 07:35] LABS: Partial Thromboplastin Time 31.1 SEC (26.0-36.4)
[2022-11-04] MEDS: Lidocaine HCl 1% PF/Epi 1:200,000 30 ML VIAL 10 ML SUBCUT (10:01)
[2022-11-04] MEDS: Lidocaine HCl 1 % 20 ML VIAL SUBCUT (10:02)
[2022-11-04 10:20] VITALS: BP 130/85; PULSE 81; RESP 16; TEMP 36.6; O2SAT 96
[2022-11-04 10:35] VITALS: BP 117/74; PULSE 73; RESP 14; O2SAT 96
[2022-11-04 10:50] VITALS: BP 111/81; PULSE 72; RESP 14; TEMP 36.2; O2SAT 97
== END 2022-11-04 11:01 | disposition home or self-care (01) ==
PROVIDERS: Radiology Diagnostic Radiology; PCP Internal Medicine; Visit Provider Radiology Diagnostic Radiology
DX: C18.1 Malignant neoplasm of appendix (principal)
CPT/HCPCS: 36415; 36561; 36597; 76937; 85610; 85730; 99152; 99153; C1769; C1788; J0690; J1642; J2250; J3010

== ENCOUNTER → 2022-11-25 12:11 | Outpatient (BNVA) | payer OTHER, SELFPAY | PROVIDERS: PCP Internal Medicine; Visit Provider Surgery | DX: K59.00 Constipation, unspecified (principal); C18.1 Malignant neoplasm of appendix; R10.9 Unspecified abdominal pain | CPT/HCPCS: 99212 ==

== ENCOUNTER 2022-11-25 21:14 | Emergency (ER) | payer OTHER, SELFPAY ==
[2022-11-25 21:37] VITALS: BP 111/80; PULSE 109; RESP 16; TEMP 37; O2SAT 98; BMI 34.4
== END 2022-11-26 00:47 | disposition left against medical advice (07) ==
PROVIDERS: Emergency Provider Emergency Medicine; PCP Internal Medicine
DX: K62.5 Hemorrhage of anus and rectum (principal); C18.1 Malignant neoplasm of appendix; Z92.21 Personal history of antineoplastic chemotherapy
CPT/HCPCS: 99281

== ENCOUNTER → 2022-11-28 12:58 | Outpatient (BNVA) | payer OTHER, SELFPAY | PROVIDERS: PCP Internal Medicine; Visit Provider Surgery | DX: K64.4 Residual hemorrhoidal skin tags (principal); K50.90 Crohn's disease, unspecified, without complications; C18.1 Malignant neoplasm of appendix; Z90.49 Acquired absence of other specified parts of digestive tract | CPT/HCPCS: 99212 ==

== ENCOUNTER 2022-11-30 21:07 | Emergency (ER) | payer OTHER, SELFPAY ==
--- NOTE | ~2022-11-30 | XR_ITS ---
EXAMINATION: XR CHEST CLINICAL INFORMATION: Port-A-Cath infection. COMPARISON: CT chest 04/08/2022. Chest radiograph 05/04/2019. TECHNIQUE: 2 views of the chest were obtained. FINDINGS: Right-sided CT compatible chest port with the tip terminating at the level of the cavoatrial junction. Normal appearance of the cardiomediastinal silhouette. Low lung volumes with bibasilar streaky opacities. No pleural effusion or pneumothorax. Unchanged 5 mm left lower lobe calcified granuloma. No acute osseous abnormalities. XR/XR chest 2V IMPRESSION: 1. Right-sided CT compatible chest port with the tip terminating at the level of the cavoatrial junction. 2. Low lung volumes with bibasilar subsegmental atelectasis. Correlation with targeted ultrasound or CT as clinically indicated for evaluation of Port-A-Cath related complications.
[2022-11-30 21:35] VITALS: BP 146/101; PULSE 101; RESP 20; TEMP 36.9; O2SAT 96; BMI 34.1
[2022-11-30 22:01] LABS: MANUAL DIFF FLAG NO
[2022-11-30 22:04] LABS: Basophils Percent Auto 0.5 % (0-2); Eosinophils Absolute Auto 0.1 X10*3/uL (0.0-0.4); Eosinophils Percent Auto 1.6 % (0-4); Hematocrit 39.9 % (42.0-52.0); Hemoglobin 13.4 g/dl (14.0-18.0); Imm Gran Abs Auto 0.02 X10*3/uL (0.00-0.03); Imm Gran Pct Auto 0.3 % (0.0-0.4); Lymphocytes Absolute Auto 1.5 X10*3/uL (1.2-4.9); Lymphocytes Percent Auto 25.2 % (20-40); Mean Corpuscular HGB Conc 33.6 g/dl (31.0-36.0); Mean Corpuscular Hemoglobin 28.6 pg (27.0-33.0); Mean Corpuscular Volume 85.1 fL (80.0-98.0); Mean Platelet Volume 8.8 fL (9.4-12.4); Monocytes Absolute Auto 0.8 X10*3/uL (0.1-1.2); Monocytes Percent Auto 13.1 % (2-11); Neutrophils Absolute Auto 3.4 x10*3/uL (2.0-8.3); Neutrophils Percent Auto 59.3 % (45-73); Platelet Count 208 X10*3/uL (160-400); Red Blood Count 4.69 X10*6/uL (4.60-5.80); Red Cell Distribution Width 15.9 % (11.0-16.0); White Blood Count 5.8 X10*3/uL (4.8-10.8)
[2022-11-30 22:13] LABS: Lactic Acid 1.5 mmol/L (0.5-2.0)
[2022-11-30 22:18] LABS: Alanine Aminotransferase 69 U/L (0-40); Albumin Level 4.5 g/dL (3.5-5.0); Alkaline Phosphatase 108 U/L (39-117); Anion Gap 13 (12-20); Aspartate Amino Transferase 27 U/L (5-37); Bilirubin Total 0.3 mg/dL (0.0-1.0); Blood Urea Nitrogen 14 mg/dL (9-16); Calcium 9.7 mg/dL (8.4-10.2); Carbon Dioxide 24 mmol/L (22-29); Chloride 112 mmol/L (96-108); Creatinine Clr Calc Pharmacy 130.9; Estimated Glomerular Filt Rate > 60; Glucose Random 114 mg/dL (60-115); Potassium 3.9 mmol/L (3.3-5.1); Sodium 145 mmol/L (135-145); Total Protein 7.3 g/dL (6.5-8.0)
--- NOTE | 2022-11-30 22:40 | PC.NURSE ---
L side of neck red and tender to touch on site pt rates pain 10/10 no apparent distress [id number]
--- NOTE | 2022-11-30 22:51 | ED.GENADULT ---
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 Pain is moderate to severe. Worse with palpation. Symptoms appear to have started today. Pain is described as burning in nature. He has had subjective fever but nothing objectively. No chills. Denies any cough, mucus production, shortness breath. He does have some chronic abdominal pain which appears to be stable. The pain is predominantly on the right side. The pain does not radiate. There is no clear relieving or exacerbating features. Patient is being followed by General surgery, colorectal surgery, Oncology, primary care and Gastroenterology Related Data Home Medications Medication Instructions Recorded Confirmed multivitamin (Daily Multi-Vitamin 1 tab PO DAILY 09/11/22 11/19/22 tablet) Previous Rx's Medication Instructions Recorded docusate sodium 100 mg capsule 100 mg PO BID #30 caps 08/15/22 trazodone 50 mg tablet 50 mg PO BEDTIME #30 tabs 10/10/22 capecitabine 150 mg tablet 300 mg PO BID #56 tabs 10/21/22 capecitabine 500 mg tablet 1,500 mg PO BID #84 tabs 10/21/22 dexamethasone 2 mg tablet 2 mg PO BID #30 tabs 10/21/22 loperamide 2 mg capsule (Imodium 2 mg PO Q6H PRN Diarrhea #30 caps 10/21/22 A-D) ondansetron 8 mg disintegrating 8 mg PO Q8H PRN Nausea #30 tabs 10/21/22 tablet polyethylene glycol 3350 17 17 g PO DAILY #510 grams 10/21/22 gram/dose oral powder (Miralax) oxycodone 5 mg tablet 5 mg PO BID PRN pain 5 days #10 10/24/22 tabs famotidine 40 mg tablet 40 mg PO BID #100 tabs 11/01/22 aluminum-mag hydroxide-simethicone 5 ml PO QID PRN Heartburn #200 mL 11/19/22 400 mg-400 mg-40 mg/5 mL oral susp (Mylanta Maximum Strength) doxycycline hyclate 100 mg tablet 100 mg PO BID #20 tabs 11/30/22 oxycodone 5 mg tablet 5 mg PO Q8H PRN pain #10 tabs 11/30/22 Allergies Allergy/AdvReac Type Severity Reaction Status Date / Time aspirin [ASA] Allergy Severe anaphylaxis/facial Verified 11/28/22 13:18 swelling ibuprofen [Advil] Allergy Severe tracheal Verified 11/28/22 13:18 swelling shellfish derived Allergy Severe Anaphylaxis Verified 11/28/22 13:18 Review of Systems Review of Systems: CONSTITUTIONAL: Denies weight loss, fever and chills. HEENT: Denies changes in vision and hearing. RESPIRATORY: Denies SOB and cough. CV: Denies palpitations no CP. GI: Positive abdominal pain, negative nausea, vomiting and diarrhea. : Denies dysuria and urinary frequency. MSK: Denies myalgia and joint pain. SKIN: Denies rash and pruritus. NEUROLOGICAL: Denies headache and syncope. PSYCHIATRIC: Denies recent changes in mood. Denies anxiety and depression. All other ROS are negative unless in HPI PMFSH Past Medical History Medical History Anxiety Cancer of appendix History of COVID-19 Hospital discharge follow-up Migraines Mild recurrent major depression Physical exam Pulmonary nodules Screen for colon cancer Surgical History H/O umbilical hernia repair History of esophagogastroduodenoscopy (EGD) History of right hemicolectomy Hx of appendectomy Hx of colonoscopy Family History Family History Father Colon cancer, Onset Age: 63 Liver cancer Mother Breast cancer Diabetes Hypertension Maternal Grandmother Cancer Paternal Aunt Cancer Family/Other FH: mental illness Social History Social History Household Members: Spouse Housing: House Are you a primary district manager primary care sales to a significant other at home: No Do you presently have visiting nurse or other home services: No Alcohol intake: former Patient Tobacco Use Status: Former Tobacco user Quit Date: 1year ago Tobacco use type: Cigarette e-Cigarette/Vaping Use: Never Used Second Hand Smoke Exposure: No Advance Directives: No Advance Directives Information Provided: Yes service: No Current occupational status: unemployed Current occupational exposures/hazards: No Cognitive needs: No Hearing needs: No Vision needs: No Physical Exam ED Vital Signs: Vital Signs - 24 hr 11/30/22 21:35 Temperature 98.5 F Pulse Rate 101 H Respiratory Rate 20 Blood Pressure 146/101 H Pulse Oximetry 96 Oxygen Delivery Method Room Air BMI result Body Mass Index 34.1 GEN: Well developed, no acute distress, alert, oriented HEENT: Normocephalic, atraumatic, normal external ears, nose appears normal Eyes: Normal to appearance Neck: Supple, no lymphadenopathy Respiratory: Talks in complete sentences, no respiratory distress Extremities: No clubbing cyanosis or edema Neurologic: No focal neurologic deficits, cranial nerves 2-12 intact, gait normal Skin: On the right neck, and area approximately 1 and half to 2 cm in diameter of erythematous changes and slight tissue swelling. There is no fluctuance services are definitive abscess formation. Rest of the port area looks good and no infection. Course Course Course Narrative: Patient presented with pain, redness and swelling to the right neck area. This is overlying the area work port is placed for chemotherapy. Patient distally complains of some abdominal pain which is chronic and unchanged. It appears that there is a skin infection overlying the port. It is unclear whether this truly represents a port infection. In any event, we cannot remove the port at this time. Hemodynamically stable, no elevated white blood cell count or left shift. No bandemia. No fevers. Would start patient on oral antibiotics to follow up with Dr. Walter, provider who placed port. Any worsening or concerning symptoms, patient return for re-evaluation. I will prescribe some oxycodone for him agrees currently on a bowel regimen. Will continue the bowel regimen. He is aware that narcotics can cause constipation Medical Decision Making Medical Decision Making MDM Narrative: 41-year-old male with cancer on chemotherapy presents with swelling, redness and pain to the right neck area. Approximately 1 month ago, patient had a port placed. His symptoms appear dose started today. He is on chemotherapy. He has no fever, he is hemodynamically stable. There is is area of erythematous skin changes that is tender to palpation. No discrete abscess is clearly formed. He will obtain routine laboratory analysis to make sure he does not have a significant bandemia. Assuming everything is okay, patient may be discharged home on oral antibiotics and close follow-up. Differential Diagnosis Differential Diagnoses: The differential diagnosis associated with the presentation includes (Cellulitis, port infection, abscess, rash) Cellulitis Admission/Observation Consideration of admission/observation: Escalation of care including admission/observation considered (Pending a determination of sepsis) Lab Data MDM Lab Attestation statement: I reviewed the patient's lab results. 11/30/22 21:53 11/30/22 21:53 Labs: Lab Results 11/30/22 11/30/22 11/30/22 Range/Units 21:53 21:53 21:53 WBC 5.8 (4.8-10.8) X10*3/uL RBC 4.69 (4.60-5.80) X10*6/uL Hgb 13.4 L (14.0-18.0) g/dl Hct 39.9 L (42.0-52.0) % MCV 85.1 (80.0-98.0) fL MCH 28.6 (27.0-33.0) pg MCHC 33.6 (31.0-36.0) g/dl RDW 15.9 (11.0-16.0) % Plt Count 208 (160-400) X10*3/uL MPV 8.8 L (9.4-12.4) fL Immature Gran % (Auto) 0.3 (0.0-0.4) % Neut % (Auto) 59.3 (45-73) % Lymph % (Auto) 25.2 (20-40) % [place] % (Auto) 13.1 H (2-11) % Eos % (Auto) 1.6 (0-4) % Baso % (Auto) 0.5 (0-2) % Lymph # (Auto) 1.5 (1.2-4.9) X10*3/uL [place] # (Auto) 0.8 (0.1-1.2) X10*3/uL Eos # (Auto) 0.1 (0.0-0.4) X10*3/uL Baso # (Auto) 0.0 (0.0-0.2) X10*3/uL Abs Immat Gran (auto) 0.02 (0.00-0.03) X10*3/uL Absolute Neuts (auto) 3.4 (2.0-8.3) x10*3/uL Absolute Nucleated RBC 0.000 (0.0-0.012) X10*3/uL Nucleated RBC % (auto) 0.0 (0.0-0.2) /100WBC Sodium 145 (135-145) mmol/L Potassium 3.9 (3.3-5.1) mmol/L Chloride 112 H (96-108) mmol/L Carbon Dioxide 24 (22-29) mmol/L Anion Gap 13 (12-20) BUN 14 (9-16) mg/dL Creatinine 0.77 (0.5-1.4) mg/dL Estim Creat Clear Calc 130.9 Estimated GFR > 60 Random Glucose 114 (60-115) mg/dL Lactic Acid 1.5 (0.5-2.0) mmol/L Calcium 9.7 (8.4-10.2) mg/dL Total Bilirubin 0.3 (0.0-1.0) mg/dL AST 27 (5-37) U/L ALT 69 H (0-40) U/L Alkaline Phosphatase 108 (39-117) U/L Total Protein 7.3 (6.5-8.0) g/dL Albumin 4.5 (3.5-5.0) g/dL Independent Interpretation I performed an independent interpretation of an: Plain X-Ray (Chest: No acute cardiopulmonary disease) External Record Review External record reviewed: Office record Tests considered The following testing was considered but not selected: CT of the neck Prescription Management I considered prescription management with: Pain Medication and Antibiotic Discharge Plan Discharge Clinical Impression: Cellulitis Patient Disposition: Home, Self-Care Instructions: Cellulitis (ED) Prescriptions: New doxycycline hyclate 100 mg tablet 100 mg PO BID Qty: 20 0RF oxycodone 5 mg tablet 5 mg PO Q8H PRN (Reason: pain) Qty: 10 0RF Rx Instructions: Partial Fill upon patient request. No Action trazodone 50 mg tablet 50 mg PO BEDTIME Qty: 30 2RF docusate sodium 100 mg Capsule 100 mg PO BID Qty: 30 0RF capecitabine 500 mg Tablet 1,500 mg PO BID Qty: 84 6RF Rx Instructions: for 14 days per 21-day cycle; must administer with water 30 minutes after a meal capecitabine 150 mg Tablet 300 mg PO BID Qty: 56 6RF Rx Instructions: administer with 3 - 500 mg tabs for each dose; must give with water 30 minutes after a meal loperamide [Imodium A-D] 2 mg Capsule 2 mg PO Q6H PRN (Reason: Diarrhea) Qty: 30 2RF ondansetron 8 mg Tablet,Disintegrating 8 mg PO Q8H PRN (Reason: Nausea) Qty: 30 3RF dexamethasone 2 mg Tablet 2 mg PO BID Qty: 30 3RF Rx Instructions: for 2 days after chemo alum-mag hydroxide-simeth [Mylanta Maximum Strength] 400-400-40 mg/5 mL Suspension 5 ml PO QID PRN (Reason: Heartburn) Qty: 200 3RF multivitamin [Daily Multi-Vitamin] Tablet 1 tab PO DAILY oxycodone 5 mg tablet 5 mg PO BID PRN (Reason: pain) 5 Days Qty: 10 0RF Rx Instructions: Partial Fill upon patient request. famotidine 40 mg tablet 40 mg PO BID Qty: 100 2RF polyethylene glycol 3350 [Miralax] 17 gram/dose powder 17 g PO DAILY Qty: 510 0RF Referrals: Carri Walter MD [Physician] - (eval for port infection)
[2022-11-30 22:54] VITALS: BP 117/79; PULSE 90; RESP 16; TEMP 36.9; O2SAT 98
[2022-11-30] MEDS: oxyCODONE HCl Immed Release 5 MG TABLET PO (22:58)
[2022-11-30] MEDS: Doxycycline Monohydrate 100 MG CAPSULE PO (22:58)
--- NOTE | 2022-11-30 23:29 | PC.NURSE ---
Discharge instructions given and explained to patient No apparent distress ambulates safely and independently [id number] All of pt's questions answered
== END 2022-11-30 23:20 | disposition home or self-care (01) ==
PROVIDERS: Emergency Provider Emergency Medicine; PCP Internal Medicine
DX: L03.313 Cellulitis of chest wall (principal); C18.1 Malignant neoplasm of appendix; Z95.828 Presence of other vascular implants and grafts; Z92.21 Personal history of antineoplastic chemotherapy; Z90.49 Acquired absence of other specified parts of digestive tract
CPT/HCPCS: 36415; 71046; 80053; 83605; 85025; 87040; 99283; 99284

== ENCOUNTER 2022-12-02 09:46 | Outpatient (REF) | payer OTHER, SELFPAY ==
--- NOTE | ~2022-12-02 | US_ITS ---
EXAMINATION: US VENOUS WITH DOPPLER UPPER EXTREMITY, RIGHT CLINICAL INFORMATION: Pain right neck at port site COMPARISON: None available. TECHNIQUE: Ultrasound of the upper extremity is performed using compression sonography and color and pulse Doppler flow with assessment of augmentation of flow. There is also imaging and Doppler assessment of the jugular and subclavian veins. Spectral analysis with color-flow imaging is performed. FINDINGS: The right internal jugular, subclavian, axillary, brachial, basilic and cephalic veins are patent. Radial and ulnar veins in the forearm are patent. There is no evidence of DVT. US/US venous duplex UE RT IMPRESSION: No DVT demonstrated in the right upper extremity.
== END 2022-12-02 09:47 | disposition home or self-care (01) ==
LOC: HO.US 09:46
PROVIDERS: PCP Internal Medicine; Visit Provider Internal Medicine
DX: R60.9 Edema, unspecified (principal)
CPT/HCPCS: 93971

== ENCOUNTER 2023-01-15 13:36 | Emergency (ER) | payer OTHER, SELFPAY ==
--- NOTE | ~2023-01-15 | XR_ITS ---
EXAMINATION: XR CHEST CLINICAL INFORMATION: Chest pain and fevers. COMPARISON: 11/30/2022 chest radiograph. TECHNIQUE: 2 views of the chest were obtained. FINDINGS: Support devices: Right-sided central venous port with tip terminating in superior vena cava. The lungs are clear. Probable small calcified granuloma overlying the left lower chest. There are no pleural effusions. The heart and mediastinal structures are unremarkable. XR/XR chest 2V IMPRESSION: No acute cardiopulmonary process.
[2023-01-15 13:43] VITALS: BP 155/86; PULSE 88; RESP 18; TEMP 36.6; O2SAT 95; BMI 34.0
--- NOTE | 2023-01-15 13:43 | ED_ITS ---
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 did not bother much since morning watering with redness and pain in the right eye Related Data Home Medications Medication Instructions Recorded Confirmed multivitamin (Daily Multi-Vitamin 1 tab PO DAILY 09/11/22 12/02/22 tablet) Previous Rx's Medication Instructions Recorded docusate sodium 100 mg capsule 100 mg PO BID #30 caps 08/15/22 capecitabine 150 mg tablet 300 mg PO BID #56 tabs 10/21/22 capecitabine 500 mg tablet 1,500 mg PO BID #84 tabs 10/21/22 dexamethasone 2 mg tablet 2 mg PO BID #30 tabs 10/21/22 loperamide 2 mg capsule (Imodium 2 mg PO Q6H PRN Diarrhea #30 caps 10/21/22 A-D) ondansetron 8 mg disintegrating 8 mg PO Q8H PRN Nausea #30 tabs 10/21/22 tablet polyethylene glycol 3350 17 17 g PO DAILY #510 grams 10/21/22 gram/dose oral powder (Miralax) oxycodone 5 mg tablet 5 mg PO BID PRN pain 5 days #10 10/24/22 tabs famotidine 40 mg tablet 40 mg PO BID #100 tabs 11/01/22 aluminum-mag hydroxide-simethicone 5 ml PO QID PRN Heartburn #200 mL 11/19/22 400 mg-400 mg-40 mg/5 mL oral susp (Mylanta Maximum Strength) doxycycline hyclate 100 mg tablet 100 mg PO BID #20 tabs 11/30/22 oxycodone 5 mg tablet 5 mg PO Q8H PRN pain #10 tabs 11/30/22 trazodone 50 mg tablet 50 mg PO BEDTIME #90 tabs 01/13/23 tobramycin 0.3 % eye drops 2 drp ophthalmic-Right Q4H #5 mL 01/15/23 Allergies Allergy/AdvReac Type Severity Reaction Status Date / Time aspirin [ASA] Allergy Severe anaphylaxis/facial Verified 01/15/23 13:43 swelling ibuprofen [Advil] Allergy Severe tracheal Verified 01/15/23 13:43 swelling shellfish derived Allergy Severe Anaphylaxis Verified 01/15/23 13:43 Review of Systems Review of Systems: Yes all other systems are reviewed and are negative Eyes: Eyes: Reports photophobia PMFSH Past Medical History Medical History Anxiety History of COVID-19 Hospital discharge follow-up Migraines Mild recurrent major depression Physical exam Pulmonary nodules Screen for colon cancer Surgical History H/O umbilical hernia repair History of esophagogastroduodenoscopy (EGD) History of right hemicolectomy Hx of appendectomy Hx of colonoscopy Family History Family History Father Colon cancer, Onset Age: 63 Liver cancer Mother Breast cancer Diabetes Hypertension Maternal Grandmother Cancer Paternal Aunt Cancer Family/Other FH: mental illness Social History Social History Household Members: Spouse and Children Housing: House Are you a primary child care team lead to a significant other at home: No Do you presently have visiting nurse or other home services: No Alcohol intake: never Patient Tobacco Use Status: Former Tobacco user Quit Date: 1year ago Tobacco use type: Cigarette e-Cigarette/Vaping Use: Never Used Second Hand Smoke Exposure: No Advance Directives: No Advance Directives Information Provided: No service: No Current occupational status: unemployed Current occupational exposures/hazards: No Cognitive needs: No Hearing needs: No Vision needs: No Physical Exam ED Vital Signs: Vital Signs - 24 hr 01/15/23 13:43 01/15/23 18:57 Temperature 97.9 F 98.2 F Pulse Rate 88 86 Respiratory Rate 18 18 Blood Pressure 155/86 H 106/78 Pulse Oximetry 95 96 Oxygen Delivery Method Room Air Room Air BMI result Body Mass Index 34.0 Eyes Visual Santos: normal visual santos by confrontation Eyelids: Yes eyelids normal Conjunctivae: conjunctival abnormal (Injected) right and diffuse Sclerae: sclerae normal Corneas: fluorescein used Pupils: Equal, round and reactive pupils present Direct Ophthalmoscopy: fundi normal bilaterally, anterior chamber normal and photophobia Eyes/upper lids images: 1. 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 Area of right chest where his port is in place is painful which is new, no redness or skin changes. Plan: lab workup and cultures Medications Administered Discontinued Medications Generic Name Dose Route Start Last Admin Trade Name Freq PRN Reason Stop Dose Admin Fluorescein Sodium 1 strip 01/15/23 18:46 01/15/23 19:11 Fluorescein Sodium Strip EYE-RIGHT 01/15/23 18:47 1 strip ONCE ONE Administration Tobramycin Sulfate 2 drop 01/15/23 18:46 01/15/23 19:11 Tobramycin Sulfate 0.3% Brianna Op 5 Ml Btl EYE-RIGHT 01/15/23 18:47 2 drop ONCE ONE Administration Procedures FB Removal Eye Time Out performed: Yes Location: eye (R) Topical anesthetic used: tetracaine Foreign body: metal Evidence of corneal penetration: Yes Technique: needle Procedure performed under: direct visualization with magnification Post-procedure medication: ophthalmic antibiotic and topical anesthetic Patient tolerated procedure: well Complications: residual rust ring Medical Decision Making Lab Data 01/15/23 14:07 01/15/23 14:07 Labs: Lab Results 01/15/23 01/15/23 01/15/23 Range/Units 14:07 14:07 14:07 WBC 9.0 (4.8-10.8) X10*3/uL RBC 4.30 L (4.60-5.80) X10*6/uL Hgb 12.4 L (14.0-18.0) g/dl Hct 38.4 L (42.0-52.0) % MCV 89.3 (80.0-98.0) fL MCH 28.8 (27.0-33.0) pg MCHC 32.3 (31.0-36.0) g/dl RDW 17.0 H (11.0-16.0) % Plt Count 154 L D (160-400) X10*3/uL MPV 10.4 (9.4-12.4) fL Immature Gran % (Auto) 0.8 H (0.0-0.4) % Neut % (Auto) 65.4 (45-73) % Lymph % (Auto) 15.8 L (20-40) % [place] % (Auto) 15.1 H (2-11) % Eos % (Auto) 2.1 (0-4) % Baso % (Auto) 0.8 (0-2) % Lymph # (Auto) 1.4 (1.2-4.9) X10*3/uL [place] # (Auto) 1.4 H (0.1-1.2) X10*3/uL Eos # (Auto) 0.2 (0.0-0.4) X10*3/uL Baso # (Auto) 0.1 (0.0-0.2) X10*3/uL Abs Immat Gran (auto) 0.07 H (0.00-0.03) X10*3/uL Absolute Neuts (auto) 5.9 (2.0-8.3) x10*3/uL Absolute Nucleated RBC 0.000 (0.0-0.012) X10*3/uL Nucleated RBC % (auto) 0.0 (0.0-0.2) /100WBC Sodium 140 (135-145) mmol/L Potassium 4.0 (3.3-5.1) mmol/L Chloride 110 H (96-108) mmol/L Carbon Dioxide 25 (22-29) mmol/L Anion Gap 9 L (12-20) BUN 10 (9-16) mg/dL Creatinine 0.71 (0.5-1.4) mg/dL Estim Creat Clear Calc 140.4 Estimated GFR > 60 Random Glucose 96 (60-115) mg/dL Lactic Acid 1.1 (0.5-2.0) mmol/L Calcium 9.3 (8.4-10.2) mg/dL Magnesium 2.1 (1.6-2.6) mg/dL Total Bilirubin 0.3 (0.0-1.0) mg/dL Direct Bilirubin 0.2 (0.0-0.5) mg/dL AST 42 H (5-37) U/L ALT 131 H (0-40) U/L Alkaline Phosphatase 195 H (39-117) U/L Total Protein 7.2 (6.5-8.0) g/dL Albumin 4.3 (3.5-5.0) g/dL Discharge Plan Discharge Clinical Impression: Corneal foreign body Patient Disposition: Home, Self-Care Instructions: Eye Foreign Body (ED) Additional Instructions: Local care as advised Eyedrops 2 drops every 4 hours until heals completely Prescriptions: New tobramycin 0.3 % drops 2 drp ophthalmic-Right Q4H Qty: 5 0RF No Action trazodone 50 mg tablet 50 mg PO BEDTIME Qty: 90 0RF docusate sodium 100 mg Capsule 100 mg PO BID Qty: 30 0RF capecitabine 500 mg Tablet 1,500 mg PO BID Qty: 84 6RF Rx Instructions: for 14 days per 21-day cycle; must administer with water 30 minutes after a meal capecitabine 150 mg Tablet 300 mg PO BID Qty: 56 6RF Rx Instructions: administer with 3 - 500 mg tabs for each dose; must give with water 30 minutes after a meal loperamide [Imodium A-D] 2 mg Capsule 2 mg PO Q6H PRN (Reason: Diarrhea) Qty: 30 2RF ondansetron 8 mg Tablet,Disintegrating 8 mg PO Q8H PRN (Reason: Nausea) Qty: 30 3RF dexamethasone 2 mg Tablet 2 mg PO BID Qty: 30 3RF Rx Instructions: for 2 days after chemo alum-mag hydroxide-simeth [Mylanta Maximum Strength] 400-400-40 mg/5 mL Suspension 5 ml PO QID PRN (Reason: Heartburn) Qty: 200 3RF multivitamin [Daily Multi-Vitamin] Tablet 1 tab PO DAILY doxycycline hyclate 100 mg tablet 100 mg PO BID Qty: 20 0RF oxycodone 5 mg tablet 5 mg PO Q8H PRN (Reason: pain) Qty: 10 0RF Rx Instructions: Partial Fill upon patient request. oxycodone 5 mg tablet 5 mg PO BID PRN (Reason: pain) 5 Days Qty: 10 0RF Rx Instructions: Partial Fill upon patient request. famotidine 40 mg tablet 40 mg PO BID Qty: 100 2RF polyethylene glycol 3350 [Miralax] 17 gram/dose powder 17 g PO DAILY Qty: 510 0RF Interventions: ED Discharge Assessment Last Done: 01/15/23 19:46 Discharge Date/Time: 01/15/23 19:46
[2023-01-15 14:52] LABS: Lactic Acid 1.1 mmol/L (0.5-2.0)
[2023-01-15 14:55] LABS: MANUAL DIFF FLAG NO
[2023-01-15 15:01] LABS: Basophils Absolute Auto 0.1 X10*3/uL (0.0-0.2); Basophils Percent Auto 0.8 % (0-2); Eosinophils Absolute Auto 0.2 X10*3/uL (0.0-0.4); Eosinophils Percent Auto 2.1 % (0-4); Hematocrit 38.4 % (42.0-52.0); Hemoglobin 12.4 g/dl (14.0-18.0); Imm Gran Abs Auto 0.07 X10*3/uL (0.00-0.03); Imm Gran Pct Auto 0.8 % (0.0-0.4); Lymphocytes Absolute Auto 1.4 X10*3/uL (1.2-4.9); Lymphocytes Percent Auto 15.8 % (20-40); Mean Corpuscular HGB Conc 32.3 g/dl (31.0-36.0); Mean Corpuscular Hemoglobin 28.8 pg (27.0-33.0); Mean Corpuscular Volume 89.3 fL (80.0-98.0); Mean Platelet Volume 10.4 fL (9.4-12.4); Monocytes Absolute Auto 1.4 X10*3/uL (0.1-1.2); Monocytes Percent Auto 15.1 % (2-11); Neutrophils Absolute Auto 5.9 x10*3/uL (2.0-8.3); Neutrophils Percent Auto 65.4 % (45-73); Platelet Count 154 X10*3/uL (160-400)
[2023-01-15 15:17] LABS: Alanine Aminotransferase 131 U/L (0-40); Albumin Level 4.3 g/dL (3.5-5.0); Alkaline Phosphatase 195 U/L (39-117); Anion Gap 9 (12-20); Aspartate Amino Transferase 42 U/L (5-37); Bilirubin Direct 0.2 mg/dL (0.0-0.5); Bilirubin Total 0.3 mg/dL (0.0-1.0); Blood Urea Nitrogen 10 mg/dL (9-16); Calcium 9.3 mg/dL (8.4-10.2); Carbon Dioxide 25 mmol/L (22-29); Chloride 110 mmol/L (96-108); Creatinine Clr Calc Pharmacy 140.4; Estimated Glomerular Filt Rate > 60; Glucose Random 96 mg/dL (60-115); Magnesium 2.1 mg/dL (1.6-2.6); Sodium 140 mmol/L (135-145); Total Protein 7.2 g/dL (6.5-8.0)
[2023-01-15 18:57] VITALS: BP 106/78; PULSE 86; RESP 18; TEMP 36.8; O2SAT 96
[2023-01-15] MEDS: Fluorescein Sodium STRIP 1 STRIP EYE-RIGHT (19:11)
[2023-01-15] MEDS: Tobramycin Sulfate 0.3% Sol Op 5 ML BTL 2 DROP EYE-RIGHT (19:11)
== END 2023-01-15 19:46 | disposition home or self-care (01) ==
PROVIDERS: Physician Assistant; Emergency Provider Internal Medicine; PCP Internal Medicine
DX: T15.01XA Foreign body in cornea, right eye, initial encounter (principal)
CPT/HCPCS: 36415; 65205; 71046; 80048; 80076; 83605; 83735; 85025; 87040; 99283

== ENCOUNTER 2023-03-06 20:18 | Emergency (ER) | payer OTHER, SELFPAY ==
--- NOTE | ~2023-03-06 | CT_ITS ---
EXAMINATION: CT ABDOMEN AND PELVIS WITH CONTRAST CLINICAL INFORMATION: Left upper quadrant pain.. Previous cancer. Appendix. COMPARISON: CT abdomen and pelvis 09/12/2022 TECHNIQUE: Multidetector volumetric images were obtained from the superior aspect of the liver through the pubic symphysis following administration 85 mL of Omnipaque 350 intravenous contrast. Sagittal and coronal reformatted images were obtained on the technologist's workstation. Oral contrast: No This CT examination was performed using dose optimization techniques as appropriate, variously including the following: *Automated exposure control *Adjustment of mA and/or kV according to patient size (this includes techniques or standardized protocols for targeted exams where dose is matched to indication/reason for exam; i.e. extremities or head) *Use of iterative reconstruction technique DLP: 669 mGy-cm FINDINGS: LUNG BASES: There is bibasilar atelectatic changes. There is 6 mm left basilar calcified granuloma. The heart size is normal. LIVER, GALLBLADDER, AND BILIARY TREE: The liver is diffusely attenuated with but normal size and shape. No focal lesion or intrahepatic ductal dilatation seen. There is no perihepatic fluid collection. The gallbladder is unremarkable. PANCREAS: Unremarkable. SPLEEN: Unremarkable. ADRENAL GLANDS: Unremarkable. KIDNEYS AND URETERS: The kidneys are normal in size, shape, and attenuation. No hydronephrosis, hydroureter, or calculi seen. No perinephric stranding. BLADDER: Unremarkable. GASTROINTESTINAL TRACT: There is a partial right hemicolectomy with patent anastomosis. Rest the colon is unremarkable the small bowel loops are normal caliber. No free air or free fluid seen. There is no suspicion for obstruction or mural thickening at the anastomosis or in the rest of the colon. Appendix is not seen. ABDOMINAL WALL: Trace soft tissue abnormality seen along the anterior abdominal wall likely from previous intervention changes. No evidence of hernia. LYMPH NODES: Normal. VASCULAR: Unremarkable. PELVIC VISCERA: The prostate gland is mildly enlarged with central gland calcification. No free air or free fluid. OSSEOUS STRUCTURES: No aggressive lytic or sclerotic process seen. CT/CT abdomen pelvis w IV con IMPRESSION: Right hemicolectomy changes without obstruction. No thickening seen at the enterocolic anastomosis. Mild constipation Suspect mild fatty liver. No focal lesion. Fleischner guidelines were followed.
[2023-03-06 21:05] VITALS: BP 133/91; PULSE 99; RESP 18; TEMP 36.8; O2SAT 99; BMI 34.0
--- NOTE | 2023-03-06 21:45 | ED_ITS ---
HPI - Fever General Chief Complaint: Fever Stated Complaint: fever, chemotherapy, suture inj? 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 On chemotherapy has finished 6 cycles of chemotherapy on XELOX regimen and taking folfox last dose was yesterday comes here for feeling weak low-grade fever body aches abdominal pain since earlier today which is unusual for him after chemotherapy no cough no shortness of breath does have some chills no sore throat no upper respiratory symptoms no urinary symptom Related Data Home Medications Medication Instructions Recorded Confirmed multivitamin (Daily Multi-Vitamin 1 tab PO DAILY 09/11/22 03/03/23 tablet) Previous Rx's Medication Instructions Recorded docusate sodium 100 mg capsule 100 mg PO BID #30 caps 08/15/22 dexamethasone 2 mg tablet 2 mg PO BID #30 tabs 10/21/22 loperamide 2 mg capsule (Imodium 2 mg PO Q6H PRN Diarrhea #30 caps 10/21/22 A-D) ondansetron 8 mg disintegrating 8 mg PO Q8H PRN Nausea #30 tabs 10/21/22 tablet famotidine 40 mg tablet 40 mg PO BID #100 tabs 11/01/22 doxycycline hyclate 100 mg tablet 100 mg PO BID #20 tabs 11/30/22 trazodone 50 mg tablet 50 mg PO BEDTIME #90 tabs 01/13/23 tobramycin 0.3 % eye drops 2 drp ophthalmic-Right Q4H #5 mL 01/15/23 aluminum-mag hydroxide-simethicone 5 ml PO QID PRN Heartburn #200 mL 02/17/23 400 mg-400 mg-40 mg/5 mL oral susp (Mylanta Maximum Strength) polyethylene glycol 3350 17 17 g PO DAILY #510 grams 02/17/23 gram/dose oral powder (Miralax) Allergies Allergy/AdvReac Type Severity Reaction Status Date / Time aspirin [ASA] Allergy Severe anaphylaxis/facial Verified 03/06/23 21:04 swelling ibuprofen [Advil] Allergy Severe tracheal Verified 03/06/23 21:04 swelling shellfish derived Allergy Severe Anaphylaxis Verified 03/06/23 21:04 Review of Systems 2 Review of Systems: Yes all other systems are reviewed and are negative PMFSH Past Medical History Medical History History of COVID-19 Physical exam Anxiety Hospital discharge follow-up Mild recurrent major depression Screen for colon cancer Pulmonary nodules Migraines Surgical History H/O umbilical hernia repair History of esophagogastroduodenoscopy (EGD) History of right hemicolectomy Hx of appendectomy Hx of colonoscopy Family History Family History Father Colon cancer, Onset Age: 63 Liver cancer Mother Breast cancer Diabetes Hypertension Maternal Grandmother Cancer Paternal Aunt Cancer Family/Other FH: mental illness Social History Social History Household Members: Spouse and Children Housing: House Are you a primary career technical counselor to a significant other at home: No Do you presently have visiting nurse or other home services: No Alcohol intake: never Patient Tobacco Use Status: Former Tobacco user Quit Date: 1year ago Tobacco use type: Cigarette e-Cigarette/Vaping Use: Never Used Second Hand Smoke Exposure: No Advance Directives: No Advance Directives Information Provided: Yes service: No Current occupational status: unemployed Current occupational exposures/hazards: No Cognitive needs: No Hearing needs: No Vision needs: No Physical Exam 2 Vital Signs: Vital Signs: Last Vital Signs Temp 98.0 F 03/07/23 00:08 Pulse 82 03/07/23 00:08 Resp 16 03/07/23 00:08 BP 124/84 03/07/23 00:08 Pulse Ox 97 03/07/23 00:08 O2 Del Method Room Air 03/07/23 00:08 BMI result Body Mass Index 34.0 Appearance: Alert. Oriented X3. In mild distress Eyes: PERRLA, No Nystagmus ENT: Pharynx normal. Oral Mucosa moist Neck: Normal inspection. Neck supple. CVS: Normal heart rate and rhythm. Pulses normal. Respiratory: No respiratory distress. Equal air entry bilateral, no wheezing/rales/rhonchi Abdomen: Soft , diffuse tenderness of the abdomen guarding no rebound tenderness Bowel sounds are present, no mass palpable, no CVA tenderness Skin: Skin warm and dry. Normal skin color. Normal skin turgor. Extremities: No lower extremity edema. No calf tenderness Neuro: Oriented X 3. No motor deficit. No sensory deficit.No cerebellar signs , cranial nerves II-XII intact Medications Administered Discontinued Medications Generic Name Dose Route Start Last Admin Trade Name Freq PRN Reason Stop Dose Admin Sodium Chloride 1,000 mls @ 999 mls/hr 03/06/23 21:59 03/06/23 23:18 Ns IV 03/06/23 22:59 Infused .Q1H1M ONE Infusion Sodium Chloride 1,000 mls @ 999 mls/hr 03/07/23 00:27 03/07/23 00:54 Ns IV 03/07/23 01:27 999 mls/hr .Q1H1M ONE Administration Iohexol 100 ml 03/06/23 22:43 03/06/23 22:43 Iohexol 350 Mg/Ml 100 Ml Infus..Btl IV 03/06/23 22:44 85 ml ONCE ONE Administration Morphine Sulfate 4 mg 03/06/23 21:59 03/06/23 22:10 Morphine Sulfate 4 Mg/Ml Cartridge IVPUSH 03/06/23 22:00 4 mg ONCE ONE Administration Protocol Morphine Sulfate 4 mg 03/07/23 00:28 03/07/23 00:54 Morphine Sulfate 4 Mg/Ml Cartridge IVPUSH 03/07/23 00:29 4 mg ONCE ONE Administration Protocol Ondansetron HCl 4 mg 03/06/23 21:59 03/06/23 22:11 Ondansetron Hcl 4 Mg/2 Ml Vial IVPUSH 03/06/23 22:00 4 mg ONCE ONE Administration Medical Decision Making Medical Decision Making [facility] Narrative: Patient with appendix carcinoma on chemotherapy comes with abdominal pain with fever and chills etiology not clear we do the CT scan of the abdomen labs rule out sepsis Differential Diagnosis Differential Diagnoses: The differential diagnosis associated with the presentation includes No abdominal mass/spread of cancer/splenic infarct/infection Lab Data [facility] Lab Attestation statement: I reviewed the patient's lab results. 03/06/23 21:48 03/06/23 21:48 Labs: Lab Results 03/06/23 03/06/23 03/06/23 Range/Units 21:48 21:57 21:59 WBC 60.9 H* (4.8-10.8) X10*3/uL RBC 3.85 L (4.60-5.80) X10*6/uL Hgb 11.9 L (14.0-18.0) g/dl Hct 36.1 L (42.0-52.0) % MCV 93.8 (80.0-98.0) fL MCH 30.9 (27.0-33.0) pg MCHC 33.0 (31.0-36.0) g/dl RDW 18.2 H (11.0-16.0) % Plt Count 199 (160-400) X10*3/uL MPV 9.4 (9.4-12.4) fL Immature Gran % (Auto) Cancelled Neut % (Auto) Cancelled Lymph % (Auto) Cancelled [place] % (Auto) Cancelled Eos % (Auto) Cancelled Baso % (Auto) Cancelled Lymph # (Auto) Cancelled [place] # (Auto) Cancelled Eos # (Auto) Cancelled Baso # (Auto) Cancelled Abs Immat Gran (auto) Cancelled Absolute Neuts (auto) Cancelled Absolute Nucleated RBC 0.000 (0.0-0.012) X10*3/uL Nucleated RBC % (auto) 0.0 (0.0-0.2) /100WBC Neutrophils % (Manual) 87 H (45-73) % Band Neutrophils % 9 H (3-5) % Lymphocytes % (Manual) 4 L (20-40) % Abs Neuts (Manual) 58.5 H (2.0-8.3) X10*3/uL Lymphocytes # (Manual) 2.4 (1.2-4.9) X10*3/uL Toxic Vacuolation PRESENT Dohle Bodies PRESENT Platelet Estimate NORMAL (NORMAL) Plt Morphology Comment NORMAL RBC Morphology NORMAL Sodium 140 (135-145) mmol/L Potassium 3.7 (3.3-5.1) mmol/L Chloride 108 (96-108) mmol/L Carbon Dioxide 22 (22-29) mmol/L Anion Gap 14 (12-20) BUN 18 H (9-16) mg/dL Creatinine 0.79 (0.5-1.4) mg/dL Estim Creat Clear Calc 130.4 Estimated GFR > 60 Random Glucose 117 H (60-115) mg/dL Lactic Acid 1.8 (0.5-2.0) mmol/L Calcium 9.5 (8.4-10.2) mg/dL Total Bilirubin 0.3 (0.0-1.0) mg/dL AST 41 H (5-37) U/L ALT 93 H (0-40) U/L Alkaline Phosphatase 216 H (39-117) U/L Total Protein 7.2 (6.5-8.0) g/dL Albumin 4.3 (3.5-5.0) g/dL Lipase 29 (8-78) U/L Urine Color Urine Appearance Urine pH (5.0-9.0) Ur Specific [place] (1.005-1.025) Urine Protein (Neg-Trace) mg/dL Urine Glucose (UA) (Negative) mg/dL Urine Ketones (Negative) mg/dL Urine Blood (Negative) Urine Nitrite (Negative) Ur Leukocyte Esterase (Negative) COVID-19 (SHANTEL) Negative (Negative) COVID-19 Clin Com See Note 03/07/23 Range/Units 00:30 WBC (4.8-10.8) X10*3/uL RBC (4.60-5.80) X10*6/uL Hgb (14.0-18.0) g/dl Hct (42.0-52.0) % MCV (80.0-98.0) fL MCH (27.0-33.0) pg MCHC (31.0-36.0) g/dl RDW (11.0-16.0) % Plt Count (160-400) X10*3/uL MPV (9.4-12.4) fL Immature Gran % (Auto) Neut % (Auto) Lymph % (Auto) [place] % (Auto) Eos % (Auto) Baso % (Auto) Lymph # (Auto) [place] # (Auto) Eos # (Auto) Baso # (Auto) Abs Immat Gran (auto) Absolute Neuts (auto) Absolute Nucleated RBC (0.0-0.012) X10*3/uL Nucleated RBC % (auto) (0.0-0.2) /100WBC Neutrophils % (Manual) (45-73) % Band Neutrophils % (3-5) % Lymphocytes % (Manual) (20-40) % Abs Neuts (Manual) (2.0-8.3) X10*3/uL Lymphocytes # (Manual) (1.2-4.9) X10*3/uL Toxic Vacuolation Dohle Bodies Platelet Estimate (NORMAL) Plt Morphology Comment RBC Morphology Sodium (135-145) mmol/L Potassium (3.3-5.1) mmol/L Chloride (96-108) mmol/L Carbon Dioxide (22-29) mmol/L Anion Gap (12-20) BUN (9-16) mg/dL Creatinine (0.5-1.4) mg/dL Estim Creat Clear Calc Estimated GFR Random Glucose (60-115) mg/dL Lactic Acid (0.5-2.0) mmol/L Calcium (8.4-10.2) mg/dL Total Bilirubin (0.0-1.0) mg/dL AST (5-37) U/L ALT (0-40) U/L Alkaline Phosphatase (39-117) U/L Total Protein (6.5-8.0) g/dL Albumin (3.5-5.0) g/dL Lipase (8-78) U/L Urine Color Yellow Urine Appearance Clear Urine pH 6.0 (5.0-9.0) Ur Specific [place] >= 1.030 H (1.005-1.025) Urine Protein Negative (Neg-Trace) mg/dL Urine Glucose (UA) Negative (Negative) mg/dL Urine Ketones Negative (Negative) mg/dL Urine Blood Negative (Negative) Urine Nitrite Negative (Negative) Ur Leukocyte Esterase Negative (Negative) COVID-19 (SHANTEL) (Negative) COVID-19 Clin Com Discharge Plan Discharge Clinical Impression: Chemotherapy adverse reaction Patient Disposition: Home, Self-Care Instructions: Viral Syndrome (ED) Additional Instructions: Your symptoms are likely from chemotherapy Drink plenty of fluids Tylenol Motrin for pain and body aches follow-up with your oncologist Prescriptions: No Action trazodone 50 mg tablet 50 mg PO BEDTIME Qty: 90 0RF docusate sodium 100 mg Capsule 100 mg PO BID Qty: 30 0RF loperamide [Imodium A-D] 2 mg Capsule 2 mg PO Q6H PRN (Reason: Diarrhea) Qty: 30 2RF ondansetron 8 mg Tablet,Disintegrating 8 mg PO Q8H PRN (Reason: Nausea) Qty: 30 3RF dexamethasone 2 mg Tablet 2 mg PO BID Qty: 30 3RF Rx Instructions: for 2 days after chemo alum-mag hydroxide-simeth [Mylanta Maximum Strength] 400-400-40 mg/5 mL Suspension 5 ml PO QID PRN (Reason: Heartburn) Qty: 200 3RF polyethylene glycol 3350 [Miralax] 17 gram/dose powder 17 g PO DAILY Qty: 510 0RF multivitamin [Daily Multi-Vitamin] Tablet 1 tab PO DAILY doxycycline hyclate 100 mg tablet 100 mg PO BID Qty: 20 0RF tobramycin 0.3 % drops 2 drp ophthalmic-Right Q4H Qty: 5 0RF famotidine 40 mg tablet 40 mg PO BID Qty: 100 2RF
[2023-03-06] MEDS: Morphine Sulfate 4 MG/ML CARTRIDGE IVPUSH (22:10)
[2023-03-06] MEDS: 0.9 % Sodium Chloride 1,000 ML 999 ML IV (22:11)
[2023-03-06] MEDS: ondansetron HCL 4 MG/2 ML VIAL IVPUSH (22:11)
[2023-03-06 22:15] LABS: Lactic Acid 1.8 mmol/L (0.5-2.0)
[2023-03-06 22:17] VITALS: BP 126/74; PULSE 92; RESP 16; O2SAT 96
[2023-03-06 22:18] LABS: COVID-19 Test Negative (Negative); IDNOW Serial# 08D9AD1C
[2023-03-06 22:21] LABS: Alanine Aminotransferase 93 U/L (0-40); Albumin Level 4.3 g/dL (3.5-5.0); Alkaline Phosphatase 216 U/L (39-117); Anion Gap 14 (12-20); Aspartate Amino Transferase 41 U/L (5-37); Bilirubin Total 0.3 mg/dL (0.0-1.0); Blood Urea Nitrogen 18 mg/dL (9-16); Calcium 9.5 mg/dL (8.4-10.2); Carbon Dioxide 22 mmol/L (22-29); Chloride 108 mmol/L (96-108); Creatinine Clr Calc Pharmacy 130.4; Estimated Glomerular Filt Rate > 60; Glucose Random 117 mg/dL (60-115); Lipase 29 U/L (8-78); Potassium 3.7 mmol/L (3.3-5.1); Sodium 140 mmol/L (135-145); Total Protein 7.2 g/dL (6.5-8.0)
[2023-03-06 22:22] LABS: Hematocrit 36.1 % (42.0-52.0); Hemoglobin 11.9 g/dl (14.0-18.0); Mean Corpuscular Hemoglobin 30.9 pg (27.0-33.0); Mean Corpuscular Volume 93.8 fL (80.0-98.0); Mean Platelet Volume 9.4 fL (9.4-12.4); Platelet Count 199 X10*3/uL (160-400); Red Blood Count 3.85 X10*6/uL (4.60-5.80); Red Cell Distribution Width 18.2 % (11.0-16.0)
[2023-03-06 22:34] LABS: WBC ABN SCTR FOR CBC 1
[2023-03-06 22:35] LABS: White Blood Count 60.9 X10*3/uL (4.8-10.8)
[2023-03-06] MEDS: iohexoL 350 MG/ML 100 ML INFUS..BTL IV (22:43)
[2023-03-06 22:47] LABS: Band Neutrophils Percent 9 % (3-5); Lymphocytes Absolute Manual 2.4 X10*3/uL (1.2-4.9); Lymphocytes Percent Manual 4 % (20-40); Neutrophils Absolute Manual 58.5 X10*3/uL (2.0-8.3); Neutrophils Percent Manual 87 % (45-73)
[2023-03-06 22:51] LABS: Dohle Bodies PRESENT; RBC Morphology NORMAL; Toxic Vacuolation PRESENT
[2023-03-06 22:52] LABS: Platelet Estimate NORMAL (NORMAL); Platelet Morphology Comment NORMAL
[2023-03-07 00:08] VITALS: BP 124/84; PULSE 82; RESP 16; TEMP 36.7; O2SAT 97
[2023-03-07 00:51] LABS: Appearance Urine Clear; Color Urine Yellow; Glucose Urine UA Negative (Negative); Leukocyte Esterase Urine Negative (Negative); Nitrite Urine Negative (Negative); Specific Gravity - Urine >= 1.030 (1.005-1.025); Urine Blood Negative (Negative); Urine Ketones Negative (Negative); Urine Protein Negative (Neg-Trace)
[2023-03-07] MEDS: Morphine Sulfate 4 MG/ML CARTRIDGE IVPUSH (00:54)
[2023-03-07] MEDS: 0.9 % Sodium Chloride 1,000 ML 999 ML IV (00:54)
== END 2023-03-07 02:04 | disposition home or self-care (01) ==
PROVIDERS: Emergency Provider Internal Medicine; PCP Internal Medicine
DX: R50.9 Fever, unspecified (principal); R53.1 Weakness; T45.1X5A Adverse effect of antineoplastic and immunosuppressive drugs, initial encounter; Y92.9 Unspecified place or not applicable; C18.1 Malignant neoplasm of appendix; Z20.822 Contact with and (suspected) exposure to COVID-19; Z90.49 Acquired absence of other specified parts of digestive tract; Z92.21 Personal history of antineoplastic chemotherapy; Z87.891 Personal history of nicotine dependence
CPT/HCPCS: 36415; 74177; 80053; 81003; 83605; 83690; 85007; 85027; 87040; 87147; 87205; 87635; 96361; 96374; 96375; 96376; 99284; J2270; J2405; Q9967

== ENCOUNTER 2023-03-07 11:18 | Outpatient (AMB) | payer OTHER, SELFPAY ==
--- NOTE | 2023-03-07 11:19 | MHC.OFFVIS ---
Intake Vital Signs 03/07/23 11:21 Height 5 ft 6 in Weight 209 lb 7.026 oz BMI 33.8 BP 137/83 Blood Pressure Location Lt brachial Position Sitting Pulse 90 Intake Visit Reasons: 2 month follow up Intake Note: Carlos presents in the office as a 2 month follow up. CC: States that he was in the ED yesterday and states that the last two chemo sessions hit him very hard. He was discharged this morning. 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) he had been referred to oncology dr Xavier spoke to me and felt there were changes in the mesentry consistent with crohns and IBD he does not use NSAIDs he has some pain over the lap scars, otherwise he feels well, avoiding opiates due to constipation he matta shave joint pains and psoriatic type rash from time to time, but no mouth sores he eventually had a right hemicolectomy with no residual cancer noted Capsule: gastritis cT 06/2022-- no focal findings He then had an admission for abdominal pain with tests revealing inflammation around the anastomosis his CRP came down and he was passing stool and gas d/c'ed 09/17/22 with pred tper during stay there was concern about an umbilical hernia and this was repaired fecal lactoferrin was normal INTERIM: He conts on chemo for goblet cell adenoca of appendix --XELOX was changed to FOLFOX He has a hard time with the chemo-makes him unwell, fatigue he had upper and mid abdo pain, poor taste, went to ED< no acute findings on CT he is now unsure if budeosnide had helped him in the past or not he is using stool softener famotidine BID has been good but still need mylanta too much saliva coming out, jaw feels crmapy and painfula t times EXAM: GENERAL: The patient is relaxed, tired looking VITAL SIGNS:see workflow HEENT: Nonicteric sclerae, PERRLA, EOMI. Oropharynx clear. Moist mucous membranes. Conjunctivae appear well perfused. No thyroid mass. CHEST: Chest wall is nontender. HEART: Regular rate and rhythm without murmurs. LUNGS: Clear to auscultation bilaterally. ABDOMEN: Soft, positive bowel sounds, mildly tender rlq and lower abdo, no organomegaly. , scars noted, SKIN: No rash, no excessive bruising, petechiae, or purpura. NEUROLOGIC: Cranial nerves II-XII intact without motor/sensory deficit. pscyh--nml no oral lesions, tender over parotid glands A?P: 1/ Possible crohns, ongoing right sided pain and discomfort, with constipation--stopped budeosnide as he felt better, now on chemo--seems to be more chemo related SE, might be stopping soon 2/ goblet cell ca of appendix, rare cancer, had his hemicolectomy now on chemo PLAN: 1/ miralax--resend 2/?cont wt famotidine- 3/ check fecal lactoferrin 4/ can reassess need for treatment for possible crohns after chemo 5/ can try benadryl for salivary xs and irritation otherwise can send him low dose TCA, PFSH Medical History History of COVID-19 Physical exam Anxiety Hospital discharge follow-up Mild recurrent major depression Screen for colon cancer Pulmonary nodules Migraines Surgical History H/O umbilical hernia repair History of esophagogastroduodenoscopy (EGD) History of right hemicolectomy Hx of appendectomy Hx of colonoscopy Family History Father Colon cancer, Onset Age: 63 Liver cancer Mother Breast cancer Diabetes Hypertension Maternal Grandmother Cancer Paternal Aunt Cancer Family/Other FH: mental illness Social History Household Members: Spouse and Children Housing: House Are you a primary customer care team coach to a significant other at home: No Do you presently have visiting nurse or other home services: No Alcohol intake: never Patient Tobacco Use Status: Former Tobacco user Quit Date: 1year ago Tobacco use type: Cigarette e-Cigarette/Vaping Use: Never Used Second Hand Smoke Exposure: No service: No Current occupational status: unemployed Current occupational exposures/hazards: No Cognitive needs: No Hearing needs: No Vision needs: No Physical Exam Vital Signs: Last Vital Signs Pulse 90 03/07/23 11:21 BP 137/83 03/07/23 11:21 BMI result Body Mass Index 33.8 Assessment & Plan Assessment & Plan (1) Chemotherapy adverse reaction: Code(s): T45.1X5A - Adverse effect of antineoplastic and immunosuppressive drugs, initial encounter (2) H/O right hemicolectomy: Code(s): Z90.49 - Acquired absence of other specified parts of digestive tract (3) Ileitis: Comment: No oral ulcers, no NSAID Code(s): K52.9 - Noninfective gastroenteritis and colitis, unspecified Orders: Orders Lactoferrin, Fecal, Quant. Today K51.50 - Left sided colitis without complications Medications: Refilled trazodone 50 mg PO BEDTIME 90 tabs 0RF alum-mag hydroxide-simeth 400-400-40 mg/5 mL (Mylanta Maximum Strength) 5 mL PO QID PRN 200 mL 3RF Heartburn polyethylene glycol 3350 (Miralax) 17 grams PO DAILY 510 grams 2RF Coding Level of Care Code Est Pt Level 3 (99817) Diagnoses Chemotherapy adverse reaction T45.1X5A H/O right hemicolectomy Z90.49 Ileitis K52.9
[2023-03-07 11:21] VITALS: BP 137/83; PULSE 90; BMI 33.8
== END 2023-03-07 12:30 | disposition home or self-care (01) ==
PROVIDERS: PCP Internal Medicine; Visit Provider Internal Medicine Gastroenterology
DX: T45.1X5A Adverse effect of antineoplastic and immunosuppressive drugs, initial encounter (principal); Z90.49 Acquired absence of other specified parts of digestive tract; K52.9 Noninfective gastroenteritis and colitis, unspecified
CPT/HCPCS: 99213

== ENCOUNTER → 2023-03-07 11:18 | Outpatient (BNVA) | payer OTHER, SELFPAY | PROVIDERS: PCP Internal Medicine; Visit Provider Internal Medicine Gastroenterology | DX: K52.9 Noninfective gastroenteritis and colitis, unspecified (principal); T45.1X5A Adverse effect of antineoplastic and immunosuppressive drugs, initial encounter; Z90.49 Acquired absence of other specified parts of digestive tract | CPT/HCPCS: 99212 ==

== ENCOUNTER 2023-03-25 22:34 | Emergency (ER) | payer OTHER, SELFPAY ==
[2023-03-25 22:43] VITALS: BP 131/84; PULSE 99; RESP 18; TEMP 36.8; O2SAT 97; BMI 34.3
[2023-03-25 23:13] LABS: MANUAL DIFF FLAG NO
[2023-03-25 23:15] LABS: Basophils Percent Auto 0.3 % (0-2); Eosinophils Absolute Auto 0.1 X10*3/uL (0.0-0.4); Hematocrit 33.3 % (42.0-52.0); Hemoglobin 10.8 g/dl (14.0-18.0); Imm Gran Abs Auto 0.02 X10*3/uL (0.00-0.03); Imm Gran Pct Auto 0.3 % (0.0-0.4); Lymphocytes Absolute Auto 1.3 X10*3/uL (1.2-4.9); Lymphocytes Percent Auto 22.5 % (20-40); Mean Corpuscular HGB Conc 32.4 g/dl (31.0-36.0); Mean Corpuscular Hemoglobin 30.9 pg (27.0-33.0); Mean Corpuscular Volume 95.1 fL (80.0-98.0); Mean Platelet Volume 8.7 fL (9.4-12.4); Monocytes Absolute Auto 0.3 X10*3/uL (0.1-1.2); Monocytes Percent Auto 5.5 % (2-11); Neutrophils Absolute Auto 4.1 x10*3/uL (2.0-8.3); Neutrophils Percent Auto 70.4 % (45-73); Platelet Count 183 X10*3/uL (160-400); Red Cell Distribution Width 16.3 % (11.0-16.0); White Blood Count 5.9 X10*3/uL (4.8-10.8)
[2023-03-25 23:27] LABS: COVID-19 Test Negative (Negative); IDNOW Serial# 6674DD1D
[2023-03-25 23:41] LABS: Alanine Aminotransferase 46 U/L (0-40); Albumin Level 4.3 g/dL (3.5-5.0); Alkaline Phosphatase 110 U/L (39-117); Anion Gap 11 (12-20); Aspartate Amino Transferase 25 U/L (5-37); Bilirubin Total 0.3 mg/dL (0.0-1.0); Blood Urea Nitrogen 16 mg/dL (9-16); Carbon Dioxide 22 mmol/L (22-29); Chloride 112 mmol/L (96-108); Estimated Glomerular Filt Rate > 60; Glucose Random 108 mg/dL (60-115); Lipase 23 U/L (8-78); Potassium 3.7 mmol/L (3.3-5.1); Sodium 141 mmol/L (135-145); Total Protein 6.9 g/dL (6.5-8.0)
== END 2023-03-26 01:58 | disposition left against medical advice (07) ==
PROVIDERS: Emergency Provider Emergency Medicine; PCP Internal Medicine
DX: R50.9 Fever, unspecified (principal); R10.11 Right upper quadrant pain; Z11.52 Encounter for screening for COVID-19; C18.1 Malignant neoplasm of appendix
CPT/HCPCS: 80053; 83690; 85025; 87635; 99281; 99283

== ENCOUNTER 2023-03-26 22:10 | Emergency (ER) | payer OTHER, SELFPAY ==
--- NOTE | ~2023-03-26 | XR_ITS ---
EXAMINATION: XR FOOT, RIGHT CLINICAL INFORMATION: Injury. Pain. COMPARISON: None available. TECHNIQUE: AP, lateral, and oblique views of the right foot. FINDINGS: The bones and soft tissues are normal. No fracture. Alignment is anatomic. Joint spaces are maintained. XR/XR foot RT min 3V IMPRESSION: No significant abnormality identified.
[2023-03-26 22:39] VITALS: BP 136/90; PULSE 91; RESP 16; TEMP 37.1; O2SAT 99; BMI 34.1
[2023-03-27 00:45] VITALS: BP 119/82; PULSE 87; RESP 16; TEMP 36.6; O2SAT 98
--- NOTE | 2023-03-27 01:02 | ED_ITS ---
HPI - Extremity Injury (Lower) General Chief Complaint: Extremity Injury, Lower Stated Complaint: Broken toe (?), bleeding Time Seen by Provider: 03/27/23 00:33 History of Present Illness HPI Narrative: Patient is a 42-year-old male complaining of pain to the right great toe. Patient stepped on the toe noticed that the nail is crushed. Came to the ED. there is no fever no chills no systemic complaints the incident was completely accidental. Has a history of hemicolectomy. Currently not on blood thinners. 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 Patient from home. Related Data Home Medications Medication Instructions Recorded Confirmed multivitamin (Daily Multi-Vitamin 1 tab PO DAILY 09/11/22 03/03/23 tablet) Previous Rx's Medication Instructions Recorded docusate sodium 100 mg capsule 100 mg PO BID #30 caps 08/15/22 dexamethasone 2 mg tablet 2 mg PO BID #30 tabs 10/21/22 loperamide 2 mg capsule (Imodium 2 mg PO Q6H PRN Diarrhea #30 caps 10/21/22 A-D) ondansetron 8 mg disintegrating 8 mg PO Q8H PRN Nausea #30 tabs 10/21/22 tablet doxycycline hyclate 100 mg tablet 100 mg PO BID #20 tabs 11/30/22 tobramycin 0.3 % eye drops 2 drp ophthalmic-Right Q4H #5 mL 01/15/23 aluminum-mag hydroxide-simethicone 5 ml PO QID PRN Heartburn #200 mL 03/07/23 400 mg-400 mg-40 mg/5 mL oral susp (Mylanta Maximum Strength) polyethylene glycol 3350 17 17 g PO DAILY #510 grams 03/12/23 gram/dose oral powder (Miralax) trazodone 50 mg tablet 50 mg PO BEDTIME #90 tabs 03/12/23 famotidine 40 mg tablet 40 mg PO BID #180 tabs 03/26/23 Allergies Allergy/AdvReac Type Severity Reaction Status Date / Time aspirin [ASA] Allergy Severe anaphylaxis/facial Verified 03/25/23 22:43 swelling ibuprofen [Advil] Allergy Severe tracheal Verified 03/25/23 22:43 swelling shellfish derived Allergy Severe Anaphylaxis Verified 03/25/23 22:43 Review of Systems Review of Systems: No fever no chills positive pain to the right great toe Yes all other systems are reviewed and are negative [facility] Past Medical History Medical History History of COVID-19 Physical exam Anxiety Hospital discharge follow-up Mild recurrent major depression Screen for colon cancer Pulmonary nodules Migraines Surgical History H/O umbilical hernia repair History of esophagogastroduodenoscopy (EGD) History of right hemicolectomy Hx of appendectomy Hx of colonoscopy Family History Family History Father Colon cancer, Onset Age: 63 Liver cancer Mother Breast cancer Diabetes Hypertension Maternal Grandmother Cancer Paternal Aunt Cancer Family/Other FH: mental illness Social History Social History Household Members: Spouse and Children Housing: House Are you a primary ocular care technician to a significant other at home: No Do you presently have visiting nurse or other home services: No Alcohol intake: never Patient Tobacco Use Status: Former Tobacco user Quit Date: 1year ago Tobacco use type: Cigarette e-Cigarette/Vaping Use: Never Used Second Hand Smoke Exposure: No service: No Current occupational status: unemployed Current occupational exposures/hazards: No Cognitive needs: No Hearing needs: No Vision needs: No Physical Exam Vital Signs: Vital Signs: Last Vital Signs Temp 97.8 F 03/27/23 00:45 Pulse 87 03/27/23 00:45 Resp 16 03/27/23 00:45 BP 119/82 03/27/23 00:45 Pulse Ox 98 03/27/23 00:45 O2 Del Method Room Air 03/27/23 00:45 BMI result Body Mass Index 34.1 Appearance: Alert. Oriented X3. No acute distress. Eyes: Pupils equal, round and reactive to light. ENT: Pharynx normal. Neck: Normal inspection. Neck supple. No lymph nodes noted. No crepitus CVS: Normal heart rate and rhythm. Pulses normal. Normal S1 and S2 Respiratory: No respiratory distress. Breath sounds normal. No Wheezing. No rales Abdomen: Soft and nontender. No rigidity. No distention. good BS x4 Skin: Skin warm and dry. Normal skin color. Normal skin turgor. Extremities: No lower extremity edema. Neurovascular intact to all extremities. No Lacerations. Examination the right lower extremity showed good pulses at right dorsalis pedis. Sensation intact. There is nail bed damage to the right great toe. Bleeding is controlled. Sensation intact motor intact Neuro: Oriented X 3. No motor deficit. No sensory deficit. Moving all extermities. No slurred speech Medical Decision Making Medical Decision Making MDM Narrative: X-ray of the foot by my interpretation showed no acute fracture. No malalignment. Bleeding is controlled. There is a nail bed that appeared fractured. At this point in time elected not to remove the nail will have patient follow-up on an outpatient basis pain control with current medication. Close follow-up on an outpatient basis keep the area clean as much as possible. In stable condition will discharge home. The incident was mechanical there is no dizziness lightheadedness Differential Diagnosis Differential Diagnoses: The differential diagnosis associated with the presentation includes Toe fracture, nail bed injury Independent Interpretation I performed an independent interpretation of an: Plain X-Ray (X-ray the foot showed no fracture) Chronic Conditions Patient?s care impacted by: Cancer History of cancer of the appendix. Discharge Plan Discharge Clinical Impression: Nailbed laceration, toe Patient Disposition: Home, Self-Care Instructions: Nail Avulsion (ED) Prescriptions: No Action polyethylene glycol 3350 [Miralax] 17 gram/dose powder 17 g PO DAILY Qty: 510 2RF trazodone 50 mg tablet 50 mg PO BEDTIME Qty: 90 0RF famotidine 40 mg tablet 40 mg PO BID Qty: 180 2RF docusate sodium 100 mg Capsule 100 mg PO BID Qty: 30 0RF loperamide [Imodium A-D] 2 mg Capsule 2 mg PO Q6H PRN (Reason: Diarrhea) Qty: 30 2RF ondansetron 8 mg Tablet,Disintegrating 8 mg PO Q8H PRN (Reason: Nausea) Qty: 30 3RF dexamethasone 2 mg Tablet 2 mg PO BID Qty: 30 3RF Rx Instructions: for 2 days after chemo multivitamin [Daily Multi-Vitamin] Tablet 1 tab PO DAILY doxycycline hyclate 100 mg tablet 100 mg PO BID Qty: 20 0RF tobramycin 0.3 % drops 2 drp ophthalmic-Right Q4H Qty: 5 0RF alum-mag hydroxide-simeth [Mylanta Maximum Strength] 400-400-40 mg/5 mL suspension 5 ml PO QID PRN (Reason: Heartburn) Qty: 200 3RF Referrals: Physician,Unknown J [Primary Care Provider] - 03/31/23
== END 2023-03-27 01:50 | disposition home or self-care (01) ==
PROVIDERS: Emergency Provider Emergency Medicine Emergency Medical Services
DX: S91.211A Laceration without foreign body of right great toe with damage to nail, initial encounter (principal); X58.XXXA Exposure to other specified factors, initial encounter; Z87.891 Personal history of nicotine dependence; Y93.9 Activity, unspecified; Y92.009 Unspecified place in unspecified non-institutional (private) residence as the place of occurrence of the external cause; Y99.9 Unspecified external cause status
CPT/HCPCS: 73630; 99283; 99284

== ENCOUNTER 2023-04-02 10:03 | Outpatient (AMB) | payer OTHER, SELFPAY ==
--- NOTE | 2023-04-02 10:04 | MHC.PC.OV ---
Vital Signs 04/02/23 10:05 Height 5 ft 5 in Weight 213 lb BMI 35.4 BP 118/80 Blood Pressure Location Lt brachial Position Sitting Pulse 81 Pulse Source Pulse Oximeter Pulse Oximetry (%) 98 Oxygen Delivery Method Room Air Intake Visit Reasons: depression Intake Note: patient here for a follow up depression, rash Net Lead Developer Required: No Accompanied by: Self / Same As Patient Allergies aspirin [ASA] Allergy (Severe, Verified 04/02/23 10:18) anaphylaxis/facial swelling ibuprofen [Advil] Allergy (Severe, Verified 04/02/23 10:18) tracheal swelling shellfish derived Allergy (Severe, Verified 04/02/23 10:18) Anaphylaxis Medication List - Last Reconciled 04/02/23 by Ale Vasques MD alum-mag hydroxide-simeth 400-400-40 mg/5 mL (Mylanta Maximum Strength) 5 mL PO QID PRN dexamethasone 2 mg PO BID docusate sodium 100 mg PO BID doxycycline hyclate 100 mg PO BID famotidine 40 mg PO BID loperamide (Imodium A-D) 2 mg PO Q6H PRN multivitamin (Daily Multi-Vitamin tablet) 1 tab PO DAILY ondansetron 8 mg PO Q8H PRN polyethylene glycol 3350 (Miralax) 17 grams PO DAILY trazodone 50 mg PO BEDTIME Tobacco use date assessed: 10/24/22 Dental Screening Dental Screen Date: 04/02/23 Did you have a dental visit in the last 12 months?: Yes Did you have a dental problem in the last 6 months where you did not have access to dental care?: No Was dental information given to patient?: Patient has dentist HPI HPI Comments History of Present Illness Details This is a 42-year-old male with cancer of appendix, mild recurrent major depression, chronic constipation and chronic GERD that comes today as a hospital discharge follow-up with discharge date 03/27/2023 due to toenail laceration with a furniture. X-ray was done and there was no fracture. Currently does not look infected or tender. He feels markedly improved. Had cancer of the appendix and chemotherapy was recently stopped because of good response. He goes to counseling for his depression which has been well control. Constipation stable with MiraLax and docusate. Still has GERD even with famotidine and I will add omeprazole since he is not in chemotherapy. Will follow with Gastroenterology soon. [facility] Medical History (Updated 04/02/23 @ 12:19 by Ale Vasques MD) History of COVID-19 Physical exam Anxiety Hospital discharge follow-up Mild recurrent major depression Screen for colon cancer Pulmonary nodules Migraines Surgical History H/O umbilical hernia repair History of esophagogastroduodenoscopy (EGD) History of right hemicolectomy Hx of appendectomy Hx of colonoscopy Family History Father Colon cancer, Onset Age: 63 Liver cancer Mother Breast cancer Diabetes Hypertension Maternal Grandmother Cancer Paternal Aunt Cancer Family/Other FH: mental illness Social History Household Members: Spouse and Children Housing: House Are you a primary lpn care manager to a significant other at home: No Do you presently have visiting nurse or other home services: No Alcohol intake: never Patient Tobacco Use Status: Former Tobacco user Quit Date: 1year ago Tobacco use type: Cigarette e-Cigarette/Vaping Use: Never Used Second Hand Smoke Exposure: No service: No Current occupational status: unemployed Current occupational exposures/hazards: No Cognitive needs: No Hearing needs: No Vision needs: No Questionnaire Thrive Questionnaire Date Thrive assessed: 10/18/21 MARCY-7 AMB Questionnaire MARCY-7 Date MARCY - 7 assessed: 10/24/22 Source: Developed by Drs. Fred Min, Linda Fox, Mirza Santiago and colleagues, with an educational emma from [employer]. Review of Systems Const All systems reviewed & are unremarkable except as noted in HPI and below Eyes Reports no additional complaints, Denies change in vision and Denies other visual disturbances Card Denies chest pain at rest, Denies chest pain with activity, Denies edema, Denies irregular heart rhythm, Denies claudication, Denies dyspnea, Denies dyspnea on exertion, Denies orthopnea, Denies paroxysmal nocturnal dyspnea and Denies slow heart rate Resp Denies cough, Denies dyspnea and Denies dyspnea on exertion GI Denies abdominal pain, Denies change in bowel habits, Denies excessive flatus, Denies nausea and Denies vomiting Denies urinary hesitancy, Denies urinary incontinence and Denies urinary urgency Musc Denies abnormal gait, Denies atrophy, Denies deformity and Denies limited range of motion Skin/Breast Denies bleeding lesions, Denies changing lesions and Denies rash Neuro Denies abnormal gait and Denies lack of coordination Physical exam (Primary Care) Vital Signs: Last Vital Signs Pulse 81 04/02/23 10:05 BP 118/80 04/02/23 10:05 Pulse Ox 98 04/02/23 10:05 Oxygen Delivery Method Room Air 04/02/23 10:05 BMI result Body Mass Index 35.4 Tobacco/Smoking Status: Tobacco use Status Tobacco use date assessed 10/24/22 04/02/23 10:10 Patient Tobacco Use Status Former Tobacco user 04/02/23 10:10 Tobacco use type Cigarette 04/02/23 10:10 e-Cigarette/Vaping Use Never Used 04/02/23 10:10 Thrive Assessment: Date of Thrive Assessment Date Thrive assessed 10/18/21 04/02/23 10:10 Eyes General: appearance normal, both eyes and all related structures Eyelids: Yes eyelids normal Conjunctivae: conjunctivae normal Neck Neck: Yes normal visual inspection and Yes supple Resp Effort & Inspection: normal respiratory effort Auscultation: clear to auscultation bilaterally Cardio Jugular venous distension: no JVD Rate: regular rate Rhythm: regular rhythm Heart sounds: S1 normal heart sound present and S2 normal heart sound present Extrem General: Yes full ROM Office Procedures Flu Questionnaire Does the patient have a severe egg allergy?: No Immunizations flu vacc [id number] 6mos up(PF) 60 mcg(15 mcgx4)/0.5 mL IM syringe Performing Provider: Ale Vasques MD [facility] Documented (not given) by: PEE Bishop on 04/02/23 10:11 Reason Not Given: Patient Refused Assessment and Plan Assessment & Plan (1) Hospital discharge follow-up: Code(s): Z09 - Encounter for follow-up examination after completed treatment for conditions other than malignant neoplasm Plan: Discharge date 03/27/2023 due to toenail laceration. X-ray was done which show no fracture. Nail is clean. (2) Nailbed laceration, toe: Code(s): S91.219A - Laceration without foreign body of unspecified toe(s) with damage to nail, initial encounter Plan: No signs of infection or swelling. Nontender. Markedly improved. (3) Mild recurrent major depression: Code(s): F33.0 - Major depressive disorder, recurrent, mild Plan: Continue counseling. (4) Chronic constipation: Comment: Maintain HFD, senna Code(s): K59.09 - Other constipation Plan: Continue docusate and MiraLax. (5) Chronic GERD: Code(s): K21.9 - Gastro-esophageal reflux disease without esophagitis Plan: Continue famotidine. Start omeprazole for 14 days. (6) Cancer of appendix: Code(s): C18.1 - Malignant neoplasm of appendix Plan: Chemotherapy was stopped due to good response. Follow-up with Oncology. Orders: Orders Influenza [id number] Immunization Today Z23 - Encounter for immunization Medications: New cetirizine (All Day Allergy (cetirizine)) 10 mg PO DAILY 90 days PRN 90 tabs 1RF allergy symptoms omeprazole 20 mg PO DAILY 14 days 14 caps 1RF oxycodone Partial Fill upon patient request. 5 mg PO BID 14 days PRN 20 tabs 0RF pain Refilled polyethylene glycol 3350 (Miralax) 17 grams PO DAILY 510 grams 2RF alum-mag hydroxide-simeth 400-400-40 mg/5 mL (Mylanta Maximum Strength) 5 mL PO QID PRN 200 mL 3RF Heartburn Coding Level of Care Code TCM Mod MDM <= 7 Days Diagnoses Hospital discharge follow-up Z09 Nailbed laceration, toe S91.219A Mild recurrent major depression F33.0 Chronic constipation K59.09 Chronic GERD K21.9 Cancer of appendix C18.1 Time Spent (min) 24
[2023-04-02 10:05] VITALS: BP 118/80; PULSE 81; O2SAT 98; BMI 35.4
== END 2023-04-02 10:31 | disposition home or self-care (01) ==
PROVIDERS: Visit Provider Internal Medicine
DX: S91.219A Laceration without foreign body of unspecified toe(s) with damage to nail, initial encounter (principal); F33.0 Major depressive disorder, recurrent, mild; C18.1 Malignant neoplasm of appendix; Z09 Encounter for follow-up examination after completed treatment for conditions other than malignant neoplasm; K59.09 Other constipation; K21.9 Gastro-esophageal reflux disease without esophagitis
CPT/HCPCS: 99214

== ENCOUNTER 2023-05-28 10:30 | Outpatient (AMB) | payer OTHER, SELFPAY ==
--- NOTE | 2023-05-28 10:35 | MHC.OFFVIS ---
Intake Vital Signs 05/28/23 10:36 Height 5 ft 5 in Weight 218 lb 4.122 oz BMI 36.3 BP 121/74 Blood Pressure Location Rt brachial Position Sitting Pulse 85 Pulse Source Pulse Oximeter Temp 95.8 F L Temp Source Tympanic Pulse Oximetry (%) 99 Oxygen Delivery Method Room Air Intake Visit Reasons: 6 month post Right Hemicolectomy 08/15/22 Allergies aspirin [ASA] Allergy (Severe, Verified 04/02/23 10:18) anaphylaxis/facial swelling ibuprofen [Advil] Allergy (Severe, Verified 04/02/23 10:18) tracheal swelling shellfish derived Allergy (Severe, Verified 04/02/23 10:18) Anaphylaxis HPI HPI Comments History of Present Illness Details The patient returns for follow-up after a laparoscopic assisted right hemicolectomy for appendiceal cancer on 08/15/2022. Since discharge, he reports he is doing well since his admission and discharge from inflammation near the ileocolonic anastomosis that is presumed to be a Crohn's flare. The patient notes that he has been having ongoing issues with constipation & neuropathy. The patient's complaints are focused around side effects of chemotherapy, ongoing abdominal pain/Crohn's and delay to his endoscopy/colonoscopy due to chemotherapy.. He states his chemotherapy has been stopped or changed in some way and that he is supposed to follow-up with Dr. Lozada for a colonoscopy to assess his symptoms and anastomosis. He is not arranged follow-up as of today. The patient declined an hospital television rental clerk today noting that he feels comfortable communicating in Chinese but wanted to be sure there were not serious issues that he did not understand in [place] at prior visits. We discussed his weight gain and the patient he has that his 25 lb weight gain has been related to the medications. The inherent risk of obesity related complications including incisional hernia was reviewed and apparently understood. [facility] Medical History History of COVID-19 Physical exam Anxiety Hospital discharge follow-up Mild recurrent major depression Screen for colon cancer Pulmonary nodules Migraines Surgical History H/O umbilical hernia repair History of esophagogastroduodenoscopy (EGD) History of right hemicolectomy Hx of appendectomy Hx of colonoscopy Family History Father Colon cancer, Onset Age: 63 Liver cancer Mother Breast cancer Diabetes Hypertension Maternal Grandmother Cancer Paternal Aunt Cancer Family/Other FH: mental illness Social History Household Members: Spouse and Children Housing: House Are you a primary nurse healthcare manager to a significant other at home: No Do you presently have visiting nurse or other home services: No Alcohol intake: never Patient Tobacco Use Status: Former Tobacco user Quit Date: 1year ago Tobacco use type: Cigarette e-Cigarette/Vaping Use: Never Used Second Hand Smoke Exposure: No service: No Current occupational status: unemployed Current occupational exposures/hazards: No Cognitive needs: No Hearing needs: No Vision needs: No Physical Exam Vital Signs: Last Vital Signs Temp 95.8 F L 05/28/23 10:36 Pulse 85 05/28/23 10:36 BP 121/74 05/28/23 10:36 Pulse Ox 99 05/28/23 10:36 Oxygen Delivery Method Room Air 05/28/23 10:36 BMI result Body Mass Index 36.3 On exam, he appears tired but is nontoxic He is having no respiratory distress Sclera anicteric Abdomen is overweight with vague, diffuse discomfort but no rebound, rigidity or guarding. I do not appreciate any hernias in any of his incisions. Assessment & Plan Assessment & Plan (1) H/O right hemicolectomy: Code(s): Z90.49 - Acquired absence of other specified parts of digestive tract (2) Family history of colon cancer: Comment: Father colon cancer unknown age Code(s): Z80.0 - Family history of malignant neoplasm of digestive organs (3) Ileitis: Comment: No oral ulcers, no NSAID Code(s): K52.9 - Noninfective gastroenteritis and colitis, unspecified (4) Cancer of appendix: Code(s): C18.1 - Malignant neoplasm of appendix (5) Crohn's disease: Code(s): K50.90 - Crohn's disease, unspecified, without complications Plan The patient expressed frustration at his neuropathy and chemotherapy related side effects, his weight gain and also his gastroenterology appointments being moved since he needs to have a colonoscopy. He does acknowledge she understands that this is been delayed secondary to his chemotherapy and inherent risks. He would like to discuss a 2nd opinion/referral to a different printed circuit board panels plater and I have recommended he discuss this with his oncologist and PCP since I am not familiar with local printed circuit board panels plater. We discussed the importance of trying to maintain his weight at this time. At this time there are no active surgical issues and I will see him again if requested. Coding Level of Care Code Est Pt Level 4 (79287) Diagnoses H/O right hemicolectomy Z90.49 Family history of colon cancer Z80.0 Ileitis K52.9 Cancer of appendix C18.1 Crohn's disease K50.90
[2023-05-28 10:36] VITALS: BP 121/74; PULSE 85; TEMP 35.4; O2SAT 99; BMI 36.3
== END 2023-05-28 11:27 | disposition home or self-care (01) ==
PROVIDERS: PCP Internal Medicine; Visit Provider Surgery
DX: Z90.49 Acquired absence of other specified parts of digestive tract (principal); Z80.0 Family history of malignant neoplasm of digestive organs; K52.9 Noninfective gastroenteritis and colitis, unspecified; C18.1 Malignant neoplasm of appendix; K50.90 Crohn's disease, unspecified, without complications
CPT/HCPCS: 99214

== ENCOUNTER → 2023-05-28 10:30 | Outpatient (BNVA) | payer OTHER, SELFPAY | PROVIDERS: PCP Internal Medicine; Visit Provider Surgery | DX: K52.9 Noninfective gastroenteritis and colitis, unspecified (principal); K50.90 Crohn's disease, unspecified, without complications; C18.1 Malignant neoplasm of appendix; Z90.49 Acquired absence of other specified parts of digestive tract; Z80.0 Family history of malignant neoplasm of digestive organs | CPT/HCPCS: 99212 ==

== ENCOUNTER 2023-06-12 15:54 | Emergency (ER) | payer OTHER, SELFPAY ==
--- NOTE | ~2023-06-12 | XR_ITS ---
EXAMINATION: XR CHEST CLINICAL INFORMATION: History of appendiceal carcinoma, weakness COMPARISON: 01/15/2023 TECHNIQUE: Frontal view of the chest was obtained. FINDINGS: Right internal jugular central venous catheter is unchanged in position, its tip at the cavoatrial junction. A left lower lobe calcified nodule is unchanged. New discoid atelectasis is evident at the left lung base. The cardiomediastinal silhouette is stable. XR/XR chest 1V IMPRESSION: 1. New linear discoid atelectasis at the left lung base.
[2023-06-12 17:21] VITALS: BP 138/94; PULSE 84; RESP 18; TEMP 37.1; O2SAT 98; BMI 34.6
--- NOTE | 2023-06-12 17:22 | ED.GENADULT ---
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 He has neuropathy from chemo. he comes in with c/o having BM this AM then getting up and feeling dizzy, shaky with cold sweats. It did resolve. He also notes he cannot tolerate the burning tingling heaviness of the post chemo neuropathy he is only 300mg gabapentin QHS and now remembers his oncologist telling him he could increase the dose if it did not get better. He has no fevers, CP/SOB. He didn't eat or drink as much today as he normally does. MD complaint: malaise Onset (ago): hour(s) (12) Radiation: non-radiation Severity: mild Quality: other (neuropathy pain is tight heavy burning) Pain Consistency: constant Relieving factors: other (he does feel better with night dose of gabapentin) Exacerbating factors: none Associated symptoms: loss of appetite and malaise Treatments prior to arrival: none Related Data Home Medications Medication Instructions Recorded Confirmed multivitamin (Daily Multi-Vitamin 1 tab PO DAILY 09/11/22 05/19/23 tablet) Previous Rx's Medication Instructions Recorded docusate sodium 100 mg capsule 100 mg PO BID #30 caps 08/15/22 dexamethasone 2 mg tablet 2 mg PO BID #30 tabs 10/21/22 loperamide 2 mg capsule (Imodium 2 mg PO Q6H PRN Diarrhea #30 caps 10/21/22 A-D) ondansetron 8 mg disintegrating 8 mg PO Q8H PRN Nausea #30 tabs 10/21/22 tablet trazodone 50 mg tablet 50 mg PO BEDTIME #90 tabs 03/12/23 famotidine 40 mg tablet 40 mg PO BID #180 tabs 03/26/23 aluminum-mag hydroxide-simethicone 5 ml PO QID PRN Heartburn #200 mL 04/02/23 400 mg-400 mg-40 mg/5 mL oral susp (Mylanta Maximum Strength) cetirizine 10 mg tablet (All Day 10 mg PO DAILY PRN allergy 04/02/23 Allergy (cetirizine)) symptoms 90 days #90 tabs omeprazole 20 mg capsule,delayed 20 mg PO DAILY 14 days #14 caps 04/02/23 release oxycodone 5 mg tablet 5 mg PO BID PRN pain 14 days #20 04/02/23 tabs polyethylene glycol 3350 17 17 g PO DAILY #510 grams 04/02/23 gram/dose oral powder (Miralax) gabapentin 300 mg capsule 300 mg PO BEDTIME #30 caps 05/19/23 gabapentin 300 mg capsule 300 mg PO DAILY #30 caps 06/12/23 Allergies Allergy/AdvReac Type Severity Reaction Status Date / Time aspirin [ASA] Allergy Severe anaphylaxis/facial Verified 06/12/23 17:21 swelling ibuprofen [Advil] Allergy Severe tracheal Verified 06/12/23 17:21 swelling shellfish derived Allergy Severe Anaphylaxis Verified 06/12/23 17:21 Review of Systems Review of Systems: Constitutional : No Fever, No Chills, pos Fatigue ENT/Mouth : No sore throat, No Rhinorrhea Eyes: No Eye Pain, No Swelling, No Redness Cardiovascular : No Chest Pain, No SOB, No Dyspnea on Exertion Respiratory : No Cough, No Sputum Gastrointestinal : No Nausea, No Vomiting, No Diarrhea, No abdominal Pain Genitourinary : No Dysuria, No Urinary Frequency, No Hematuria, Musculoskeletal : pos joint pain, No Myalgias, No Joint Swelling Skin : No Skin Lesions, No rash Neuro : No Weakness, No Numbness, pos Dizziness, no Headache Psych : No Anxiety/Panic, No Depression Heme/Lymph: No Bruising, No Bleeding,No Lymphadenopathy Endocrine : No Polyuria, No Polydipsia All other systems reviewed and are negative [facility] Past Medical History Medical History History of COVID-19 Physical exam Anxiety Hospital discharge follow-up Mild recurrent major depression Screen for colon cancer Pulmonary nodules Migraines Surgical History H/O umbilical hernia repair History of esophagogastroduodenoscopy (EGD) History of right hemicolectomy Hx of appendectomy Hx of colonoscopy Family History Family History Father Colon cancer, Onset Age: 63 Liver cancer Mother Breast cancer Diabetes Hypertension Maternal Grandmother Cancer Paternal Aunt Cancer Family/Other FH: mental illness Social History Social History Household Members: Spouse and Children Housing: House Are you a primary auto care center manager to a significant other at home: No Do you presently have visiting nurse or other home services: No Alcohol intake: never Patient Tobacco Use Status: Former Tobacco user Quit Date: 1year ago Tobacco use type: Cigarette Smoked in Last 30 Days: Yes e-Cigarette/Vaping Use: Never Used Second Hand Smoke Exposure: No Use of substances other than those prescribed or required for medical reasons: No Advance Directives: No Advance Directives Information Provided: Yes service: No Current occupational status: unemployed Current occupational exposures/hazards: No Cognitive needs: No Hearing needs: No Vision needs: No Physical Exam ED Vital Signs: Vital Signs - 24 hr 06/12/23 17:21 06/12/23 20:46 06/12/23 20:47 Temperature 98.7 F 98.0 F Pulse Rate 84 81 77 Respiratory Rate 18 17 Blood Pressure 138/94 H 137/88 144/79 H Pulse Oximetry 98 99 Oxygen Delivery Method Room Air Room Air 06/12/23 20:49 06/12/23 20:51 Temperature Pulse Rate 79 88 Respiratory Rate Blood Pressure 130/87 133/87 Pulse Oximetry Oxygen Delivery Method BMI result Body Mass Index 34.6 Appearance: Alert. Oriented X3. No acute distress. Eyes: Pupils equal, round and reactive to light. ENT: Pharynx normal. Neck: Normal inspection. Neck supple. CVS: Normal heart rate and rhythm. Pulses normal. Respiratory: No respiratory distress. Breath sounds normal. Abdomen: Soft and nontender. Skin: Skin warm and dry. Normal skin color. Normal skin turgor. Extremities: No lower extremity edema. No calf ttp feet are hypersensitive to the touch Neuro: Oriented X 3. No motor deficit. No sensory deficit. no drift, no ataxia steady gait to and from bathroom Course Course Course Narrative: RME: 42yo M w/PMHx anxiety, migraines, anxiety, appendix cancer (not currently on chemo or radiation) finished chemotherapy in Feb, Chrons dz, c/o lightheadedness, weakness, numbness/parathesias/neuropathy pain x 1PM today. EKG, Labs, UA, Orthostatics ordered Full HPI, ROS and PE to be performed by primary ED provider. 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 He has two complaints one persistent neuropathy - will increase his gabapentin and start 300mg during the day he was supposed to touch base with his oncologist about this will start here and he can address as outpatient. He also felt dizzy this AM but no CP/SOB and no GIB symptoms. It occurred after BM he denies straining - at this time labs for anemia, dehydration and will hydrate. I do not suspect VTE based off normal VS no CP/SOB. He has normal neuro exam and it was related to standing doubt posterior stroke. Differential Diagnosis Differential Diagnoses: The differential diagnosis associated with the presentation includes neuropathy, dehydration, orthostatic, anemia Admission/Observation Consideration of admission/observation: Escalation of care including admission/observation considered feels better stable for DC at this time Lab Data [facility] Lab Attestation statement: I reviewed the patient's lab results. 06/12/23 19:44 06/12/23 19:44 Labs: Lab Results 06/12/23 06/12/23 Range/Units 19:44 21:09 WBC 7.0 (4.8-10.8) X10*3/uL RBC 5.10 (4.60-5.80) X10*6/uL Hgb 15.2 (14.0-18.0) g/dl Hct 47.0 (42.0-52.0) % MCV 92.2 (80.0-98.0) fL MCH 29.8 (27.0-33.0) pg MCHC 32.3 (31.0-36.0) g/dl RDW 12.4 (11.0-16.0) % Plt Count 284 (160-400) X10*3/uL MPV 9.2 L (9.4-12.4) fL Immature Gran % (Auto) 0.1 (0.0-0.4) % Neut % (Auto) 69.9 (45-73) % Lymph % (Auto) 22.0 (20-40) % [place] % (Auto) 7.2 (2-11) % Eos % (Auto) 0.4 (0-4) % Baso % (Auto) 0.4 (0-2) % Lymph # (Auto) 1.6 (1.2-4.9) X10*3/uL [place] # (Auto) 0.5 (0.1-1.2) X10*3/uL Eos # (Auto) 0.0 (0.0-0.4) X10*3/uL Baso # (Auto) 0.0 (0.0-0.2) X10*3/uL Abs Immat Gran (auto) 0.01 (0.00-0.03) X10*3/uL Absolute Neuts (auto) 4.9 (2.0-8.3) x10*3/uL Absolute Nucleated RBC 0.000 (0.0-0.012) X10*3/uL Nucleated RBC % (auto) 0.0 (0.0-0.2) /100WBC Sodium 143 (135-145) mmol/L Potassium 4.1 (3.3-5.1) mmol/L Chloride 106 (96-108) mmol/L Carbon Dioxide 26 (22-29) mmol/L Anion Gap 15 (12-20) BUN 9 (9-16) mg/dL Creatinine 0.86 (0.5-1.4) mg/dL Estim Creat Clear Calc 116.9 Estimated GFR > 60 Random Glucose 81 (60-115) mg/dL Calcium 9.9 D (8.4-10.2) mg/dL Magnesium 2.3 (1.6-2.6) mg/dL Total Bilirubin 0.5 (0.0-1.0) mg/dL Direct Bilirubin 0.2 (0.0-0.5) mg/dL AST 30 (5-37) U/L ALT 49 H (0-40) U/L Alkaline Phosphatase 84 (39-117) U/L Troponin I High Sens < 2.7 (<3.5-35.0) ng/L Total Protein 8.1 H (6.5-8.0) g/dL Albumin 4.8 (3.5-5.0) g/dL Urine Color Yellow Urine Appearance Clear Urine pH 5.5 (5.0-9.0) Ur Specific [place] 1.025 (1.005-1.025) Urine Protein Negative (Neg-Trace) mg/dL Urine Glucose (UA) Negative (Negative) mg/dL Urine Ketones 15 (Negative) mg/dL Urine Blood Negative (Negative) Urine Nitrite Negative (Negative) Ur Leukocyte Esterase Negative (Negative) Influenza Type A (PCR) NEGATIVE (Negative) Influenza Type B (PCR) NEGATIVE (Negative) RSV RNA Qual (PCR) NEGATIVE (Negative) SARS-CoV-2 RNA (RT-PCR) NEGATIVE (Negative) Independent Interpretation I performed an independent interpretation of an: EKG and Plain X-Ray (no acute findings) Interpretation: Rate: 76 Rhythm: NSR [place]: normal Normal P waves. Normal [place]. Normal QRS complex. ST T wave : normal no EMELIA, inverted t wave III qTC: normal prior studies: no acute ischemia The study has been interpreted contemporaneously by me. . Radiology Impression Discussion of test interpretation with radiology: I have reviewed the radiologist's reading. External Record Review External record reviewed: Inpatient record and Office record Prescription Management I considered prescription management with: Other Discharge Plan Discharge Clinical Impression: Dizziness, Neuropathy Patient Disposition: Home, Self-Care Instructions: Peripheral Neuropathy (ED), Dizziness (ED) Additional Instructions: stay hydrated, rest, return for worsening symptoms, pain, fevers, chest pain, trouble breathing, weakness, numbness or any other concerns. follow up with your doctor about your gabapentin it can be sedating to be mindful about driving or operating machinery when you start your first day dose Prescriptions: New gabapentin 300 mg capsule 300 mg PO DAILY Qty: 30 0RF No Action trazodone 50 mg tablet 50 mg PO BEDTIME Qty: 90 0RF famotidine 40 mg tablet 40 mg PO BID Qty: 180 2RF docusate sodium 100 mg Capsule 100 mg PO BID Qty: 30 0RF loperamide [Imodium A-D] 2 mg Capsule 2 mg PO Q6H PRN (Reason: Diarrhea) Qty: 30 2RF ondansetron 8 mg Tablet,Disintegrating 8 mg PO Q8H PRN (Reason: Nausea) Qty: 30 3RF dexamethasone 2 mg Tablet 2 mg PO BID Qty: 30 3RF Rx Instructions: for 2 days after chemo gabapentin 300 mg Capsule 300 mg PO BEDTIME Qty: 30 2RF multivitamin [Daily Multi-Vitamin] Tablet 1 tab PO DAILY polyethylene glycol 3350 [Miralax] 17 gram/dose powder 17 g PO DAILY Qty: 510 2RF cetirizine [All Day Allergy (cetirizine)] 10 mg tablet 10 mg PO DAILY PRN (Reason: allergy symptoms) 90 Days Qty: 90 1RF omeprazole 20 mg capsule,delayed release(DR/EC) 20 mg PO DAILY 14 Days Qty: 14 1RF alum-mag hydroxide-simeth [Mylanta Maximum Strength] 400-400-40 mg/5 mL suspension 5 ml PO QID PRN (Reason: Heartburn) Qty: 200 3RF oxycodone 5 mg tablet 5 mg PO BID PRN (Reason: pain) 14 Days Qty: 20 0RF Rx Instructions: Partial Fill upon patient request.
--- NOTE | 2023-06-12 17:25 | ECG_ITS ---
Test Reason : WEAKNESS Blood Pressure : / mmHG Vent. Rate : 076 BPM Atrial Rate : 076 BPM P-R Int : 122 ms QRS Dur : 092 ms QT Int : 384 ms P-R-T Axes : 013 003 032 degrees QTc Int : 432 ms Normal sinus rhythm with sinus arrhythmia Normal ECG When compared with ECG of 06-AUG-2022 13:01, No significant change was found Referred By: Didi Lopez Electronically Signed By:NATASHA STREETER MD
[2023-06-12 20:04] LABS: MANUAL DIFF FLAG NO
[2023-06-12 20:06] LABS: Basophils Percent Auto 0.4 % (0-2); Eosinophils Percent Auto 0.4 % (0-4); Hemoglobin 15.2 g/dl (14.0-18.0); Imm Gran Abs Auto 0.01 X10*3/uL (0.00-0.03); Imm Gran Pct Auto 0.1 % (0.0-0.4); Lymphocytes Absolute Auto 1.6 X10*3/uL (1.2-4.9); Mean Corpuscular HGB Conc 32.3 g/dl (31.0-36.0); Mean Corpuscular Hemoglobin 29.8 pg (27.0-33.0); Mean Corpuscular Volume 92.2 fL (80.0-98.0); Mean Platelet Volume 9.2 fL (9.4-12.4); Monocytes Absolute Auto 0.5 X10*3/uL (0.1-1.2); Monocytes Percent Auto 7.2 % (2-11); Neutrophils Absolute Auto 4.9 x10*3/uL (2.0-8.3); Neutrophils Percent Auto 69.9 % (45-73); Platelet Count 284 X10*3/uL (160-400); Red Cell Distribution Width 12.4 % (11.0-16.0)
[2023-06-12 20:22] LABS: Alanine Aminotransferase 49 U/L (0-40); Albumin Level 4.8 g/dL (3.5-5.0); Alkaline Phosphatase 84 U/L (39-117); Anion Gap 15 (12-20); Aspartate Amino Transferase 30 U/L (5-37); Bilirubin Direct 0.2 mg/dL (0.0-0.5); Bilirubin Total 0.5 mg/dL (0.0-1.0); Blood Urea Nitrogen 9 mg/dL (9-16); Calcium 9.9 mg/dL (8.4-10.2); Carbon Dioxide 26 mmol/L (22-29); Chloride 106 mmol/L (96-108); Creatinine Clr Calc Pharmacy 116.9; Estimated Glomerular Filt Rate > 60; Glucose Random 81 mg/dL (60-115); Magnesium 2.3 mg/dL (1.6-2.6); Potassium 4.1 mmol/L (3.3-5.1); Sodium 143 mmol/L (135-145); Total Protein 8.1 g/dL (6.5-8.0)
[2023-06-12 20:31] LABS: Troponin-I High Sensitivity < 2.7 ng/L (<3.5-35.0)
[2023-06-12 20:44] LABS: Influenza A PCR NEGATIVE (Negative); Influenza B PCR NEGATIVE (Negative); Resp Syncy Virus RNA Qual PCR NEGATIVE (Negative); SARS COV2 PCR INHOUSE NEGATIVE (Negative)
[2023-06-12 20:46] VITALS: BP 137/88; PULSE 81; RESP 17; TEMP 36.7; O2SAT 99
[2023-06-12 20:47] VITALS: BP 144/79; PULSE 77
[2023-06-12 20:49] VITALS: BP 130/87; PULSE 79
[2023-06-12 20:51] VITALS: BP 133/87; PULSE 88
[2023-06-12 21:16] LABS: Appearance Urine Clear; Color Urine Yellow; Glucose Urine UA Negative (Negative); Leukocyte Esterase Urine Negative (Negative); Nitrite Urine Negative (Negative); PH 5.5 (5.0-9.0); Specific Gravity - Urine 1.025 (1.005-1.025); Urine Blood Negative (Negative); Urine Ketones 15 mg/dL (Negative); Urine Protein Negative (Neg-Trace)
[2023-06-12] MEDS: Gabapentin 300 MG CAPSULE PO (21:35)
[2023-06-12] MEDS: 0.9 % Sodium Chloride 1,000 ML 999 ML IVCONT (21:35)
[2023-06-12 22:55] VITALS: BP 137/81; PULSE 72; RESP 18; TEMP 36.7; O2SAT 99
== END 2023-06-12 23:10 | disposition home or self-care (01) ==
PROVIDERS: Physician Assistant; Emergency Provider Emergency Medicine; PCP Internal Medicine
DX: R42 Dizziness and giddiness (principal); G62.9 Polyneuropathy, unspecified; I49.8 Other specified cardiac arrhythmias; M79.642 Pain in left hand; M79.641 Pain in right hand; R11.2 Nausea with vomiting, unspecified; Z20.822 Contact with and (suspected) exposure to COVID-19; Z20.828 Contact with and (suspected) exposure to other viral communicable diseases; Z87.891 Personal history of nicotine dependence; Z79.899 Other long term (current) drug therapy
CPT/HCPCS: 0241U; 36415; 71045; 80048; 80076; 81003; 83735; 84484; 85025; 93005; 96360; 99284; 99285

== ENCOUNTER → 2023-06-12 17:25 | Outpatient (BNV) | payer OTHER, SELFPAY | PROVIDERS: Emergency Provider Emergency Medicine; PCP Internal Medicine; Visit Provider Internal Medicine Cardiovascular Disease | DX: I49.9 Cardiac arrhythmia, unspecified (principal) | CPT/HCPCS: 93010 ==

== ENCOUNTER 2023-07-21 09:51 | Outpatient (AMB) | payer OTHER, SELFPAY ==
--- NOTE | 2023-07-21 10:02 | MHC.OFFVIS ---
Intake Vital Signs 07/21/23 10:08 Height 5 ft 5 in Weight 216 lb 0.848 oz BMI 35.9 BP 131/84 Blood Pressure Location Lt brachial Position Sitting Pulse 77 Intake Visit Reasons: 2 month follow up Intake Note: Carlos presents in the office as a 2 month follow up. CC: He states he is having bloating on the right side when he does not take the miralax. Sometimes his stool is completely black. When that happens there is a little pain in the RUQ area. Allergies aspirin [ASA] Allergy (Severe, Verified 07/21/23 10:08) anaphylaxis/facial swelling ibuprofen [Advil] Allergy (Severe, Verified 07/21/23 10:08) tracheal swelling shellfish derived Allergy (Severe, Verified 07/21/23 10:08) Anaphylaxis HPI 2 month follow up HPI Details 42 yr old m here for f/u RECAP: He had a colonoscopy with me due to FH of CRC This revealed a hyperplastic polyp and active ileitis, CTe was done which revealed an abn appenidx but no ileal inflammation he started having RLq pains and went to the ED he had appendectomy whcih 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) he had been referred to oncology dr Xavier spoke to me and felt there were changes in the mesentry consistent with crohns and IBD he does not use NSAIDs he has some pain over the lap scars, otherwise he feels well, avoiding opiates due to constipation he matta shave joint pains and psoriatic type rash from time to time, but no mouth sores he eventually had a right hemicolectomy with no residual cancer noted Capsule: gastritis cT 06/2022-- no focal findings He then had an admission for abdominal pain with tests revealing inflammation around the anastomosis his CRP came down and he was passing stool and gas d/c'ed 09/17/22 with pred tper during stay there was concern about an umbilical hernia and this was repaired fecal lactoferrin was normal He was on chemo for goblet cell adenoca of appendix --XELOX was changed to FOLFOX INTERIM: He has been having neuropathy since end of chemo, now on yaya he has been using colace and miralax, occ black stools, helps constipation appetite is good no nausea or vomiting EXAM: GENERAL: The patient is relaxed, tired looking VITAL SIGNS:see workflow HEENT: Nonicteric sclerae, PERRLA, EOMI. Oropharynx clear. Moist mucous membranes. Conjunctivae appear well perfused. No thyroid mass. CHEST: Chest wall is nontender. HEART: Regular rate and rhythm without murmurs. LUNGS: Clear to auscultation bilaterally. ABDOMEN: Soft, positive bowel sounds, mildly tender rlq and lower abdo, no organomegaly. , scars noted, SKIN: No rash, no excessive bruising, petechiae, or purpura. NEUROLOGIC: Cranial nerves II-XII intact without motor/sensory deficit. pscyh--nml A?P: 1/ Possible crohns, ongoing right sided pain and discomfort, with constipation--could also be stricture at the anastomosis 2/ goblet cell ca of appendix, rare cancer, had his hemicolectomy --completed chemo 3/ black stools, but HGB stable at 15 g/dl PLAN: 1/ recheck fecal lactoferrin 2/?repeat EGD and colo with possible balloon dilation and kenalog injection 3/ cont with miralax and colace [facility] Medical History History of COVID-19 Physical exam Anxiety Hospital discharge follow-up Mild recurrent major depression Screen for colon cancer Pulmonary nodules Migraines Surgical History H/O umbilical hernia repair History of esophagogastroduodenoscopy (EGD) History of right hemicolectomy Hx of appendectomy Hx of colonoscopy Family History Father Colon cancer, Onset Age: 63 Liver cancer Mother Breast cancer Diabetes Hypertension Maternal Grandmother Cancer Paternal Aunt Cancer Family/Other FH: mental illness Social History Household Members: Spouse and Children Housing: House Are you a primary director of primary care to a significant other at home: No Do you presently have visiting nurse or other home services: No Alcohol intake: never Patient Tobacco Use Status: Former Tobacco user Quit Date: 1year ago Tobacco use type: Cigarette e-Cigarette/Vaping Use: Never Used Second Hand Smoke Exposure: No service: No Current occupational status: unemployed Current occupational exposures/hazards: No Cognitive needs: No Hearing needs: No Vision needs: No Physical Exam Vital Signs: Last Vital Signs Pulse 77 07/21/23 10:08 BP 131/84 07/21/23 10:08 BMI result Body Mass Index 35.9 Assessment & Plan Assessment & Plan (1) Ileitis: Comment: No oral ulcers, no NSAID Code(s): K52.9 - Noninfective gastroenteritis and colitis, unspecified Plan: PLAN: 1/ recheck fecal lactoferrin 2/?repeat EGD and colo with possible balloon dilation and kenalog injection 3/ cont with miralax and colace (2) Appendix disease: Code(s): K38.9 - Disease of appendix, unspecified Plan: PLAN: 1/ recheck fecal lactoferrin 2/?repeat EGD and colo with possible balloon dilation and kenalog injection 3/ cont with miralax and colace (3) Cancer of appendix: Code(s): C18.1 - Malignant neoplasm of appendix Plan: PLAN: 1/ recheck fecal lactoferrin 2/?repeat EGD and colo with possible balloon dilation and kenalog injection 3/ cont with miralax and colace (4) Crohn's disease: Code(s): K50.90 - Crohn's disease, unspecified, without complications Plan: PLAN: 1/ recheck fecal lactoferrin 2/?repeat EGD and colo with possible balloon dilation and kenalog injection 3/ cont with miralax and colace Orders: Orders Lactoferrin, Fecal, Quant. Today K51.50 - Left sided colitis without complications Medications: New sodium,potassium,mag sulfates 17.5-3.13-1.6 gram (Suprep Bowel Prep Kit) DILUTE; drink 1/2 at 6-8 pm and half at 11 PM- 1AM 354 mL 0RF Coding Level of Care Code Est Pt Level 3 (52947) Diagnoses Ileitis K52.9 Appendix disease K38.9 Cancer of appendix C18.1 Crohn's disease K50.90
[2023-07-21 10:08] VITALS: BP 131/84; PULSE 77; BMI 35.9
== END 2023-07-21 10:33 | disposition home or self-care (01) ==
PROVIDERS: PCP Internal Medicine; Visit Provider Internal Medicine Gastroenterology
DX: K52.9 Noninfective gastroenteritis and colitis, unspecified (principal); K38.9 Disease of appendix, unspecified; C18.1 Malignant neoplasm of appendix; K50.90 Crohn's disease, unspecified, without complications
CPT/HCPCS: 99213

== ENCOUNTER → 2023-07-21 09:51 | Outpatient (BNVA) | payer OTHER, SELFPAY | PROVIDERS: PCP Internal Medicine; Visit Provider Internal Medicine Gastroenterology | DX: K52.9 Noninfective gastroenteritis and colitis, unspecified (principal); K38.9 Disease of appendix, unspecified; K50.90 Crohn's disease, unspecified, without complications; C18.1 Malignant neoplasm of appendix | CPT/HCPCS: 99212 ==

== ENCOUNTER 2023-09-25 19:50 | Emergency (ER) | payer OTHER, SELFPAY ==
[2023-09-25 20:03] VITALS: BP 137/86; PULSE 114; RESP 18; TEMP 37.8; O2SAT 96; BMI 35.4
--- NOTE | 2023-09-25 20:03 | ED.GENADULT ---
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 and received chemotherapy been congested for last 1 week with fever for last 2 days and cough other family member also sick with same also noticed small folliculitis in suprapubic area for last 2 days Related Data Home Medications ?Medication ?Instructions ?Recorded ?Confirmed multivitamin (Daily Multi-Vitamin 1 tab PO DAILY 09/11/22 09/24/23 tablet) Previous Rx's ?Medication ?Instructions ?Recorded docusate sodium 100 mg capsule 100 mg PO BID #30 caps 08/15/22 loperamide 2 mg capsule (Imodium 2 mg PO Q6H PRN Diarrhea #30 caps 10/21/22 A-D) ondansetron 8 mg disintegrating 8 mg PO Q8H PRN Nausea #30 tabs 10/21/22 tablet trazodone 50 mg tablet 50 mg PO BEDTIME #90 tabs 03/12/23 famotidine 40 mg tablet 40 mg PO BID #180 tabs 03/26/23 aluminum-mag hydroxide-simethicone 5 ml PO QID PRN Heartburn #200 mL 04/02/23 400 mg-400 mg-40 mg/5 mL oral susp (Mylanta Maximum Strength) cetirizine 10 mg tablet (All Day 10 mg PO DAILY PRN allergy 04/02/23 Allergy (cetirizine)) symptoms 90 days #90 tabs omeprazole 20 mg capsule,delayed 20 mg PO DAILY 14 days #14 caps 04/02/23 release oxycodone 5 mg tablet 5 mg PO BID PRN pain 14 days #20 04/02/23 tabs gabapentin 600 mg tablet 600 mg PO BID #60 tabs 07/14/23 polyethylene glycol 3350 17 17 g PO DAILY #510 grams 07/14/23 gram/dose oral powder (Miralax) sodium,potassium,mag sulfates 17.5 See Rx Instructions PO .COMPLEX 07/21/23 gram-3.13 gram-1.6 gram oral soln #354 mL (Suprep Bowel Prep Kit) cephalexin 500 mg capsule 500 mg PO QID 10 days #40 caps 09/26/23 doxycycline hyclate 100 mg tablet 100 mg PO BID #20 tabs 09/26/23 Allergies Allergy/AdvReac Type Severity Reaction Status Date / Time aspirin [ASA] Allergy Severe anaphylaxis/facial Verified 09/25/23 20:08 swelling ibuprofen [Advil] Allergy Severe tracheal Verified 09/25/23 20:08 swelling shellfish derived Allergy Severe Anaphylaxis Verified 09/25/23 20:08 Review of Systems Review of Systems: Yes all other systems are reviewed and are negative [facility] Past Medical History Medical History History of COVID-19 Physical exam Anxiety Hospital discharge follow-up Mild recurrent major depression Screen for colon cancer Pulmonary nodules Migraines Surgical History H/O umbilical hernia repair History of esophagogastroduodenoscopy (EGD) History of right hemicolectomy Hx of appendectomy Hx of colonoscopy Family History Family History Father Colon cancer, Onset Age: 63 Liver cancer Mother Breast cancer Diabetes Hypertension Maternal Grandmother Cancer Paternal Aunt Cancer Family/Other FH: mental illness Social History Social History Household Members: Spouse and Children Housing: House Are you a primary resident care aide to a significant other at home: No Do you presently have visiting nurse or other home services: No Alcohol intake: never Patient Tobacco Use Status: Former Tobacco user Quit Date: 1year ago Tobacco use type: Cigarette Smoked in Last 30 Days: Yes e-Cigarette/Vaping Use: Never Used Second Hand Smoke Exposure: No Use of substances other than those prescribed or required for medical reasons: No Advance Directives: No Advance Directives Information Provided: Yes service: No Current occupational status: unemployed Current occupational exposures/hazards: No Cognitive needs: No Hearing needs: No Vision needs: No Physical Exam ED Vital Signs: Vital Signs - 24 hr 09/25/23 20:03 09/26/23 00:46 09/26/23 02:15 Temperature 100.1 F 100.1 F 98.2 F Pulse Rate 114 H 100 101 H Respiratory Rate 18 14 19 Blood Pressure 137/86 119/84 124/78 Pulse Oximetry 96 98 96 Oxygen Delivery Method Room Air Room Air Room Air BMI result Body Mass Index 35.4 Appearance: Alert. Oriented X3. No acute distress. Eyes: No pallor or icterus ENT: Pharynx normal. Oral Mucosa moist Neck: Normal inspection. Neck supple. CVS: Normal heart rate and rhythm. Pulses normal. Respiratory: No respiratory distress. Equal air entry bilateral, no wheezing/rales/rhonchi Abdomen: Soft and nontender. Bowel sounds are present, no mass palpable, no CVA tenderness Skin: Skin warm and dry. Normal skin color. Normal skin turgor. Small folliculitis with surrounding erythema suprapubic area no abscess Extremities: No lower extremity edema. No calf tenderness Neuro: Oriented X 3. Course Course Course Narrative: RME:?42 yo male w/ hx of goblet cell adenocarcinoma of appendix s/p R hemicolectomy (completed 8 cycles of FOLFOX 02/2023 - no evidence of recurrence on last images), and neuropathy from chemo here for eval of fever (TMAX 104F today), nausea w/o vomiting, myalgias, and suprapubic abscess since yesterday. reports redness/ swelling to groin superior to the penis. admits it has worsened since yesterday and has continued to spread. denies penile discharge, dysuria, hematuria. exam limited in triage. labs ordered. Full HPI, ROS and PE to be performed by the primary ED provider. Medications Administered Discontinued Medications Generic Name Dose Route Start Last Admin Trade Name Freq PRN Reason Stop Dose Admin Acetaminophen 975 mg 09/26/23 00:19 09/26/23 00:46 Acetaminophen 325 Mg Tablet PO 09/26/23 00:20 975 mg ONCE ONE Administration Cephalexin HCl 500 mg 09/26/23 00:18 09/26/23 00:46 Cephalexin 500 Mg Capsule PO 09/26/23 00:19 500 mg ONCE ONE Administration Doxycycline Monohydrate 100 mg 09/26/23 00:18 09/26/23 00:46 Doxycycline Monohydrate 100 Mg Capsule PO 09/26/23 00:19 100 mg ONCE ONE Administration Guaifenesin/Codeine Phosphate 10 ml 09/26/23 00:18 09/26/23 00:46 Guaifen/Codeine Sf 200/20/10ml 10 Ml Liquid PO 09/26/23 00:19 10 ml ONCE ONE Administration Medical Decision Making Medical Decision Making MDM Narrative: Patient with small folliculitis of suprapubic area the significant fluid collection along with nasal congestion workup negative for COVID flu and RSV discharge patient home on doxycycline and cephalexin Lab Data MDM Lab Attestation statement: I reviewed the patient's lab results. 09/25/23 20:13 09/25/23 20:13 Labs: Lab Results 09/25/23 09/26/23 Range/Units 20:13 00:43 WBC 8.5 (4.8-10.8) X10*3/uL RBC 4.78 (4.60-5.80) X10*6/uL Hgb 14.2 (14.0-18.0) g/dl Hct 42.4 (42.0-52.0) % MCV 88.7 (80.0-98.0) fL MCH 29.7 (27.0-33.0) pg MCHC 33.5 (31.0-36.0) g/dl RDW 14.1 (11.0-16.0) % Plt Count 264 (160-400) X10*3/uL MPV 9.2 L (9.4-12.4) fL Immature Gran % (Auto) 0.2 (0.0-0.4) % Neut % (Auto) 76.7 H (45-73) % Lymph % (Auto) 14.7 L (20-40) % Stephenson % (Auto) 7.1 (2-11) % Eos % (Auto) 0.8 (0-4) % Baso % (Auto) 0.5 (0-2) % Lymph # (Auto) 1.3 (1.2-4.9) X10*3/uL Stephenson # (Auto) 0.6 (0.1-1.2) X10*3/uL Eos # (Auto) 0.1 (0.0-0.4) X10*3/uL Baso # (Auto) 0.0 (0.0-0.2) X10*3/uL Abs Immat Gran (auto) 0.02 (0.00-0.03) X10*3/uL Absolute Neuts (auto) 6.5 (2.0-8.3) x10*3/uL Absolute Nucleated RBC 0.000 (0.0-0.012) X10*3/uL Nucleated RBC % (auto) 0.0 (0.0-0.2) /100WBC Sodium 141 (135-145) mmol/L Potassium 3.9 (3.3-5.1) mmol/L Chloride 107 (96-108) mmol/L Carbon Dioxide 24 (22-29) mmol/L Anion Gap 14 (12-20) BUN 13 (9-16) mg/dL Creatinine 0.82 (0.5-1.4) mg/dL Estim Creat Clear Calc 123.9 Estimated GFR > 60 Random Glucose 121 H (60-115) mg/dL Calcium 9.4 (8.4-10.2) mg/dL Total Bilirubin 0.2 (0.0-1.0) mg/dL AST 22 (5-37) U/L ALT 39 (0-40) U/L Alkaline Phosphatase 99 (39-117) U/L Total Protein 7.8 (6.5-8.0) g/dL Albumin 4.4 (3.5-5.0) g/dL Urine Color Yellow Urine Appearance Clear Urine pH 5.5 (5.0-9.0) Ur Specific [place] 1.025 (1.005-1.025) Urine Protein Negative (Neg-Trace) mg/dL Urine Glucose (UA) Negative (Negative) mg/dL Urine Ketones Trace (Negative) mg/dL Urine Blood Negative (Negative) Urine Nitrite Negative (Negative) Ur Leukocyte Esterase Negative (Negative) Influenza Type A (PCR) NEGATIVE (Negative) Influenza Type B (PCR) NEGATIVE (Negative) RSV RNA Qual (PCR) NEGATIVE (Negative) SARS-CoV-2 RNA (RT-PCR) NEGATIVE (Negative) Discharge Plan Discharge Clinical Impression: Upper respiratory infection, viral, Folliculitis Patient Disposition: Home, Self-Care Instructions: Upper Respiratory Infection (ED), Folliculitis (ED) Additional Instructions: Your COVID/flu/RSV negative Take antibiotic as prescribed for infection of the skin Tylenol for the fever Follow with PCP if not better Prescriptions: New cephalexin 500 mg capsule 500 mg PO QID 10 Days Qty: 40 0RF doxycycline hyclate 100 mg tablet 100 mg PO BID Qty: 20 0RF No Action trazodone 50 mg tablet 50 mg PO BEDTIME Qty: 90 0RF famotidine 40 mg tablet 40 mg PO BID Qty: 180 2RF docusate sodium 100 mg Capsule 100 mg PO BID Qty: 30 0RF loperamide [Imodium A-D] 2 mg Capsule 2 mg PO Q6H PRN (Reason: Diarrhea) Qty: 30 2RF ondansetron 8 mg Tablet,Disintegrating 8 mg PO Q8H PRN (Reason: Nausea) Qty: 30 3RF gabapentin 600 mg Tablet 600 mg PO BID Qty: 60 3RF polyethylene glycol 3350 [Miralax] 17 gram/dose powder 17 g PO DAILY Qty: 510 2RF multivitamin [Daily Multi-Vitamin] Tablet 1 tab PO DAILY cetirizine [All Day Allergy (cetirizine)] 10 mg tablet 10 mg PO DAILY PRN (Reason: allergy symptoms) 90 Days Qty: 90 1RF omeprazole 20 mg capsule,delayed release(DR/EC) 20 mg PO DAILY 14 Days Qty: 14 1RF alum-mag hydroxide-simeth [Mylanta Maximum Strength] 400-400-40 mg/5 mL suspension 5 ml PO QID PRN (Reason: Heartburn) Qty: 200 3RF oxycodone 5 mg tablet 5 mg PO BID PRN (Reason: pain) 14 Days Qty: 20 0RF Rx Instructions: Partial Fill upon patient request. sodium,potassium,mag sulfates [Suprep Bowel Prep Kit] 17.5-3.13-1.6 gram recon soln See Rx Instructions PO .COMPLEX Qty: 354 0RF Rx Instructions: DILUTE; drink 1/2 at 6-8 pm and half at 11 PM- 1AM Interventions: ED Discharge Assessment Last Done: 09/26/23 02:15 Discharge Date/Time: 09/26/23 02:16 Print Language: Bahamian
[2023-09-25 20:26] LABS: MANUAL DIFF FLAG NO
[2023-09-25 20:29] LABS: Appearance Urine Clear; Color Urine Yellow; Glucose Urine UA Negative (Negative); Leukocyte Esterase Urine Negative (Negative); Nitrite Urine Negative (Negative); PH 5.5 (5.0-9.0); Specific Gravity - Urine 1.025 (1.005-1.025); Urine Blood Negative (Negative); Urine Ketones Trace mg/dL (Negative); Urine Protein Negative (Neg-Trace)
[2023-09-25 20:30] LABS: Basophils Percent Auto 0.5 % (0-2); Eosinophils Absolute Auto 0.1 X10*3/uL (0.0-0.4); Eosinophils Percent Auto 0.8 % (0-4); Hematocrit 42.4 % (42.0-52.0); Hemoglobin 14.2 g/dl (14.0-18.0); Imm Gran Abs Auto 0.02 X10*3/uL (0.00-0.03); Imm Gran Pct Auto 0.2 % (0.0-0.4); Lymphocytes Absolute Auto 1.3 X10*3/uL (1.2-4.9); Lymphocytes Percent Auto 14.7 % (20-40); Mean Corpuscular HGB Conc 33.5 g/dl (31.0-36.0); Mean Corpuscular Hemoglobin 29.7 pg (27.0-33.0); Mean Corpuscular Volume 88.7 fL (80.0-98.0); Mean Platelet Volume 9.2 fL (9.4-12.4); Monocytes Absolute Auto 0.6 X10*3/uL (0.1-1.2); Monocytes Percent Auto 7.1 % (2-11); Neutrophils Absolute Auto 6.5 x10*3/uL (2.0-8.3); Neutrophils Percent Auto 76.7 % (45-73); Platelet Count 264 X10*3/uL (160-400); Red Blood Count 4.78 X10*6/uL (4.60-5.80); Red Cell Distribution Width 14.1 % (11.0-16.0); White Blood Count 8.5 X10*3/uL (4.8-10.8)
[2023-09-25 20:41] LABS: Alanine Aminotransferase 39 U/L (0-40); Albumin Level 4.4 g/dL (3.5-5.0); Alkaline Phosphatase 99 U/L (39-117); Anion Gap 14 (12-20); Aspartate Amino Transferase 22 U/L (5-37); Bilirubin Total 0.2 mg/dL (0.0-1.0); Blood Urea Nitrogen 13 mg/dL (9-16); Calcium 9.4 mg/dL (8.4-10.2); Carbon Dioxide 24 mmol/L (22-29); Chloride 107 mmol/L (96-108); Creatinine Clr Calc Pharmacy 123.9; Estimated Glomerular Filt Rate > 60; Glucose Random 121 mg/dL (60-115); Potassium 3.9 mmol/L (3.3-5.1); Sodium 141 mmol/L (135-145); Total Protein 7.8 g/dL (6.5-8.0)
[2023-09-26 00:46] VITALS: BP 119/84; PULSE 100; RESP 14; TEMP 37.8; O2SAT 98
[2023-09-26] MEDS: Acetaminophen 325 MG TABLET 975 MG PO (00:46)
[2023-09-26] MEDS: cephALEXin 500 MG CAPSULE PO (00:46)
[2023-09-26] MEDS: Doxycycline Monohydrate 100 MG CAPSULE PO (00:46)
[2023-09-26] MEDS: guaiFEN/Codeine SF 200/20/10ML 10 ML LIQUID PO (00:46)
--- NOTE | 2023-09-26 00:54 | PC.NURSE ---
this rn assumed care of pt, pt resting in stretcher, pt a&ox4, respirations even and unlabored, pt reporting increasing shortness of breath, ear pain and nausea x2 days. pt reports multiple family members are sick in the house. pt swabbed and sent to the lab.
[2023-09-26 01:41] LABS: Influenza A PCR NEGATIVE (Negative); Influenza B PCR NEGATIVE (Negative); Resp Syncy Virus RNA Qual PCR NEGATIVE (Negative); SARS COV2 PCR INHOUSE NEGATIVE (Negative)
[2023-09-26 02:15] VITALS: BP 124/78; PULSE 101; RESP 19; TEMP 36.8; O2SAT 96
== END 2023-09-26 02:16 | disposition home or self-care (01) ==
PROVIDERS: Physician Assistant Medical; Emergency Provider Internal Medicine; PCP Internal Medicine
DX: J06.9 Acute upper respiratory infection, unspecified (principal); L73.9 Follicular disorder, unspecified; Z11.52 Encounter for screening for COVID-19; Z20.822 Contact with and (suspected) exposure to COVID-19; Z79.899 Other long term (current) drug therapy
CPT/HCPCS: 0241U; 36415; 80053; 81003; 85025; 99283; 99284

== ENCOUNTER 2023-10-22 10:47 | Day surgery (SDC) | payer OTHER, SELFPAY ==
--- NOTE | 2023-10-21 08:53 | HO.ANESPROP2 ---
Documented by User: Kacey Jones NP 10/21/23 08:55 HPI - Anesthesia Eval Consult details Narrative: 42yo M for Upper Endoscopy with Balloon Dilitation and Kenalog Injection, Colonoscopy PMFSH Active Problems Active Problems: All Active Problems Chronic GERD (Acute) External hemorrhoid (Acute) Abdominal pain (Acute) H/O right hemicolectomy (Acute) Somatic dysfunction of left sacroiliac joint (Acute) Occipital neuralgia (Acute) Dysuria (Acute) Chronic constipation (Acute) Family history of colon cancer (Acute) Ileitis (Acute) Hyperplastic colon polyp (Acute) Internal hemorrhoids (Acute) Appendix disease (Acute) Abnormal CT of the abdomen (Acute) Right lower quadrant pain (Acute) Cancer of appendix (Chronic) Colitis (Acute) Crohn's disease (Acute) Mild recurrent major depression (Acute) Physical exam (Acute) Anxiety (Acute) Hospital discharge follow-up (Acute) Screen for colon cancer (Acute) Pulmonary nodules (Acute) Migraines (Acute) Past Medical History Medical History History of COVID-19 Physical exam Anxiety Hospital discharge follow-up Mild recurrent major depression Screen for colon cancer Pulmonary nodules Migraines Family History Family History Father Colon cancer, Onset Age: 63 Liver cancer Mother Breast cancer Diabetes Hypertension Maternal Grandmother Cancer Paternal Aunt Cancer Family/Other FH: mental illness Family history of problems with anesthesia: No Surgical History Surgical History H/O umbilical hernia repair History of esophagogastroduodenoscopy (EGD) History of right hemicolectomy Hx of appendectomy Hx of colonoscopy History of Problems with Anesthesia: No Social History Social History Household Members: Spouse and Children Housing: House Are you a primary healthcare administrative assistant to a significant other at home: No Do you presently have visiting nurse or other home services: No Alcohol intake: never Patient Tobacco Use Status: Former Tobacco user Quit Date: 1year ago Tobacco use type: Cigarette e-Cigarette/Vaping Use: Never Used Second Hand Smoke Exposure: No Use of substances other than those prescribed or required for medical reasons: No Are you DNR?: No Advance Directives: No Advance Directives Information Provided: Yes Advance Directives on File: No service: No Current occupational status: unemployed Current occupational exposures/hazards: No Cognitive needs: No Hearing needs: No Vision needs: No Meds Allergies Allergy/AdvReac Type Severity Reaction Status Date / Time aspirin [ASA] Allergy Severe anaphylaxis/facial Verified 09/25/23 20:08 swelling ibuprofen [Advil] Allergy Severe tracheal Verified 09/25/23 20:08 swelling shellfish derived Allergy Severe Anaphylaxis Verified 09/25/23 20:08 Home Medications ?Medication ?Instructions ?Recorded ?Confirmed ?Last Taken ?Type multivitamin (Daily Multi-Vitamin 1 tab PO DAILY 09/11/22 09/24/23 09/10/22 History tablet) Exam Pertinent Lab Results Pertinent Lab Results: Laboratory Tests 09/25/23 20:13 WBC 8.5 Hgb 14.2 Hct 42.4 Plt Count 264 Sodium 141 Potassium 3.9 Chloride 107 Carbon Dioxide 24 BUN 13 Creatinine 0.82 Narrative Narrative: EKG 05/2023 Vent. Rate : 076 BPM Atrial Rate : 076 BPM P-R Int : 122 ms QRS Dur : 092 ms QT Int : 384 ms P-R-T Axes : 013 003 032 degrees QTc Int : 432 ms Normal sinus rhythm with sinus arrhythmia Normal ECG When compared with ECG of 06-AUG-2022 13:01, No significant change was found Assessment and Plan Assessment Anesthesia Assessment: Chart Reviewed Final Anesthetic Review Family History of Problems with Anesthesia: No History of Problems with Anesthesia: No Documented by User: Sheila Montaño MD 10/22/23 12:33 [facility] Past Medical History Medical History History of COVID-19 Physical exam Anxiety Hospital discharge follow-up Mild recurrent major depression Screen for colon cancer Pulmonary nodules Migraines Family History Family History Father Colon cancer, Onset Age: 63 Liver cancer Mother Breast cancer Diabetes Hypertension Maternal Grandmother Cancer Paternal Aunt Cancer Family/Other FH: mental illness Surgical History Surgical History H/O umbilical hernia repair History of esophagogastroduodenoscopy (EGD) History of right hemicolectomy Hx of appendectomy Hx of colonoscopy Social History Social History Household Members: Spouse and Children Housing: House Are you a primary healthcare administrative assistant to a significant other at home: No Do you presently have visiting nurse or other home services: No Alcohol intake: never Patient Tobacco Use Status: Former Tobacco user Quit Date: 1year ago Tobacco use type: Cigarette e-Cigarette/Vaping Use: Never Used Second Hand Smoke Exposure: No Use of substances other than those prescribed or required for medical reasons: No Are you DNR?: No Advance Directives: No Advance Directives Information Provided: Yes Advance Directives on File: No service: No Current occupational status: unemployed Current occupational exposures/hazards: No Cognitive needs: No Hearing needs: No Vision needs: No Meds Allergies Allergy/AdvReac Type Severity Reaction Status Date / Time aspirin [ASA] Allergy Severe anaphylaxis/facial Verified 09/25/23 20:08 swelling ibuprofen [Advil] Allergy Severe tracheal Verified 09/25/23 20:08 swelling shellfish derived Allergy Severe Anaphylaxis Verified 09/25/23 20:08 Home Medications ?Medication ?Instructions ?Recorded ?Confirmed ?Last Taken ?Type multivitamin (Daily Multi-Vitamin 1 tab PO DAILY 09/11/22 09/24/23 09/10/22 History tablet) Exam Airway Mallampati Class: II TM Dist: >3cm Neck ROM: Full Heart: rrr Lungs: cta Assessment and Plan Assessment Anesthesia Assessment: Anesthesia Plan Discussed Final Anesthetic Review NPO: Yes ASA Class: II Final Preanesthetic Review: No Changes in Pt Med Stat, Meds/Allgs Chart Reviewed and Consent Obtained/Reviewed Patient Risk: Low Procedure Risk: Intermediate Anesthetic Plan Anesthetic Plan: MAC: Disposition: Standard PACU
[2023-10-22 12:04] VITALS: BMI 34.2
[2023-10-22 12:20] VITALS: BP 120/79; PULSE 83; RESP 16; TEMP 36.6; O2SAT 97
[2023-10-22] MEDS: Lactated Ringers 1,000 ML 100 ML IVCONT (12:23)
--- NOTE | 2023-10-22 12:26 | MHC.SHP ---
Pre-Procedural Eval Section A - 24 Hr Update-Section A only Date of Service: 10/22/23 Section B - Complete if H&P > 30 days Chief Complaint: Crohn's disease, unspecified, without complication Details of Present Illness: abn bowel habit, possible colonic stricture Relevant Family History (Specify if Yes): No Relevant Social History: None Present Medications: see Short Stay Collaborative assessment Medical History: Significant History (History of COVID-19 Physical exam Anxiety Hospital discharge follow-up Mild recurrent major depression Screen for colon cancer Pulmonary nodules Migraines) History of Previous Operations: Relevant previous surgery/procedure and date(s) (H/O umbilical hernia repair History of esophagogastroduodenoscopy (EGD) History of right hemicolectomy Hx of appendectomy Hx of colonoscopy) Allergies: Allergies Allergy/AdvReac Type Severity Reaction Status Date / Time aspirin [ASA] Allergy Severe anaphylaxis/facial Verified 09/25/23 20:08 swelling ibuprofen [Advil] Allergy Severe tracheal Verified 09/25/23 20:08 swelling shellfish derived Allergy Severe Anaphylaxis Verified 09/25/23 20:08 Review of Systems Sugical H&P ROS: Negative: Constitution, Cardiovascular, Respiratory, Neurological, Psychiatric, Hem-Onc, Allergic/Immunologic, Gastrointestinal, Genitourinary, Musculoskeletal, Integumentary, Endocrine and Eyes/Ears/Nose/Throat Exam Surgical H&P Exam: Normal: HEENT, Normal: Heart, Normal: Lungs, Normal: Extremities, Normal: Abdomen, Normal: Skin and Normal: Neurological Plan Diagnosis/Plan: Unchanged I have reviewed the history and physical and performed a pertinent physical examination on my patient. No changes have occurred unless specified. Time Spent With Patient Time: Total time managing care of this patient today ____ minutes.
--- NOTE | 2023-10-22 14:00 | W.PM.OPN ---
Operative Note Operative Note Date of Service: 10/22/23 Narrative: Operative Information Procedure Description: EGD, Colonoscopy Indication: abn bowel habit, Anesthesia: MAC FLEXIBLE TRANSORAL UPPER GASTROINTESTINAL ENDOSCOPY AND COLONOSCOPY PROCEDURE NOTE UPPER ENDOSCOPY Consent: Indications for the procedure and potential complications of bleeding, perforation, reaction to medications and missed diagnosis were discussed with the patient and informed consent was obtained. Instrument: Olympus GIF H 190 J mid size upper endoscope Monitoring: Vital signs and clinical assessment, continuous EKG monitoring, Pulse oximetry, Carbon Dioxide monitoring and blood pressure monitoring were done throughout the procedure. Procedure: The patient was placed in the left lateral decubitis position and pre-procedure medications were administered and a bite block was placed. The endoscope was inserted into the mouth and advanced under direct vision to the third part of duodenum. A careful inspection was made as the upper endoscope was withdrawn including a retroflexed examination of the proximal stomach; Findings and interventions are described below. Findings: Larynx:normal Esophagus: GE junction at 38 cm, diaphragm hiatus at 38 cm, normal mucosa Stomach: mild erythema. Biopsies were obtained. Grade 2 flap valve on retroflexed examination of the cardia. Duodenum: Normal bulb and descending duodenum, Intervention: Biopsies as noted above, COLONOSCOPY Instrument: Olympus variable stiffness pediatric scope 190L Colonoscopy Monitoring: Vital signs and clinical assessment, continuous EKG monitoring, Pulse oximetry, Carbon Dioxide monitoring and blood pressure monitoring were done throughout the procedure. Colon withdrawal time was 10 minutes. Procedure: The patient was placed in the left lateral decubitis position and pre-procedure medications were administered. After a digital rectal examination of the ano-rectum, the video colonoscope was inserted into the rectum and advanced through the colon to the cecum/TI. The colonoscope was slowly withdrawn in a retrograde panoramic fashion and the colon mucosa was carefully examined including a retroflexed view of the rectum. Findings and interventions are described below. Procedure Difficulty:moderate Findings: Ileo- colonic anastomosis- normal, bx taken from small bowel Random colon bx taken Ascending Colon: normal Transverse Colon -normal Descending Colon:normal Sigmoid Colon: normal Rectum: Retroflexion with small internal hemorrhoids, grade I Anorectum - normal Colon preparation: [place] Bowel Preparation Scale Right colon; 2 Transverse colon: 2 Left colon; 2 (0 = Unprepared colon segment with mucosa not seen due to solid stool that cannot be cleared. 1 = Portion of mucosa of the colon segment seen, but other areas of the colon segment not well seen due to staining, residual stool and/or opaque liquid. 2 = Minor amount of residual staining, small fragments of stool and/or opaque liquid, but mucosa of colon segment seen well. 3 = Entire mucosa of colon segment seen well with no residual staining, small fragments of stool or opaque liquid) Impression and Post Procedure Diagnosis: Endoscopy Findings: mild gastritis Colonoscopy Findings: internal hemorrhoids Plan: Await Pathology results Repeat Colonoscopy in 5 years due to prior hx of appendiceal ca or earlier if clinically indicated High fiber diet leaflet avoid straining at stool, epsom salts and sitz bath, anusol supps or cream if h pylori pos then treat Above findings were reviewed with the patient and relevant handouts were provided if indicated.
[2023-10-22 14:04] VITALS: BP 96/75; PULSE 87; RESP 16; TEMP 36.1; O2SAT 98
[2023-10-22 14:19] VITALS: BP 109/76; PULSE 78; RESP 18; TEMP 36.3; O2SAT 100
== END 2023-10-22 14:58 | disposition home or self-care (01) ==
PROVIDERS: PCP Internal Medicine; Visit Provider Internal Medicine Gastroenterology
PROC: (CPT 45380; principal; 2023-10-22 13:00)
PROC: 0DJD8ZZ Inspection of Lower Intestinal Tract, Via Natural or Artificial Opening Endoscopic (ICD-10-PCS; CPT 45378; 2023-10-22 13:00)
DX: R19.4 Change in bowel habit (principal); K29.70 Gastritis, unspecified, without bleeding; K64.0 First degree hemorrhoids; Z87.19 Personal history of other diseases of the digestive system; Z85.038 Personal history of other malignant neoplasm of large intestine; Z80.0 Family history of malignant neoplasm of digestive organs; Z98.0 Intestinal bypass and anastomosis status; Z88.6 Allergy status to analgesic agent
CPT/HCPCS: 45380; 43239; 88305; 88313; 88342; J2250; J2704

== ENCOUNTER → 2023-10-22 10:47 | Outpatient (BNV) | payer OTHER, SELFPAY | PROVIDERS: PCP Internal Medicine; Visit Provider Internal Medicine Gastroenterology | DX: K50.90 Crohn's disease, unspecified, without complications (principal); K64.0 First degree hemorrhoids; K29.70 Gastritis, unspecified, without bleeding | CPT/HCPCS: 43239; 45380 ==

== ENCOUNTER 2023-10-27 08:52 | Outpatient (AMB) | payer OTHER, SELFPAY ==
[2023-10-27 09:01] VITALS: BP 110/70; BMI 33.8
--- NOTE | 2023-10-27 09:01 | MHC.PC.OV ---
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 Accompanied by: Self / Same As Patient Allergies aspirin [ASA] Allergy (Severe, Verified 10/27/23 09:17) anaphylaxis/facial swelling ibuprofen [Advil] Allergy (Severe, Verified 10/27/23 09:17) tracheal swelling shellfish derived Allergy (Severe, Verified 10/27/23 09:17) Anaphylaxis Medication List - Last Reconciled 10/27/23 by Ale Vasques MD alum-mag hydroxide-simeth 400-400-40 mg/5 mL (Mylanta Maximum Strength) 5 mL PO QID PRN cephalexin 500 mg PO QID 10 days cetirizine (All Day Allergy (cetirizine)) 10 mg PO DAILY PRN 90 days docusate sodium 100 mg PO BID famotidine 40 mg PO BID gabapentin 600 mg PO BID loperamide (Imodium A-D) 2 mg PO Q6H PRN multivitamin (Daily Multi-Vitamin tablet) 1 tab PO DAILY omeprazole 20 mg PO DAILY 14 days ondansetron 8 mg PO Q8H PRN polyethylene glycol 3350 (Miralax) 17 grams PO DAILY trazodone 50 mg PO BEDTIME Tobacco use date assessed: 10/27/23 Dental Screening Dental Screen Date: 10/27/23 Did you have a dental visit in the last 12 months?: No Did you have a dental problem in the last 6 months where you did not have access to dental care?: No Was dental information given to patient?: Patient has dentist HPI HPI Comments History of Present Illness Details This is a 42-year-old male with mild recurrent major depression, history of cancer of appendix in 2021 and chemotherapy induced peripheral neuropathy that comes for his physical exam. Depression is follow by counseling. On gabapentin for peripheral neuropathy which is still present and I will add duloxetine 30 mg once a day. 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 Last colonoscopy was Oct 22 2023 and it was within normal limits. Has Crohn's disease follow by Gastroenterology. [facility] Medical History (Updated 10/27/23 @ 09:32 by Ale Vasques MD) History of COVID-19 Physical exam Anxiety Hospital discharge follow-up Mild recurrent major depression Screen for colon cancer Pulmonary nodules Migraines Surgical History History of wisdom tooth extraction H/O umbilical hernia repair History of esophagogastroduodenoscopy (EGD) History of right hemicolectomy Hx of appendectomy Hx of colonoscopy Family History Father Colon cancer, Onset Age: 63 Liver cancer Mother Breast cancer Diabetes Hypertension Maternal Grandmother Cancer Paternal Aunt Cancer Family/Other FH: mental illness Social History Household Members: Spouse and Children Housing: House Are you a primary aged or disabled care worker to a significant other at home: No Do you presently have visiting nurse or other home services: No Alcohol intake: never Patient Tobacco Use Status: Current everyday Tobacco user Tobacco use type: Cigarette Cigarettes Per Day: 4 e-Cigarette/Vaping Use: Never Used Second Hand Smoke Exposure: No service: No Current occupational status: unemployed Current occupational exposures/hazards: No Cognitive needs: No Hearing needs: No Vision needs: No Questionnaire PHQ-9 Over the last 2 weeks, how often have you been bothered by any of the following problems? 1. Little interest or pleasure in doing things: not at all 2. Feeling down, depressed, or hopeless: several days 3. Trouble falling or staying asleep, or sleeping too much: several days 4. Feeling tired or having little energy: not at all 5. Poor appetite or overeating: not at all 6. Feeling bad about yourself - or that you are a failure or have let yourself or your family down: not at all 7. Trouble concentrating on things, such as reading the newspaper or watching television: not at all 8. Moving or speaking so slowly that other people could have noticed. Or the opposite - being so fidgety or restless that you have been moving around a lot more than usual: not at all 9. Thoughts that you would be better off or of hurting yourself in some way: not at all Total score: 2 Depression Screening Interpretation: Positive Depression Screening Follow-up: Existing condition Depression Screening Done: Yes 30794 - PHQ-9 Billing: Yes Source: Developed by Drs. Fred Min, Linda Fox, Mirza Santiago and colleagues, with an educational emma from [employer]. Thrive Questionnaire Date Thrive assessed: 10/27/23 I am a: Patient What is your living situation today?: I have a steady place to live Within the past 12 months, did the food you bought not last and you didn't have the money to get more?: Never true Within the past 12 months, did you worry whether your food would run out before you got money to buy more?: Never true Do you have trouble paying for medicines?: No Do you have trouble getting transportation to medical appointments?: No Do you have trouble paying your heating and electricity bill?: No Do you have trouble taking care of your child, family member or friend?: No Do you have trouble with day-to-day activities such as bathing, preparing meals, shopping, managing finances, etc.?: No Are you currently unemployed and looking for a job?: No Are you interested in more education?: No Please select the resources that you would like help with: None Currently or been in a relationship where the following occur: no concerns reported THRIVE Score: 0 AUDIT C Alcohol Use Questionnaire (AUDIT-C) 1. How often do you have a drink containing alcohol?: Never Total Score: 0 Score Reviewed/Action Taken: No MARCY-7 AMB Questionnaire MARCY-7 Date MARCY - 7 assessed: 10/27/23 Feeling nervous, anxious, or on edge: 1 = Several days Not being able to stop or control worryin = Not at all Worrying too much about different things: 1 = Several days Trouble relaxin = Several days Being so restless that it is hard to sit still: 0 = Not at all Becoming easily annoyed or irritable: 0 = Not at all Feeling afraid as if something awful might happen: 0 = Not at all Total MARCY-7 score (0-4 normal; 5-9 mild; 10-14 moderate; 15-21 severe): 3 Source: Developed by Drs. Fred Min, Mirza Pope and colleagues, with an educational emma from [employer]. MARCY-7 Assessment Billing MARCY-7 Assessment Tool: MARCY-7 Assessment 13651 Review of Systems Const All systems reviewed & are unremarkable except as noted in HPI and below Eyes Reports no additional complaints, Denies change in vision and Denies other visual disturbances Card Denies chest pain at rest, Denies chest pain with activity, Denies edema, Denies irregular heart rhythm, Denies claudication, Denies dyspnea, Denies dyspnea on exertion, Denies orthopnea, Denies paroxysmal nocturnal dyspnea and Denies slow heart rate Resp Denies cough, Denies dyspnea and Denies dyspnea on exertion Physical exam (Primary Care) Vital Signs: Last Vital Signs BP 110/70 10/27/23 09:01 BMI result Body Mass Index 33.8 Tobacco/Smoking Status: Tobacco use Status Tobacco use date assessed 10/27/23 10/27/23 09:11 Patient Tobacco Use Status Current everyday Tobacco 10/27/23 09:11 Tobacco use type Cigarette 10/27/23 09:11 e-Cigarette/Vaping Use Never Used 10/27/23 09:11 PHQ-9: PHQ-9 Score PHQ-9: Total score 2 10/27/23 09:25 Depression Screening Interpretation: Positive Depression Screening Follow-up: Existing condition Thrive Assessment: Date of Thrive Assessment Date Thrive assessed 10/27/23 10/27/23 09:11 Currently or been in a relationship where the following occur: no concerns reported Const Orientation/consciousness: patient oriented x3 HENMT Head: Yes normal to inspection, Yes normocephalic and Yes atraumatic Ears: external ears normal Eyes General: appearance normal, both eyes and all related structures Eyelids: Yes eyelids normal Conjunctivae: conjunctivae normal Neck Neck: Yes normal visual inspection and Yes supple Resp Effort & Inspection: normal respiratory effort Auscultation: clear to auscultation bilaterally Cardio Jugular venous distension: no JVD Rate: regular rate Rhythm: regular rhythm Heart sounds: S1 normal heart sound present and S2 normal heart sound present GI Inspection: Yes normal to inspection Palpation (GI): Soft to palpation and nontender Auscultation: normal bowel sounds Skin General skin exam: no rashes or lesions noted Neuro General: patient oriented x3 and no focal motor deficits Extrem General: Yes full ROM Assessment and Plan Assessment & Plan (1) Physical exam: Code(s): Z00.00 - Encounter for general adult medical examination without abnormal findings Plan: Repeat in a year. (2) Chemotherapy-induced peripheral neuropathy: Code(s): G62.0 - Drug-induced polyneuropathy; T45.1X5A - Adverse effect of antineoplastic and immunosuppressive drugs, initial encounter Plan: Start duloxetine. (3) Mild recurrent major depression: Code(s): F33.0 - Major depressive disorder, recurrent, mild Plan: Continue counseling. Start duloxetine. (4) Crohn's disease: Code(s): K50.90 - Crohn's disease, unspecified, without complications Plan: Follow-up with Gastroenterology. (5) Cancer of appendix: Code(s): C18.1 - Malignant neoplasm of appendix Plan: Follow-up with Hematology-Oncology. Orders: Orders Comprehensive [place]. Panel Fast Today Z00.00 - Encounter for general adult medical examination without abnormal findings Lipid Panel Today Z00.00 - Encounter for general adult medical examination without abnormal findings Medications: New duloxetine 30 mg PO DAILY 30 caps 0RF 30 days F33.0 - Major depressive disorder, recurrent, mild, G62.0 - Drug-induced polyneuropathy, T45.1X5A - Adverse effect of antineoplastic and immunosuppressive drugs, initial encounter Discontinued cephalexin Discontinued Reason: Patient Completed Course 500 mg PO QID 10 days 40 caps 0RF Coding Level of Care Code Est Pt Prev Care 40-64y(45909) Diagnoses Physical exam Z00.00 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; T45.1X5A Mild recurrent major depression F33.0 Crohn's disease K50.90 Cancer of appendix C18.1 Additional Codes MARCY-7 Assessment Billing - MARCY-7 Assessment Tool: MARCY-7 Assessment 02178 ([id number]) Time Spent (min) 35
== END 2023-10-27 09:32 | disposition home or self-care (01) ==
PROVIDERS: Visit Provider Internal Medicine
DX: Z00.00 Encounter for general adult medical examination without abnormal findings (principal); G62.0 Drug-induced polyneuropathy; F33.0 Major depressive disorder, recurrent, mild; K50.90 Crohn's disease, unspecified, without complications; C18.1 Malignant neoplasm of appendix; T45.1X5A Adverse effect of antineoplastic and immunosuppressive drugs, initial encounter
CPT/HCPCS: 99396

== ENCOUNTER 2023-11-06 10:22 | Outpatient (REF) | payer OTHER, SELFPAY ==
--- NOTE | ~2023-11-06 | CT_ITS ---
EXAMINATION: CT ABDOMEN AND PELVIS WITH CONTRAST CLINICAL INFORMATION: Colon cancer surveillance. COMPARISON: CT abdomen and pelvis 03/06/2023. TECHNIQUE: Multidetector volumetric images were obtained from the superior aspect of the liver through the pubic symphysis following administration 85 mL of Omnipaque 350 intravenous contrast. Sagittal and coronal reformatted images were obtained on the technologist's workstation. Oral Contrast: No. This CT examination was performed using dose optimization techniques as appropriate, variously including the following: *Automated exposure control. *Adjustment of mA and/or kV according to patient size (this includes techniques or standardized protocols for targeted exams where dose is matched to indication/reason for exam; i.e. extremities or head). *Use of iterative reconstruction technique. DLP: 598 mGy-cm FINDINGS: LUNG BASES: Calcified granuloma again noted at the left lung base. There is atelectasis present in the right middle lobe. There is a 4 mm lingular lung nodule unchanged from prior (4:53 compare prior 4:80). LIVER, GALLBLADDER, AND BILIARY TREE: The liver is mildly enlarged at 17.6 cm and likely demonstrates hepatic steatosis. In size, shape, and attenuation. No focal hepatic lesion or biliary ductal dilatation is present. There is a soft tissue mass at the fundus of the gallbladder measuring 0.7 x 0.8 x 1.2 cm (3:27 and solorzano image) which is unchanged when compared to the prior study. On a study dating back to 04/12/2016, only some mild thickening was present at the fundus of the gallbladder. The gallbladder is otherwise unremarkable with no evidence of radiopaque gallstones, or obvious pericholecystic inflammatory changes. PANCREAS: Unremarkable. SPLEEN: Unremarkable. ADRENAL GLANDS: Unremarkable. KIDNEYS AND URETERS: The kidneys are normal in size, shape, and attenuation. No hydronephrosis, hydroureter, or calculi seen. No perinephric stranding. BLADDER: The bladder is nearly empty with a symmetrically thickened wall. GASTROINTESTINAL TRACT: Status post right hemicolectomy. The small and large bowel are otherwise unremarkable. The appendix is no longer present. ABDOMINAL WALL: No significant hernia is appreciated. LYMPH NODES: No retroperitoneal lymphadenopathy. VASCULAR: Unremarkable. There is an accessory retroaortic left renal vein. PELVIC VISCERA: There is mild BPH. Seminal vesicles are unremarkable. OSSEOUS STRUCTURES: Unremarkable. CT/CT abdomen pelvis w IV con IMPRESSION: 1. No evidence of metastatic disease in the abdomen or pelvis. 2. Stable 4 mm lingular lung nodule. 3. Stable soft tissue mass at the fundus of the gallbladder. This may represent adenomyomatosis. Gallbladder ultrasound is recommended for further evaluation. Carcinoma is less likely given the stability. 4. Other incidental findings as described above. Fleischner guidelines were followed.
[2023-11-06] MEDS: iohexoL 350 MG/ML 75 ML INFUS..BTL 85 ML IV (11:50)
== END 2023-11-06 10:23 | disposition home or self-care (01) ==
LOC: HO.CT 10:22
PROVIDERS: PCP Internal Medicine; Visit Provider Internal Medicine
DX: C18.1 Malignant neoplasm of appendix (principal)
CPT/HCPCS: 74177; Q9967

== ENCOUNTER 2024-01-08 12:53 | Inpatient (IN) | payer OTHER, SELFPAY ==
--- NOTE | ~2024-01-08 | CT_ITS ---
EXAMINATION: CT ABDOMEN AND PELVIS WITH CONTRAST CLINICAL INFORMATION: History of hemicolectomy. Now with abdominal pain COMPARISON: CT abdomen and pelvis 11/06/2023 TECHNIQUE: Multidetector volumetric images were obtained from the superior aspect of the liver through the pubic symphysis following administration 85 mL of Omnipaque 350 intravenous contrast. Sagittal and coronal reformatted images were obtained on the technologist's workstation. Oral contrast: No This CT examination was performed using dose optimization techniques as appropriate, variously including the following: *Automated exposure control *Adjustment of mA and/or kV according to patient size (this includes techniques or standardized protocols for targeted exams where dose is matched to indication/reason for exam; i.e. extremities or head) *Use of iterative reconstruction technique DLP: 548 mGy-cm FINDINGS: LUNG BASES: The visualized lung bases are unremarkable. LIVER, GALLBLADDER, AND BILIARY TREE: The liver is normal in size, shape, and attenuation. No focal hepatic lesion or biliary ductal dilatation is present. Adenomyomatosis again noted in the gallbladder fundus. PANCREAS: Unremarkable. SPLEEN: Unremarkable. ADRENAL GLANDS: Unremarkable. KIDNEYS AND URETERS: The kidneys are normal in size, shape, and attenuation. No hydronephrosis, hydroureter, or calculi seen. No perinephric stranding. BLADDER: Unremarkable. GASTROINTESTINAL TRACT: Postsurgical changes after right hemicolectomy. Prominent loop of proximal jejunum with apparent transition point in the left mid abdomen (see solorzano images). Fecalization of bowel contents in this loop of bowel. ABDOMINAL WALL: No significant hernia is appreciated. LYMPH NODES: Normal. VASCULAR: Circumaortic left renal vein. PELVIC VISCERA: Unremarkable. OSSEOUS STRUCTURES: Unremarkable. CT/CT abdomen pelvis w IV con IMPRESSION: Prominent loop of jejunum with apparent transition point in the left mid abdomen (see solorzano images). Fecalization of bowel contents in this loop of bowel concerning for at least partial small bowel obstruction. Consider repeat exam with oral contrast for further evaluation. Fleischner guidelines were followed.
--- NOTE | ~2024-01-08 | US_ITS ---
EXAMINATION: US ABDOMEN LIMITED CLINICAL INFORMATION: Right upper quadrant, epigastric pain.. COMPARISON: CT imaging of the abdomen from 05/20/2022 and 11/06/2023 TECHNIQUE: Real-time imaging of the right upper quadrant abdominal viscera. FINDINGS: PANCREAS: Normal. LIVER: Liver has normal size and contour. The liver parenchyma is mildly hyperechoic (suggestive of steatosis). No focal lesion or intrahepatic ductal dilatation. GALLBLADDER: The gallbladder is physiologically distended and without evidence of stones, sludge, polyps or pericholecystic fluid. A focus of wall thickening at the fundus that measures up to 1 cm is not appreciably changed compared to prior CT exams including 05/20/2022. Findings are consistent with focal adenomyomatosis. COMMON BILE DUCT: Normal in caliber measuring 0.5 cm in diameter. RIGHT KIDNEY: Normal. No hydronephrosis. No renal calculi or focal parenchymal lesions. The kidney measures 12 cm in maximum dimension. FREE FLUID: None. US/US abdomen limited IMPRESSION: * No specific source of pain is identified. No evidence of cholelithiasis, cholecystitis or biliary tract obstruction. * Chronic focal adenomyomatosis of the gallbladder fundus. * Mild diffuse hepatic steatosis is suspected.
[2024-01-08 12:58] VITALS: BP 113/74; PULSE 88; RESP 20; TEMP 36.4; O2SAT 98; BMI 32.1
--- NOTE | 2024-01-08 12:58 | ED.GENADULT ---
HPI - General Adult General Chief complaint: Abdominal Pain Stated complaint: R rib pain Time Seen by Provider: 01/08/24 16:09 Related Data Home Medications ?Medication ?Instructions ?Recorded ?Confirmed multivitamin (Daily Multi-Vitamin 1 tab PO DAILY 09/11/22 10/27/23 tablet) Previous Rx's ?Medication ?Instructions ?Recorded docusate sodium 100 mg capsule 100 mg PO BID #30 caps 08/15/22 loperamide 2 mg capsule (Imodium 2 mg PO Q6H PRN Diarrhea #30 caps 10/21/22 A-D) ondansetron 8 mg disintegrating 8 mg PO Q8H PRN Nausea #30 tabs 10/21/22 tablet famotidine 40 mg tablet 40 mg PO BID #180 tabs 03/26/23 aluminum-mag hydroxide-simethicone 5 ml PO QID PRN Heartburn #200 mL 04/02/23 400 mg-400 mg-40 mg/5 mL oral susp (Mylanta Maximum Strength) omeprazole 20 mg capsule,delayed 20 mg PO DAILY 14 days #14 caps 04/02/23 release polyethylene glycol 3350 17 17 g PO DAILY #510 grams 07/14/23 gram/dose oral powder (Miralax) gabapentin 600 mg tablet 600 mg PO BID #60 tabs 10/24/23 cetirizine 10 mg tablet (All Day 10 mg PO DAILY PRN allergy 11/06/23 Allergy (cetirizine)) symptoms 90 days #90 tabs trazodone 50 mg tablet 50 mg PO BEDTIME #90 tabs 11/07/23 duloxetine 30 mg capsule,delayed 30 mg PO DAILY 30 days #30 caps 11/16/23 release Allergies Allergy/AdvReac Type Severity Reaction Status Date / Time aspirin [ASA] Allergy Severe anaphylaxis/facial Verified 01/08/24 13:00 swelling ibuprofen [Advil] Allergy Severe tracheal Verified 01/08/24 13:00 swelling shellfish derived Allergy Severe Anaphylaxis Verified 01/08/24 13:00 PMFSH Past Medical History Medical History History of COVID-19 Physical exam Anxiety Hospital discharge follow-up Mild recurrent major depression Screen for colon cancer Pulmonary nodules Migraines Surgical History History of wisdom tooth extraction H/O umbilical hernia repair History of esophagogastroduodenoscopy (EGD) History of right hemicolectomy Hx of appendectomy Hx of colonoscopy Family History Family History Father Colon cancer, Onset Age: 63 Liver cancer Mother Breast cancer Diabetes Hypertension Maternal Grandmother Cancer Paternal Aunt Cancer Family/Other FH: mental illness Social History Social History Household Members: Spouse and Children Housing: House Are you a primary child care team lead to a significant other at home: No Do you presently have visiting nurse or other home services: No Alcohol intake: never Patient Tobacco Use Status: Current everyday Tobacco user Tobacco use type: Cigarette Cigarettes Per Day: 4 Smoked in Last 30 Days: Yes e-Cigarette/Vaping Use: Never Used Second Hand Smoke Exposure: No Use of substances other than those prescribed or required for medical reasons: No Advance Directives: No Advance Directives Information Provided: No service: No Current occupational status: unemployed Current occupational exposures/hazards: No Cognitive needs: No Hearing needs: No Vision needs: No Physical Exam ED Vital Signs: Vital Signs - 24 hr 01/08/24 12:58 01/08/24 17:55 Temperature 97.5 F 98.2 F Pulse Rate 88 84 Respiratory Rate 20 20 Blood Pressure 113/74 109/71 Pulse Oximetry 98 99 Oxygen Delivery Method Room Air Room Air BMI result Body Mass Index 32.1 Course Course Course Narrative: This is a Rapid Medical Exam performed in triage by Didi Lopez PA-C. Full HPI, ROS and PE to be performed by primary ED provider. 43 year-old M w/ PMHx anxiety, GERD, ileitis, Chron's, migraines, cancern of appendix s/p laparoscopic assisted right hemicolectomy on 08/15/2022 presenting to the ED c/o intermittent RUQ/R rib pain x this morning with fever. Toot Tylenol this AM. States had CT recently and they saw abnormality in gallbladder. CT from 11/06/2023 showing stable soft tissue mass of the fundus of the gallbladder, recommending ultrasound PE: Abdomen soft epigastric/RUQ tenderness Plan: labs, UA, US ordered Medications Administered Discontinued Medications Generic Name Dose Route Start Last Admin Trade Name Freq PRN Reason Stop Dose Admin Sodium Chloride 1,000 mls @ 999 mls/hr 01/08/24 17:00 01/08/24 17:17 Ns IV 01/08/24 18:00 999 mls/hr .Q1H1M EMMA Administration Iohexol 85 ml 01/08/24 17:19 01/08/24 17:20 Iohexol 350 Mg/Ml 100 Ml Infus..Btl IV 01/08/24 17:20 85 ml ONCE ONE Administration Medical Decision Making Lab Data 01/08/24 15:14 01/08/24 15:14 Labs: Lab Results 01/08/24 01/08/24 Range/Units 15:14 15:30 WBC 6.1 (4.8-10.8) X10*3/uL RBC 5.04 (4.60-5.80) X10*6/uL Hgb 14.6 (14.0-18.0) g/dl Hct 45.0 (42.0-52.0) % MCV 89.3 (80.0-98.0) fL MCH 29.0 (27.0-33.0) pg MCHC 32.4 (31.0-36.0) g/dl RDW 14.0 (11.0-16.0) % Plt Count 232 (160-400) X10*3/uL MPV 9.3 L (9.4-12.4) fL Immature Gran % (Auto) 0.2 (0.0-0.4) % Neut % (Auto) 65.7 (45-73) % Lymph % (Auto) 25.0 (20-40) % [place] % (Auto) 7.1 (2-11) % Eos % (Auto) 1.5 (0-4) % Baso % (Auto) 0.5 (0-2) % Lymph # (Auto) 1.5 (1.2-4.9) X10*3/uL [place] # (Auto) 0.4 (0.1-1.2) X10*3/uL Eos # (Auto) 0.1 (0.0-0.4) X10*3/uL Baso # (Auto) 0.0 (0.0-0.2) X10*3/uL Abs Immat Gran (auto) 0.01 (0.00-0.03) X10*3/uL Absolute Neuts (auto) 4.0 (2.0-8.3) x10*3/uL Absolute Nucleated RBC 0.000 (0.0-0.012) X10*3/uL Nucleated RBC % (auto) 0.0 (0.0-0.2) /100WBC Sodium 140 (135-145) mmol/L Potassium 4.3 (3.3-5.1) mmol/L Chloride 108 (96-108) mmol/L Carbon Dioxide 22 (22-29) mmol/L Anion Gap 14 (12-20) BUN 12 (9-16) mg/dL Creatinine 0.81 (0.5-1.4) mg/dL Estim Creat Clear Calc 118.3 Estimated GFR > 60 Random Glucose 99 (60-115) mg/dL Calcium 9.7 (8.4-10.2) mg/dL Magnesium 2.2 (1.6-2.6) mg/dL Total Bilirubin 0.5 (0.0-1.0) mg/dL Direct Bilirubin 0.1 (0.0-0.5) mg/dL AST 22 (5-37) U/L ALT 39 (0-40) U/L Alkaline Phosphatase 69 (39-117) U/L Total Protein 7.5 (6.5-8.0) g/dL Albumin 4.5 (3.5-5.0) g/dL Lipase 22 (8-78) U/L Urine Color Yellow Urine Appearance Clear Urine pH 6.0 (5.0-9.0) Ur Specific [place] 1.015 (1.005-1.025) Urine Protein Negative (Neg-Trace) mg/dL Urine Glucose (UA) Negative (Negative) mg/dL Urine Ketones Negative (Negative) mg/dL Urine Blood Negative (Negative) Urine Nitrite Negative (Negative) Ur Leukocyte Esterase Negative (Negative) Discharge Plan Discharge Clinical Impression: Intermittent small bowel obstruction Patient Disposition: Admitted As Inpatient Print Language: Ma[place]
[2024-01-08 15:18] LABS: MANUAL DIFF FLAG NO
[2024-01-08 15:21] LABS: Basophils Percent Auto 0.5 % (0-2); Eosinophils Absolute Auto 0.1 X10*3/uL (0.0-0.4); Eosinophils Percent Auto 1.5 % (0-4); Hemoglobin 14.6 g/dl (14.0-18.0); Imm Gran Abs Auto 0.01 X10*3/uL (0.00-0.03); Imm Gran Pct Auto 0.2 % (0.0-0.4); Lymphocytes Absolute Auto 1.5 X10*3/uL (1.2-4.9); Mean Corpuscular HGB Conc 32.4 g/dl (31.0-36.0); Mean Corpuscular Volume 89.3 fL (80.0-98.0); Mean Platelet Volume 9.3 fL (9.4-12.4); Monocytes Absolute Auto 0.4 X10*3/uL (0.1-1.2); Monocytes Percent Auto 7.1 % (2-11); Neutrophils Percent Auto 65.7 % (45-73); Platelet Count 232 X10*3/uL (160-400); Red Blood Count 5.04 X10*6/uL (4.60-5.80); White Blood Count 6.1 X10*3/uL (4.8-10.8)
[2024-01-08 15:33] LABS: Alanine Aminotransferase 39 U/L (0-40); Albumin Level 4.5 g/dL (3.5-5.0); Alkaline Phosphatase 69 U/L (39-117); Anion Gap 14 (12-20); Aspartate Amino Transferase 22 U/L (5-37); Bilirubin Direct 0.1 mg/dL (0.0-0.5); Bilirubin Total 0.5 mg/dL (0.0-1.0); Blood Urea Nitrogen 12 mg/dL (9-16); Calcium 9.7 mg/dL (8.4-10.2); Carbon Dioxide 22 mmol/L (22-29); Chloride 108 mmol/L (96-108); Creatinine Clr Calc Pharmacy 118.3; Estimated Glomerular Filt Rate > 60; Glucose Random 99 mg/dL (60-115); Lipase 22 U/L (8-78); Magnesium 2.2 mg/dL (1.6-2.6); Potassium 4.3 mmol/L (3.3-5.1); Sodium 140 mmol/L (135-145); Total Protein 7.5 g/dL (6.5-8.0)
[2024-01-08 15:41] LABS: Appearance Urine Clear; Color Urine Yellow; Glucose Urine UA Negative (Negative); Leukocyte Esterase Urine Negative (Negative); Nitrite Urine Negative (Negative); Specific Gravity - Urine 1.015 (1.005-1.025); Urine Blood Negative (Negative); Urine Ketones Negative (Negative); Urine Protein Negative (Neg-Trace)
--- NOTE | 2024-01-08 16:49 | ED.ABDPAIN ---
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 Also history of Crohn's disease. Presented today with some mild nausea some abdominal pain worse than the right side. Patient states he had a low-grade fever earlier. Took some Tylenol. Had a CT scan done in October showed a question polyp in the gallbladder. Patient denies any fever chills currently. No change in bowel movements. Passing gas. Patient from home. History of depression. History of anxiety. Previous history of pulmonary nodules Related Data Home Medications ?Medication ?Instructions ?Recorded ?Confirmed multivitamin (Daily Multi-Vitamin 1 tab PO DAILY 09/11/22 10/27/23 tablet) Previous Rx's ?Medication ?Instructions ?Recorded docusate sodium 100 mg capsule 100 mg PO BID #30 caps 08/15/22 loperamide 2 mg capsule (Imodium 2 mg PO Q6H PRN Diarrhea #30 caps 10/21/22 A-D) ondansetron 8 mg disintegrating 8 mg PO Q8H PRN Nausea #30 tabs 10/21/22 tablet famotidine 40 mg tablet 40 mg PO BID #180 tabs 03/26/23 aluminum-mag hydroxide-simethicone 5 ml PO QID PRN Heartburn #200 mL 04/02/23 400 mg-400 mg-40 mg/5 mL oral susp (Mylanta Maximum Strength) omeprazole 20 mg capsule,delayed 20 mg PO DAILY 14 days #14 caps 04/02/23 release polyethylene glycol 3350 17 17 g PO DAILY #510 grams 07/14/23 gram/dose oral powder (Miralax) gabapentin 600 mg tablet 600 mg PO BID #60 tabs 10/24/23 cetirizine 10 mg tablet (All Day 10 mg PO DAILY PRN allergy 11/06/23 Allergy (cetirizine)) symptoms 90 days #90 tabs trazodone 50 mg tablet 50 mg PO BEDTIME #90 tabs 11/07/23 duloxetine 30 mg capsule,delayed 30 mg PO DAILY 30 days #30 caps 11/16/23 release Allergies Allergy/AdvReac Type Severity Reaction Status Date / Time aspirin [ASA] Allergy Severe anaphylaxis/facial Verified 01/08/24 13:00 swelling ibuprofen [Advil] Allergy Severe tracheal Verified 01/08/24 13:00 swelling shellfish derived Allergy Severe Anaphylaxis Verified 01/08/24 13:00 Review of Systems Review of Systems Positive abdominal pain Yes all other systems are reviewed and are negative [facility] Past Medical History Attestation statement: The following information was validated with the patient. Medical History History of COVID-19 Physical exam Anxiety Hospital discharge follow-up Mild recurrent major depression Screen for colon cancer Pulmonary nodules Migraines Surgical History History of wisdom tooth extraction H/O umbilical hernia repair History of esophagogastroduodenoscopy (EGD) History of right hemicolectomy Hx of appendectomy Hx of colonoscopy Family History Family History Father Colon cancer, Onset Age: 63 Liver cancer Mother Breast cancer Diabetes Hypertension Maternal Grandmother Cancer Paternal Aunt Cancer Family/Other FH: mental illness Social History Social History Household Members: Spouse and Children Housing: House Are you a primary menagerie caretaker to a significant other at home: No Do you presently have visiting nurse or other home services: No Alcohol intake: never Patient Tobacco Use Status: Current everyday Tobacco user Tobacco use type: Cigarette Cigarettes Per Day: 4 Smoked in Last 30 Days: Yes e-Cigarette/Vaping Use: Never Used Second Hand Smoke Exposure: No Use of substances other than those prescribed or required for medical reasons: No Advance Directives: No Advance Directives Information Provided: No service: No Current occupational status: unemployed Current occupational exposures/hazards: No Cognitive needs: No Hearing needs: No Vision needs: No Physical Exam ED Vital Signs: Vital Signs - 24 hr 01/08/24 12:58 01/08/24 17:55 Temperature 97.5 F 98.2 F Pulse Rate 88 84 Respiratory Rate 20 20 Blood Pressure 113/74 109/71 Pulse Oximetry 98 99 Oxygen Delivery Method Room Air Room Air BMI result Body Mass Index 32.1 Appearance: Alert. Oriented X3. No acute distress. Eyes: Pupils equal, round and reactive to light. ENT: Pharynx normal. Neck: Normal inspection. Neck supple. No lymph nodes noted. No crepitus CVS: Normal heart rate and rhythm. Pulses normal. Normal S1 and S2 Respiratory: No respiratory distress. Breath sounds normal. No Wheezing. No rales Abdomen: Soft and nontender. No rigidity. No distention. good BS x4 Skin: Skin warm and dry. Normal skin color. Normal skin turgor. Extremities: No lower extremity edema. Neurovascular intact to all extremities. No Lacerations. No Rash Neuro: Oriented X 3. No motor deficit. No sensory deficit. Moving all extermities. No slurred speech Medical Decision Making Medical Decision Making [facility] Narrative: Patient is 43 years old presents today with having abdominal pain. CT scan of the abdomen was done. I reviewed radiology's reading which was positive for having a small bowel obstruction question of a secondary Crohn's versus small bowel obstruction from previous surgery. Patient is currently not vomiting tolerating p.o. has abdominal pain will need bowel rest will need IV fluids. Hospitalist will admit the patient. Surgery team will consult. Currently in stable condition awaiting admission. Differential Diagnosis Differential Diagnoses: The differential diagnosis associated with the presentation includes Admission/Observation Consideration of admission/observation: Escalation of care including admission/observation considered Consult Healthcare Provider Management of the patient was discussed with: Hospitalist and Ceramic Designer (Surgery) Lab Data [facility] Lab Attestation statement: I reviewed the patient's lab results. 01/08/24 15:14 01/08/24 15:14 Labs: Lab Results 01/08/24 01/08/24 Range/Units 15:14 15:30 WBC 6.1 (4.8-10.8) X10*3/uL RBC 5.04 (4.60-5.80) X10*6/uL Hgb 14.6 (14.0-18.0) g/dl Hct 45.0 (42.0-52.0) % MCV 89.3 (80.0-98.0) fL MCH 29.0 (27.0-33.0) pg MCHC 32.4 (31.0-36.0) g/dl RDW 14.0 (11.0-16.0) % Plt Count 232 (160-400) X10*3/uL MPV 9.3 L (9.4-12.4) fL Immature Gran % (Auto) 0.2 (0.0-0.4) % Neut % (Auto) 65.7 (45-73) % Lymph % (Auto) 25.0 (20-40) % [place] % (Auto) 7.1 (2-11) % Eos % (Auto) 1.5 (0-4) % Baso % (Auto) 0.5 (0-2) % Lymph # (Auto) 1.5 (1.2-4.9) X10*3/uL [place] # (Auto) 0.4 (0.1-1.2) X10*3/uL Eos # (Auto) 0.1 (0.0-0.4) X10*3/uL Baso # (Auto) 0.0 (0.0-0.2) X10*3/uL Abs Immat Gran (auto) 0.01 (0.00-0.03) X10*3/uL Absolute Neuts (auto) 4.0 (2.0-8.3) x10*3/uL Absolute Nucleated RBC 0.000 (0.0-0.012) X10*3/uL Nucleated RBC % (auto) 0.0 (0.0-0.2) /100WBC Sodium 140 (135-145) mmol/L Potassium 4.3 (3.3-5.1) mmol/L Chloride 108 (96-108) mmol/L Carbon Dioxide 22 (22-29) mmol/L Anion Gap 14 (12-20) BUN 12 (9-16) mg/dL Creatinine 0.81 (0.5-1.4) mg/dL Estim Creat Clear Calc 118.3 Estimated GFR > 60 Random Glucose 99 (60-115) mg/dL Calcium 9.7 (8.4-10.2) mg/dL Magnesium 2.2 (1.6-2.6) mg/dL Total Bilirubin 0.5 (0.0-1.0) mg/dL Direct Bilirubin 0.1 (0.0-0.5) mg/dL AST 22 (5-37) U/L ALT 39 (0-40) U/L Alkaline Phosphatase 69 (39-117) U/L Total Protein 7.5 (6.5-8.0) g/dL Albumin 4.5 (3.5-5.0) g/dL Lipase 22 (8-78) U/L Urine Color Yellow Urine Appearance Clear Urine pH 6.0 (5.0-9.0) Ur Specific [place] 1.015 (1.005-1.025) Urine Protein Negative (Neg-Trace) mg/dL Urine Glucose (UA) Negative (Negative) mg/dL Urine Ketones Negative (Negative) mg/dL Urine Blood Negative (Negative) Urine Nitrite Negative (Negative) Ur Leukocyte Esterase Negative (Negative) Independent Interpretation I performed an independent interpretation of an: CT Scan Radiology Impression Discussion of test interpretation with radiology: I have reviewed the radiologist's reading. Chronic Conditions History of Crohn's history of appendiceal cancer Medications Administered Discontinued Medications Generic Name Dose Route Start Last Admin Trade Name Freq PRN Reason Stop Dose Admin Sodium Chloride 1,000 mls @ 999 mls/hr 01/08/24 17:00 01/08/24 17:17 Ns IV 01/08/24 18:00 999 mls/hr .Q1H1M EMMA Administration Iohexol 85 ml 01/08/24 17:19 01/08/24 17:20 Iohexol 350 Mg/Ml 100 Ml Infus..Btl IV 01/08/24 17:20 85 ml ONCE ONE Administration Discharge Plan Discharge Clinical Impression: Intermittent small bowel obstruction Patient Disposition: Admitted As Inpatient Prescriptions: No Action famotidine 40 mg tablet 40 mg PO BID Qty: 180 2RF cetirizine [All Day Allergy (cetirizine)] 10 mg tablet 10 mg PO DAILY PRN (Reason: allergy symptoms) 90 Days Qty: 90 1RF trazodone 50 mg tablet 50 mg PO BEDTIME Qty: 90 0RF duloxetine 30 mg capsule,delayed release(DR/EC) 30 mg PO DAILY 30 Days Qty: 30 0RF docusate sodium 100 mg Capsule 100 mg PO BID Qty: 30 0RF loperamide [Imodium A-D] 2 mg Capsule 2 mg PO Q6H PRN (Reason: Diarrhea) Qty: 30 2RF ondansetron 8 mg Tablet,Disintegrating 8 mg PO Q8H PRN (Reason: Nausea) Qty: 30 3RF polyethylene glycol 3350 [Miralax] 17 gram/dose powder 17 g PO DAILY Qty: 510 2RF gabapentin 600 mg Tablet 600 mg PO BID Qty: 60 3RF multivitamin [Daily Multi-Vitamin] Tablet 1 tab PO DAILY omeprazole 20 mg capsule,delayed release(DR/EC) 20 mg PO DAILY 14 Days Qty: 14 1RF alum-mag hydroxide-simeth [Mylanta Maximum Strength] 400-400-40 mg/5 mL suspension 5 ml PO QID PRN (Reason: Heartburn) Qty: 200 3RF Print Language: Mohawk
[2024-01-08] MEDS: 0.9 % Sodium Chloride 1,000 ML 999 ML IV (17:17)
[2024-01-08] MEDS: iohexoL 350 MG/ML 100 ML INFUS..BTL 85 ML IV (17:20)
[2024-01-08 17:55] VITALS: BP 109/71; PULSE 84; RESP 20; TEMP 36.8; O2SAT 99
--- NOTE | 2024-01-08 18:45 | PM.IMHP ---
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 He states that he has been having intermittent right upper quadrant pain since his prior surgery that acutely worsened last night and this morning. Reports a 9/10 nonradiating pain without any associated nausea, vomiting, diarrhea, melena, hematochezia. He also reports he is actually quite constipated and has been having small hard bowel movements requiring straining and in the ED did notice a small amount of bright red blood on the toilet paper. Reports a low-grade fever of 100 at home but has not had any recurrent fevers since arrival to the hospital. Vitals have been stable. No leukocytosis. Renal function and electrolyte levels normal. Urinalysis unremarkable. CT abdomen/pelvis shows prominent loop of jejunum with apparent transition point in the left mid abdomen with fecalization of bowel contents this loop of bowel concerning for at least partial small bowel obstruction. 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 In the ed, given iv ns. Review of Systems Review of Systems: Yes all other systems are reviewed and are negative [facility] Medical History (Updated 01/08/24 @ 18:51 by ELIZA Flor) Crohn's disease Internal hemorrhoids Cancer of appendix History of COVID-19 Physical exam Anxiety Hospital discharge follow-up Mild recurrent major depression Screen for colon cancer Pulmonary nodules Migraines Family History Father Colon cancer, Onset Age: 63 Liver cancer Mother Breast cancer Diabetes Hypertension Maternal Grandmother Cancer Paternal Aunt Cancer Family/Other FH: mental illness Surgical History History of wisdom tooth extraction H/O umbilical hernia repair History of esophagogastroduodenoscopy (EGD) History of right hemicolectomy Hx of appendectomy Hx of colonoscopy Social History Household Members: Family Housing: Apartment Are you a primary career advisor to a significant other at home: No Do you presently have visiting nurse or 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 services: 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 If so, by whom?: No Do you feel safe in your current relationship?: No Current Relationship Is there a partner from a previous relationship who is making you feel unsafe now?: No Are you made to feel afraid or neglected: No Advance Directives: No Advance Directives Information Provided: No Do you have a plan to hurt others: No Plan Recently lost weight without trying: No How much weight loss: Not applicable Eating poorly because of decreased appetite: No Nutrition screen score: 0 Nutrition Risks: No Nutritional Risk Poor oral hygiene: No service: No Current occupational status: unemployed Current occupational exposures/hazards: No Cognitive needs: No Hearing needs: No Vision needs: No Meds Allergies Allergy/AdvReac Type Severity Reaction Status Date / Time aspirin [ASA] Allergy Severe anaphylaxis/facial Verified 01/08/24 13:00 swelling ibuprofen [Advil] Allergy Severe tracheal Verified 01/08/24 13:00 swelling shellfish derived Allergy Severe Anaphylaxis Verified 01/08/24 13:00 Home Medications ?Medication ?Instructions ?Recorded ?Confirmed ?Last Taken ?Type multivitamin (Daily Multi-Vitamin 1 tab PO DAILY 09/11/22 01/08/24 01/07/24 History tablet) polyethylene glycol 3350 17 17 g PO DAILY PRN Constipation 01/08/24 01/08/24 01/03/24 History gram/dose oral powder (Miralax) Physical Exam Vital Signs and Narrative: Vital Signs: Last Vital Signs Temp 98.2 F 01/08/24 17:55 Pulse 84 07/18/24 17:55 Resp 20 01/08/24 17:55 BP 109/71 01/08/24 17:55 Pulse Ox 99 01/08/24 17:55 O2 Del Method Room Air 01/08/24 17:55 BMI result Body Mass Index 32.1 Constitutional - Awake and Alert, No apparent distress Eyes - PERRLA, EOMI Cardiovascular - S1S2, RRR, No edema Respiratory - Normal lung expansion, Normal respiratory effort, No respiratory distress, CTA bilaterally Gastrointestinal - RUQ ttp with negative walden sign. ND; +BS; No rebound or guarding Extremities - no calf tenderness bilaterally, no swelling Skin - Warm/Dry Neurological - Alert & oriented x3 Results Labs 01/09/24 05:08 01/09/24 05:08 Labs: Laboratory Results - last 24 hr 01/08/24 01/08/24 15:14 15:30 MCV 89.3 MCH 29.0 MCHC 32.4 RDW 14.0 Plt Count 232 MPV 9.3 L Immature Gran % (Auto) 0.2 Neut % (Auto) 65.7 Lymph % (Auto) 25.0 [place] % (Auto) 7.1 Eos % (Auto) 1.5 Baso % (Auto) 0.5 Lymph # (Auto) 1.5 [place] # (Auto) 0.4 Eos # (Auto) 0.1 Baso # (Auto) 0.0 Abs Immat Gran (auto) 0.01 Absolute Neuts (auto) 4.0 Absolute Nucleated RBC 0.000 Nucleated RBC % (auto) 0.0 Anion Gap 14 Estim Creat Clear Calc 118.3 Estimated GFR > 60 Random Glucose 99 Calcium 9.7 Magnesium 2.2 Total Bilirubin 0.5 Direct Bilirubin 0.1 AST 22 ALT 39 Alkaline Phosphatase 69 Total Protein 7.5 Albumin 4.5 Lipase 22 Urine Color Yellow Urine Appearance Clear Urine pH 6.0 Ur Specific [place] 1.015 Urine Protein Negative Urine Glucose (UA) Negative Urine Ketones Negative Urine Blood Negative Urine Nitrite Negative Ur Leukocyte Esterase Negative Imaging Radiologist's Impressions: Impressions Abdomen Ultrasound 01/08/24 14:24 IMPRESSION: * No specific source of pain is identified. No evidence of cholelithiasis, cholecystitis or biliary tract obstruction. * Chronic focal adenomyomatosis of the gallbladder fundus. * Mild diffuse hepatic steatosis is suspected. Abdomen/Pelvis CT 01/08/24 17:20 IMPRESSION: Prominent loop of jejunum with apparent transition point in the left mid abdomen (see solorzano images). Fecalization of bowel contents in this loop of bowel concerning for at least partial small bowel obstruction. Consider repeat exam with oral contrast for further evaluation. Fleischner guidelines were followed. 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 -No n/v. NG tube not indicated at this time -keep npo for bowel rest. continue ivf. advance diet as tolerated -general surgery consult -colonoscopy 10/2023 showed internal hemorrhoids and no stricture at the anastomosis # Crohn's disease -symptomatically no acute flare. No fevers, bloody diarrhea, leukocytosis -not currently on any medications # chronic constipation -hold bowel regimen in setting of above #GERD -famotidine # mood disorder -continue home medications # occipital neuralgia and chemo induced peripheral neuropathy -continue gabapentin DVT prophylaxis-Lovenox Full code Patient requires inpatient stay at least 2 midnights for management of partial SBO requiring NPO diet with gradual diet advancement as tolerated and expert consultation with close monitoring for worsening symptoms that could necessitate surgical intervention Quality Stroke Does the patient have a stroke diagnosis?: No VTE Prior VTE?: No VTE Risk Level:: Medical - moderate - high VTE Device Contraindication: Treatment Not Indicated VTE Drug Contraindication: N/A - Med Ordered
[2024-01-08] MEDS: 0.9 % Sodium Chloride 1,000 ML 100 ML IVCONT (19:12)
[2024-01-08] MEDS: Enoxaparin Sodium 40 MG/0.4 ML SYRINGE SUBCUT (19:12)
--- NOTE | 2024-01-08 19:56 | PHA.MEDREC ---
Pharmacy Consult ? Medication Reconciliation Pharmacy has completed the medication reconciliation. Spoke to patient thought sales project manager service (Eva) to confirm med list. Patient states he is no longer on Gabapentin 600 mg bid, Omperazole 20 mg daily. Patients says he takes Ondansetron 8 mg Q8H prn, however there is nothing on claims.
[2024-01-08 21:36] VITALS: BMI 32.9
[2024-01-08 21:47] VITALS: BP 127/79; PULSE 68; RESP 18; TEMP 36.3; O2SAT 99
[2024-01-08] MEDS: Melatonin 3 MG TABLET 6 MG PO (21:53)
[2024-01-08] MEDS: 0.9 % Sodium Chloride Flush 3 ML SYRINGE IVFLUSH (21:53)
[2024-01-08] MEDS: Famotidine 20 MG TABLET 40 MG PO (21:53)
[2024-01-08] MEDS: Morphine Sulfate 4 MG/ML CARTRIDGE 2 MG IVPUSH (21:53)
[2024-01-08] MEDS: traZODone HCL 50 MG TABLET PO (21:53)
[2024-01-09 03:20] VITALS: BP 104/64; PULSE 52; RESP 16; TEMP 36.1; O2SAT 98
[2024-01-09] MEDS: 0.9 % Sodium Chloride 1,000 ML 100 ML IVCONT (04:06)
[2024-01-09 06:05] LABS: MANUAL DIFF FLAG NO
[2024-01-09 06:08] LABS: Basophils Percent Auto 0.9 % (0-2); Eosinophils Absolute Auto 0.1 X10*3/uL (0.0-0.4); Hematocrit 41.2 % (42.0-52.0); Hemoglobin 13.4 g/dl (14.0-18.0); Imm Gran Abs Auto 0.01 X10*3/uL (0.00-0.03); Imm Gran Pct Auto 0.2 % (0.0-0.4); Lymphocytes Absolute Auto 2.1 X10*3/uL (1.2-4.9); Lymphocytes Percent Auto 44.5 % (20-40); Mean Corpuscular HGB Conc 32.5 g/dl (31.0-36.0); Mean Corpuscular Hemoglobin 29.1 pg (27.0-33.0); Mean Corpuscular Volume 89.4 fL (80.0-98.0); Mean Platelet Volume 9.2 fL (9.4-12.4); Monocytes Absolute Auto 0.5 X10*3/uL (0.1-1.2); Monocytes Percent Auto 10.1 % (2-11); Neutrophils Absolute Auto 1.9 x10*3/uL (2.0-8.3); Neutrophils Percent Auto 41.3 % (45-73); Platelet Count 205 X10*3/uL (160-400); Red Blood Count 4.61 X10*6/uL (4.60-5.80); Red Cell Distribution Width 13.9 % (11.0-16.0); White Blood Count 4.7 X10*3/uL (4.8-10.8)
[2024-01-09 07:38] VITALS: BP 110/68; PULSE 65; RESP 16; TEMP 36.2; O2SAT 98
[2024-01-09] MEDS: Multivitamin TABLET 1 TAB PO (08:31)
[2024-01-09] MEDS: Famotidine 20 MG TABLET 40 MG PO (08:31)
[2024-01-09] MEDS: DULoxetine HCl 30 MG CAPSULE.DR PO (08:31)
[2024-01-09 09:48] LABS: Anion Gap 13 (12-20); Carbon Dioxide 23 mmol/L (22-29); Chloride 110 mmol/L (96-108); Potassium 4.5 mmol/L (3.3-5.1); Sodium 141 mmol/L (135-145)
[2024-01-09 09:49] LABS: Blood Urea Nitrogen 8 mg/dL (9-16); Calcium 8.8 mg/dL (8.4-10.2); Creatinine Clr Calc Pharmacy 124.4; Estimated Glomerular Filt Rate > 60; Glucose Random 82 mg/dL (60-115)
--- NOTE | 2024-01-09 10:07 | P.CONGS_ITS ---
History of Present Illness Consult details Consult date: 01/09/24 Narrative: Patient is a 43-year-old male with a very interesting and complex past surgical history who presents here with 1-2 day history of right lower quadrant abdominal pain. He has had longstanding history of abdominal pain/Crohn's flare up/gastroenteritis chronic abdominal pain. Patient has had multiple abdominal surgeries in past. He had a similar episode of wounds to the history of progressively worsening abdominal pain and progression of symptoms prompted his colon to the ER for further evaluation. Patient has been constipated the last few days. He denies any nausea, vomiting, diarrhea or any other acute stool/bowel movement changes Chart was reviewed and patient evaluated. White cell count normal. CT scan reviewed [facility] Past Medical History Medical History (Updated 01/08/24 @ 18:51 by ELIZA Flor) Crohn's disease Internal hemorrhoids Cancer of appendix History of COVID-19 Physical exam Anxiety Hospital discharge follow-up Mild recurrent major depression Screen for colon cancer Pulmonary nodules Migraines Family History Family History Father Colon cancer, Onset Age: 63 Liver cancer Mother Breast cancer Diabetes Hypertension Maternal Grandmother Cancer Paternal Aunt Cancer Family/Other FH: mental illness Surgical History Surgical History History of wisdom tooth extraction H/O umbilical hernia repair History of esophagogastroduodenoscopy (EGD) History of right hemicolectomy Hx of appendectomy Hx of colonoscopy Social History Social History Household Members: Family Housing: Apartment Are you a primary caretaker to a significant other at home: No Do you presently have visiting nurse or other home services: 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 If so, by whom?: No Do you feel safe in your current relationship?: No Current Relationship Is there a partner from a previous relationship who is making you feel unsafe now?: No Are you made to feel afraid or neglected: No Advance Directives: No Advance Directives Information Provided: No Do you have a plan to hurt others: No Plan Recently lost weight without trying: No How much weight loss: Not applicable Eating poorly because of decreased appetite: No Nutrition screen score: 0 Nutrition Risks: No Nutritional Risk Poor oral hygiene: No service: No Current occupational status: unemployed Current occupational exposures/hazards: No Cognitive needs: No Hearing needs: No Vision needs: No Meds Allergies Allergy/AdvReac Type Severity Reaction Status Date / Time aspirin [ASA] Allergy Severe anaphylaxis/facial Verified 01/08/24 13:00 swelling ibuprofen [Advil] Allergy Severe tracheal Verified 01/08/24 13:00 swelling shellfish derived Allergy Severe Anaphylaxis Verified 01/08/24 13:00 Active Medications: Current Medications Acetaminophen (Acetaminophen 325 Mg Tablet) 650 mg PO Q6H PRN PRN Reason: Pain, Mild (Pain Scale 1-3), fever or headache Calcium Carbonate (Calcium Carbonate 750 Mg Tab.Chew) 750 mg PO Q4H PRN PRN Reason: Heartburn Duloxetine HCl (Duloxetine Hcl 30 Mg Capsule.Dr) 30 mg PO DAILY [facility] Last Admin: 01/09/24 08:31 Dose: 30 mg Enoxaparin Sodium (Enoxaparin Sodium 40 Mg/0.4 Ml Syringe) 40 mg SUBCUT Q24H [facility] Last Admin: 01/08/24 19:12 Dose: 40 mg Famotidine (Famotidine 20 Mg Tablet) 40 mg PO BID [facility] Last Admin: 01/09/24 08:31 Dose: 40 mg Sodium Chloride (Ns) 1,000 mls @ 100 mls/hr IVCONT .Q10H [facility] Last Admin: 01/09/24 04:06 Dose: 100 mls/hr Loratadine (Loratadine 10 Mg Tablet) 10 mg PO DAILY PRN PRN Reason: allergy symptoms Magnesium Hydroxide (Milk Of Magnesia 30 Ml Oral.Susp) 30 ml PO DAILY PRN PRN Reason: Constipation Melatonin (Melatonin 3 Mg Tablet) 6 mg PO BEDTIME PRN PRN Reason: Insomnia Last Admin: 07/18/24 21:53 Dose: 6 mg Morphine Sulfate (Morphine Sulfate 4 Mg/Ml Cartridge) 2 mg IVPUSH Q4H PRN; Protocol PRN Reason: Pain, Severe (Pain Scale 7-10) Last Admin: 01/08/24 21:53 Dose: 2 mg Multivitamins/Vitamin C (Multivitamin Tablet) 1 tab PO DAILY [facility] Last Admin: 01/09/24 08:31 Dose: 1 tab Ondansetron HCl (Ondansetron Hcl 4 Mg/2 Ml Vial) 4 mg IVPUSH Q8H PRN PRN Reason: Nausea and Vomiting Oxycodone HCl (Oxycodone Hcl Immed Release 5 Mg Tablet) 5 mg PO Q6H PRN PRN Reason: Pain, Moderate(Pain Scale 4-6) Sodium Chloride (0.9 % Sodium Chloride Flush 3 Ml Syringe) 3 ml IVFLUSH QSHIFT [facility] Last Admin: 01/09/24 08:32 Dose: Not Given Trazodone HCl (Trazodone Hcl 50 Mg Tablet) 50 mg PO BEDTIME [facility] Last Admin: 01/08/24 21:53 Dose: 50 mg Home Medications ?Medication ?Instructions ?Recorded ?Confirmed ?Last Taken ?Type multivitamin (Daily Multi-Vitamin 1 tab PO DAILY 09/11/22 01/08/24 01/07/24 History tablet) polyethylene glycol 3350 17 17 g PO DAILY PRN Constipation 01/08/24 01/08/24 01/03/24 History gram/dose oral powder (Miralax) Physical Exam 2 Vital Signs: Vital Signs: Last Vital Signs Temp 97.2 F 01/09/24 07:38 Pulse 65 01/09/24 07:38 Resp 16 01/09/24 07:38 BP 110/68 01/09/24 07:38 Pulse Ox 98 01/09/24 07:38 O2 Del Method Room Air 01/09/24 07:38 BMI result Body Mass Index 32.9 GI: Other: Abdomen soft. Mild right lower quadrant tenderness. Multiple scars. No evidence of any guarding, rebound, or rigidity. Results Labs 01/09/24 05:08 01/09/24 05:08 Labs: Abnormal lab results 01/08/24 01/09/24 Range/Units 15:14 05:08 WBC 4.7 L (4.8-10.8) X10*3/uL Hgb 13.4 L (14.0-18.0) g/dl Hct 41.2 L (42.0-52.0) % MPV 9.3 L 9.2 L (9.4-12.4) fL Neut % (Auto) 41.3 L (45-73) % Lymph % (Auto) 44.5 H (20-40) % Absolute Neuts (auto) 1.9 L (2.0-8.3) x10*3/uL Chloride 110 H (96-108) mmol/L BUN 8 L (9-16) mg/dL Short CBC 01/08/24 01/09/24 Range/Units 15:14 05:08 WBC 6.1 4.7 L (4.8-10.8) X10*3/uL Hgb 14.6 13.4 L (14.0-18.0) g/dl Hct 45.0 41.2 L (42.0-52.0) % Plt Count 232 205 (160-400) X10*3/uL BMP 01/08/24 01/09/24 15:14 05:08 Sodium 140 141 Potassium 4.3 4.5 Chloride 108 110 H Carbon Dioxide 22 23 BUN 12 8 L Creatinine 0.81 0.78 Calcium 9.7 8.8 D Liver Function 01/08/24 Range/Units 15:14 Total Bilirubin 0.5 (0.0-1.0) mg/dL Direct Bilirubin 0.1 (0.0-0.5) mg/dL AST 22 (5-37) U/L ALT 39 (0-40) U/L Alkaline Phosphatase 69 (39-117) U/L Albumin 4.5 (3.5-5.0) g/dL Urine 01/08/24 Range/Units 15:30 Urine Color Yellow Urine Appearance Clear Urine pH 6.0 (5.0-9.0) Ur Specific [place] 1.015 (1.005-1.025) Urine Protein Negative (Neg-Trace) mg/dL Urine Glucose (UA) Negative (Negative) mg/dL All other labs normal. Assessment and Plan (1) Intermittent small bowel obstruction: Status: Acute At present, patient's symptoms have moderately improved. Normal leukocyte count, minimal findings on exam. Consider GI consultation as well. To follow (2) Abdominal pain: Qualifiers: Abdominal location: periumbilical Qualified Code(s): R10.33 - Periumbilical pain Status: Acute Plan Partial SBO/question of inflammatory bowel disease flare up. At present, no acute surgical issues. To follow Procedures Date of Service Date of Service: 01/09/24
[2024-01-09] MEDS: Morphine Sulfate 4 MG/ML CARTRIDGE 2 MG IVPUSH (10:21)
--- NOTE | 2024-01-09 11:28 | PM.DS ---
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 He states that he has been having intermittent right upper quadrant pain since his prior surgery that acutely worsened last night and this morning. Reports a 9/10 nonradiating pain without any associated nausea, vomiting, diarrhea, melena, hematochezia. He also reports he is actually quite constipated and has been having small hard bowel movements requiring straining and in the ED did notice a small amount of bright red blood on the toilet paper. Reports a low-grade fever of 100 at home but has not had any recurrent fevers since arrival to the hospital. Vitals have been stable. No leukocytosis. Renal function and electrolyte levels normal. Urinalysis unremarkable. CT abdomen/pelvis shows prominent loop of jejunum with apparent transition point in the left mid abdomen with fecalization of bowel contents this loop of bowel concerning for at least partial small bowel obstruction. 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 In the ed, given iv ns. 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 Anderson and Dr. Lozada recently underwent upper endoscopy and colonoscopy in 11/10/[address] Castle, colonoscopy showed internal hemorrhoids, otherwise noted to have normal colon, pathology showed normal small bowel and colonic mucosa, no dysplasia or granulomata was seen, patient admitted to [facility] due to right-sided acute on chronic abdominal pain, and constipation, CT abdomen and pelvis showed prominent loops of jejunum with apparent transition point in the left mid abdomen with fecalization of bowel content concerning for at least partial bowel obstruction patient was treated with bowel rest, IV fluids, and analgesics patient responded well to above treatment had a bowel movement, diet was gradually advanced, which he is tolerating well ,he is recommended to avoid constipation and continue bowel regimen as before he is recommended outpatient follow-up with his Gastroenterology and Oncology. He is recommended to continue all home medications for mood disorder, occipital neuralgia and GERD. Time Attestation Discharge Coordination Time (in mins): 34 Quality: Safe Use of Opioids Does Pt have an Active Cancer Diagnosis on the Problem List?: No Quality: Stroke Does the patient have a stroke diagnosis?: No Physical Exam Vital Signs: Vital Signs: Last Vital Signs Temp 97.2 F 01/09/24 07:38 Pulse 65 01/09/24 07:38 Resp 16 01/09/24 07:38 BP 110/68 01/09/24 07:38 Pulse Ox 98 01/09/24 07:38 O2 Del Method Room Air 01/09/24 07:38 BMI result Body Mass Index 32.9 Const: Other: General no acute distress. Anicteric sclera Neck no JVD. CVS regular rate rhythm, Respiratory lungs clear to auscultation, no respiratory distress, no wheeze, no rhonchi. Gastrointestinal abdomen soft, mild discomfort right upper quadrant, bowel sounds audible, no guarding , no rigidity. Extremities no edema. Neuro non focal Skin no rash Psych appropriate affect DS: Data Data Completed and Pending Completed studies during hospitalization [Text1]: Procedures Introduction of Anesthetic Agent into Peripheral Nerves and Plexi, Percutaneous Approach (08/15/22) Repair Abdominal Wall, Open Approach (09/11/22) Resection of Right Large Intestine, Open Approach (08/15/22) Labs on day of discharge: Laboratory Results - last 24 hr 01/08/24 01/08/24 01/09/24 15:14 15:30 05:08 WBC 6.1 4.7 L RBC 5.04 4.61 Hgb 14.6 13.4 L Hct 45.0 41.2 L MCV 89.3 89.4 MCH 29.0 29.1 MCHC 32.4 32.5 RDW 14.0 13.9 Plt Count 232 205 MPV 9.3 L 9.2 L Immature Gran % (Auto) 0.2 0.2 Neut % (Auto) 65.7 41.3 L Lymph % (Auto) 25.0 44.5 H [place] % (Auto) 7.1 10.1 Eos % (Auto) 1.5 3.0 Baso % (Auto) 0.5 0.9 Lymph # (Auto) 1.5 2.1 [place] # (Auto) 0.4 0.5 Eos # (Auto) 0.1 0.1 Baso # (Auto) 0.0 0.0 Abs Immat Gran (auto) 0.01 0.01 Absolute Neuts (auto) 4.0 1.9 L Absolute Nucleated RBC 0.000 0.000 Nucleated RBC % (auto) 0.0 0.0 Sodium 140 141 Potassium 4.3 4.5 Chloride 108 110 H Carbon Dioxide 22 23 Anion Gap 14 13 BUN 12 8 L Creatinine 0.81 0.78 Estim Creat Clear Calc 118.3 124.4 Estimated GFR > 60 > 60 Random Glucose 99 82 Calcium 9.7 8.8 D Magnesium 2.2 Total Bilirubin 0.5 Direct Bilirubin 0.1 AST 22 ALT 39 Alkaline Phosphatase 69 Total Protein 7.5 Albumin 4.5 Lipase 22 Urine Color Yellow Urine Appearance Clear Urine pH 6.0 Ur Specific [place] 1.015 Urine Protein Negative Urine Glucose (UA) Negative Urine Ketones Negative Urine Blood Negative Urine Nitrite Negative Ur Leukocyte Esterase Negative Discharge Plan Discharge Anticipated Discharge Date/Time: 01/09/24 14:34 Patient Disposition: Home, Self-Care Discharge Diagnosis: Acute abdominal pain Referrals: Ale Minor MD [Primary Care Provider] - 1 Week Discharge Medications: Continued famotidine 40 mg tablet 40 mg PO BID Qty: 180 2RF cetirizine [All Day Allergy (cetirizine)] 10 mg tablet 10 mg PO DAILY PRN (Reason: allergy symptoms) 90 Days Qty: 90 1RF trazodone 50 mg tablet 50 mg PO BEDTIME Qty: 90 0RF duloxetine 30 mg capsule,delayed release(DR/EC) 30 mg PO DAILY 30 Days Qty: 30 0RF docusate sodium 100 mg Capsule 100 mg PO BID Qty: 30 0RF loperamide [Imodium A-D] 2 mg Capsule 2 mg PO Q6H PRN (Reason: Diarrhea) Qty: 30 2RF ondansetron 8 mg Tablet,Disintegrating 8 mg PO Q8H PRN (Reason: Nausea) Qty: 30 3RF multivitamin [Daily Multi-Vitamin] Tablet 1 tab PO DAILY Changed polyethylene glycol 3350 [Miralax] 17 gram/dose powder 17 g PO DAILY PRN (Reason: Constipation) Qty: 510 0RF Discharge Orders: Discharge Order (Routine); Ordered 01/09/24 Ordered By: Lawanda Thomas Diet: Advance to usual diet Activity on Discharge: As tolerated Stand Alone Forms: Patient Portal Discharge page Print Language: Urdu Care Plan Goals: Abdominal pain resolved question related constipation/partial small-bowel obstruction Continue bowel regimen Health Concerns: Chronic abdominal pain Plan of Treatment: Follow-up with primary care physician, Gastroenterology and Dr. Anderson Assessment: As above
--- NOTE | 2024-01-09 14:57 | MHC.CM.PN ---
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
[2024-01-09 15:11] VITALS: BP 131/80; PULSE 72; RESP 18; TEMP 36.7; O2SAT 98
== END 2024-01-09 16:12 | disposition home or self-care (01) | DRG 247 ==
LOC: HO.ED 18:15 → HO.EDOVER 19:03 → HO.S3 19:58
PROVIDERS: Physician Assistant; Admitting Provider Physician Assistant; Emergency Provider Emergency Medicine Emergency Medical Services; PCP Internal Medicine; Visit Provider Hospitalist
DX: K56.600 Partial intestinal obstruction, unspecified as to cause (principal); G62.0 Drug-induced polyneuropathy; F17.210 Nicotine dependence, cigarettes, uncomplicated; Z71.6 Tobacco abuse counseling; T45.1X5S Adverse effect of antineoplastic and immunosuppressive drugs, sequela; M54.81 Occipital neuralgia; K21.9 Gastro-esophageal reflux disease without esophagitis; Z85.09 Personal history of malignant neoplasm of other digestive organs; K50.90 Crohn's disease, unspecified, without complications; Z79.899 Other long term (current) drug therapy
CPT/HCPCS: 36415; 74177; 76705; 80048; 80076; 81003; 83690; 83735; 85025; 99285; J1650; J2270; Q9967

== ENCOUNTER → 2024-01-08 18:43 | Outpatient (BNV) | payer OTHER, SELFPAY | PROVIDERS: Admitting Provider Physician Assistant; Emergency Provider Emergency Medicine Emergency Medical Services; PCP Internal Medicine; Visit Provider Physician Assistant | DX: K56.609 Unspecified intestinal obstruction, unspecified as to partial versus complete obstruction (principal) | CPT/HCPCS: 99222; 99239 ==

== ENCOUNTER → 2024-01-08 18:43 | Outpatient (BNV) | payer OTHER, SELFPAY | PROVIDERS: Admitting Provider Physician Assistant; Emergency Provider Emergency Medicine Emergency Medical Services; PCP Internal Medicine; Visit Provider Surgery | DX: K56.609 Unspecified intestinal obstruction, unspecified as to partial versus complete obstruction (principal); R10.33 Periumbilical pain | CPT/HCPCS: 99221 ==

== ENCOUNTER 2024-01-14 13:53 | Outpatient (AMB) | payer OTHER, SELFPAY ==
--- NOTE | 2024-01-14 14:06 | A.OFFPC_ITS ---
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 Required: No Accompanied by: Self / Same As Patient Allergies aspirin [ASA] Allergy (Severe, Verified 01/14/24 14:35) anaphylaxis/facial swelling ibuprofen [Advil] Allergy (Severe, Verified 01/14/24 14:35) tracheal swelling shellfish derived Allergy (Severe, Verified 01/14/24 14:35) Anaphylaxis duloxetine Adverse Reaction (Severe, Uncoded 01/14/24 14:35) body aches Medication List - Last Reconciled 01/14/24 by Ale Vasques MD cetirizine (All Day Allergy (cetirizine)) 10 mg PO DAILY PRN 90 days docusate sodium 100 mg PO BID famotidine 40 mg PO BID loperamide (Imodium A-D) 2 mg PO Q6H PRN multivitamin (Daily Multi-Vitamin tablet) 1 tab PO DAILY ondansetron 8 mg PO Q8H PRN polyethylene glycol 3350 (Miralax) 17 grams PO DAILY PRN trazodone 50 mg PO BEDTIME Tobacco use date assessed: 10/27/23 Dental Screening Dental Screen Date: 10/27/23 HPI HPI Comments History of Present Illness Details This is a 43-year-old male with mild recurrent major depression, chronic constipation, Crohn's disease and chemotherapy-induced peripheral neuropathy comes today as hospital discharge follow-up with discharge date 01/09/2024 due to intermittent small-bowel obstruction. While hospitalized surgery was consulted which recommended no surgical intervention at the moment and since he was tolerate and regular diet he was discharged. He is aware of CT scan of abdomen results showing intermittent small-bowel and instruction and adenomyomatosis of gallbladder. He still has right upper quadrant pain but is able to be functional. Also tolerates regular diet. Depression stable with trazodone. Chronic constipation well controlled with MiraLax as needed. Had recent colonoscopy which was within normal limits. Crohn's disease has been in active with no need for medication and follow by Gastroenterology. On gabapentin for he has chemotherapy-induced peripheral neuropathy. Denies any chest pain or shortness on breath. [facility] Medical History (Updated 01/14/24 @ 21:11 by Ale Vasques MD) Crohn's disease Internal hemorrhoids Cancer of appendix History of COVID-19 Physical exam Anxiety Hospital discharge follow-up Mild recurrent major depression Screen for colon cancer Pulmonary nodules Migraines Surgical History History of wisdom tooth extraction H/O umbilical hernia repair History of esophagogastroduodenoscopy (EGD) History of right hemicolectomy Hx of appendectomy Hx of colonoscopy Family History Father Colon cancer, Onset Age: 63 Liver cancer Mother Breast cancer Diabetes Hypertension Maternal Grandmother Cancer Paternal Aunt Cancer Family/Other FH: mental illness Social History Household Members: Family Housing: Apartment Are you a primary healthcare consulting manager to a significant other at home: No Do you presently have visiting nurse or other home services: Yes ([employer]) Alcohol intake: never Patient Tobacco Use Status: Current someday Tobacco user Tobacco use type: Cigarette Cigarettes Per Day: 2 e-Cigarette/Vaping Use: Never Used Second Hand Smoke Exposure: No service: No Current occupational status: unemployed Current occupational exposures/hazards: No Cognitive needs: No Hearing needs: No Vision needs: No Questionnaire Thrive Questionnaire Date Thrive assessed: 01/09/24 MARCY-7 AMB Questionnaire MARCY-7 Date MARCY - 7 assessed: 10/27/23 Source: Developed by Drs. Fred Min, Linda Fox, Mirza Santiago and colleagues, with an educational emma from [employer]. Review of Systems Const All systems reviewed & are unremarkable except as noted in HPI and below Card Denies chest pain at rest, Denies chest pain with activity, Denies edema, Denies irregular heart rhythm, Denies claudication, Denies dyspnea, Denies dyspnea on exertion, Denies orthopnea, Denies paroxysmal nocturnal dyspnea and Denies slow heart rate Resp Denies cough, Denies dyspnea and Denies dyspnea on exertion GI Reports abdominal pain Physical exam (Primary Care) Vital Signs: Last Vital Signs BP 118/68 01/14/24 14:07 BMI result Body Mass Index 32.3 BMI Assessment/Plan discussion: High BMI High, discussed plan: lifestyle, weight reduction, dietary and physical activity Tobacco/Smoking Status: Tobacco use Status Tobacco use date assessed 10/27/23 01/14/24 14:18 Patient Tobacco Use Status Current someday Tobacco 01/14/24 14:18 Tobacco use type Cigarette 01/14/24 14:18 e-Cigarette/Vaping Use Never Used 01/14/24 14:18 Thrive Assessment: Date of Thrive Assessment Date Thrive assessed 01/09/24 01/14/24 14:18 Resp Effort & Inspection: normal respiratory effort Auscultation: clear to auscultation bilaterally Cardio Jugular venous distension: no JVD Rate: regular rate Rhythm: regular rhythm Heart sounds: S1 normal heart sound present and S2 normal heart sound present GI Inspection: Yes normal to inspection Palpation (GI): Soft to palpation and Tenderness to palpation present (GI) in the RUQ Auscultation: normal bowel sounds Extrem General: Yes full ROM Assessment and Plan Assessment & Plan (1) Hospital discharge follow-up: Code(s): Z09 - Encounter for follow-up examination after completed treatment for conditions other than malignant neoplasm Plan: Discharge date 01/09/2024 due to intermittent small-bowel obstruction. CT scan of abdomen was done and surgery was consulted recommending no surgical intervention at the moment. Tolerating regular diet. (2) Intermittent small bowel obstruction: Code(s): K56.609 - Unspecified intestinal obstruction, unspecified as to partial versus complete obstruction Plan: Continue regular diet as tolerated. Go back to ER if abdominal pain is intractable. (3) Chemotherapy-induced peripheral neuropathy: Code(s): G62.0 - Drug-induced polyneuropathy; T45.1X5A - Adverse effect of antineoplastic and immunosuppressive drugs, initial encounter Plan: Continue gabapentin. (4) Mild recurrent major depression: Code(s): F33.0 - Major depressive disorder, recurrent, mild Plan: Continue trazodone. (5) Crohn's disease: Code(s): K50.90 - Crohn's disease, unspecified, without complications Plan: Follow-up with Gastroenterology. (6) Chronic constipation: Comment: Maintain HFD, senna Code(s): K59.09 - Other constipation Plan: Continue MiraLax as needed. Medications: New gabapentin 600 mg PO BID 60 tabs 0RF 30 days Coding Level of Care Code TCM Mod MDM <= 7 Days Complex EM visit Add On G2211 Diagnoses Hospital discharge follow-up Z09 Intermittent small bowel obstruction K56.609 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; T45.1X5A Mild recurrent major depression F33.0 Crohn's disease K50.90 Chronic constipation K59.09 Time Spent (min) 25
[2024-01-14 14:07] VITALS: BP 118/68; BMI 32.3
== END 2024-01-14 14:50 | disposition home or self-care (01) ==
PROVIDERS: PCP Internal Medicine; Visit Provider Internal Medicine
DX: K56.609 Unspecified intestinal obstruction, unspecified as to partial versus complete obstruction (principal); G62.0 Drug-induced polyneuropathy; T45.1X5A Adverse effect of antineoplastic and immunosuppressive drugs, initial encounter; F33.0 Major depressive disorder, recurrent, mild; K50.90 Crohn's disease, unspecified, without complications; K59.09 Other constipation
CPT/HCPCS: 99214; G2211

== ENCOUNTER 2024-04-14 21:50 | Emergency (ER) | payer OTHER, SELFPAY ==
--- NOTE | ~2024-04-14 | XR_ITS ---
EXAMINATION: XR ABDOMEN KUB CLINICAL INDICATION: Pain. COMPARISON: None available. TECHNIQUE: AP view of the abdomen. FINDINGS: The bowel gas pattern is normal with no evidence of ileus or obstruction. There is retained right and transverse colonic stool. No unusual soft tissue calcifications are noted. The bones are unremarkable. XR/XR KUB IMPRESSION: Nonobstructive bowel gas pattern. Retained right and transverse colonic stool. Electronically signed by: Maciej Hong MD 04/15/2024 02:12 AM EDT
[2024-04-14 22:27] VITALS: BP 115/72; PULSE 83; RESP 20; TEMP 36.8; BMI 31.8
[2024-04-14 22:40] LABS: MANUAL DIFF FLAG NO
[2024-04-14 22:43] LABS: Basophils Percent Auto 0.5 % (0-2); Eosinophils Absolute Auto 0.2 X10*3/uL (0.0-0.4); Eosinophils Percent Auto 3.3 % (0-4); Hematocrit 42.6 % (42.0-52.0); Hemoglobin 14.1 g/dl (14.0-18.0); Imm Gran Abs Auto 0.01 X10*3/uL (0.00-0.03); Imm Gran Pct Auto 0.2 % (0.0-0.4); Lymphocytes Absolute Auto 1.8 X10*3/uL (1.2-4.9); Lymphocytes Percent Auto 31.8 % (20-40); Mean Corpuscular HGB Conc 33.1 g/dl (31.0-36.0); Mean Corpuscular Hemoglobin 28.8 pg (27.0-33.0); Mean Corpuscular Volume 87.1 fL (80.0-98.0); Mean Platelet Volume 8.9 fL (9.4-12.4); Monocytes Absolute Auto 0.6 X10*3/uL (0.1-1.2); Neutrophils Absolute Auto 3.1 x10*3/uL (2.0-8.3); Neutrophils Percent Auto 53.2 % (45-73); Platelet Count 236 X10*3/uL (160-400); Red Blood Count 4.89 X10*6/uL (4.60-5.80); Red Cell Distribution Width 13.2 % (11.0-16.0); White Blood Count 5.7 X10*3/uL (4.8-10.8)
[2024-04-14 22:57] LABS: Alanine Aminotransferase 41 U/L (0-40); Alkaline Phosphatase 74 U/L (39-117); Anion Gap 12 (12-20); Aspartate Amino Transferase 26 U/L (5-37); Bilirubin Total 0.3 mg/dL (0.0-1.0); Blood Urea Nitrogen 15 mg/dL (9-16); Calcium 9.2 mg/dL (8.4-10.2); Carbon Dioxide 22 mmol/L (22-29); Chloride 112 mmol/L (96-108); Creatinine Clr Calc Pharmacy 128.9; Estimated Glomerular Filt Rate > 60; Glucose Random 98 mg/dL (60-115); Potassium 3.8 mmol/L (3.3-5.1); Sodium 142 mmol/L (135-145); Total Protein 6.7 g/dL (6.5-8.0)
--- NOTE | 2024-04-15 01:27 | ED_ITS ---
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 with subsequent chemotherapy with history of constipation with history of partial bowel obstruction secondary to constipation comes here with similar discomfort in the upper abdomen especially on the right side last 2 days moved his bowel yesterday after taking MiraLax slight nausea no vomiting able to eat and drink fine but feel bloated no fever no chills Related Data Home Medications ?Medication ?Instructions ?Recorded ?Confirmed multivitamin (Daily Multi-Vitamin 1 tab PO DAILY 09/11/22 03/17/24 tablet) Previous Rx's ?Medication ?Instructions ?Recorded docusate sodium 100 mg capsule 100 mg PO BID #30 caps 08/15/22 loperamide 2 mg capsule (Imodium 2 mg PO Q6H PRN Diarrhea #30 caps 10/21/22 A-D) ondansetron 8 mg disintegrating 8 mg PO Q8H PRN Nausea #30 tabs 10/21/22 tablet famotidine 40 mg tablet 40 mg PO BID #180 tabs 03/26/23 cetirizine 10 mg tablet (All Day 10 mg PO DAILY PRN allergy 11/06/23 Allergy (cetirizine)) symptoms 90 days #90 tabs polyethylene glycol 3350 17 17 g PO DAILY PRN Constipation 01/09/24 gram/dose oral powder (Miralax) #510 grams duloxetine 30 mg capsule,delayed 30 mg PO DAILY 90 days #90 caps 02/09/24 release trazodone 50 mg tablet 50 mg PO BEDTIME #90 tabs 02/24/24 Allergies Allergy/AdvReac Type Severity Reaction Status Date / Time aspirin [ASA] Allergy Severe anaphylaxis/facial Verified 04/14/24 22:28 swelling ibuprofen [Advil] Allergy Severe tracheal Verified 04/14/24 22:28 swelling shellfish derived Allergy Severe Anaphylaxis Verified 04/14/24 22:28 duloxetine AdvReac Severe body aches Uncoded 04/14/24 22:28 Review of Systems Review of Systems Yes all other systems are reviewed and are negative PMFSH Past Medical History Medical History Abdominal pain Crohn's disease Internal hemorrhoids Cancer of appendix History of COVID-19 Physical exam Anxiety Hospital discharge follow-up Mild recurrent major depression Screen for colon cancer Pulmonary nodules Migraines Surgical History History of wisdom tooth extraction H/O umbilical hernia repair History of esophagogastroduodenoscopy (EGD) History of right hemicolectomy Hx of appendectomy Hx of colonoscopy Family History Family History Father Colon cancer, Onset Age: 63 Liver cancer Mother Breast cancer Diabetes Hypertension Maternal Grandmother Cancer Paternal Aunt Cancer Family/Other FH: mental illness Social History Social History Household Members: Family Housing: Apartment Are you a primary customer care assistant to a significant other at home: No 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) Alcohol intake: never Patient Tobacco Use Status: Current someday Tobacco user Tobacco use type: Cigarette Cigarettes Per Day: 2 Smoked in Last 30 Days: Yes e-Cigarette/Vaping Use: Never Used Second Hand Smoke Exposure: No Use of substances other than those prescribed or required for medical reasons: No Advance Directives: No Advance Directives Information Provided: Yes Do you have a plan to hurt others: No Plan service: No Current occupational status: unemployed Current occupational exposures/hazards: No Cognitive needs: No Hearing needs: No Vision needs: No Physical Exam ED Vital Signs: Vital Signs - 24 hr 04/14/24 22:27 Temperature 98.2 F Pulse Rate 83 Respiratory Rate 20 Blood Pressure 115/72 Oxygen Delivery Method Room Air BMI result Body Mass Index 31.8 Appearance: Alert. Oriented X3. No acute distress. Eyes: PERRLA, No Nystagmus ENT: Pharynx normal. Oral Mucosa moist Neck: Normal inspection. Neck supple. CVS: Normal heart rate and rhythm. Pulses normal. Respiratory: No respiratory distress. Equal air entry bilateral, no wheezing/rales/rhonchi Abdomen: Soft and slight tenderness right upper quadrant Bowel sounds are present, no mass palpable, no CVA tenderness Skin: Skin warm and dry. Normal skin color. Normal skin turgor. Extremities: No lower extremity edema. No calf tenderness Neuro: Oriented X 3. No motor deficit. No sensory deficit.No cerebellar signs , cranial nerves II-XII intact Medical Decision Making Medical Decision Making [facility] Narrative: Patient with constipation will moderate amount of stool and colonic patient advised to use stool softener off likely the cause pain Lab Data [facility] Lab Attestation statement: I reviewed the patient's lab results. 04/14/24 22:35 04/14/24 22:35 Labs: Lab Results 04/14/24 Range/Units 22:35 WBC 5.7 (4.8-10.8) X10*3/uL RBC 4.89 (4.60-5.80) X10*6/uL Hgb 14.1 (14.0-18.0) g/dl Hct 42.6 (42.0-52.0) % MCV 87.1 (80.0-98.0) fL MCH 28.8 (27.0-33.0) pg MCHC 33.1 (31.0-36.0) g/dl RDW 13.2 (11.0-16.0) % Plt Count 236 (160-400) X10*3/uL MPV 8.9 L (9.4-12.4) fL Immature Gran % (Auto) 0.2 (0.0-0.4) % Neut % (Auto) 53.2 (45-73) % Lymph % (Auto) 31.8 (20-40) % [place] % (Auto) 11.0 (2-11) % Eos % (Auto) 3.3 (0-4) % Baso % (Auto) 0.5 (0-2) % Lymph # (Auto) 1.8 (1.2-4.9) X10*3/uL [place] # (Auto) 0.6 (0.1-1.2) X10*3/uL Eos # (Auto) 0.2 (0.0-0.4) X10*3/uL Baso # (Auto) 0.0 (0.0-0.2) X10*3/uL Abs Immat Gran (auto) 0.01 (0.00-0.03) X10*3/uL Absolute Neuts (auto) 3.1 (2.0-8.3) x10*3/uL Absolute Nucleated RBC 0.000 (0.0-0.012) X10*3/uL Nucleated RBC % (auto) 0.0 (0.0-0.2) /100WBC Sodium 142 (135-145) mmol/L Potassium 3.8 (3.3-5.1) mmol/L Chloride 112 H (96-108) mmol/L Carbon Dioxide 22 (22-29) mmol/L Anion Gap 12 (12-20) BUN 15 (9-16) mg/dL Creatinine 0.74 (0.5-1.4) mg/dL Estim Creat Clear Calc 128.9 Estimated GFR > 60 Random Glucose 98 (60-115) mg/dL Calcium 9.2 (8.4-10.2) mg/dL Total Bilirubin 0.3 (0.0-1.0) mg/dL AST 26 (5-37) U/L ALT 41 H (0-40) U/L Alkaline Phosphatase 74 (39-117) U/L Total Protein 6.7 (6.5-8.0) g/dL Albumin 4.0 (3.5-5.0) g/dL Medications Administered Discontinued Medications Generic Name Dose Route Start Last Admin Trade Name Freq PRN Reason Stop Dose Admin Magnesium Hydroxide 30 ml 04/15/24 02:42 04/15/24 02:50 Milk Of Magnesia 30 Ml Oral.Susp PO 04/15/24 02:43 30 ml NOW STA Administration Discharge Plan Discharge Clinical Impression: Constipation Patient Disposition: Home, Self-Care Instructions: Constipation (ED) Additional Instructions: Continue take MiraLax daily to have good bowel movements Follow with your PCP or report to ER if not better Prescriptions: No Action famotidine 40 mg tablet 40 mg PO BID Qty: 180 2RF cetirizine [All Day Allergy (cetirizine)] 10 mg tablet 10 mg PO DAILY PRN (Reason: allergy symptoms) 90 Days Qty: 90 1RF duloxetine 30 mg capsule,delayed release(DR/EC) 30 mg PO DAILY 90 Days Qty: 90 1RF trazodone 50 mg tablet 50 mg PO BEDTIME Qty: 90 0RF docusate sodium 100 mg Capsule 100 mg PO BID Qty: 30 0RF loperamide [Imodium A-D] 2 mg Capsule 2 mg PO Q6H PRN (Reason: Diarrhea) Qty: 30 2RF ondansetron 8 mg Tablet,Disintegrating 8 mg PO Q8H PRN (Reason: Nausea) Qty: 30 3RF multivitamin [Daily Multi-Vitamin] Tablet 1 tab PO DAILY polyethylene glycol 3350 [Miralax] 17 gram/dose powder 17 g PO DAILY PRN (Reason: Constipation) Qty: 510 0RF Stand Alone Forms: Work/School Release Interventions: ED Discharge Assessment Last Done: 04/15/24 02:54 Discharge Date/Time: 04/15/24 02:55 Print Language: Colombian
[2024-04-15 02:00] VITALS: BP 105/63; PULSE 64; RESP 16; TEMP 36.7; O2SAT 96
--- NOTE | 2024-04-15 02:02 | PC.NURSE ---
assume care of pt at this time
[2024-04-15] MEDS: Milk of Magnesia 30 ML ORAL.SUSP PO (02:50)
[2024-04-15 02:54] VITALS: BP 105/63; PULSE 64; RESP 15; TEMP 36.7; O2SAT 96
== END 2024-04-15 02:55 | disposition home or self-care (01) ==
PROVIDERS: Emergency Provider Internal Medicine; PCP Internal Medicine
DX: K59.00 Constipation, unspecified (principal); R10.11 Right upper quadrant pain; F17.210 Nicotine dependence, cigarettes, uncomplicated; Z79.899 Other long term (current) drug therapy
CPT/HCPCS: 36415; 74018; 80053; 85025; 99283; 99284

== ENCOUNTER 2024-06-08 06:03 | Emergency (ER) | payer OTHER, SELFPAY ==
--- NOTE | ~2024-06-08 | CT_ITS ---
EXAMINATION: CT ABDOMEN AND PELVIS WITHOUT CONTRAST CLINICAL INFORMATION: right flank pain COMPARISON: CT abdomen/pelvis 01/08/2024 TECHNIQUE: Multidetector volumetric imaging was performed from the superior aspect of the liver through the pubic symphysis. Sagittal and coronal reformatted images were obtained on the technologist's workstation. This CT examination was performed using dose optimization techniques as appropriate, variously including the following: *Automated exposure control *Adjustment of mA and/or kV according to patient size (this includes techniques or standardized protocols for targeted exams where dose is matched to indication/reason for exam; i.e. extremities or head) *Use of iterative reconstruction technique DLP: 555 mGy-cm FINDINGS: LUNG BASES: Left lung base calcified granuloma. Bibasilar dependent subsegmental atelectasis. LIVER, GALLBLADDER, AND BILIARY TREE: The liver is normal in size, shape, and attenuation. No focal hepatic lesion or biliary ductal dilatation is present. The gallbladder is distended with fundal adenomyomatosis, as before. PANCREAS: Unremarkable. SPLEEN: Unremarkable. ADRENAL GLANDS: Unremarkable. KIDNEYS AND URETERS: The kidneys are normal in size, shape, and attenuation. No hydronephrosis, hydroureter, or calculi seen. No perinephric stranding. BLADDER: Unremarkable. GASTROINTESTINAL TRACT: The small and large bowel are nondilated. Stable post surgical changes status post right hemicolectomy. ABDOMINAL WALL: No significant hernia is appreciated. LYMPH NODES: Normal. VASCULAR: The aorta is nonaneurysmal. Accessory retroaortic left renal vein. PELVIC VISCERA: Coarse prostatic calcifications and mild prostatomegaly. OSSEOUS STRUCTURES: Unremarkable. CT/CT abdomen pelvis wo IV con IMPRESSION: No nephrolithiasis or hydronephrosis. No acute or malunion abdomen or pelvis. Fleischner guidelines were followed. Electronically signed by: Rasheeda Irby DO 06/08/2024 11:38 AM BRANDY
[2024-06-08 06:06] VITALS: BP 122/80; BP 138/90; PULSE 89; PULSE 97; RESP 17; TEMP 36.9; O2SAT 98; O2SAT 99; BMI 32.5
[2024-06-08 06:21] LABS: MANUAL DIFF FLAG NO
--- NOTE | 2024-06-08 06:21 | PC.NURSE ---
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 pt a&ox4, respirations even and unlabored. pt reporting onset of right sided flank pain, blood in urine, painful urination and nausea x3 days. pt reports today this pain has increased. pt reporting 10/10 pain at this time. pt reports last kidney stone was 16 years ago. 18G placed in left ac, labs obtained.
[2024-06-08 06:22] LABS: Basophils Percent Auto 0.2 % (0-2); Eosinophils Percent Auto 0.1 % (0-4); Hematocrit 41.2 % (42.0-52.0); Hemoglobin 13.7 g/dl (14.0-18.0); Imm Gran Abs Auto 0.03 X10*3/uL (0.00-0.03); Imm Gran Pct Auto 0.3 % (0.0-0.4); Lymphocytes Absolute Auto 0.8 X10*3/uL (1.2-4.9); Lymphocytes Percent Auto 7.1 % (20-40); Mean Corpuscular HGB Conc 33.3 g/dl (31.0-36.0); Mean Corpuscular Hemoglobin 28.8 pg (27.0-33.0); Mean Corpuscular Volume 86.7 fL (80.0-98.0); Mean Platelet Volume 8.8 fL (9.4-12.4); Monocytes Absolute Auto 0.8 X10*3/uL (0.1-1.2); Monocytes Percent Auto 7.6 % (2-11); Neutrophils Absolute Auto 9.1 x10*3/uL (2.0-8.3); Neutrophils Percent Auto 84.7 % (45-73); Platelet Count 229 X10*3/uL (160-400); Red Blood Count 4.75 X10*6/uL (4.60-5.80); White Blood Count 10.7 X10*3/uL (4.8-10.8)
[2024-06-08 06:35] LABS: Alanine Aminotransferase 37 U/L (0-40); Albumin Level 4.1 g/dL (3.5-5.0); Alkaline Phosphatase 71 U/L (39-117); Anion Gap 11 (12-20); Aspartate Amino Transferase 25 U/L (5-37); Bilirubin Total 0.6 mg/dL (0.0-1.0); Blood Urea Nitrogen 9 mg/dL (9-16); Calcium 8.6 mg/dL (8.4-10.2); Carbon Dioxide 22 mmol/L (22-29); Chloride 107 mmol/L (96-108); Estimated Glomerular Filt Rate > 60; Glucose Random 104 mg/dL (60-115); Lipase 11 U/L (8-78); Potassium 3.9 mmol/L (3.3-5.1); Sodium 136 mmol/L (135-145); Total Protein 7.3 g/dL (6.5-8.0)
--- NOTE | 2024-06-08 06:36 | PC.NURSE ---
pt able to void small amount of dark colored urine, pt reports pain with urination.
[2024-06-08 06:51] LABS: Appearance Urine Cloudy; Color Urine Yellow; Glucose Urine UA Negative (Negative); Leukocyte Esterase Urine Large (3+) (Negative); Nitrite Urine Positive (Negative); PH 5.5 (5.0-9.0); Specific Gravity - Urine >= 1.030 (1.005-1.025); UMIC TRIGGER UACC YES; Urine Blood Large (3+) (Negative); Urine Ketones Negative (Negative); Urine Protein 100 (2+) mg/dL (Neg-Trace)
[2024-06-08 07:03] LABS: Bacteria Urine Trace (None Seen); Hyaline Casts Urine 0-2 /LPF (0-2); RBC Urine >20 /HPF (0-2); Squamous Epithelial Cell Urine 0-2 /HPF (0-2); UACC Culture Trigger YES; WBC Urine >50 /HPF (0-5)
--- NOTE | 2024-06-08 07:38 | ED_ITS ---
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 Admits to associated nausea without vomiting. Last BM yesterday. Passing flatus. He has been taking Tylenol at home for fevers, last dose being at 0400 this morning. Denies chills, sob, chest pain, abdominal pain, diarrhea, constipation. Related Data Home Medications ?Medication ?Instructions ?Recorded ?Confirmed multivitamin (Daily Multi-Vitamin 1 tab PO DAILY 09/11/22 03/17/24 tablet) Previous Rx's ?Medication ?Instructions ?Recorded docusate sodium 100 mg capsule 100 mg PO BID #30 caps 08/15/22 loperamide 2 mg capsule (Imodium 2 mg PO Q6H PRN Diarrhea #30 caps 10/21/22 A-D) ondansetron 8 mg disintegrating 8 mg PO Q8H PRN Nausea #30 tabs 10/21/22 tablet famotidine 40 mg tablet 40 mg PO BID #180 tabs 03/26/23 cetirizine 10 mg tablet (All Day 10 mg PO DAILY PRN allergy 11/06/23 Allergy (cetirizine)) symptoms 90 days #90 tabs polyethylene glycol 3350 17 17 g PO DAILY PRN Constipation 01/09/24 gram/dose oral powder (Miralax) #510 grams duloxetine 30 mg capsule,delayed 30 mg PO DAILY 90 days #90 caps 02/09/24 release trazodone 50 mg tablet 50 mg PO BEDTIME #90 tabs 02/24/24 cefuroxime axetil 500 mg tablet 500 mg PO BID 7 days #14 tabs 06/08/24 phenazopyridine 200 mg tablet 200 mg PO TID PRN pain (scale 06/08/24 (Pyridium) score 1-3) 6 doses #6 tabs Allergies Allergy/AdvReac Type Severity Reaction Status Date / Time aspirin [ASA] Allergy Severe anaphylaxis/facial Verified 06/08/24 06:11 swelling ibuprofen [Advil] Allergy Severe tracheal Verified 06/08/24 06:11 swelling shellfish derived Allergy Severe Anaphylaxis Verified 06/08/24 06:11 duloxetine AdvReac Severe body aches Uncoded 06/08/24 06:11 Review of Systems 2 Review of Systems: Yes all other systems are reviewed and are negative [facility] Past Medical History Attestation statement: The following information was validated with the patient. Source: old records reviewed and nursing notes reviewed Medical History Abdominal pain Crohn's disease Internal hemorrhoids Cancer of appendix History of COVID-19 Physical exam Anxiety Hospital discharge follow-up Mild recurrent major depression Screen for colon cancer Pulmonary nodules Migraines Surgical History History of wisdom tooth extraction H/O umbilical hernia repair History of esophagogastroduodenoscopy (EGD) History of right hemicolectomy Hx of appendectomy Hx of colonoscopy Family History Family History Father Colon cancer, Onset Age: 63 Liver cancer Mother Breast cancer Diabetes Hypertension Maternal Grandmother Cancer Paternal Aunt Cancer Family/Other FH: mental illness Social History Social History Household Members: Family Housing: Apartment Are you a primary youth care worker to a significant other at home: No 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) Alcohol intake: never Patient Tobacco Use Status: Current someday Tobacco user Tobacco use type: Cigarette Cigarettes Per Day: 2 Smoked in Last 30 Days: Yes e-Cigarette/Vaping Use: Never Used Second Hand Smoke Exposure: No Use of substances other than those prescribed or required for medical reasons: No Advance Directives: Yes Advance Directives Information Provided: Yes Advance Directives on File: No Do you have a plan to hurt others: No Plan service: No Current occupational status: unemployed Current occupational exposures/hazards: No Cognitive needs: No Hearing needs: No Vision needs: No Physical Exam 2 Vital Signs: Vital Signs: Last Vital Signs Temp 99.1 F 06/08/24 11:27 Pulse 97 06/08/24 09:27 Resp 16 06/08/24 09:27 BP 114/78 06/08/24 09:27 Pulse Ox 98 06/08/24 09:27 O2 Del Method Room Air 06/08/24 09:27 BMI result Body Mass Index 32.5 vital signs stable, afebrile General: in obvious discomfort, lying in position on exam bed Skin: Warm, dry, intact. No rashes or lesions. Head: Normocephalic, atraumatic. EENT: Hearing is intact b/l. Conjunctiva clear. PERRLA. EOM intact. Moist mucous membranes.? Neck: Supple without LAD Cardiac: Chest wall symmetric. RRR Lungs: Normal respiratory effort without accessory muscle use. CTA bilaterally Abdomen: soft, nondistended, nontender to palpation. No rebound tenderness or guarding. Normoactive BSx4. Minimal right CVAT.. Back: No midline spinous or paraspinal tenderness. No step off deformity. Ext: Upper and lower extremities atraumatic, without tenderness, deformity, swelling or erythema Neuro: AOx3. Normal speech. Ambulating with steady gait. Psych: Appropriate mood and affect. Responds appropriately to questions. Course Course Course Narrative: 0735 -- CBC without leukocytosis. There is left shift. Normocytic anemia, at baseline when compared to priors. H&H above transfusion threshold. Chemistry without acute electrolyte abnormality requiring intervention. No URVASHI. Liver function baseline. Lipase WNL. Urine positive for infection. > a dose of ceftriaxone ordered to treat urinary tract infection. His vitals are stable and he does not meet SIRS criteria for sepsis. CT A/P pending to r/o obstructing renal stone/ pyelo. > morphine ordered for pain control. zofran ordered for nausea. 1203 --CT A/P without evidence of nephrolithaisis or hydronephrosis. no perinephric stranding to suggest pyelonephritis. he has a low grade fever, likely secondary to UTI. he is nontoxic appearing. His vitals have remained stable and his blood work is reassuring. Will send him home with Ceftin and pyridium. Advise to follow up with PCP. Patient has remained stable throughout ED visit today. Discussed worrisome signs and symptoms and when to return to the ED. All questions answered at this time. Patient is agreeable with disposition and stable for discharge. Medications Administered Discontinued Medications Generic Name Dose Route Start Last Admin Trade Name Emilie PRN Reason Stop Dose Admin Ceftriaxone Sodium 1 gm 06/08/24 07:35 06/08/24 08:11 Ceftriaxone Sodium 1 Gm Vial IVPUSH 06/08/24 07:36 1 gm ONCE ONE Administration Acetaminophen 1,000 mg in 100 mls @ 400 mls/hr 06/08/24 09:33 06/08/24 10:15 Ofirmev IV 06/08/24 09:47 Infused ONCE ONE Infusion Morphine Sulfate 2 mg 06/08/24 07:39 06/08/24 08:11 Morphine Sulfate 2 Mg/Ml Cartridge IVPUSH 06/08/24 07:40 2 mg ONCE ONE Administration Protocol Ondansetron HCl 4 mg 06/08/24 07:35 06/08/24 08:11 Ondansetron Hcl 4 Mg/2 Ml Vial IVPUSH 06/08/24 07:36 4 mg ONCE ONE Administration Medical Decision Making Medical Decision Making MDM Narrative: 43 year old male with pmhx significant for migraine headaches, anxiety, depression, appendiceal carcinoma s/p appendectomy and right hemicolectomy (in 07/2022) with subsequent chemotherapy, constipation, Crohn's disease, partial SBO presents to the ED today for evaluation of fevers (TMAX 101F), dysuria, hematuria, and right flank pain x3 days. Low-grade temp of a 100.3?. Vitals otherwise WNL. He is nontoxic-appearing and in no acute distress. Abdominal exam benign. Minimal right CVAT. Differential diagnoses: nephrolithiasis, UTI, pyelonephritis, diverticulitis, diverticulosis, constipation Abdominal exam without peritoneal signs. No evidence of acute abdomen at this time. Well appearing. Low suspicion for acute hepatobiliary disease (including acute cholecystitis), acute infectious processes (pneumonia, hepatitis), vascular catastrophe, bowel obstruction or viscus perforation, orchitis, testicular torsion. Presentation not consistent with other acute, emergent causes of abdominal pain at this time. Plan: labs, UA, CT AP, pain control, re-evaluation Differential Diagnosis Differential Diagnoses: The differential diagnosis associated with the presentation includes as above Admission/Observation Consideration of admission/observation: Escalation of care including admission/observation considered Admission considered on presentation Lab Data MDM Lab Attestation statement: I reviewed the patient's lab results. as above. 06/08/24 06:16 06/08/24 06:16 Labs: Lab Results 06/08/24 06/08/24 Range/Units 06:16 06:33 WBC 10.7 (4.8-10.8) X10*3/uL RBC 4.75 (4.60-5.80) X10*6/uL Hgb 13.7 L (14.0-18.0) g/dl Hct 41.2 L (42.0-52.0) % MCV 86.7 (80.0-98.0) fL MCH 28.8 (27.0-33.0) pg MCHC 33.3 (31.0-36.0) g/dl RDW 13.0 (11.0-16.0) % Plt Count 229 (160-400) X10*3/uL MPV 8.8 L (9.4-12.4) fL Immature Gran % (Auto) 0.3 (0.0-0.4) % Neut % (Auto) 84.7 H (45-73) % Lymph % (Auto) 7.1 L (20-40) % Power % (Auto) 7.6 (2-11) % Eos % (Auto) 0.1 (0-4) % Baso % (Auto) 0.2 (0-2) % Lymph # (Auto) 0.8 L (1.2-4.9) X10*3/uL Power # (Auto) 0.8 (0.1-1.2) X10*3/uL Eos # (Auto) 0.0 (0.0-0.4) X10*3/uL Baso # (Auto) 0.0 (0.0-0.2) X10*3/uL Abs Immat Gran (auto) 0.03 (0.00-0.03) X10*3/uL Absolute Neuts (auto) 9.1 H (2.0-8.3) x10*3/uL Absolute Nucleated RBC 0.000 (0.0-0.012) X10*3/uL Nucleated RBC % (auto) 0.0 (0.0-0.2) /100WBC Sodium 136 (135-145) mmol/L Potassium 3.9 (3.3-5.1) mmol/L Chloride 107 (96-108) mmol/L Carbon Dioxide 22 (22-29) mmol/L Anion Gap 11 L (12-20) BUN 9 (9-16) mg/dL Creatinine 0.73 (0.5-1.4) mg/dL Estim Creat Clear Calc 132.0 Estimated GFR > 60 Random Glucose 104 (60-115) mg/dL Calcium 8.6 D (8.4-10.2) mg/dL Total Bilirubin 0.6 (0.0-1.0) mg/dL AST 25 (5-37) U/L ALT 37 (0-40) U/L Alkaline Phosphatase 71 (39-117) U/L Total Protein 7.3 (6.5-8.0) g/dL Albumin 4.1 (3.5-5.0) g/dL Lipase 11 (8-78) U/L Urine Color Yellow Urine Appearance Cloudy Urine pH 5.5 (5.0-9.0) Ur Specific [place] >= 1.030 H (1.005-1.025) Urine Protein 100 (2+) H (Neg-Trace) mg/dL Urine Glucose (UA) Negative (Negative) mg/dL Urine Ketones Negative (Negative) mg/dL Urine Blood Large (3+) H (Negative) Urine Nitrite Positive H (Negative) Ur Leukocyte Esterase Large (3+) H (Negative) Urine RBC >20 H (0-2) /HPF Urine WBC >50 H (0-5) /HPF Ur Squamous Epith Cells 0-2 (0-2) /HPF Urine Bacteria Trace (None Seen) Hyaline Casts 0-2 (0-2) /LPF Independent Interpretation I performed an independent interpretation of an: CT Scan Interpretation: CT A/P without evidence of renal or ureteral stone, no hydronephrosis, no perinephric stranding Radiology Impression Discussion of test interpretation with radiology: I have reviewed the radiologist's reading. Radiologist Impression: EXAMINATION: CT ABDOMEN AND PELVIS WITHOUT CONTRAST CLINICAL INFORMATION: right flank pain COMPARISON: CT abdomen/pelvis 01/08/2024 TECHNIQUE: Multidetector volumetric imaging was performed from the superior aspect of the liver through the pubic symphysis. Sagittal and coronal reformatted images were obtained on the technologist's workstation. This CT examination was performed using dose optimization techniques as appropriate, variously including the following: *Automated exposure control *Adjustment of mA and/or kV according to patient size (this includes techniques or standardized protocols for targeted exams where dose is matched to indication/reason for exam; i.e. extremities or head) *Use of iterative reconstruction technique DLP: 555 mGy-cm FINDINGS: LUNG BASES: Left lung base calcified granuloma. Bibasilar dependent subsegmental atelectasis. LIVER, GALLBLADDER, AND BILIARY TREE: The liver is normal in size, shape, and attenuation. No focal hepatic lesion or biliary ductal dilatation is present. The gallbladder is distended with fundal adenomyomatosis, as before. PANCREAS: Unremarkable. SPLEEN: Unremarkable. ADRENAL GLANDS: Unremarkable. KIDNEYS AND URETERS: The kidneys are normal in size, shape, and attenuation. No hydronephrosis, hydroureter, or calculi seen. No perinephric stranding. BLADDER: Unremarkable. GASTROINTESTINAL TRACT: The small and large bowel are nondilated. Stable post surgical changes status post right hemicolectomy. ABDOMINAL WALL: No significant hernia is appreciated. LYMPH NODES: Normal. VASCULAR: The aorta is nonaneurysmal. Accessory retroaortic left renal vein. PELVIC VISCERA: Coarse prostatic calcifications and mild prostatomegaly. OSSEOUS STRUCTURES: Unremarkable. CT/CT abdomen pelvis wo IV con IMPRESSION: No nephrolithiasis or hydronephrosis. No acute or malunion abdomen or pelvis. Fleischner guidelines were followed. Electronically signed by: Rasheeda Irby DO 06/08/2024 11:38 AM [facility] Independent Historian Clinical information obtained from an independent historian. History obtained from or confirmed by: Friend External Record Review External record reviewed: Inpatient record, Office record, Outpatient record, Prior outpatient labs, Prior outpatient radiology, Primary care record and Outside ED record Prescription Management I considered prescription management with: Pain Medication (Pyridium) and Antibiotic (Ceftin) Social Determinants Patient?s care significantly limited by Social Determinants of Health including: Other Social Determinant of Health Critical Care Time Critical Care Time Critical Care Time: Yes Total Critical Care Time: 32 Attestation: Critical care time in the amount of 32 minutes has been provided to the patient in terms of direct patient care, frequent reevaluation on IV morphine, review and interpretation of medical data and results, and management of potentially life-threatening conditions. This is all outside of any medical procedures. Discharge Plan Discharge Clinical Impression: Urinary tract infection Patient Disposition: Home, Self-Care Instructions: Cefuroxime (By mouth), Phenazopyridine (By mouth), Urinary Tract Infection in Men (ED) Additional Instructions: Your urine today was positive for infection. Ceftin is an antibiotic that has been sent to your pharmacy. Take this as prescribed and do not miss any doses. You must complete the entire course of antibiotics. If you do not, there is a risk of the infection coming back or worsening. Pyridium is an analgesic that can relieve the pain, burning, and discomfort caused by infection or irritation of the urinary tract. It is not an antibiotic and will not cure the infection itself. This has been sent to your pharmacy. Take this as needed for discomfort. Pyridium can cause your urine to turn a reddish orange color.? Alternate tylenol/ motrin at home for pain/ fevers. Follow up with your primary care provider as needed. If you develop a fever or new/ worsening symptoms call 911 or come back to the ER for further evaluation. Prescriptions: New cefuroxime axetil 500 mg tablet 500 mg PO BID 7 Days Qty: 14 0RF phenazopyridine [Pyridium] 200 mg tablet 200 mg PO TID PRN (Reason: pain (scale score 1-3)) Qty: 6 0RF No Action famotidine 40 mg tablet 40 mg PO BID Qty: 180 2RF cetirizine [All Day Allergy (cetirizine)] 10 mg tablet 10 mg PO DAILY PRN (Reason: allergy symptoms) 90 Days Qty: 90 1RF duloxetine 30 mg capsule,delayed release(DR/EC) 30 mg PO DAILY 90 Days Qty: 90 1RF trazodone 50 mg tablet 50 mg PO BEDTIME Qty: 90 0RF docusate sodium 100 mg Capsule 100 mg PO BID Qty: 30 0RF loperamide [Imodium A-D] 2 mg Capsule 2 mg PO Q6H PRN (Reason: Diarrhea) Qty: 30 2RF ondansetron 8 mg Tablet,Disintegrating 8 mg PO Q8H PRN (Reason: Nausea) Qty: 30 3RF multivitamin [Daily Multi-Vitamin] Tablet 1 tab PO DAILY polyethylene glycol 3350 [Miralax] 17 gram/dose powder 17 g PO DAILY PRN (Reason: Constipation) Qty: 510 0RF Referrals: Ale Minor MD [Primary Care Provider] - Stand Alone Forms: Work/School Release Print Language: [place] Islander
[2024-06-08] MEDS: Morphine Sulfate 2 MG/ML CARTRIDGE IVPUSH (08:11)
[2024-06-08] MEDS: ondansetron HCL 4 MG/2 ML VIAL IVPUSH (08:11)
[2024-06-08] MEDS: cefTRIAXone sodium 1 GM VIAL IVPUSH (08:11)
[2024-06-08 09:27] VITALS: BP 114/78; PULSE 97; RESP 16; TEMP 37.9; O2SAT 98
--- NOTE | 2024-06-08 09:37 | PC.NURSE ---
Temp of 100.3, PA made aware. New order obtained for Acetaminophen.
[2024-06-08] MEDS: Acetaminophen 1,000 MG/100 ML PIGGYBACK 400 MG IV (09:41)
[2024-06-08 11:27] VITALS: TEMP 37.3
[2024-06-08 12:17] VITALS: BP 102/70; PULSE 97; RESP 16; TEMP 36.6; O2SAT 99
== END 2024-06-08 12:18 | disposition home or self-care (01) ==
PROVIDERS: Emergency Provider Emergency Medicine Emergency Medical Services; PCP Internal Medicine
DX: N39.0 Urinary tract infection, site not specified (principal); R10.2 Pelvic and perineal pain; Z79.899 Other long term (current) drug therapy
CPT/HCPCS: 36415; 74176; 80053; 81001; 83690; 85025; 87040; 87086; 87088; 87186; 96365; 96375; 99285; J0131; J0696; J2270; J2405

== ENCOUNTER 2024-07-05 18:34 | Emergency (ER) | payer OTHER, SELFPAY ==
--- NOTE | ~2024-07-05 | CT_ITS ---
CLINICAL HISTORY: R flank pain, dysuria CT abdomen and pelvis without contrast Comparison: CT/SR - CT ABDOMEN PELVIS WO IV CON - 06/08/24 08:22 EST Findings: Lung bases clear. Normal gallbladder, bile ducts, liver, pancreas, spleen, and adrenal glands. No significant abnormality of the kidneys, ureters, or urinary bladder. No urinary tract calculus or obstruction. No free fluid or free air within the abdomen or pelvis. Normal stomach and small bowel. Right jorge colonic anastomosis noted. Otherwise normal colon. No findings of appendicitis. No aortic aneurysm. Bones intact. IMPRESSION: No acute findings. This document has been electronically signed by: Alton Mendez MD on 07/05/2024 21:22:18
--- NOTE | ~2024-07-05 | XR_ITS ---
CLINICAL HISTORY: fever 1 view chest x-ray Comparison: CR/SR - XR CHEST 1V - 06/12/23 17:51 EST Findings: Right chest wall central venous port terminating in the superior cavoatrial junction region similar to the prior study. No consolidation or effusion. Normal size heart. No acute fracture. IMPRESSION: 1. No acute findings. This document has been electronically signed by: Alton Mendez MD on 07/05/2024 20:14:19
--- NOTE | 2024-07-05 19:47 | ED.FEVER ---
HPI - Fever General Chief Complaint: Fever Stated Complaint: fever 103.4, no relief w/tylenol Time Seen by Provider: 07/06/24 00:12 Source: patient Mode of arrival: ambulatory Limitations: no limitations History of Present Illness ED Provider: Dr. Verena Gomez HPI Narrative: Patient comes to the emergency room complaining of fever, up to 103 since yesterday. Patient reports burning pain with urination, nausea, right-sided abdominal pain. Patient has history of right hemicolectomy due to cancer and is concerned that he may have an obstruction or a urinary tract infection Related Data Home Medications ?Medication ?Instructions ?Recorded ?Confirmed multivitamin (Daily Multi-Vitamin 1 tab PO DAILY 09/11/22 03/17/24 tablet) Previous Rx's ?Medication ?Instructions ?Recorded docusate sodium 100 mg capsule 100 mg PO BID #30 caps 08/15/22 loperamide 2 mg capsule (Imodium 2 mg PO Q6H PRN Diarrhea #30 caps 10/21/22 A-D) ondansetron 8 mg disintegrating 8 mg PO Q8H PRN Nausea #30 tabs 10/21/22 tablet famotidine 40 mg tablet 40 mg PO BID #180 tabs 03/26/23 cetirizine 10 mg tablet (All Day 10 mg PO DAILY PRN allergy 11/06/23 Allergy (cetirizine)) symptoms 90 days #90 tabs polyethylene glycol 3350 17 17 g PO DAILY PRN Constipation 01/09/24 gram/dose oral powder (Miralax) #510 grams duloxetine 30 mg capsule,delayed 30 mg PO DAILY 90 days #90 caps 02/09/24 release cefuroxime axetil 500 mg tablet 500 mg PO BID 7 days #14 tabs 06/08/24 phenazopyridine 200 mg tablet 200 mg PO TID PRN pain (scale 06/08/24 (Pyridium) score 1-3) 6 doses #6 tabs trazodone 50 mg tablet 50 mg PO BEDTIME #90 tabs 06/14/24 hyoscyamine sulfate 0.125 mg tablet 0.125 mg PO QID PRN dyspepsia #10 07/06/24 tabs Allergies Allergy/AdvReac Type Severity Reaction Status Date / Time aspirin [ASA] Allergy Severe anaphylaxis/facial Verified 07/05/24 19:49 swelling ibuprofen [Advil] Allergy Severe tracheal Verified 07/05/24 19:49 swelling shellfish derived Allergy Severe Anaphylaxis Verified 07/05/24 19:49 duloxetine AdvReac Severe body aches Uncoded 07/05/24 19:49 Review of Systems Review of Systems: Constitutional : No Weight loss, complaining of fever No Chills, No Night Sweats, No Fatigue, No Malaise ENT/Mouth : No Hearing loss, No Ear Pain, No Nasal Congestion, No Sinus Pain, No Hoarseness, No sore throat, No Rhinorrhea, No Swallowing Difficulty Eyes: No Eye Pain, No Swelling, No Redness, No Foreign Body, No Discharge, No Vision Changes Cardiovascular : No Chest Pain, No SOB, No Dyspnea on Exertion, No Orthopnea, No Edema, No Palpitations Respiratory : No Cough, No Sputum, No Wheezing, No Smoke Exposure, No Dyspnea Gastrointestinal : No Nausea, No Vomiting, No Diarrhea, No Constipation, complaining of right lower quadrant pain Genitourinary : Complaining of dysuria, No Urinary Frequency, No Hematuria, No Urinary Incontinence, No Urgency, No Flank Pain, No Urinary Flow Changes, No Hesitancy Musculoskeletal : No joint pain, No Myalgias, No Joint Swelling Skin : No Skin Lesions, No rash Neuro : No Weakness, No Numbness, No Paresthesias, No Loss of Consciousness, No Dizziness, No Headache Psych : No Anxiety/Panic, No Depression, No SI/HI/AH/VH, No Social Issues, Heme/Lymph: No Bruising, No Bleeding,No Lymphadenopathy Endocrine : No Polyuria, No Polydipsia, No Temperature Intolerance PMFSH Past Medical History Medical History Abdominal pain Crohn's disease Internal hemorrhoids Cancer of appendix History of COVID-19 Physical exam Anxiety Hospital discharge follow-up Mild recurrent major depression Screen for colon cancer Pulmonary nodules Migraines Surgical History History of wisdom tooth extraction H/O umbilical hernia repair History of esophagogastroduodenoscopy (EGD) History of right hemicolectomy Hx of appendectomy Hx of colonoscopy Family History Family History Father Colon cancer, Onset Age: 63 Liver cancer Mother Breast cancer Diabetes Hypertension Maternal Grandmother Cancer Paternal Aunt Cancer Family/Other FH: mental illness Social History Social History Household Members: Family Housing: Apartment Are you a primary childcare administrator to a significant other at home: No Do you presently have visiting nurse or other home services: Yes ([employer]) Alcohol intake: never Patient Tobacco Use Status: Current someday Tobacco user Tobacco use type: Cigarette Cigarettes Per Day: 2 e-Cigarette/Vaping Use: Never Used Second Hand Smoke Exposure: No Advance Directives: No Advance Directives Information Provided: Yes service: No Current occupational status: unemployed Current occupational exposures/hazards: No Cognitive needs: No Hearing needs: No Vision needs: No Physical Exam Vital Signs: Vital Signs: Last Vital Signs Temp 98.8 F 07/06/24 01:10 Pulse 92 07/06/24 01:10 Resp 18 07/06/24 01:10 BP 120/83 07/06/24 01:10 Pulse Ox 96 07/06/24 01:10 O2 Del Method Room Air 07/06/24 01:10 BMI result Body Mass Index 31.7 Const: Other: Appearance: Alert. Oriented X3. No acute distress. Eyes: Pupils equal, round and reactive to light. ENT: Pharynx normal. Neck: Normal inspection. Neck supple. No lymph nodes noted. No crepitus CVS: Normal heart rate and rhythm. Pulses normal. Normal S1 and S2 Respiratory: No respiratory distress. Breath sounds normal. No Wheezing. No rales Abdomen: Soft and nontender. No rigidity. No distention. Skin: Skin warm and dry. Normal skin color. Normal skin turgor. Extremities: No lower extremity edema. No Lacerations. No Rash Neuro: Oriented X 3. No motor deficit. No sensory deficit. Moving all extremities. No slurred speech. CN 2 through 12 grossly intact Psych: calm, cooperative, normal affect Course Course Course Narrative: 43 yo male with PMH of colon cancer, Crohns, appendiceal cancer s/p R colectomy by Dr. Xavier he states no chemo since 2022, her reports one day of fevers 103, R flank pain and dysuria, he states he has had UTI before and it feels like this. He denies any recent travel or procedures. He states he feels he has a UTI - I have ordered labs, UA and CT scan for renal colic this is a RAPID medical screening exam the rest of the history and physical exam is to be done by the main provider. Medical Decision Making Medical Decision Making [facility] Narrative: Patient states that now he feels much better, no longer having abdominal pain. Patient's white blood cell count 14.8, likely reactive leukocytosis. My interpretation of labs, normal chemistry, lactic acid normal, normal LFTs, normal lipase, urinalysis negative for UTI CT scan of the abdomen does not show any acute findings. I discussed with the patient that he likely had a viral infection. Patient ready to be discharged Differential Diagnosis Differential Diagnoses: The differential diagnosis associated with the presentation includes (SBO, appendicitis, pancreatitis, kidney stones, viral GI illness) Lab Data [facility] Lab Attestation statement: I reviewed the patient's lab results. 07/05/24 20:04 07/05/24 20:04 Labs: Lab Results 07/05/24 07/06/24 Range/Units 20:04 01:02 WBC 14.8 H (4.8-10.8) X10*3/uL RBC 4.69 (4.60-5.80) X10*6/uL Hgb 13.4 L (14.0-18.0) g/dl Hct 40.8 L (42.0-52.0) % MCV 87.0 (80.0-98.0) fL MCH 28.6 (27.0-33.0) pg MCHC 32.8 (31.0-36.0) g/dl RDW 13.4 (11.0-16.0) % Plt Count 198 (160-400) X10*3/uL MPV 9.5 (9.4-12.4) fL Immature Gran % (Auto) 0.2 (0.0-0.4) % Neut % (Auto) 81.7 H (45-73) % Lymph % (Auto) 8.8 L (20-40) % [place] % (Auto) 8.7 (2-11) % Eos % (Auto) 0.4 (0-4) % Baso % (Auto) 0.2 (0-2) % Lymph # (Auto) 1.3 (1.2-4.9) X10*3/uL [place] # (Auto) 1.3 H (0.1-1.2) X10*3/uL Eos # (Auto) 0.1 (0.0-0.4) X10*3/uL Baso # (Auto) 0.0 (0.0-0.2) X10*3/uL Abs Immat Gran (auto) 0.03 (0.00-0.03) X10*3/uL Absolute Neuts (auto) 12.1 H (2.0-8.3) x10*3/uL Absolute Nucleated RBC 0.000 (0.0-0.012) X10*3/uL Nucleated RBC % (auto) 0.0 (0.0-0.2) /100WBC Sodium 140 (135-145) mmol/L Potassium 3.8 (3.3-5.1) mmol/L Chloride 112 H (96-108) mmol/L Carbon Dioxide 20 L (22-29) mmol/L Anion Gap 12 (12-20) BUN 14 (9-16) mg/dL Creatinine 0.87 (0.5-1.4) mg/dL Estim Creat Clear Calc 109.4 Estimated GFR > 60 Random Glucose 103 (60-115) mg/dL Lactic Acid 0.6 (0.5-2.0) mmol/L Calcium 9.3 D (8.4-10.2) mg/dL Magnesium 2.2 (1.6-2.6) mg/dL Total Bilirubin 0.4 (0.0-1.0) mg/dL Direct Bilirubin 0.1 (0.0-0.5) mg/dL AST 26 (5-37) U/L ALT 35 (0-40) U/L Alkaline Phosphatase 76 (39-117) U/L Total Protein 7.6 (6.5-8.0) g/dL Albumin 4.3 (3.5-5.0) g/dL Lipase 20 (8-78) U/L Urine Color Yellow Urine Appearance Clear Urine pH 5.5 (5.0-9.0) Ur Specific [place] >= 1.030 H (1.005-1.025) Urine Protein Negative (Neg-Trace) mg/dL Urine Glucose (UA) Negative (Negative) mg/dL Urine Ketones Trace (Negative) mg/dL Urine Blood Negative (Negative) Urine Nitrite Negative (Negative) Ur Leukocyte Esterase Negative (Negative) Influenza Type A (PCR) NEGATIVE (Negative) Influenza Type B (PCR) NEGATIVE (Negative) RSV RNA Qual (PCR) NEGATIVE (Negative) SARS-CoV-2 RNA (RT-PCR) NEGATIVE (Negative) Independent Interpretation I performed an independent interpretation of an: CT Scan Radiology Impression Discussion of test interpretation with radiology: I have reviewed the radiologist's reading. Radiologist Impression: Findings: Lung bases clear. Normal gallbladder, bile ducts, liver, pancreas, spleen, and adrenal glands. No significant abnormality of the kidneys, ureters, or urinary bladder. No urinary tract calculus or obstruction. No free fluid or free air within the abdomen or pelvis. Normal stomach and small bowel. Right jorge colonic anastomosis noted. Otherwise normal colon. No findings of appendicitis. No aortic aneurysm. Bones intact. IMPRESSION: No acute findings. Discharge Plan Discharge Clinical Impression: Viral illness Patient Disposition: Home, Self-Care Instructions: Viral Syndrome (ED) Additional Instructions: Please follow-up with your primary care physician tomorrow. If you have any worsening or new symptoms, please return to the emergency room or call 911 Prescriptions: New hyoscyamine sulfate 0.125 mg tablet 0.125 mg PO QID PRN (Reason: dyspepsia) Qty: 10 0RF No Action famotidine 40 mg tablet 40 mg PO BID Qty: 180 2RF cetirizine [All Day Allergy (cetirizine)] 10 mg tablet 10 mg PO DAILY PRN (Reason: allergy symptoms) 90 Days Qty: 90 1RF duloxetine 30 mg capsule,delayed release(DR/EC) 30 mg PO DAILY 90 Days Qty: 90 1RF trazodone 50 mg tablet 50 mg PO BEDTIME Qty: 90 0RF docusate sodium 100 mg Capsule 100 mg PO BID Qty: 30 0RF loperamide [Imodium A-D] 2 mg Capsule 2 mg PO Q6H PRN (Reason: Diarrhea) Qty: 30 2RF ondansetron 8 mg Tablet,Disintegrating 8 mg PO Q8H PRN (Reason: Nausea) Qty: 30 3RF multivitamin [Daily Multi-Vitamin] Tablet 1 tab PO DAILY polyethylene glycol 3350 [Miralax] 17 gram/dose powder 17 g PO DAILY PRN (Reason: Constipation) Qty: 510 0RF cefuroxime axetil 500 mg tablet 500 mg PO BID 7 Days Qty: 14 0RF phenazopyridine [Pyridium] 200 mg tablet 200 mg PO TID PRN (Reason: pain (scale score 1-3)) Qty: 6 0RF Stand Alone Forms: Work/School Release Print Language: Ukrainian
[2024-07-05 19:48] VITALS: BP 127/77; PULSE 109; RESP 20; TEMP 36.9; O2SAT 97; BMI 31.7
[2024-07-05 20:10] LABS: MANUAL DIFF FLAG NO
[2024-07-05 20:13] LABS: Basophils Percent Auto 0.2 % (0-2); Eosinophils Absolute Auto 0.1 X10*3/uL (0.0-0.4); Eosinophils Percent Auto 0.4 % (0-4); Hematocrit 40.8 % (42.0-52.0); Hemoglobin 13.4 g/dl (14.0-18.0); Imm Gran Abs Auto 0.03 X10*3/uL (0.00-0.03); Imm Gran Pct Auto 0.2 % (0.0-0.4); Lymphocytes Absolute Auto 1.3 X10*3/uL (1.2-4.9); Lymphocytes Percent Auto 8.8 % (20-40); Mean Corpuscular HGB Conc 32.8 g/dl (31.0-36.0); Mean Corpuscular Hemoglobin 28.6 pg (27.0-33.0); Mean Platelet Volume 9.5 fL (9.4-12.4); Monocytes Absolute Auto 1.3 X10*3/uL (0.1-1.2); Monocytes Percent Auto 8.7 % (2-11); Neutrophils Absolute Auto 12.1 x10*3/uL (2.0-8.3); Neutrophils Percent Auto 81.7 % (45-73); Platelet Count 198 X10*3/uL (160-400); Red Blood Count 4.69 X10*6/uL (4.60-5.80); Red Cell Distribution Width 13.4 % (11.0-16.0); White Blood Count 14.8 X10*3/uL (4.8-10.8)
[2024-07-05 20:31] LABS: Lactic Acid 0.6 mmol/L (0.5-2.0)
[2024-07-05 20:34] LABS: Alanine Aminotransferase 35 U/L (0-40); Albumin Level 4.3 g/dL (3.5-5.0); Anion Gap 12 (12-20); Aspartate Amino Transferase 26 U/L (5-37); Bilirubin Direct 0.1 mg/dL (0.0-0.5); Bilirubin Total 0.4 mg/dL (0.0-1.0); Blood Urea Nitrogen 14 mg/dL (9-16); Calcium 9.3 mg/dL (8.4-10.2); Carbon Dioxide 20 mmol/L (22-29); Chloride 112 mmol/L (96-108); Creatinine Clr Calc Pharmacy 109.4; Estimated Glomerular Filt Rate > 60; Glucose Random 103 mg/dL (60-115); Lipase 20 U/L (8-78); Magnesium 2.2 mg/dL (1.6-2.6); Potassium 3.8 mmol/L (3.3-5.1); Sodium 140 mmol/L (135-145); Total Protein 7.6 g/dL (6.5-8.0)
[2024-07-05 21:03] LABS: Alkaline Phosphatase 76 U/L (39-117); Influenza A PCR NEGATIVE (Negative); Influenza B PCR NEGATIVE (Negative); Resp Syncy Virus RNA Qual PCR NEGATIVE (Negative); SARS COV2 PCR INHOUSE NEGATIVE (Negative)
[2024-07-06 01:09] LABS: Appearance Urine Clear; Color Urine Yellow; Glucose Urine UA Negative (Negative); Leukocyte Esterase Urine Negative (Negative); Nitrite Urine Negative (Negative); PH 5.5 (5.0-9.0); Specific Gravity - Urine >= 1.030 (1.005-1.025); Urine Blood Negative (Negative); Urine Ketones Trace mg/dL (Negative); Urine Protein Negative (Neg-Trace)
[2024-07-06 01:10] VITALS: BP 120/83; PULSE 92; RESP 18; TEMP 37.1; O2SAT 96
--- NOTE | 2024-07-06 01:12 | MHC.EDTECH ---
This pct assumed care of Patient at 0000 ,vitals taken ,urine sample collected and sent to lab ,Per Provider Gomez request 2nd sets of blood culture not needed ,RN Jo-Ann aware .
[2024-07-06 01:58] VITALS: BP 120/83; PULSE 92; RESP 18; TEMP 37.1; O2SAT 96
== END 2024-07-06 01:59 | disposition home or self-care (01) ==
PROVIDERS: Emergency Medicine; Emergency Provider Emergency Medicine; PCP Internal Medicine
DX: B34.9 Viral infection, unspecified (principal); R50.9 Fever, unspecified; R30.0 Dysuria; R10.9 Unspecified abdominal pain; Z03.818 Encounter for observation for suspected exposure to other biological agents ruled out
CPT/HCPCS: 0241U; 36415; 71045; 74176; 80048; 80076; 81003; 83605; 83690; 83735; 85025; 87040; 99283; 99284

== ENCOUNTER → 2024-07-05 19:47 | Outpatient (BNV) | payer OTHER, SELFPAY | PROVIDERS: PCP Internal Medicine; Visit Provider Radiology Diagnostic Radiology | DX: R10.31 Right lower quadrant pain (principal); R50.9 Fever, unspecified | CPT/HCPCS: 71045; 74176 ==

== ENCOUNTER 2024-09-13 11:35 | Outpatient (REF) | payer OTHER, SELFPAY ==
--- NOTE | ~2024-09-13 | FL_ITS ---
EXAMINATION: XR FLUOROSCOPY, PORT-A-CATH CHECK CLINICAL INFORMATION: Unable to draw blood, pain in neck. check port. COMPARISON: None available. TECHNIQUE/FINDINGS: The port was previously accessed. Imaging of the right chest port demonstrates normal appearance/orientation with tip terminating at the cavoatrial junction. The port normally flushed, and normally aspirated. A single contrast run demonstrates free extravasation of contrast from the tip of the catheter without evidence of fibrin sheath or occlusion. Subsequently, the port was tested again, and both flushed and misa normally. It was then flushed with saline followed by heparin lock. The port was de-accessed. Patient tolerated the procedure well. There were no complications. FLUOROSCOPY TIME: 9 seconds DOSE AREA PRODUCT: 160.8 uGy-m2 (microgray-meter squared) FL/FL fluoroscopy <1hr IMPRESSION: 1. Fluoroscopic examination showing functional port without complication. Electronically signed by: Toñito Min MD 09/13/2024 01:01 PM EDT RP
[2024-09-13] MEDS: iohexoL 300 MG/ML 50 ML INFUS..BTL 8 ML IV (12:26)
== END 2024-09-13 11:36 | disposition home or self-care (01) ==
LOC: HO.XRAY 11:35
PROVIDERS: Visit Provider Internal Medicine Medical Oncology
DX: M54.2 Cervicalgia (principal)
CPT/HCPCS: 76000; Q9967

== ENCOUNTER → 2024-09-13 12:07 | Outpatient (BNV) | payer OTHER, SELFPAY | PROVIDERS: Visit Provider Radiology Diagnostic Radiology | DX: M54.2 Cervicalgia (principal) | CPT/HCPCS: 76000 ==

== ENCOUNTER 2024-12-02 08:46 | Outpatient (AMB) | payer OTHER, SELFPAY ==
--- NOTE | 2024-12-02 08:54 | MHC.PC.OV ---
Vital Signs 12/02/24 08:57 Height 5 ft 5 in Weight 190 lb BMI 31.6 BP 110/82 Blood Pressure Location Lt brachial Position Sitting Intake Visit Reasons: annual exam Intake Note: Patient here for an annual physical exam Isotope Technician Required: No Accompanied by: Self / Same As Patient Allergies aspirin [ASA] Allergy (Severe, Verified 12/02/24 09:06) anaphylaxis/facial swelling ibuprofen [Advil] Allergy (Severe, Verified 12/02/24 09:06) tracheal swelling shellfish derived Allergy (Severe, Verified 12/02/24 09:06) Anaphylaxis duloxetine Adverse Reaction (Severe, Uncoded 12/02/24 09:06) body aches Medication List - Last Reconciled 12/02/24 by Ale Vasques MD docusate sodium 100 mg PO BID duloxetine 30 mg PO DAILY famotidine 40 mg PO BID hyoscyamine sulfate 0.125 mg PO QID PRN loperamide (Imodium A-D) 2 mg PO Q6H PRN polyethylene glycol 3350 (Miralax) 17 grams PO DAILY PRN trazodone 50 mg PO BEDTIME Tobacco use date assessed: 12/02/24 Dental Screening Dental Screen Date: 12/02/24 Did you have a dental visit in the last 12 months?: No Did you have a dental problem in the last 6 months where you did not have access to dental care?: No Was dental information given to patient?: Patient has dentist HPI HPI Comments History of Present Illness Details The patient is a 43-year-old male presenting for an annual physical examination. The patient has a history of Crohn's Disease, which has required frequent monitoring and management. He reports recent episodes of fever and urinary tract infections, which have been severe enough to require emergency care. During one such episode, he was unable to provide a urine sample due to hematuria. 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 He also had a right hemicolectomy in the same year. The patient experiences neuropathy, which has been challenging to manage due to medication side effects. He previously used gabapentin, which was discontinued due to adverse effects, and he occasionally uses oxycodone for pain management. The patient reports depression and is currently seeing a psychologist named Seth for therapy sessions. These sessions have increased in frequency due to recent stressors, including a divorce. The patient is allergic to aspirin, ibuprofen, shellfish, and duloxetine, which have caused severe reactions in the past. Preventative care measures include a colonoscopy performed last year, with the next tetanus vaccine due in 2031. - Colonoscopy performed last year - Tetanus vaccine administered in 2021, next due in 2031 [facility] Medical History (Updated 12/02/24 @ 09:29 by Ale Vasques MD) Abdominal pain Crohn's disease Internal hemorrhoids Cancer of appendix History of COVID-19 Physical exam Anxiety Hospital discharge follow-up Mild recurrent major depression Screen for colon cancer Pulmonary nodules Migraines Surgical History History of wisdom tooth extraction H/O umbilical hernia repair History of esophagogastroduodenoscopy (EGD) History of right hemicolectomy Hx of appendectomy Hx of colonoscopy Family History Father Colon cancer, Onset Age: 63 Liver cancer Mother Breast cancer Diabetes Hypertension Maternal Grandmother Cancer Paternal Aunt Cancer Family/Other FH: mental illness Social History Household Members: Family Housing: Apartment Are you a primary senior resident care director to a significant other at home: No 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 1. Little interest or pleasure in doing things: not at all 2. Feeling down, depressed, or hopeless: several days 3. Trouble falling or staying asleep, or sleeping too much: several days 4. Feeling tired or having little energy: several days 5. Poor appetite or overeating: several days 6. Feeling bad about yourself - or that you are a failure or have let yourself or your family down: not at all 7. Trouble concentrating on things, such as reading the newspaper or watching television: not at all 8. Moving or speaking so slowly that other people could have noticed. Or the opposite - being so fidgety or restless that you have been moving around a lot more than usual: not at all 9. Thoughts that you would be better off or of hurting yourself in some way: not at all Total score: 4 Depression Screening Interpretation: Positive Depression Screening Follow-up: Existing condition, Community Mental Health Worker F/U and Follow-up Visit Requested Depression Screening Done: Yes 74342 - PHQ-9 Billing: Yes Source: Developed by Drs. Fred Min, Linda Fox, Mirza Santiago and colleagues, with an educational emma from [employer]. Thrive Questionnaire Date Thrive assessed: 12/02/24 I am a: Patient What is your living situation today?: I choose not to answer this question Within the past 12 months, did the food you bought not last and you didn't have the money to get more?: I choose not to answer this question Within the past 12 months, did you worry whether your food would run out before you got money to buy more?: I choose not to answer this question Do you have trouble paying for medicines?: No Do you have trouble getting transportation to medical appointments?: No Do you have trouble paying your heating and electricity bill?: No Do you have trouble taking care of your child, family member or friend?: No Do you have trouble with day-to-day activities such as bathing, preparing meals, shopping, managing finances, etc.?: Yes Are you currently unemployed and looking for a job?: No Are you interested in more education?: Yes Please select the resources that you would like help with: None Currently or been in a relationship where the following occur: No concerns reported THRIVE Score: 0 AUDIT C Alcohol Use Questionnaire (AUDIT-C) 1. How often do you have a drink containing alcohol?: Never Total Score: 0 Score Reviewed/Action Taken: No MARCY-7 AMB Questionnaire MARCY-7 Date MARCY - 7 assessed: 12/02/24 Feeling nervous, anxious, or on edge: 1 = Several days Not being able to stop or control worryin = Not at all Worrying too much about different things: 1 = Several days Trouble relaxin = Not at all Being so restless that it is hard to sit still: 0 = Not at all Becoming easily annoyed or irritable: 1 = Several days Feeling afraid as if something awful might happen: 0 = Not at all Total MARCY-7 score (0-4 normal; 5-9 mild; 10-14 moderate; 15-21 severe): 3 Source: Developed by Drs. Fred Min, Linda Fox, Mirza Santiago and colleagues, with an educational emma from [employer]. MARCY-7 Assessment Billing MARCY-7 Assessment Tool: MARCY-7 Assessment 47071 Review of Systems Const All systems reviewed & are unremarkable except as noted in HPI and below Card Denies chest pain at rest, Denies chest pain with activity, Denies edema, Denies irregular heart rhythm, Denies claudication, Denies dyspnea, Denies dyspnea on exertion, Denies orthopnea, Denies paroxysmal nocturnal dyspnea and Denies slow heart rate Resp Denies cough, Denies dyspnea and Denies dyspnea on exertion GI Denies abdominal pain, Denies change in bowel habits, Denies excessive flatus, Denies nausea and Denies vomiting Denies urinary hesitancy, Denies urinary incontinence and Denies urinary urgency Neuro Denies lack of coordination Physical exam (Primary Care) Vital Signs: Last Vital Signs BP 110/82 12/02/24 08:57 BMI result Body Mass Index 31.6 Tobacco/Smoking Status: Tobacco use Status Tobacco use date assessed 12/02/24 12/02/24 09:03 Patient Tobacco Use Status Current someday Tobacco 12/02/24 08:56 Tobacco use type Cigarette 12/02/24 08:56 e-Cigarette/Vaping Use Never Used 12/02/24 08:56 PHQ-9: PHQ-9 Score PHQ-9: Total score 4 12/02/24 09:16 Depression Screening Interpretation: Positive Depression Screening Follow-up: Existing condition, Community Mental Health Worker F/U and Follow-up Visit Requested Thrive Assessment: Date of Thrive Assessment Date Thrive assessed 12/02/24 12/02/24 08:56 Currently or been in a relationship where the following occur: No concerns reported HENMT Head: Yes normal to inspection, Yes normocephalic and Yes atraumatic Ears: external ears normal Eyes General: appearance normal, both eyes and all related structures Eyelids: Yes eyelids normal Conjunctivae: conjunctivae normal Neck Neck: Yes normal visual inspection and Yes supple Resp Effort & Inspection: normal respiratory effort Auscultation: clear to auscultation bilaterally Cardio Jugular venous distension: no JVD Rate: regular rate Rhythm: regular rhythm Heart sounds: S1 normal heart sound present and S2 normal heart sound present GI Inspection: Yes normal to inspection Palpation (GI): Soft to palpation and nontender Auscultation: normal bowel sounds Skin General skin exam: no rashes or lesions noted Neuro General: no focal motor deficits Extrem General: Yes full ROM Psych Appearance: grossly normal Coding Level of Care Code Est Pt Level 3 (49670) Est Pt Prev Care 40-64y(52847) Diagnoses Physical exam Z00.00 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; T45.1X5A Right foot pain M79.671 Mild recurrent major depression F33.0 Crohn's disease K50.90 Cancer of appendix C18.1 Additional Codes MARCY-7 Assessment Billing - MARCY-7 Assessment Tool: MARCY-7 Assessment 06193 ([id number]) PHQ-9 - 55628 - PHQ-9 Billing: Yes ([id number]) Time Spent (min) 40 Assessment & Plan Assessment & Plan (1) Physical exam: Code(s): Z00.00 - Encounter for general adult medical examination without abnormal findings Category: Medical (2) Chemotherapy-induced peripheral neuropathy: Code(s): G62.0 - Drug-induced polyneuropathy; T45.1X5A - Adverse effect of antineoplastic and immunosuppressive drugs, initial encounter Category: Medical (3) Right foot pain: Code(s): M79.671 - Pain in right foot Category: Medical (4) Mild recurrent major depression: Code(s): F33.0 - Major depressive disorder, recurrent, mild Category: Medical (5) Crohn's disease: Code(s): K50.90 - Crohn's disease, unspecified, without complications Category: Medical (6) Cancer of appendix: Code(s): C18.1 - Malignant neoplasm of appendix Category: Medical Plan The patient will continue to manage Crohn's Disease with regular monitoring and follow-up appointments. A referral to gastroenterology will be made to ensure ongoing care and management of the condition. For neuropathy, the patient will be evaluated for potential reintroduction of gabapentin or alternative therapies to manage symptoms effectively. Pain management will continue with oxycodone as needed, ensuring careful monitoring to avoid dependency. The patient's depression will be addressed through continued therapy sessions with the psychologist, with increased frequency as needed to manage stressors such as the recent divorce. Medication adjustments will be considered if symptoms persist or worsen. Preventative care will include scheduling the next colonoscopy as per guidelines and ensuring vaccinations are up to date, with the next tetanus booster due in 2031. Patient was informed and verbally consented to the use of an ambient scribe for clinic note documentation during this visit. Orders: Orders XR foot RT 2V Today M79.671 - Pain in right foot Lipid Panel Today Z00.00 - Encounter for general adult medical examination without abnormal findings Comprehensive Dexter. Panel Fast Today Z00.00 - Encounter for general adult medical examination without abnormal findings Referrals Gastroenterology Referral K50.90 - Crohn's disease, unspecified, without complications Medications: New pregabalin 50 mg PO BEDTIME 30 caps 0RF 30 days Refilled famotidine 40 mg PO BID 180 tabs 2RF polyethylene glycol 3350 (Miralax) 17 grams PO DAILY PRN 510 grams 0RF Constipation trazodone 50 mg PO BEDTIME 90 tabs 0RF Patient Instructions: - Continue regular follow-up appointments for Crohn's Disease management. - Attend therapy sessions regularly to manage depression and stress. - Use oxycodone for pain management as needed, but avoid overuse. - Schedule the next colonoscopy as per guidelines. - Ensure vaccinations are up to date, with the next tetanus booster due in 2031.
[2024-12-02 08:57] VITALS: BP 110/82; BMI 31.6
== END 2024-12-02 09:30 | disposition home or self-care (01) ==
LOC: HO.HMCH 08:47
PROVIDERS: Visit Provider Internal Medicine
DX: Z00.00 Encounter for general adult medical examination without abnormal findings (principal); G62.0 Drug-induced polyneuropathy; K50.90 Crohn's disease, unspecified, without complications; C18.1 Malignant neoplasm of appendix; T45.1X5A Adverse effect of antineoplastic and immunosuppressive drugs, initial encounter; M79.671 Pain in right foot; F33.0 Major depressive disorder, recurrent, mild

== ENCOUNTER → 2024-12-02 08:46 | Outpatient (BNVA) | payer OTHER, SELFPAY | PROVIDERS: Visit Provider Internal Medicine | DX: Z00.00 Encounter for general adult medical examination without abnormal findings (principal); G62.0 Drug-induced polyneuropathy; M79.671 Pain in right foot; F33.0 Major depressive disorder, recurrent, mild; K50.90 Crohn's disease, unspecified, without complications; T45.1X5A Adverse effect of antineoplastic and immunosuppressive drugs, initial encounter; Z90.49 Acquired absence of other specified parts of digestive tract; Z85.09 Personal history of malignant neoplasm of other digestive organs; Z87.440 Personal history of urinary (tract) infections | CPT/HCPCS: 96127; 99212; 99396 ==

== ENCOUNTER 2024-12-14 21:52 | Emergency (ER) | payer OTHER, SELFPAY ==
[2024-12-14 21:57] VITALS: BP 129/88; PULSE 99; RESP 16; TEMP 36.7; O2SAT 99; BMI 31.7
--- NOTE | 2024-12-14 22:08 | ECG_ITS ---
Test Reason : WEAKNESS Blood Pressure : */* mmHG Vent. Rate : 98 BPM Atrial Rate : 98 BPM P-R Int : 118 ms QRS Dur : 86 ms QT Int : 350 ms P-R-T Axes : 34 -2 51 degrees QTcB Int : 446 ms Normal sinus rhythm Normal ECG When compared with ECG of 12-Jun-2023 18:58, No significant change was found Referred By: Generic ED Physician Electronically Signed By: SURYA AGUILA
[2024-12-14 22:24] LABS: MANUAL DIFF FLAG NO
[2024-12-14 22:25] LABS: Basophils Percent Auto 0.3 % (0-2); Eosinophils Percent Auto 0.2 % (0-4); Hematocrit 42.4 % (42.0-52.0); Hemoglobin 14.1 g/dl (14.0-18.0); Imm Gran Abs Auto 0.04 X10*3/uL (0.00-0.03); Imm Gran Pct Auto 0.3 % (0.0-0.4); Lymphocytes Absolute Auto 1.6 X10*3/uL (1.2-4.9); Mean Corpuscular HGB Conc 33.3 g/dl (31.0-36.0); Mean Corpuscular Hemoglobin 28.6 pg (27.0-33.0); Mean Platelet Volume 9.2 fL (9.4-12.4); Monocytes Absolute Auto 0.9 X10*3/uL (0.1-1.2); Monocytes Percent Auto 7.3 % (2-11); Neutrophils Absolute Auto 9.9 x10*3/uL (2.0-8.3); Neutrophils Percent Auto 78.9 % (45-73); Platelet Count 210 X10*3/uL (160-400); Red Blood Count 4.93 X10*6/uL (4.60-5.80); Red Cell Distribution Width 13.2 % (11.0-16.0); White Blood Count 12.6 X10*3/uL (4.8-10.8)
[2024-12-14 22:38] LABS: Alanine Aminotransferase 42 U/L (0-40); Albumin Level 4.7 g/dL (3.5-5.0); Alkaline Phosphatase 65 U/L (39-117); Anion Gap 14 (12-20); Aspartate Amino Transferase 25 U/L (5-37); Bilirubin Total 0.9 mg/dL (0.0-1.0); Blood Urea Nitrogen 10 mg/dL (9-16); Calcium 9.3 mg/dL (8.4-10.2); Carbon Dioxide 22 mmol/L (22-29); Chloride 107 mmol/L (96-108); Creatinine Clr Calc Pharmacy 132.4; Estimated Glomerular Filt Rate > 60; Glucose Random 84 mg/dL (60-115); Sodium 139 mmol/L (135-145); Total Protein 7.4 g/dL (6.5-8.0)
[2024-12-15 01:44] VITALS: BP 112/74; PULSE 82; RESP 16; TEMP 36.8; O2SAT 97
--- NOTE | 2024-12-15 02:31 | ED_ITS ---
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 In oncology 5 d ago they flushed his chemo part. Feels hot, nausea. 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 Has bad chronic neuropathy from chemo, this was acting up. Related Data Previous Rx's ?Medication ?Instructions ?Recorded docusate sodium 100 mg capsule 100 mg PO BID #30 caps 08/15/22 loperamide 2 mg capsule (Imodium 2 mg PO Q6H PRN Diarr hea #30 caps 10/21/22 A-D) hyoscyamine sulfate 0.125 mg tablet 0.125 mg PO QID NH N dyspepsia #10 07/06/24 tabs famotidine 40 mg tablet 40 mg PO BID #180 tabs 12/02 polyethylene glycol 3350 17 17 g PO DAILY PRN Constipa tion 12/02/24 gram/dose oral powder (Miralax) #510 grams pregabalin 50 mg capsule 50 mg PO BEDTIME 30 days #30 caps 12/02/24 trazodone 50 mg tablet 50 mg PO BEDTIME #90 tabs Allergies Allergy/AdvReac Type Severity Reaction Status Date / Time aspirin (ASA) Allergy Severe anaphylaxis/facial Verified 12/14/24 22:03 swelling ibuprofen (Advil) Allergy Severe tracheal Verified 12/14/24 22:03 swelling shellfish derived Allergy Severe Anaphylaxis Verified 12/14/24 22:03 duloxetine AdvReac Severe body aches Uncoded 12/02/24 09:06 PMFSH Past Medical History Medical History Abdominal pain Crohn's disease Internal hemorrhoids Cancer of appendix History of COVID-19 Physical exam Anxiety Hospital discharge follow-up Mild recurrent major depression Screen for colon cancer Pulmonary nodules Migraines Surgical History History of wisdom tooth extraction H/O umbilical hernia repair History of esophagogastroduodenoscopy (EGD) History of right hemicolectomy Hx of appendectomy Hx of colonoscopy Family History Family History Father Colon cancer, Onset Age: 63 Liver cancer Mother Breast cancer Diabetes Hypertension Maternal Grandmother Cancer Paternal Aunt Cancer Family/Other FH: mental illness Social History Social History Household Members: Family Housing: Apartment Are you a primary medical care evaluation specialist to a significant other at home: No 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) Alcohol intake: never Patient Tobacco Use Status: Current someday Tobacco user Tobacco use type: Cigarette Cigarettes Per Day: 2 e-Cigarette/Vaping Use: Never Used Second Hand Smoke Exposure: No service: No Current occupational status: unemployed Cognitive needs: No Hearing needs: No Vision needs: No Physical Exam 2 Vital Signs: Vital Signs: Last Vital Signs Temp 98.2 F 12/15/24 03:14 Pulse 82 12/15/24 03:14 Resp 16 12/15/24 03:14 BP 121/77 12/15/24 03:14 Pulse Ox 97 12/15/24 03:14 O2 Del Method Room Air 12/15/24 03:14 BMI result Body Mass Index 31.7 Const: Other: EXAM: Gen: Alert, awake, well appearing, well hydrated. Head: Atraumatic Eyes: Anicteric, Normal conjunctiva. ENT: Moist mucosa, no pallor. ? Neck: Supple. Skin: ?No observable rash or bruising on exposed or examined skin Respiratory: Breathing comfortably, No distress.Clear to auscultation bilaterally, symmetric chest expansion, No wheeze, rales, ronchi. Cardiovascular: Regular rate and rhythm. No murmurs or rub. Well perfused periphery, warm extremities. No edema. ? Abdominal: No FOCAL TENDERNESS. Soft, no objective distension. No palpable masses or obvious organomegaly. ?No guarding, no rebound tenderness or other peritoneal findings. : No flank tenderness. Neuro: Alert. Gross movement of all extremities intact. ? Psych: Calm. Cooperative. MSK: No grossly visible deformity. Vital signs: See flowsheet Medications Administered Discontinued Medications Generic Name Dose Route Start Last Admin Trade Name Freq PRN Reason Stop Dose Admin Acetaminophen 975 mg 12/15/24 02:36 12/15/24 03:04 Acetaminophen 325 Mg Tablet PO 12/15/24 02:37 975 mg ONCE ONE Administration Ondansetron HCl 4 mg 12/15/24 02:35 12/15/24 03:05 Ondansetron Odt 4 Mg Tab.Ángel CIDU 12/15/24 02:36 4 mg ONCE ONE Administration Medical Decision Making Medical Decision Making [facility] Narrative: 43-year-old male with active but seemingly stable gastrointestinal cancer. Multiple complaints today generalized weakness fatigue generalized mild abdominal burning. On examination the patient looks quite well. He has no fever and his abdomen is soft nontender. He has clear lungs. His skin exam is normal. Today was exceeding hot and humid and he attributes some of his symptoms to very high temperatures at his work place which certainly may be true. I see no indication for further testing or hospitalization at this time patient was reassured. P.o. tolerant. His leukocytosis is nonspecific particularly with no focal suggestion of bacterial infection Lab Data [facility] Lab Attestation statement: I reviewed the patient's lab results. leukocytosis, neut pred. 12/14/24 22:20 12/14/24 22:20 Labs: Lab Results 12/14/24 12/15/24 Range/Units 22:20 02:41 WBC 12.6 H (4.8-10.8) X10*3/uL RBC 4.93 (4.60-5.80) X10*6/uL Hgb 14.1 (14.0-18.0) g/dl Hct 42.4 (42.0-52.0) % MCV 86.0 (80.0-98.0) fL MCH 28.6 (27.0-33.0) pg MCHC 33.3 (31.0-36.0) g/dl RDW 13.2 (11.0-16.0) % Plt Count 210 (160-400) X10*3/uL MPV 9.2 L (9.4-12.4) fL Immature Gran % (Auto) 0.3 (0.0-0.4) % Neut % (Auto) 78.9 H (45-73) % Lymph % (Auto) 13.0 L (20-40) % Martin % (Auto) 7.3 (2-11) % Eos % (Auto) 0.2 (0-4) % Baso % (Auto) 0.3 (0-2) % Lymph # (Auto) 1.6 (1.2-4.9) X10*3/uL Martin # (Auto) 0.9 (0.1-1.2) X10*3/uL Eos # (Auto) 0.0 (0.0-0.4) X10*3/uL Baso # (Auto) 0.0 (0.0-0.2) X10*3/uL Abs Immat Gran (auto) 0.04 H (0.00-0.03) X10*3/uL Absolute Neuts (auto) 9.9 H (2.0-8.3) x10*3/uL Absolute Nucleated RBC 0.000 (0.0-0.012) X10*3/uL Nucleated RBC % (auto) 0.0 (0.0-0.2) /100WBC Sodium 139 (135-145) mmol/L Potassium 4.0 (3.3-5.1) mmol/L Chloride 107 (96-108) mmol/L Carbon Dioxide 22 (22-29) mmol/L Anion Gap 14 (12-20) BUN 10 (9-16) mg/dL Creatinine 0.72 (0.5-1.4) mg/dL Estim Creat Clear Calc 132.4 Estimated GFR > 60 Random Glucose 84 (60-115) mg/dL Calcium 9.3 (8.4-10.2) mg/dL Total Bilirubin 0.9 (0.0-1.0) mg/dL AST 25 (5-37) U/L ALT 42 H (0-40) U/L Alkaline Phosphatase 65 (39-117) U/L Total Protein 7.4 (6.5-8.0) g/dL Albumin 4.7 (3.5-5.0) g/dL Influenza Type A (PCR) NEGATIVE (Negative) Influenza Type B (PCR) NEGATIVE (Negative) RSV RNA Qual (PCR) NEGATIVE (Negative) SARS-CoV-2 RNA (RT-PCR) NEGATIVE (Negative) Independent Interpretation I performed an independent interpretation of an: EKG (Sinus rhythm rate 98 QTC 446 no acute ischemic changes.) Discharge Plan Discharge Clinical Impression: Neuropathy, Nausea Patient Disposition: Home, Self-Care Instructions: Acute Nausea and Vomiting (ED), Peripheral Neuropathy (ED) Additional Instructions: Your labwork and evaluation was reassuring. You had no fever. We tested you for respiratory viruses and will call you if these are positive. Call your oncologist to discuss your issues with your port and neuropathy. Stay cool and hydrated. Prescriptions: No Action docusate sodium 100 mg Capsule 100 mg PO BID Qty: 30 0RF loperamide [Imodium A-D] 2 mg Capsule 2 mg PO Q6H PRN (Reason: Diarrhea) Qty: 30 2RF hyoscyamine sulfate 0.125 mg tablet 0.125 mg PO QID PRN (Reason: dyspepsia) Qty: 10 0RF famotidine 40 mg tablet 40 mg PO BID Qty: 180 2RF polyethylene glycol 3350 [Miralax] 17 gram/dose powder 17 g PO DAILY PRN (Reason: Constipation) Qty: 510 0RF trazodone 50 mg tablet 50 mg PO BEDTIME Qty: 90 0RF pregabalin 50 mg capsule 50 mg PO BEDTIME 30 Days Qty: 30 0RF Stand Alone Forms: Work/School Release Interventions: ED Discharge Assessment Last Done: 12/15/24 03:14 Discharge Date/Time: 12/15/24 03:14 Print Language: Estonian
[2024-12-15 03:03] VITALS: BP 121/77; PULSE 82; RESP 16; TEMP 36.8; O2SAT 97
[2024-12-15] MEDS: Acetaminophen 325 MG TABLET 975 MG PO (03:04)
[2024-12-15] MEDS: Ondansetron ODT 4 MG TAB.RAPDIS TRANSLINGU (03:05)
[2024-12-15 03:14] VITALS: BP 121/77; PULSE 82; RESP 16; TEMP 36.8; O2SAT 97
[2024-12-15 03:24] LABS: Influenza A PCR NEGATIVE (Negative); Influenza B PCR NEGATIVE (Negative); Resp Syncy Virus RNA Qual PCR NEGATIVE (Negative); SARS COV2 PCR INHOUSE NEGATIVE (Negative)
== END 2024-12-15 03:14 | disposition home or self-care (01) ==
PROVIDERS: Emergency Provider Emergency Medicine; PCP Internal Medicine
DX: G62.9 Polyneuropathy, unspecified (principal); R53.1 Weakness; R11.0 Nausea; Z03.818 Encounter for observation for suspected exposure to other biological agents ruled out
CPT/HCPCS: 0241U; 36415; 80053; 85025; 93005; 99284; 99285

== ENCOUNTER → 2024-12-14 22:08 | Outpatient (BNV) | payer OTHER, SELFPAY | PROVIDERS: Emergency Provider Emergency Medicine; PCP Internal Medicine; Visit Provider Internal Medicine | DX: R53.1 Weakness (principal) | CPT/HCPCS: 93010 ==

== ENCOUNTER 2024-12-21 08:51 | Outpatient (AMB) | payer OTHER, SELFPAY ==
--- NOTE | 2024-12-21 09:03 | MHC.PC.OV ---
Vital Signs 12/21/24 09:04 Height 5 ft 5 in Weight 191 lb 8 oz BMI 31.9 BP 110/68 Blood Pressure Location Lt brachial Position Sitting Pulse 77 Pulse Source Pulse Oximeter Temp 97.1 F Temp Source Temporal Artery Scan Pulse Oximetry (%) 97 Oxygen Delivery Method Room Air Intake Visit Reasons: [facility] 12/14 Weakness/nauseous Intake Note: Patient is here to follow-up after a visit the emergency department at [facility] on 12/14/24 Guidance Secretary Required: Yes Guidance Secretary Language: [place] Information Interpreted: non-clinical & clinical Residential Mortgage Underwriter: Not Required per policy Accompanied by: Self / Same As Patient Allergies aspirin (ASA) Allergy (Severe, Verified 12/21/24 09:10) anaphylaxis/facial swelling ibuprofen (Advil) Allergy (Severe, Verified 12/21/24 09:10) tracheal swelling shellfish derived Allergy (Severe, Verified 12/21/24 09:10) Anaphylaxis duloxetine Adverse Reaction (Severe, Uncoded 12/21/24 09:10) body aches Medication List - Last Reconciled 12/21/24 by Rosario Roberts PA-C docusate sodium 100 mg PO BID famotidine 40 mg PO BID hyoscyamine sulfate 0.125 mg PO QID PRN loperamide (Imodium A-D) 2 mg PO Q6H PRN polyethylene glycol 3350 (Miralax) 17 grams PO DAILY PRN pregabalin 50 mg PO BEDTIME 30 days trazodone 50 mg PO BEDTIME Tobacco use date assessed: 12/21/24 Dental Screening Dental Screen Date: 12/02/24 HPI [facility] 12/14 Weakness/nauseous HPI Details 43-year-old male with past medical history of migraines, pulmonary nodules, anxiety, and depression, Crohn's disease, appendix cancer, GERD last seen by Dr. Nina 11/2024 coming in for hospital discharge follow up. In review of the notes, patient was seen in [facility] ED 12/15/2024 for nausea and vomiting workup was negative advised to follow up with Oncology and stay well hydrated. Presenting with neuropathy, metallic taste in the mouth, nausea, skin burning sensation, and weakness. Reports persistent tingling in arms and legs. Gabapentin was discontinued, and pregabalin was prescribed without significant relief. Metallic taste in mouth persistent metallic taste possibly related to past chemotherapy. Nausea Experienced during high temperatures at work, treated with antiemetics in the ER. Skin burning sensation new symptom occurring with heat or chemical exposure to pool chemicals. [facility] Medical History Abdominal pain Crohn's disease Internal hemorrhoids Cancer of appendix History of COVID-19 Physical exam Anxiety Hospital discharge follow-up Mild recurrent major depression Screen for colon cancer Pulmonary nodules Migraines Surgical History History of wisdom tooth extraction H/O umbilical hernia repair History of esophagogastroduodenoscopy (EGD) History of right hemicolectomy Hx of appendectomy Hx of colonoscopy Family History Father Colon cancer, Onset Age: 63 Liver cancer Mother Breast cancer Diabetes Hypertension Maternal Grandmother Cancer Paternal Aunt Cancer Family/Other FH: mental illness Social History Household Members: Family Housing: Apartment Are you a primary dog daycare provider to a significant other at home: No Do you presently have visiting nurse or other home services: Yes (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) Alcohol intake: never Patient Tobacco Use Status: Current someday Tobacco user Tobacco use type: Cigarette Cigarette Packs Per Day: 0.25 Cigarettes Per Day: 2 e-Cigarette/Vaping Use: Never Used Second Hand Smoke Exposure: Yes service: No Current occupational status: unemployed Cognitive needs: No Hearing needs: No Vision needs: No Questionnaire Thrive Questionnaire Date Thrive assessed: 11/25/24 I am a: Patient What is your living situation today?: I choose not to answer this question Within the past 12 months, did the food you bought not last and you didn't have the money to get more?: I choose not to answer this question Within the past 12 months, did you worry whether your food would run out before you got money to buy more?: I choose not to answer this question Do you have trouble paying for medicines?: No Do you have trouble getting transportation to medical appointments?: No Do you have trouble paying your heating and electricity bill?: No Do you have trouble taking care of your child, family member or friend?: No Do you have trouble with day-to-day activities such as bathing, preparing meals, shopping, managing finances, etc.?: Yes Are you currently unemployed and looking for a job?: No Are you interested in more education?: Yes Please select the resources that you would like help with: None Currently or been in a relationship where the following occur: No concerns reported THRIVE Score: 0 AUDIT C Alcohol Use Questionnaire (AUDIT-C) 2. How many drinks containing alcohol do you have on a typical day when you are drinking?: 1 or 2 Total Score: 0 MARCY-7 AMB Questionnaire MARCY-7 Date MARCY - 7 assessed: 12/02/24 Source: Developed by Drs. Fred Min, Linda oFx, Mirza Santiago and colleagues, with an educational emma from [email or web address] Review of Systems Const Denies body aches, Denies chills, Denies fever(s), Denies headache(s) and Denies poor appetite Eyes Reports no additional complaints ENT Denies dysphagia, Denies dizziness, Denies headache(s) and Denies odynophagia Card Denies chest pain, Denies syncope, Denies edema, Denies irregular heart rhythm, Denies lightheadedness and Denies dyspnea Resp Denies cough and Denies dyspnea GI Denies abdominal pain, Denies constipation, Denies dysphagia, Denies diarrhea, Denies nausea, Denies odynophagia and Denies vomiting Reports no additional complaints Musc Reports no additional complaints and Denies abnormal gait Skin/Breast Reports system reviewed and no additional complaints, except as documented Neuro Denies abnormal gait, Denies dizziness, Denies syncope and Denies headache(s) Psych Reports no additional complaints Physical exam (Primary Care) Vital Signs: Last Vital Signs Temp 97.1 F 12/21/24 09:04 Pulse 77 12/21/24 09:04 BP 110/68 12/21/24 09:04 Pulse Ox 97 12/21/24 09:04 Oxygen Delivery Method Room Air 12/21/24 09:04 BMI result Body Mass Index 31.9 Tobacco/Smoking Status: Tobacco use Status Tobacco use date assessed 12/21/24 12/21/24 09:09 Patient Tobacco Use Status Current someday Tobacco 12/21/24 09:03 Tobacco use type Cigarette 12/21/24 09:03 e-Cigarette/Vaping Use Never Used 12/21/24 09:03 Thrive Assessment: Date of Thrive Assessment Date Thrive assessed 11/25/24 12/21/24 09:03 Currently or been in a relationship where the following occur: No concerns reported Const General: cooperative, healthy appearing, comfortable and no acute distress Orientation/consciousness: patient oriented x3 HENMT Head: Yes normocephalic Ears: hearing grossly normal bilaterally General nose exam: Normal external nose present Eyes General: appearance normal, both eyes and all related structures Conjunctivae: conjunctivae normal Neck Neck: Yes full ROM and Yes no lymphadenopathy Resp Effort & Inspection: normal respiratory effort Auscultation: clear to auscultation bilaterally, no crackles, no rales, no rhonchi and no wheezes Cardio Rate: regular rate Rhythm: regular rhythm Skin General skin exam: no rashes or lesions noted Neuro General: patient oriented x3 Gait exam (Neuro): Normal gait present Extrem General: Yes normal to inspection, Yes full ROM and No edema Psych Affect: normal affect Attitude: cooperative Insight: Good insight present (Psych) Judgement: Good judgement present (Psych) Coding Level of Care Code Est Pt Level 3 (81354) Diagnoses 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 Anderson plan to continue to follow with her office given post chemo treatment side effects. (2) Chemotherapy-induced peripheral neuropathy: Code(s): G62.0 - Drug-induced polyneuropathy; T45.1X5A - Adverse effect of antineoplastic and immunosuppressive drugs, initial encounter Category: Medical Plan: Patient having neuropathy symptoms he is currently on pregabalin 50 mg at bedtime Plan The plan involves coordinating with Dr. Anderson to address the patient's ongoing symptoms, particularly the metallic taste and neuropathy, and to determine any necessary interventions. [place] paperwork will be considered with PCP to facilitate the patient's ability to take leave from work as needed due to health concerns. Consideration will be given to the patient's skin burning sensation, with attention to potential chemical exposure in the pool. This note was constructed using voice recognition software. While every effort has been made to ensure accuracy and assembler for puller over hand, still areas may have been included sometimes these areas may affect the content or meeting of the given symptoms. Total time spent caring for the patient today was 20 minutes. This includes time spent before the visit reviewing the chart, time spent during the visit, and time spent after the visit and documentation. Patient was informed and verbally consented to the use of an ambient scribe for clinic note documentation during this visit.
[2024-12-21 09:04] VITALS: BP 110/68; PULSE 77; TEMP 36.2; O2SAT 97; BMI 31.9
== END 2024-12-21 09:52 | disposition home or self-care (01) ==
LOC: HO.HMCH 08:51
PROVIDERS: PCP Internal Medicine
DX: C18.1 Malignant neoplasm of appendix (principal); G62.0 Drug-induced polyneuropathy; T45.1X5A Adverse effect of antineoplastic and immunosuppressive drugs, initial encounter

== ENCOUNTER → 2024-12-21 08:51 | Outpatient (BNVA) | payer OTHER, SELFPAY | PROVIDERS: PCP Internal Medicine | DX: C18.1 Malignant neoplasm of appendix (principal); G43.909 Migraine, unspecified, not intractable, without status migrainosus; R91.8 Other nonspecific abnormal finding of lung field; G62.0 Drug-induced polyneuropathy; T45.1X5A Adverse effect of antineoplastic and immunosuppressive drugs, initial encounter | CPT/HCPCS: 99212 ==

== ENCOUNTER 2025-03-21 12:21 | Outpatient (AMB) | payer OTHER, SELFPAY ==
--- NOTE | 2025-03-21 12:26 | MHC.OFFVIS ---
Vital Signs 03/21/25 12:28 Height 5 ft 5 in Weight 190 lb BMI 31.6 BP 127/77 Blood Pressure Location Lt brachial Position Sitting Pulse 91 Pulse Oximetry (%) 98 Oxygen Delivery Method Room Air Intake Visit Reasons: Crohns follow up Intake Note: Patient follow up for Crohns. Patient cc: abdominal bloating, and diarrhea on and off. Denies any other GI issues. Command Post Superintendent Required: Yes Accompanied by: Self / Same As Patient Allergies aspirin (ASA) Allergy (Severe, Verified 03/21/25 12:25) anaphylaxis/facial swelling ibuprofen (Advil) Allergy (Severe, Verified 03/21/25 12:25) tracheal swelling shellfish derived Allergy (Severe, Verified 03/21/25 12:25) Anaphylaxis duloxetine Adverse Reaction (Severe, Uncoded 12/21/24 09:10) body aches HPI HPI Crohns follow up: Details: 44 yr old m here for f/u RECAP: He had a colonoscopy with me due to FH of CRC This revealed a hyperplastic polyp and active ileitis, CTe was done which revealed an abn appenidx but no ileal inflammation he started having RLq pains and went to the ED he had appendectomy whcih 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) he had been referred to oncology dr Xavier spoke to me and felt there were changes in the mesentry consistent with crohns and IBD he does not use NSAIDs he has some pain over the lap scars, otherwise he feels well, avoiding opiates due to constipation he matta shave joint pains and psoriatic type rash from time to time, but no mouth sores he eventually had a right hemicolectomy with no residual cancer noted Capsule: gastritis cT 06/2022-- no focal findings He then had an admission for abdominal pain with tests revealing inflammation around the anastomosis his CRP came down and he was passing stool and gas d/c'ed 09/17/22 with pred tper during stay there was concern about an umbilical hernia and this was repaired fecal lactoferrin was normal He was on chemo for goblet cell adenoca of appendix --XELOX was changed to FOLFOX INTERIM: His last EGD, colonoscopy 2023 was good no inflammation he has occ nausea diarrhea every month and half he has bloating a lot appetite is fair he still has neuropathy in feet, better in hands going thru divorce so stressed EXAM: GENERAL: The patient is relaxed, VITAL SIGNS:see workflow HEENT: Nonicteric sclerae, PERRLA, EOMI. Oropharynx clear. Moist mucous membranes. Conjunctivae appear well perfused. No thyroid mass. CHEST: Chest wall is nontender. HEART: Regular rate and rhythm without murmurs. LUNGS: Clear to auscultation bilaterally. ABDOMEN: Soft, positive bowel sounds, mildly tender rlq and lower abdo, no organomegaly. , scars noted, SKIN: No rash, no excessive bruising, petechiae, or purpura. NEUROLOGIC: Cranial nerves II-XII intact without motor/sensory deficit. pscyh--nml A?P: 1/ goblet cell ca of appendix, rare cancer, had his hemicolectomy --completed chemo--in remission 2/ bouts of bloating, nausea and diarrhea PLAN: 1/ trial of cipro for 2 weeks then probiotics, if ongoing sx then trial of reglan and consider rept EGD, colo --could be dysmotility from neuropathy from chemo PFSH Medical History Abdominal pain Crohn's disease Internal hemorrhoids Cancer of appendix History of COVID-19 Physical exam Anxiety Hospital discharge follow-up Mild recurrent major depression Screen for colon cancer Pulmonary nodules Migraines Surgical History History of wisdom tooth extraction H/O umbilical hernia repair History of esophagogastroduodenoscopy (EGD) History of right hemicolectomy Hx of appendectomy Hx of colonoscopy Family History Father Colon cancer, Onset Age: 63 Liver cancer Mother Breast cancer Diabetes Hypertension Maternal Grandmother Cancer Paternal Aunt Cancer Family/Other FH: mental illness Social History Household Members: Family Housing: Apartment Are you a primary patient centered care specialist to a significant other at home: No Do you presently have visiting nurse or other home services: Yes (ART GALLERY DIRECTOR) Alcohol intake: never Patient Tobacco Use Status: Current someday Tobacco user Tobacco use type: Cigarette Cigarette Packs Per Day: 0.25 Cigarettes Per Day: 2 e-Cigarette/Vaping Use: Never Used Second Hand Smoke Exposure: Yes service: No Current occupational status: unemployed Cognitive needs: No Hearing needs: No Vision needs: No Physical Exam Vital Signs: Last Vital Signs Pulse 91 03/21/25 12:28 BP 127/77 03/21/25 12:28 Pulse Ox 98 03/21/25 12:28 Oxygen Delivery Method Room Air 03/21/25 12:28 BMI result Body Mass Index 31.6 Assessment & Plan Assessment & Plan (1) Appendix disease: Code(s): K38.9 - Disease of appendix, unspecified Category: Medical Plan: as above Medications: New ciprofloxacin HCl 500 mg PO BID 28 tabs 0RF Coding Level of Care Code Est Pt Level 3 (44628) Diagnoses Appendix disease K38.9
[2025-03-21 12:28] VITALS: BP 127/77; PULSE 91; O2SAT 98; BMI 31.6
== END 2025-03-21 12:55 | disposition home or self-care (01) ==
PROVIDERS: Visit Provider Internal Medicine Gastroenterology
DX: K38.9 Disease of appendix, unspecified (principal)
CPT/HCPCS: 99213

== ENCOUNTER → 2025-03-21 12:21 | Outpatient (BNVA) | payer OTHER, SELFPAY | PROVIDERS: Visit Provider Internal Medicine Gastroenterology | DX: C18.1 Malignant neoplasm of appendix (principal); K50.90 Crohn's disease, unspecified, without complications; R14.0 Abdominal distension (gaseous); R11.0 Nausea; R19.7 Diarrhea, unspecified | CPT/HCPCS: 99212 ==

== ENCOUNTER 2025-04-14 09:52 | Outpatient (AMB) | payer OTHER, SELFPAY ==
--- NOTE | 2025-04-14 10:01 | MHC.PC.OV ---
Vital Signs 04/14/25 10:02 Height 5 ft 5 in Weight 191 lb 8 oz BMI 31.9 BP 110/60 Blood Pressure Location Lt brachial Position Sitting Respiration 18 Pulse 78 Pulse Source Pulse Oximeter Temp 97.1 F Temp Source Temporal Artery Scan Pulse Oximetry (%) 98 Oxygen Delivery Method Room Air Intake Visit Reasons: depression Keyboard Specialist Required: No Accompanied by: Self / Same As Patient Allergies aspirin (ASA) Allergy (Severe, Verified 04/14/25 10:19) anaphylaxis/facial swelling ibuprofen (Advil) Allergy (Severe, Verified 04/14/25 10:19) tracheal swelling shellfish derived Allergy (Severe, Verified 04/14/25 10:19) Anaphylaxis duloxetine Adverse Reaction (Severe, Uncoded 04/14/25 10:19) body aches Medication List - Last Reconciled 04/14/25 by Ale Vasques MD docusate sodium 100 mg PO BID famotidine 40 mg PO BID hyoscyamine sulfate 0.125 mg PO QID PRN loperamide (Imodium A-D) 2 mg PO Q6H PRN polyethylene glycol 3350 (Miralax) 17 grams PO DAILY PRN pregabalin 50 mg PO BEDTIME 30 days trazodone 50 mg PO BEDTIME Tobacco use date assessed: 04/14/25 Dental Screening Dental Screen Date: 04/14/25 Did you have a dental visit in the last 12 months?: No Did you have a dental problem in the last 6 months where you did not have access to dental care?: No Was dental information given to patient?: No HPI HPI Comments History of Present Illness Details The patient is a 44-year-old male presenting with neuropathy and associated symptoms. The neuropathy is suspected to be a consequence of previous chemotherapy or surgery, though the exact etiology is uncertain. Symptoms include cramping and burning sensations, occasionally affecting speech, with pregabalin prescribed but not consistently used. Gastrointestinal dysmotility is also present, potentially related to neuropathy, managed with famotidine. The patient has been advised against anesthesia for procedures like colonoscopy due to potential risks. Anxiety and depression are significant concerns, with trazodone prescribed for management. Anxiety episodes can be severe, affecting the patient's daily life. [facility] Medical History Abdominal pain Crohn's disease Internal hemorrhoids Cancer of appendix History of COVID-19 Physical exam Anxiety Hospital discharge follow-up Mild recurrent major depression Screen for colon cancer Pulmonary nodules Migraines Surgical History History of wisdom tooth extraction H/O umbilical hernia repair History of esophagogastroduodenoscopy (EGD) History of right hemicolectomy Hx of appendectomy Hx of colonoscopy Family History Father Colon cancer, Onset Age: 63 Liver cancer Mother Breast cancer Diabetes Hypertension Maternal Grandmother Cancer Paternal Aunt Cancer Family/Other FH: mental illness Social History Household Members: Family Housing: Apartment Are you a primary adult day care worker to a significant other at home: No Do you presently have visiting nurse or other home services: Yes (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) Alcohol intake: never Patient Tobacco Use Status: Current someday Tobacco user Tobacco use type: Cigarette Cigarette Packs Per Day: 0.25 Cigarettes Per Day: 2 e-Cigarette/Vaping Use: Never Used Second Hand Smoke Exposure: Yes service: No Current occupational status: unemployed Cognitive needs: No Hearing needs: No Vision needs: No Questionnaire Thrive Questionnaire Date Thrive assessed: 11/25/24 I am a: Patient What is your living situation today?: I choose not to answer this question Within the past 12 months, did the food you bought not last and you didn't have the money to get more?: I choose not to answer this question Within the past 12 months, did you worry whether your food would run out before you got money to buy more?: I choose not to answer this question Do you have trouble paying for medicines?: No Do you have trouble getting transportation to medical appointments?: No Do you have trouble paying your heating and electricity bill?: No Do you have trouble taking care of your child, family member or friend?: No Do you have trouble with day-to-day activities such as bathing, preparing meals, shopping, managing finances, etc.?: Yes Are you currently unemployed and looking for a job?: No Are you interested in more education?: Yes Please select the resources that you would like help with: None Currently or been in a relationship where the following occur: No concerns reported THRIVE Score: 0 MARCY-7 AMB Questionnaire MARCY-7 Date MARCY - 7 assessed: 12/02/24 Source: Developed by Drs. Fred Min, Linda Fox, Mirza Santiago and colleagues, with an educational emma from [employer]. Review of Systems Const All systems reviewed & are unremarkable except as noted in HPI and below Card Denies chest pain at rest, Denies chest pain with activity, Denies edema, Denies irregular heart rhythm, Denies claudication, Denies dyspnea, Denies dyspnea on exertion, Denies orthopnea, Denies paroxysmal nocturnal dyspnea and Denies slow heart rate Resp Denies cough, Denies dyspnea and Denies dyspnea on exertion Physical exam (Primary Care) Vital Signs: Last Vital Signs Temp 97.1 F 04/14/25 10:02 Pulse 78 04/14/25 10:02 Resp 18 04/14/25 10:02 BP 110/60 04/14/25 10:02 Pulse Ox 98 04/14/25 10:02 Oxygen Delivery Method Room Air 04/14/25 10:02 BMI result Body Mass Index 31.9 BMI Assessment/Plan discussion: High BMI High, discussed plan: lifestyle, weight reduction, dietary and physical activity Tobacco/Smoking Status: Tobacco use Status Tobacco use date assessed 04/14/25 04/14/25 10:10 Patient Tobacco Use Status Current someday Tobacco 04/14/25 10:10 Tobacco use type Cigarette 04/14/25 10:10 e-Cigarette/Vaping Use Never Used 04/14/25 10:10 Thrive Assessment: Date of Thrive Assessment Date Thrive assessed 11/25/24 04/14/25 10:10 Currently or been in a relationship where the following occur: No concerns reported Resp Effort & Inspection: normal respiratory effort Auscultation: clear to auscultation bilaterally Cardio Jugular venous distension: no JVD Rate: regular rate Rhythm: regular rhythm Heart sounds: S1 normal heart sound present and S2 normal heart sound present Extrem General: Yes full ROM Coding Level of Care Code Est Pt Level 4 (32222) Complex EM visit Add On G2211 Diagnoses Mild recurrent major depression F33.0 Crohn's disease K50.90 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; T45.1X5A Chronic GERD K21.9 Time Spent (min) 22 Assessment & Plan Assessment & Plan (1) Mild recurrent major depression: Code(s): F33.0 - Major depressive disorder, recurrent, mild Category: Medical (2) Crohn's disease: Code(s): K50.90 - Crohn's disease, unspecified, without complications Category: Medical (3) Chemotherapy-induced peripheral neuropathy: Code(s): G62.0 - Drug-induced polyneuropathy; T45.1X5A - Adverse effect of antineoplastic and immunosuppressive drugs, initial encounter Category: Medical (4) Chronic GERD: Code(s): K21.9 - Gastro-esophageal reflux disease without esophagitis Category: Medical Plan Plan 1. Neuropathy Neuropathy management includes pregabalin, which the patient is advised to take consistently for optimal effect. 2. Gastrointestinal Dysmotility Gastrointestinal dysmotility is managed with famotidine, and the patient is advised to avoid anesthesia for procedures due to potential risks. 3. Anxiety Anxiety is managed with trazodone, and the patient is encouraged to monitor symptoms and seek further evaluation if necessary. 4. Depression Depression is also managed with trazodone, with ongoing monitoring of symptoms advised. 5. Insomnia Insomnia is addressed with trazodone, and the patient is advised to maintain a regular sleep schedule.
[2025-04-14 10:02] VITALS: BP 110/60; PULSE 78; RESP 18; TEMP 36.2; O2SAT 98; BMI 31.9
--- OUTSIDE RECORDS SUMMARY | 2025-04-14 11:25 | XMS_ITS | Clinical Summary ---
Author Organization [facility] Address [address] [place] [phone] Phone Care Team Providers Care Linux Network Administrator Name Role Phone Ale Minor MD Primary Care Provid er Allergies Active Allergy Reactions Criticality Noted Date Comments Aspirin 09/20/2021 Medications No known medications Social History Tobacco Use Types Packs/Day Years Used Date Smoking Tobacco: Every Day Smokeless Tobacco: Never Alcohol Use Standard Drinks/Week Comments Not Currently 0 (1 standard drink = 0.6 oz pur e alcohol) Education Answer Date Recorded Are you interested in more education? Not on keiko e 10/19/2022 Are you concerned about learning? Not on file 10/19/2022 No 10/19/2022 No 10/19/2022 Digital Access Answer Date Recorded No 11/17/2022 No 11/17/2022 No 11/17/2022 Reliable internet access at home? Not on file 11/17/2022 Device with a working camera? Not on file Sex and Gender Information Value Date Recorded Sex Assigned at Male 09/20/2021 6:27 PM EDT Legal Sex Male 6:11 PM EDT Gender Identity Male 09/20/2021 6:27 PM EDT Sexual Orientation Not on file Last Filed Vital Signs Vital Sign Reading Time Taken Comments Blood Pressure 110/73 09/20/2021 9:00 PM EDT Pulse 80 09/20/2021 7:22 PM EDT Temperature 36.6 C (97.9 F) 09/20/2021 6:25 PM EDT Respiratory Rate 18 09/20/2021 7:22 PM EDT Oxygen Saturation 97% 09/20/2021 9:00 PM EDT Inhaled Oxygen Concentration - - Weight 83 kg (183 lb) 09/20/2021 6:25 PM EDT Height 165.1 cm (5' 5 ) 09/20/2021 6:25 PM EDT Body Mass Index 30.45 09/20/2021 6:25 PM EDT Plan of Treatment Health Maintenance Due Date Last Done Comments Adult Td,Tdap Booster 1979 LIPID PANEL 1979 DEPRESSION SCREENING 1991 SMOKING Hx and SMOKELESS TOB ACCO SCREENING 12/23/1992 HEPATITIS C SCREENING 12/23/1997 HIV ONE-TIME SCREENING (18-6 5 YEARS) 12/23/1997 PNEUMOCOCCAL VACCINES (0-49 years) (1 of 2 - PCV) 12/23/1998 COLOGUARD 12/23/2024 COLONOSCOPY 12/23/2024 COLORECTAL CANCER SCREENING 12/23/2024 FIT TEST 12/23/2024 FOBT 12/23/2024 SIGMOIDOSCOPY 12/23/2024 VIRTUAL COLONOSCOPY 12/23/2024 INFLUENZA VACCINE (#1) 2025 COVID-19 VACCINE (1 - 2024-2 6 season) 2025 HEPATITIS A VACCINES Aged Out No long er eligible based on patient's age to complete this topic HIB VACCINES Aged Out No longer eligi ble based on patient's age to complete this topic MENINGOCOCCAL VACCINES (ACWY) Aged Out No longer eligible based on patient's age to complete this topic MENINGOCOCCAL VACCINES (B) Aged Out N o longer eligible based on patient's age to complete this topic Medical Devices Not on file Insurance [facility] Care Teams Linux Network Administrator Relationship Specialty Start Date End Date Ale Minor MD [address] [place] [address] PCP - General Internal Medicine 09/20/21 Additional Source Comments The information contained in this document represents components of the legal health record. It is not the complete legal health record.[facility]
--- OUTSIDE RECORDS SUMMARY | 2025-04-14 11:25 | XMS_ITS | Encounter Summary ---
Author Organization [facility] Address [address] [place] [phone] Phone Care Team Providers Care Metal Machine Setter Name Role Phone Ale Minor MD Primary Care Provid er Encounter Details Date Type Department Care Team (Late st Contact Info) Description 09/20/2021 Procedure Pass [facility], Ct Scan - [address] [address] Social History Tobacco Use Types Packs/Day Years Used Date Smoking Tobacco: Every Day Smokeless Tobacco: Never Alcohol Use Standard Drinks/Week Comments Not Currently 0 (1 standard drink = 0.6 oz pur e alcohol) Sex and Gender Information Value Date Recorded Sex Assigned at Male 09/20/2021 6:27 PM EDT Legal Sex Male 6:11 PM EDT Gender Identity Male 09/20/2021 6:27 PM EDT Sexual Orientation Not on file documented as of this encounter Functional Status * Calculated C-SSRS Risk Score (Lifetime/Recent) Answer Date of Assessment Author No Risk Indicated 09/20/2021 6:18 PM EDT Ashley Irby, BILLY * [place] Suicide Severity Rating Scale (Screener/Recent Self-Report) Question Answer Date of Assessment Author 1. Wish to be (Past 1 Month) No 022 6:18 PM EDT Ashley Irby, BILLY 2. Non-Specific Active Suici ferny Thoughts (Past 1 Month) No 09/20/2021 6:18 PM EDT Ashley Irby , BILLY 6. Suicidal Behavior (Lifetime) No 6:18 PM EDT Ashley Irby, BILLY documented as of this encounter Plan of Treatment Not on file documented as of this encounter Visit Diagnoses Not on filedocumented in this encounter Care Teams Metal Machine Setter Relationship Specialty Start Date End Date Ale Minor MD [address] [place] [address] PCP - General Internal Medicine 09/20/21 documented as of this encounter Additional Source Comments The information contained in this document represents components of the legal health record. It is not the complete legal health record.[facility]
--- OUTSIDE RECORDS SUMMARY | 2025-04-14 11:25 | XMS_ITS | Encounter Summary ---
Author Organization [facility] Address [address] [place] [phone] Phone Care Team Providers Care School Bus Technician Name Role Phone Ale Minor MD Primary Care Provid er Encounter Details Date Type Department Care Team (Late st Contact Info) Description 09/20/2021 Procedure Pass [facility], Ct Scan - [address] [address] Social History Tobacco Use Types Packs/Day Years [...] 6:18 PM EDT Ashley Irby, BILLY * [place] Suicide Severity Rating Scale (Screener/Recent Self-Report) Question [...] on filedocumented in this encounter Care Teams School Bus Technician Relationship Specialty Start Date End Date Ale Minor MD [address] [place] [address] PCP - General Internal Medicine 09/20/21 documented as of this encounter Additional Source Comments The information contained in this document represents components of the legal health record. It is not the complete legal health record.[facility]
== END 2025-04-14 10:34 | disposition home or self-care (01) ==
LOC: HO.HMCH 09:53
PROVIDERS: Visit Provider Internal Medicine
DX: F33.0 Major depressive disorder, recurrent, mild (principal); K50.90 Crohn's disease, unspecified, without complications; G62.0 Drug-induced polyneuropathy; T45.1X5A Adverse effect of antineoplastic and immunosuppressive drugs, initial encounter; K21.9 Gastro-esophageal reflux disease without esophagitis

== ENCOUNTER → 2025-04-14 09:52 | Outpatient (BNVA) | payer OTHER, SELFPAY | PROVIDERS: Visit Provider Internal Medicine | DX: F33.0 Major depressive disorder, recurrent, mild (principal); G62.9 Polyneuropathy, unspecified; F41.9 Anxiety disorder, unspecified; K30 Functional dyspepsia; K50.90 Crohn's disease, unspecified, without complications; G62.0 Drug-induced polyneuropathy; K21.9 Gastro-esophageal reflux disease without esophagitis; T45.1X5A Adverse effect of antineoplastic and immunosuppressive drugs, initial encounter | CPT/HCPCS: 99212 ==